=== PATIENT | female | born 1995 | race Caucasian/White ===

== ENCOUNTER 2021-12-17 19:29 | Emergency (ER) | payer OTHER, SELFPAY ==
[2021-12-17 19:38] VITALS: BP 116/66; PULSE 81; RESP 14; TEMP 37.2; O2SAT 100
--- NOTE | 2021-12-17 19:44 | ED.SKABFB ---
HPI - Skin/Abscess/Foreign Bdy General Chief complaint: Ear Stated complaint: ear infection Time Seen by Provider: 12/17/21 19:40 Source: patient Mode of arrival: ambulatory Limitations: no limitations History of Present Illness HPI narrative: Ms. Dhillon is a 26-year-old female patient presenting to the clinic today with complaints of bilateral ear pain and possible ringworm to her upper mid back. She reports that she first noticed the rash to her back yesterday. Has been fighting an upper respiratory infection and is feeling better however now she is having some bilateral ear pain. She denies any fever or chills. She denies any COVID, flu or exposure. Related Data Allergies Allergy/AdvReac Type Severity Reaction Status Date / Time No Known Allergies Allergy Unverified 12/17/21 20:05 Review of Systems Review of Systems: Pertinent positives per HPI. Patient denies any fever, chills, headache, visual changes, dizziness, cough, runny nose, sore throat, shortness of breath, chest pain, palpitations, nausea, vomiting, diarrhea, constipation, abdominal pain, or any urinary issues. PMFSH Comments At the time of my signature, I reviewed and agree with the nursing past medical, surgical, social, and family history. There is no relevant family history pertinent to the patient complaint. Exam Narrative: General: Well-developed, well nourished, in no apparent distress Head: Normocephalic, atraumatic Eyes: Pupils equally round and reactive to light bilaterally, EOM intact, sclera and conjunctive clear, no discharge, lids normal Ears: TMs intact, dull, mild bulging, ear canals clear, no drainage, grossly hearing normal. Nose: Nares patent, no discharge, no inflammation, no sinus tenderness. Mouth: Oropharynx without lesions or masses, good dentition, MMM. Neck: Supple, trachea midline, no enlargement of anterior or posterior cervical nodes, no thyroid masses or goiter palpable. Cardio: Regular rate and rhythm, s1 and s2 normal, no murmur appreciated. Resp: Clear to auscultation bilaterally anteriorly and posteriorly, no rhonchi, rales, wheezing or rubs Integumentary: [place], warm, and dry, intact without lesion, mild red/brown circular rash to the left mid back with central clearing-reports mild itching Course Course Emergency Course: Portions of this record may have been created with voice recognition software. Level of Care: Express Care Visit Vital Signs Vital signs: Vital Signs Temperature 37.2 C 12/17/21 19:38 Pulse Rate 81 12/17/21 19:38 Respiratory Rate 14 12/17/21 19:38 Blood Pressure 116/66 12/17/21 19:38 Pulse Oximetry 100 12/17/21 19:38 Temperature 37.2 C 12/17/21 19:38 Pulse Rate 81 12/17/21 19:38 Respiratory Rate 14 12/17/21 19:38 Blood Pressure 116/66 12/17/21 19:38 Pulse Oximetry 100 12/17/21 19:38 Vital signs reviewed MDM - Skin/Abscess/Foreign Bdy MDM Narrative Medical decision making narrative: At the time of visit patient is resting comfortably on the exam table. She has what appears to be a tinea corporis rash to the left mid back and eustachian tube dysfunction. I will send in a prescription for some clotrimazole cream for the ringworm and discussed other supportive measures to treat was discussed with patient and she voiced understanding of discharge instructions. Discharge Plan Discharge Clinical Impression: Tinea corporis, Acute dysfunction of both eustachian tubes Patient Disposition: Home, Self-Care Condition: Stable Instructions: Tinea Corporis (ED), Earache (ED) Additional Instructions: Apply clotrimazole cream as directed Flonase and [id number] antihistamine as directed May try [id number] Sudafed to help open up eustachian tubes Follow-up with your PCP in 3 to 5 days if symptoms persist or sooner if they worsen Prescriptions: New clotrimazole 1 % cream 1 applic topical BID 14 Days Qty: 45 RF: 0 Follow-up/Referrals:
== END 2021-12-17 19:50 | disposition home or self-care (01) ==
PROVIDERS: Emergency Provider Nurse Practitioner Family; PCP Family Medicine
DX: B35.4 Tinea corporis (principal); H69.93 Unspecified Eustachian tube disorder, bilateral
CPT/HCPCS: 99203; G0463

== ENCOUNTER 2022-09-16 18:32 | Emergency (ER) | payer MEDICAID, SELFPAY ==
[2022-09-16 18:45] VITALS: BP 115/62; PULSE 90; RESP 20; TEMP 37.6; O2SAT 100
--- NOTE | 2022-09-16 19:31 | ED.FEMALEGU ---
HPI - Female Genitourinary General Chief complaint: Urogenital-Female Stated complaint: poss yeast infection Time Seen by Provider: 09/16/22 19:31 Source: patient and RN notes reviewed Mode of arrival: ambulatory Limitations: no limitations History of Present Illness HPI Narrative: 27-year-old female presented for complaint of burning with urination, suprapubic pressure and frequency, urgency over the past 3 days. Pressure sensation is associated with urinating. Rates 4/10. She endorses nausea vomiting to , slightly worse the last 3 days. She denies vaginal bleeding. She reports slight increase in vaginal discharge, yellow/ white color. Denies abdominal pain, flank pain, fevers or chills. Denies concern for STD, stating she was just checked by OBGyn. Next OB appt is in 2 weeks. Related Data Home Medications Medication Instructions Recorded Confirmed vit no.133-ferrous 1 tablet PO DAILY 09/16/22 09/16/22 fumarate 28 mg-folic acid 800 mcg tablet () Allergies Allergy/AdvReac Type Severity Reaction Status Date / Time No Known Allergies Allergy Verified 09/16/22 19:05 Review of Systems Review of Systems: CONSTITUTIONAL: Denies body aches, fever, chills, or sweats. CARDIOVASCULAR: Denies chest pain, palpitations, or edema. RESPIRATORY: Denies cough or dyspnea. GASTROINTESTINAL: Denies abdominal pain, nausea, vomiting, or diarrhea. GENITOURINARY: Reports dysuria, frequency, urgency, denies hematuria, flank pain SKIN: Denies rash, itching, or wounds. MUSCULOSKELETAL: Denies back pain or myalgia. PMFSH Comments At time of signature, I have reviewed and agree with nursing past medical, surgical, social and family history unless otherwise noted. Please see nursing chart for further information. There is no relevant family history pertinent to the presenting complaint Exam Narrative: GENERAL: Well-appearing and in no acute distress. CHEST: No respiratory distress. Clear to auscultation. HEART: Regular rate and rhythm. ABDOMEN: Soft, nontender, Gravid. normal active bowel sounds. No CVA tenderness SKIN: Warm, dry, no rash. NEURO: No focal deficits. Alert and oriented x3. Gait steady. PSYCH: Normal affect. Course Course Emergency Course: Patient is aware of diagnosis, understands and agrees to treatment plan. Anticipatory guidance given. Patient agrees to follow-up as directed and is aware of reasons to seek care at the emergency department. Portions of this record may have been created with voice recognition software Level of Care: Express Care Visit Vital Signs Vital signs: Vital Signs Temperature 99.6 F 09/16/22 18:45 Pulse Rate 90 09/16/22 18:45 Respiratory Rate 20 09/16/22 18:45 Blood Pressure 115/62 09/16/22 18:45 Pulse Oximetry 100 09/16/22 18:45 Oxygen Delivery Room Air 09/16/22 18:45 Temperature 99.6 F 09/16/22 18:45 Pulse Rate 90 09/16/22 18:45 Respiratory Rate 20 09/16/22 18:45 Blood Pressure 115/62 09/16/22 18:45 Pulse Oximetry 100 09/16/22 18:45 Oxygen Delivery Room Air 09/16/22 18:45 Reviewed MDM - Female Genitourinary MDM Narrative Medical decision making narrative: Result of urine reviewed with pt. Will send for culture and treat empirically. Patient is advised at length possible concerning etiologies of lower abdominal pressure during . As her pressure is r/t to urination, she will continue to closely monitor symptoms and go to the ER for worsening symptoms or concerns. Advised supportive measures and signs/symptoms to go to the ER. Pt is appropriate for outpt treatment and f/u. Differential Diagnosis Differential diagnosis: Likely urinary tract infection, bacterial vaginosis, vaginitis, cystitis and other (ectopic, ovarian torsion, spontaneous , PID) Lab Data Labs: Urine Glucose Negative Reference Range: Negative
== END 2022-09-16 19:50 | disposition home or self-care (01) ==
PROVIDERS: Emergency Provider Nurse Practitioner Family; PCP Family Medicine
DX: R30.0 Dysuria (principal)
CPT/HCPCS: 81003; 87086; 99213; G0463

== ENCOUNTER 2023-03-08 06:09 | Inpatient (IN) | payer OTHER, SELFPAY ==
[2023-03-07 08:00] VITALS: BMI 23.4
[2023-03-08] VITALS (200 sets, daily range): BP systolic 90–119; BP diastolic 41–86; PULSE 45–123; RESP 16; TEMP 36.2–36.6; O2SAT 84–100
[2023-03-08 06:59] LABS: Basophils Percent Auto 0.3 % (0.2-1.2); Eosinophils Absolute Auto 0.1 K/mm3 (0-0.3); Eosinophils Percent Auto 1.2 % (0-4.4); Hematocrit 34.8 % (37.0-47.0); Hemoglobin 11.8 g/dL (12.0-15.0); Immature Granulocyte Absolute 0.05 K/mm3 (0.00-0.031); Immature Granulocyte Percent A 0.5 % (0-0.5); Lymphocytes Absolute Auto 1.86 K/mm3 (0.9-3.2); Lymphocytes Percent Auto 18.7 % (18.3-44.2); Mean Corpuscular HGB Conc 33.9 g/dl (32-36); Mean Corpuscular Hemoglobin 31.4 pg (26-34); Mean Corpuscular Volume 92.6 fl (80-100); Mean Platelet Volume 11.7 fl (7.4-10.4); Monocytes Absolute Auto 0.6 K/mm3 (0.1-0.6); Monocytes Percent Auto 6.3 % (2.6-8.5); Neutrophils Absolute Auto 7.3 K/mm3 (1.3-6.7); Platelet Count Result 142 k/mm3 (150-375); Red Blood Count 3.76 M/mm3 (4.2-5.4); Red Cell Distribution Width 12.8 % (11.5-14.5)
--- NOTE | 2023-03-08 07:05 | LDADM ---
This patient, Trina Dhillon, was admitted to Labor/Delivery/Recovery 108 on 03/08/23 at 06:09. Plans for labor, pain management and were discussed with patient. Patient/family oriented to hospital policies and general routines including ID bracelet, bed and alarms, visiting hours, pain management, procedures, bathroom and other care routines, personal items, smoking policy, room service/diet and guest tray routines, infant security routines, and visiting hours. Patient/Family are encouraged to report perceived risks to care and to ask questions if they do not understand what they are told or what they should do. See OBIX for further documentation.
[2023-03-08] MEDS: OXYTOCIN 30 UNITS/NS 500 ML 30 UNITS/500 ML BAG IV CONT (07:30)
[2023-03-08] MEDS: LACTATED RINGERS 1,000 ML 125 ML IV CONT ×3 (07:31→15:46)
--- NOTE | 2023-03-08 07:41 | WPDOBADMIT ---
Obstetrics - Admit Note Admission Note: record reviewed. No pertinent additions to the history and/or any subsequent changes in the physical findings that are not consistent with the expected course of the were found. IOL, sve 2 outer/60/-3 pitocin, anticipate vaginal delivery Additions to the history and/or subsequent changes in the physical findings follow. None.
--- NOTE | 2023-03-08 12:51 | PM.OBPNLAB ---
Pain Control Date/time seen: 03/08/23 12:51 SVE 3/60/-2 AROM moderate amount of clear odorless fluid, comfortable with epidural, FHR category 1, IUPC placed, anticipate vaginal delivery
[2023-03-08 13:49] LABS: Rapid Plasma Reagin Non-Reactive (NonReactive)
[2023-03-08] MEDS: SODIUM CHLORIDE 0.9% IV 300 ML 600 ML I-UTERINE (17:36)
[2023-03-08] MEDS: SODIUM CHLORIDE 0.9% IV 1,000 ML 150 ML I-UTERINE (18:44)
[2023-03-08] MEDS: ONDANSETRON INJ 4 MG/2 ML VIAL IV PUSH (19:05)
--- NOTE | 2023-03-08 20:01 | P.PCNOB_ITS ---
OB - Delivery Note Procedure Delivery date: 03/08/23 Procedure: Intrapartal Events: Decelerations Induction method: AROM and Per Pitocin Protocol Delivery monitor: External FHT and Internal Uterine Route of delivery: Laceration Description: None Specimen: No Quantitative Blood Loss (ml): 135 Anesthesia type: Epidural Disposition: Floor [place] Baby Date of : 03/08/23 Time of : 19:51 Weeks of gestation at delivery: 39 gender: Male presentation: vertex position: Left Occiput Anterior Placenta delivery description: Spontaneous Cord Vessel Description: 3 Vessels, Clamped/Cut and Delayed Cord Clamping score one minute: 9 score five minutes: 9 Narrative: mother and baby skin to skin in stable condition
[2023-03-08] MEDS: OXYTOCIN 30 UNITS/NS 500 ML 30 UNITS/500 ML BAG 125 UNITS IV CONT (20:23)
[2023-03-08] MEDS: IBUPROFEN 600 MG TABLET PO (21:07)
[2023-03-08] MEDS: WITCH HAZEL 40 PADS 1 PAD TOPICAL (21:08)
[2023-03-08] MEDS: BENZOCAINE 20% AER SPR (*SP) 56 GM CAN 1 SPRAY TOPICAL (21:08)
--- NOTE | 2023-03-08 22:20 | OBPPTRN ---
Patient transferred to post room #283 via wheelchair. Support person present. Oriented to unit, room, information board, rooming in, admission packet and security measures. Patient verbalizes understanding.
[2023-03-08] MEDS: ACETAMINOPHEN 325 MG TABLET 650 MG PO (22:38)
[2023-03-09 02:47] VITALS: BP 103/68; PULSE 67; RESP 16; TEMP 36.6; O2SAT 99
[2023-03-09 04:38] LABS: Hematocrit 31.6 % (37.0-47.0); Hemoglobin 10.6 g/dL (12.0-15.0)
[2023-03-09 07:35] VITALS: BP 104/71; PULSE 79; RESP 16; TEMP 36.7; O2SAT 99
[2023-03-09] MEDS: IBUPROFEN 600 MG TABLET PO ×2 (07:48→16:00)
[2023-03-09] MEDS: DOCUSATE SODIUM 100 MG CAPSULE PO ×2 (07:48→16:00)
--- NOTE | 2023-03-09 08:23 | PM.OBPNVD ---
OB - PN: Subj Subjective Date/time seen: 03/09/23 08:23 Patient comments: no complaints, pain well controlled, incisional pain, tolerating diet and flatus present OB - PN: Obj Data Labs 03/09/23 04:16 Labs: Laboratory Results - last 24 hr 03/08/23 03/09/23 06:41 04:16 Hgb 10.6 L Hct 31.6 L RPR Non-reactive OB - PN A/P Plan day: 1 Plan: routine care Comments: No problems, routine care Time Spent With Patient Time: Total time spent is greater than 50% in coordination of care (as documented) at patient's floor/unit and/or counseling patient: Exam Const: General: comfortable, no acute distress and alert Resp: Effort & Inspection: normal respiratory effort Auscultation: no crackles, no rales and no rhonchi Cardio: Rate: regular rate Heart sounds: no click, no murmurs and no rubs GI: Inspection: non-distended GI Palp: No Tenderness to palpation present (GI) Auscultation: normal bowel sounds Other: Incision - CDI Extrem: General: normal to inspection, no pedal edema and no calf tenderness
[2023-03-09] MEDS: ACETAMINOPHEN 325 MG TABLET 650 MG PO (12:20)
[2023-03-09 12:21] VITALS: BP 112/80; PULSE 63; RESP 16; TEMP 37.2; O2SAT 99
--- NOTE | 2023-03-09 14:00 | WPDANLDPN2 ---
Anes-Prog Note L&D Date/Time: 03/09/23 14:00 Comfortable throughout: labor and delivery Neuraxial method: epidural Epidural/Spinal procedure site: clean & non-tender Neuro status: Neuro function grossly intact. Cardiovascular status: normal Respiratory status: normal Airway patency: baseline Mental status: baseline Post-Op hydration status: normal Vital Signs: Last Vital Signs Temp 37.2 C 03/09/23 12:21 Pulse 63 03/09/23 12:21 Resp 16 03/09/23 12:21 BP 112/80 03/09/23 12:21 Pulse Ox 99 03/09/23 12:21 O2 Del Method Room Air 03/08/23 07:12 Pain score (VAS): 2/10 I/O: Intake & Output 03/08/23 03/09/23 03/09/23 23:59 07:59 15:59 Intake Total 500 Output Total 75 Balance 425 Post-procedural complaints: none Patient feedback: Patient satisfied with anesthetic care.
[2023-03-09 15:40] VITALS: BP 110/72; PULSE 77; RESP 16; TEMP 36.9; O2SAT 100
[2023-03-09 20:00] VITALS: BP 107/73; PULSE 73; RESP 18; TEMP 36.9
[2023-03-10 07:40] VITALS: BP 112/73; PULSE 58; RESP 18; TEMP 36.6; O2SAT 100
--- NOTE | 2023-03-10 07:40 | PM.OBPNVD ---
OB - PN: Subj Subjective Date/time seen: 03/10/23 07:40 doing well no complaints d/c home OB - PN: Obj Data Labs 03/09/23 04:16 OB - PN A/P Plan day: 2 Plan: routine care and discharge home Time Spent With Patient Time: Total time spent is greater than 50% in coordination of care (as documented) at patient's floor/unit and/or counseling patient: Review of Systems Review of Systems: All systems reviewed & are unremarkable except as noted in HPI and below Exam Const: General: cooperative Chest: Chest palpation & inspection: normal inspection of the chest Resp: Effort & Inspection: normal respiratory effort Cardio: Rate: regular rate Rhythm: regular rhythm GI: Other: soft Skin: General skin exam: normal color Neuro: General: patient oriented x3 Extrem: Right lower extremity: normal to inspection Left lower extremity: normal to inspection Psych: Appearance: grossly normal
--- NOTE | 2023-03-10 07:42 | PM.OBDSVD ---
DS: Admitting Diagnosis Discharge Date 03/10/23 Admitting Diagnosis IOL DS: Discharge Diagnosis Discharge Diagnosis (1) Vaginal delivery: Code(s): O80 - Encounter for full-term uncomplicated delivery Status: Acute OB - DS: Summary OB Procedures : None OB Procedures Intrapartum: Spontaneous Vag Delivery OB Procedures: : None Time Spent with Patient Time attestation: Total time spent providing and/or coordinating discharge services: Discharge Plan Discharge Attending physician on discharge: Edelmira Ruiz Discharging Clinician: Zuleima Olsen Patient Disposition: Home, Self-Care Activity: pelvic rest Diet: regular Patient Instructions: Antibiotic Form Stand Alone Forms: General Discharge Information Follow-up/Referrals: Zuleima Olsen CNM [Certified Nurse Application Penetration Tester] - 4 Weeks Discharge Medications: New ibuprofen 600 mg Tablet 600 mg PO Q6H PRN (Reason: Cramping) Qty: 30 0RF Continued 28-800 mg-mcg Tablet 1 tablet PO DAILY Date of admission: 03/08/23 06:09 Primary Care Provider: Ivan,Wisam Otto Admitting Provider: Edelmira Ruiz Attending physician on admission: Edelmira Ruiz Condition: Stable
[2023-03-10] MEDS: IBUPROFEN 600 MG TABLET PO (08:55)
[2023-03-11 10:09] VITALS: BP 117/66; PULSE 69; RESP 18; TEMP 37.4; O2SAT 100
== END 2023-03-10 13:01 | disposition home or self-care (01) | DRG 560 ==
LOC: ANHLDR 06:12 → ANHOB2 22:20
PROVIDERS: Advanced Practice Midwife; Admitting Provider Obstetrics & Gynecology; PCP Family Medicine; Visit Provider Obstetrics & Gynecology
DX: O76 Abnormality in fetal heart rate and rhythm complicating labor and delivery (principal); Z37.0 Single live birth; Z3A.39 39 weeks gestation of pregnancy
CPT/HCPCS: 36415; 85014; 85018; 85025; 86592; 86850; 86900; 86901; A9270; J2405; J2590; J2795; J7030; J7120

== ENCOUNTER 2023-08-01 13:07 | Outpatient (CLI) | payer OTHER, SELFPAY ==
[2023-08-01 15:09] LABS: Beta HCG Quantitative 19.65 mIU/ML
== END 2023-08-01 13:08 | disposition home or self-care (01) ==
LOC: ANHLAB 13:09
PROVIDERS: PCP Family Medicine; Visit Provider Advanced Practice Midwife
DX: O20.0 Threatened abortion (principal); Z3A.00 Weeks of gestation of pregnancy not specified
CPT/HCPCS: 36415; 84702

== ENCOUNTER 2023-08-01 19:14 | Emergency (ER) | payer OTHER, SELFPAY ==
[2023-08-01 19:15] VITALS: BP 111/78; PULSE 90; RESP 16; TEMP 36.6; O2SAT 100
--- NOTE | 2023-08-02 00:24 | PC.NURSE ---
Patient states I have already been here for 6 hours, Im not waiting for blood work now. Blood work an hour ago would have been nice . Patient eloped before seeing provider.
== END 2023-08-02 02:13 | disposition left against medical advice (07) ==
PROVIDERS: PCP Family Medicine
DX: O67.9 Intrapartum hemorrhage, unspecified (principal); Z3A.00 Weeks of gestation of pregnancy not specified
CPT/HCPCS: 99199

== ENCOUNTER 2023-08-03 17:33 | Outpatient (CLI) | payer OTHER, SELFPAY ==
[2023-08-03 21:15] LABS: Beta HCG Quantitative 31.69 mIU/ML
== END 2023-08-03 17:34 | disposition home or self-care (01) ==
LOC: ANHLAB 17:34
PROVIDERS: PCP Family Medicine; Visit Provider Obstetrics & Gynecology
DX: O20.0 Threatened abortion (principal); Z3A.00 Weeks of gestation of pregnancy not specified
CPT/HCPCS: 36415; 84702

== ENCOUNTER 2023-08-05 13:38 | Outpatient (CLI) | payer OTHER, SELFPAY ==
[2023-08-05 14:40] LABS: Beta HCG Quantitative 7.23 mIU/ML
== END 2023-08-05 13:39 | disposition home or self-care (01) ==
LOC: ANHLAB 13:40
PROVIDERS: PCP Family Medicine; Visit Provider Obstetrics & Gynecology
DX: O20.0 Threatened abortion (principal); Z3A.00 Weeks of gestation of pregnancy not specified
CPT/HCPCS: 36415; 84702

== ENCOUNTER 2024-05-11 02:29 | Inpatient (IN) | payer OTHER, SELFPAY ==
[2024-05-11] VITALS (98 sets, daily range): BP systolic 64–219; BP diastolic 30–200; PULSE 51–154; RESP 14–18; TEMP 36.5–37.2; O2SAT 95–100; BMI 23.3
--- NOTE | 2024-05-11 03:01 | LDADM ---
This patient, Trina Dhillon, was admitted to Labor/Delivery/Recovery 104 on 05/11/24 at 02:29. Plans for labor, pain management and were discussed with patient. Patient/family oriented to hospital policies and general routines including ID bracelet, bed and alarms, visiting hours, pain management, procedures, bathroom and other care routines, personal items, smoking policy, room service/diet and guest tray routines, infant security routines, and visiting hours. Patient/Family are encouraged to report perceived risks to care and to ask questions if they do not understand what they are told or what they should do. See OBIX for further documentation.
[2024-05-11 03:13] LABS: Basophils Percent Auto 0.3 % (0.2-1.2); Eosinophils Absolute Auto 0.1 K/mm3 (0-0.3); Eosinophils Percent Auto 0.7 % (0-4.4); Hematocrit 34.7 % (37.0-47.0); Hemoglobin 11.8 g/dL (12.0-15.0); Immature Granulocyte Absolute 0.06 K/mm3 (0.00-0.031); Immature Granulocyte Percent A 0.5 % (0-0.5); Lymphocytes Absolute Auto 1.94 K/mm3 (0.9-3.2); Lymphocytes Percent Auto 15.9 % (18.3-44.2); Mean Corpuscular Hemoglobin 29.4 pg (26-34); Mean Corpuscular Volume 86.3 fl (80-100); Mean Platelet Volume 11.1 fl (7.4-10.4); Monocytes Absolute Auto 0.5 K/mm3 (0.1-0.6); Monocytes Percent Auto 4.4 % (2.6-8.5); Neutrophils Absolute Auto 9.5 K/mm3 (1.3-6.7); Neutrophils Percent Auto 78.2 % (45.5-73.1); Platelet Count Result 188 k/mm3 (150-375); Red Blood Count 4.02 M/mm3 (4.2-5.4); Red Cell Distribution Width 12.8 % (11.5-14.5); White Blood Count 12.2 K/mm3 (4.5-10.0)
[2024-05-11] MEDS: LACTATED RINGERS 1,000 ML 125 ML IV CONT (03:20)
[2024-05-11] MEDS: AMPICILLIN 2 GM/NS 100 ML 2 GM/100 ML BAG IVPB (03:49)
[2024-05-11 04:05] LABS: HIV 1/2 Ab P24 Ag Result Negative (Negative)
--- NOTE | 2024-05-11 04:06 | WPDANESEPP ---
Anes - Eval Pre Procedure Procedure: Labor Epidural Date/Time: 05/11/24 04:06 Surgeon: Sara Preop Diagnosis: Labor Pain Pre Op Diagnosis: SROM Patient Data Age: 29 Gender: F Height: 1.63 m Weight: 61.63 kg Last Vital Signs Pulse 81 05/11/24 04:00 BP 117/82 05/11/24 04:00 Pulse Ox 97 05/11/24 04:01 O2 Del Method Room Air 05/11/24 02:58 Allergies Allergy/AdvReac Type Severity Reaction Status Date / Time No Known Allergies Allergy Verified 03/08/23 07:17 Home Medications Medication Instructions Recorded Confirmed Type vit no.133-ferrous 1 tablet PO DAILY 09/16/22 03/08/23 History fumarate 28 mg-folic acid 800 mcg tablet () ibuprofen 600 mg tablet 600 mg PO Q6H PRN Cramping #30 tabs 03/10/23 Rx Laboratory Tests 05/11/24 03:06 WBC 12.2 H K/mm3 (4.5-10.0) RBC 4.02 L M/mm3 (4.2-5.4) Hgb 11.8 L g/dL (12.0-15.0) Hct 34.7 L % (37.0-47.0) MCV 86.3 fl (80-100) MCH 29.4 pg (26-34) MCHC 34.0 g/dl (32-36) RDW 12.8 % (11.5-14.5) Plt Count 188 k/mm3 (150-375) MPV 11.1 H fl (7.4-10.4) Immature Gran % (Auto) 0.5 % (0-0.5) Neut % (Auto) 78.2 H % (45.5-73.1) Lymph % (Auto) 15.9 L % (18.3-44.2) Frio % (Auto) 4.4 % (2.6-8.5) Eos % (Auto) 0.7 % (0-4.4) Baso % (Auto) 0.3 % (0.2-1.2) Lymph # (Auto) 1.94 K/mm3 (0.9-3.2) Frio # (Auto) 0.5 K/mm3 (0.1-0.6) Eos # (Auto) 0.1 K/mm3 (0-0.3) Baso # (Auto) 0.0 K/mm3 (0.0-0.1) Abs Immat Gran (auto) 0.06 H K/mm3 (0.00-0.031) Absolute Neuts (auto) 9.5 H K/mm3 (1.3-6.7) Absolute Nucleated RBC 0.000 K/mm3 (0.0-0.012) Nucleated RBC % 0.0 % (0.0-0.2) RPR Pending HIV 1&2 Ab/P24 Ag 4thGn Negative (Negative) : gestational age (MIREYA 06/01/24, ) Patient hx anesthesia problems: none Family hx anesthesia problems: none Results Review: All pre-operative results and documents have been reviewed as part of the pre-operative evaluation. [facility] Family History Family History Sibling Down's syndrome Social History Social History Smoking status: Never smoker Second hand tobacco smoke exposure: No Substance use: never Do You Feel Safe in your Home?: Yes Lack of Transportation: No Lack of Food: Never True Current Housing: I Have Housing Concerned About Future Housing: No Difficulty Paying Gas/Electric Bills: No Difficulty Paying for Meds: No Currently Unemployed: No Education: High School Diploma/GED Difficulty w/ Childcare or Family Care: No Spiritual care concerns: No Exam Day of Procedure 05/11/24 04:06 Patient weight: normal Heart: regular rate and rhythm Lungs: normal air movement Airway: Mallampati scale class II Neurological: alert and oriented
[2024-05-11 04:47] LABS: Rapid Plasma Reagin Non-Reactive (NonReactive)
[2024-05-11 05:09] LABS: Amphetamine Screen Urine Negative (Negative); Barbiturate Screen Urine Negative (Negative); Benzodiazepines Screen Urine Negative (Negative); Cannabinoid Screen Urine Positive (Negative); Cocaine Screen Urine Negative (Negative); Methadone Screen Urine Negative (Negative); Opiate Screen Urine Negative (Negative); Phencyclidine Screen Urine Negative (Negative)
[2024-05-11] MEDS: SODIUM CHLORIDE 0.9% IV 300 ML 600 ML I-UTERINE (05:41)
--- NOTE | 2024-05-11 06:51 | PM.OBPRVD ---
OB - Vaginal Delivery Note Procedure Delivery date: 05/11/24 Delivery monitor: External FHT and Internal Uterine Route of delivery: Episiotomy description: None Laceration Description: None Specimen: No Quantitative Blood Loss (ml): 45 Anesthesia type: Epidural Disposition: Floor Complications: No immediate complications Baby Date of : 05/11/24 Time of : 06:43 Gestational Age by Date: 37 gender: Male presentation: vertex position: Left Occiput Anterior Placenta delivery description: Spontaneous Cord Vessel Description: 3 Vessels, Clamped/Cut and Delayed Cord Clamping score one minute: 9 score five minutes: 9
[2024-05-11] MEDS: WITCH HAZEL 40 PADS 1 PAD TOPICAL (10:18)
[2024-05-11] MEDS: IBUPROFEN 600 MG TABLET PO ×2 (11:09→17:26)
[2024-05-11] MEDS: DOCUSATE SODIUM 100 MG CAPSULE PO ×2 (11:09→17:26)
[2024-05-11] MEDS: ONDANSETRON INJ 4 MG/2 ML VIAL (11:10)
--- NOTE | 2024-05-11 11:46 | OBPPTRN ---
Patient transferred to post room #289 via ( wheelchair). Support person present. Oriented to unit, room, information board, rooming in, admission packet and security measures. Patient verbalizes understanding.
[2024-05-11] MEDS: ACETAMINOPHEN 325 MG TABLET 650 MG PO ×2 (13:30→19:04)
[2024-05-12 03:50] VITALS: BP 101/48; PULSE 51; RESP 16; TEMP 36.6; O2SAT 99
[2024-05-12 05:21] LABS: Hematocrit 28.9 % (37.0-47.0); Hemoglobin 9.8 g/dL (12.0-15.0)
[2024-05-12] MEDS: DOCUSATE SODIUM 100 MG CAPSULE PO ×2 (07:20→17:13)
[2024-05-12] MEDS: POLYSACCHARIDE IRON COMPLEX 150 MG CAPSULE PO ×2 (07:20→17:13)
[2024-05-12] MEDS: ACETAMINOPHEN 325 MG TABLET 650 MG PO ×2 (07:21→17:13)
[2024-05-12 07:49] VITALS: BP 110/78; PULSE 72; RESP 18; TEMP 36.4; O2SAT 100
[2024-05-12] MEDS: IBUPROFEN 600 MG TABLET PO (08:47)
--- NOTE | 2024-05-12 08:58 | PM.OBPNVD ---
OB - PN: Subj Subjective Date/time seen: 05/12/24 08:58 Patient comments: no complaints, pain well controlled, incisional pain, tolerating diet and flatus present OB - PN: Obj Data Labs 05/12/24 05:12 Labs: Laboratory Results - last 24 hr 05/12/24 05:12 Hgb 9.8 L Hct 28.9 L OB - PN A/P Plan day: 1 Plan: routine care Comments: No problems, routine care Time Spent With Patient Time: Total time spent is greater than 50% in coordination of care (as documented) at patient's floor/unit and/or counseling patient: Exam Const: General: comfortable, no acute distress and alert Resp: Effort & Inspection: normal respiratory effort Auscultation: no crackles, no rales and no rhonchi Cardio: Rate: regular rate Heart sounds: no click, no murmurs and no rubs GI: Inspection: non-distended GI Palp: No Tenderness to palpation present (GI) Auscultation: normal bowel sounds Other: Incision - CDI Extrem: General: normal to inspection, no pedal edema and no calf tenderness
[2024-05-12 20:00] VITALS: BP 109/69; PULSE 88; RESP 16; TEMP 37.2; O2SAT 99
[2024-05-13 07:40] VITALS: BP 104/63; PULSE 63; RESP 16; TEMP 36.3; O2SAT 100
--- NOTE | 2024-05-13 08:49 | PM.OBPNVD ---
OB - PN: Subj Subjective Date/time seen: 05/13/24 08:49 Interval history: PPD #2 Doing well, pain controlled Voiding without issue Ready for discharge home OB - PN: Obj Data Labs 05/12/24 05:12 OB - PN A/P Assessment and Plan (1) Vaginal delivery: Code(s): O80 - Encounter for full-term uncomplicated delivery Status: Acute Plan day: 1 Plan: routine care and discharge home Time Spent With Patient Time: Total time spent is greater than 50% in coordination of care (as documented) at patient's floor/unit and/or counseling patient: Review of Systems Review of Systems: All systems reviewed & are unremarkable except as noted in HPI and below Exam Const: General: comfortable and no acute distress Orientation/consciousness: patient oriented x3 Resp: Effort & Inspection: normal respiratory effort
--- NOTE | 2024-05-13 08:51 | P.DS_ITS ---
DS: Admitting Diagnosis Discharge Date 05/13/24 Admitting Diagnosis labor DS: Discharge Diagnosis Discharge Diagnosis (1) Vaginal delivery: Code(s): O80 - Encounter for full-term uncomplicated delivery Status: Acute OB - DS: Summary OB Procedures : None OB Procedures Intrapartum: Spontaneous Vag Delivery OB Procedures: : None Peripartum Data Laceration Description: None Episiotomy description: None Time Spent with Patient Time attestation: Total time spent providing and/or coordinating discharge services: Discharge Plan Discharge Attending physician on discharge: Benjamin Israel Consulting providers: Zuleima Olsen Discharging Clinician: Benjamin Israel Patient Disposition: Home, Self-Care Activity: may shower and pelvic rest Diet: as tolerated Patient Instructions: Antibiotic Form Stand Alone Forms: General Discharge Information Follow-up/Referrals: Orion Ruiz MD [Physician] - 5 Weeks Zuleima Olsen CNM [Certified Nurse Motion Picture Operator] - Discharge Medications: New docusate sodium 100 mg Capsule 100 mg PO BID PRN (Reason: Constipation) Qty: 60 0RF ibuprofen 600 mg Tablet 600 mg PO Q6H PRN (Reason: Cramping) Qty: 30 0RF Continued 28-800 mg-mcg Tablet 1 tablet PO DAILY Discontinued ibuprofen 600 mg Tablet 600 mg PO Q6H PRN (Reason: Cramping) Qty: 30 0RF Date of admission: 05/11/24 02:29 Primary Care Provider: Ivan,Wisam Otto Admitting Provider: Orion Ruiz Attending physician on admission: Orion Ruiz Condition: Stable
[2024-05-13] MEDS: POLYSACCHARIDE IRON COMPLEX 150 MG CAPSULE PO (09:00)
[2024-05-13] MEDS: IBUPROFEN 600 MG TABLET PO (09:00)
[2024-05-13] MEDS: DOCUSATE SODIUM 100 MG CAPSULE PO (09:00)
[2024-05-14 12:45] VITALS: BP 101/72; PULSE 101; RESP 18; TEMP 37.1; O2SAT 100
== END 2024-05-13 14:09 | disposition home or self-care (01) | DRG 560 ==
LOC: ANHLDR 02:56 → ANHOB2 05-13 08:51 → ANHLDR 05-14 10:44 → ANHOB2 05-14 10:44
PROVIDERS: Advanced Practice Midwife; Admitting Provider Obstetrics & Gynecology; PCP Family Medicine; Visit Provider Obstetrics & Gynecology
DX: O69.82X0 Labor and delivery complicated by other cord entanglement, without compression, not applicable or unspecified (principal); Z37.0 Single live birth; Z3A.37 37 weeks gestation of pregnancy
CPT/HCPCS: 36415; 80307; 85014; 85018; 85025; 86592; 86703; 86850; 86900; 86901; A9270; G0432; J0290; J2405; J2795; J7030; J7120

== ENCOUNTER 2025-06-06 11:49 | Observation (INO) | payer OTHER, SELFPAY ==
--- NOTE | ~2025-06-06 | US_ITS ---
EXAMINATION: US OB BPP wo non-stress DATE: 06/06/2025 13:42 INDICATION: Contractions and variable decelerations TECHNIQUE: Real-time pelvic ultrasound was performed. The interpreting radiologist was not present for the study. COMPARISON: None. FINDINGS: There is a single living fetus in vertex presentation. The placenta is posterior. cardiac activity and movement are demonstrated. heart rate is 146 beats per minute (bpm). Cervical length measures 4.99 cm. BHAVNA equals 10.6 cm. IMPRESSION: 1. Single living intrauterine in vertex presentation with heart rate of with heart rate of 146 bpm. 2. Cervical length measures 4.99 cm. Reviewed, dictated and finalized at location Q. ICAL BLENDER
--- NOTE | ~2025-06-06 | US_ITS ---
Please see the OB ultrasound study report from 06/06/2025 for this study's report. Reviewed, dictated and finalized at location Q. 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
[2025-06-06 12:07] VITALS: BMI 24.0
--- NOTE | 2025-06-06 12:07 | OBADM ---
This patient, Trina Dhillon, admitted to the OB room OB Post 116 for observation. Patient/family oriented to hospital policies and general routines including ID bracelet, bed and alarms, visiting hours, pain management, procedures, bathroom and other care routines, personal items, smoking policy, room service/diet, and visiting hours. Patient/Family are encouraged to report perceived risks to care and to ask questions if they do not understand what they are told or what they should do.
[2025-06-06 12:15] VITALS: BP 113/65; PULSE 89
[2025-06-06 12:16] LABS: Add Urine Microscopic? NO; Appearance Urine Clear (Clear); Glucose Urine UA Negative (Negative); Leukocyte Esterase Ur Negative LEU/UL (Negative); Nitrate Urine Negative (Negative); Specific Grav Ur 1.009 (1.001-1.035)
--- OUTSIDE RECORDS SUMMARY | 2025-06-06 12:21 | XMS_ITS | Continuity of Care Document ---
Author Organization [facility] Address [address] [place] [address] [place] [address] Assessment Encounter Date Assessment Date Assessment LastModified by Organization Details LastModified Time 06/06/2025 06/06/2025 Patient is _32__weeks . Discussed plan. Not available 06/06/2025 12:02:14 Plan of Treatment Reminders Order Date Submit Date Provider Last Modified By Organization Details Last Modified Time Details Appointments OB ROUTINE 2024 10:45A M Zuleima Olsen CNM Not available Not available Not available NST 2024 11:00A M NST SCHEDULE Not available Not available Not available OB ROUTINE 2024 08:45A M Zuleima Olsen CNM Not available Not available Not available OB ROUTINE 2024 10:15A M Zuleima Olsen CNM Not available Not available Not available Lab None recorded . Referral None recorded . Procedures None recorded . Surgeries None recorded . Imaging None recorded . Medication Orders None recorded . Patient TargetsNo targets recorded. Patient InstructionsNo instructions recorded. Reason for Referral None Reported. Results Created Date Observation Date Name Description Value Unit Range Abnormal Flag Note LastModifiedBy Organization Detail LastModifiedTime 01/23/2001/22/2025 [UNIT Y] ANEUP LOIDY NIPT fraction 9.8% normal Not Available [facility] [address], [place], [address], 01/22/2025 22:58:15 01/23/20 25 01/22/2025 [UNIT Y] ANEUP LOIDY NIPT 22Q11.2 microdeletio n LOW RISK <1 in 10,000 normal Not Available [facility] [address], [place], [address], 01/22/2025 22:58:15 01/23/20 25 01/22/2025 [UNIT Y] ANEUP LOIDY NIPT sex chromosome aneuploidy NOT DETECT ED normal Not Available [facility] [address], [place], [address], 01/22/2025 22:58:15 01/23/20 25 01/22/2025 [UNIT Y] ANEUP LOIDY NIPT monosomy X LOW RISK <1 in 10,000 normal Not Available [facility] [address], [place], [address], 01/22/2025 22:58:15 01/23/20 25 01/22/2025 [UNIT Y] ANEUP LOIDY NIPT trisomy 13 LOW RISK <1 in 10,000 normal Not Available [facility] [address], [place], [address], 01/22/2025 22:58:15 01/23/20 25 01/22/2025 [UNIT Y] ANEUP LOIDY NIPT trisomy 18 LOW RISK <1 in 10,000 normal Not Available [facility] [address], [place], [address], 01/22/2025 22:58:15 01/23/20 25 01/22/2025 [UNIT Y] ANEUP LOIDY NIPT trisomy 21 LOW RISK <1 in 10,000 normal Not Available [facility] [address], [place], [address], 01/22/2025 22:58:15 01/23/20 25 01/22/2025 [UNIT Y] ANEUP LOIDY NIPT sex MALE normal Not Available [facility] [address], [place], [address], 01/22/2025 22:58:15 01/23/20 25 01/22/2025 [UNIT Y] ANEUP LOIDY NIPT gestation SINGLE TON normal Not Available [facility] [address], [place], [address], 01/22/2025 22:58:15 01/23/20 25 01/22/2025 [UNIT Y] ANEUP LOIDY NIPT for detailed report, see pdf See PDF normal Not Available [facility] [address], [place], [address], 01/22/2025 22:58:15 01/18/20 25 01/17/2025 CULTU RE: URINE result report SEE RESULT S BELOW abnormal Test: Cultu re: Urine Speci men Sourc e: Urine Voide d Speci men Type: Urine Speci men Date: 2024 1622 Resul t Date: 2024 0142 Resul t Statu s: Final resul t Abnor mal: Yes Resul josé miguelg Lab: [facility] [address] [facility] [address] Tel: CULTU RE ----- ----- ----- --- 1,000 -5,00 0 CFU/m l Strep tococ cus agala ctiae (Grou p B) (Abno rmal) Strep tococ cus agala ctiae (Beta strep Group B Strep ) remai ns unive rsall y susce ptibl e to penic illin , cefaz zack and vanco mycin . If clind amyci n is being consi dered for intra partu m proph ylaxi s, pleas e conta ct the lab withi n 5 days. Not Available [facility] (Lab) [address], [place], [address], 01/19/2025 02:46:33 01/18/20 25 01/17/2025 CBC W/DIF F WBC 8.1 10'3/ uL 3.5-10 .5 Not Available [facility] (Lab) [address], [place], [address], 01/20/2025 12:18:01 01/18/20 25 01/17/2025 CBC W/DIF F RBC 3.68 10'6/ uL (based on docume nted legal sex) 3.80-5 .20 low Not Available [facility] (Lab) [address] [facility], [place], [address], 01/20/2025 12:18:01 01/18/20 25 01/17/2025 CBC W/DIF F HGB 10.4 g/dL (based on docume nted legal sex) 11.6-1 5.4 low Not Available [facility] (Lab) [address], [place], [address], 01/20/2025 12:18:01 01/18/20 25 01/17/2025 CBC W/DIF F HCT 32.2 % (based on docume nted legal sex) 34.0-4 5.0 low Not Available [facility] (Lab) [address], [place], [address], 01/20/2025 12:18:01 01/18/20 25 01/17/2025 CBC W/DIF F MCV 87.5 fL 80.0-9 9.0 Not Available [facility] (Lab) [address] [facility], [place], [address], 01/20/2025 12:18:01 01/18/20 25 01/17/2025 CBC W/DIF F MCH 28.3 pg 27.0-3 4.0 Not Available [facility] (Lab) [address] [facility], [place], [address], 01/20/2025 12:18:01 01/18/20 25 01/17/2025 CBC W/DIF F MCHC 32.3 g/dL 32.0-3 5.5 Not Available [facility] (Lab) [address] [place], [address], 01/20/2025 12:18:01 01/18/20 25 01/17/2025 CBC W/DIF F RDW 14.5 % 11.0-1 5.0 Not Available [facility] (Lab) [address], [place], [address], 01/20/2025 12:18:01 01/18/20 25 01/17/2025 CBC W/DIF F plt 157 10'3/ uL 150-40 0 Not Available [facility] (Lab) [address] [facility], [place], [address], 01/20/2025 12:18:01 01/18/20 25 01/17/2025 CBC W/DIF F MPV 12.7 fL 8.8-12 .1 high Not Available [facility] (Lab) [address] [facility], [place], [address], 01/20/2025 12:18:01 01/18/20 25 01/17/2025 CBC W/DIF F NRBC's 0.0 % 0.0 Not Available [facility] (Lab) [address] [facility], [place], [address], 01/20/2025 12:18:01 01/18/20 25 01/17/2025 CBC W/DIF F absolute NRBCs 0.0 10'3/ uL no refere nce range establ ished Not Available [facility] (Lab) [address] [facility], [place], [address], 01/20/2025 12:18:01 01/18/20 25 01/17/2025 CBC W/DIF F neutrophils 73.9 % 34.0-7 3.0 high Not Available [facility] (Lab) [address] [facility], [place], [address], 01/20/2025 12:18:01 01/18/20 25 01/17/2025 CBC W/DIF F lymphocytes 21.1 % 15.0-5 0.0 Not Available [facility] (Lab) [address] [facility], [place], [address], 01/20/2025 12:18:01 01/18/20 25 01/17/2025 CBC W/DIF F monocytes 4.1 % 1.0-15 .0 Not Available [facility] (Lab) [address] [facility], [place], [address], 01/20/2025 12:18:01 01/18/20 25 01/17/2025 CBC W/DIF F eosinophils 0.5 % 0.0-8. 0 Not Available [facility] (Lab) [address] [facility], [place], [address], 01/20/2025 12:18:01 01/18/20 25 01/17/2025 CBC W/DIF F basophils 0.2 % 0.0-2. 0 Not Available [facility] (Lab) [address] [facility], [place], [address], 01/20/2025 12:18:01 01/18/20 25 01/17/2025 CBC W/DIF F immature granulocytes 0.2 % no define d refere nce range Immat ure Granu locyt es (IG) repre sents autom ated enume ratio n of Metam yeloc ytes, Myelo cytes and Promy elocy glo when IG is < 5%. Blast s are not inclu ded in IG and repor alfonso separ ately if prese nt. Not Available [facility] (Lab) [address], [place], [address], 01/20/2025 12:18:01 01/18/20 25 01/17/2025 CBC W/DIF F absolute neutrophils 6.0 10'3/ uL 1.5-8. 0 Not Available [facility] (Lab) [address] [facility], [place], [address], 01/20/2025 12:18:01 01/18/20 25 01/17/2025 CBC W/DIF F absolute lymphocytes 1.7 10'3/ uL 1.0-4. 0 Not Available [facility] (Lab) [address] [facility], [place], [address], 01/20/2025 12:18:01 01/18/20 25 01/17/2025 CBC W/DIF F absolute monocytes 0.3 10'3/ uL 0.2-1. 0 Not Available [facility] (Lab) [address] [place], [address], 01/20/2025 12:18:01 01/18/20 25 01/17/2025 CBC W/DIF F absolute eosinophils 0.0 10'3/ uL 0.0-0. 6 Not Available [facility] (Lab) [address] [facility], [place], [address], 01/20/2025 12:18:01 01/18/20 25 01/17/2025 CBC W/DIF F absolute basophils 0.0 10'3/ uL 0.0-0. 3 Not Available [facility] (Lab) [address] [facility], [place], [address], 01/20/2025 12:18:01 01/18/20 25 01/17/2025 CBC W/DIF F absolute immature granulocytes 0.0 10'3/ uL 0.00-0 .10 : Not Hispa zohaib or Latin o Refer ence range s for nonbi nary/ inter sex or unspe cifie d gende r patie nts have not been estab lishe d. Pleas e refer to the ludwino wing table for range s estab lishe d for cisge nder patie nts and evalu ate in the clini gogo fili xt of the indiv idual patie nt: https ://la bhand book. nm.or g/gen derx Not Available [facility] (Lab) [address] [facility], [place], [address], 01/20/2025 12:18:01 01/18/20 25 01/17/2025 HEPAT ITIS B SURFA CE ANTIG EN hepatitis B surface antigen Non-re active non-re active This assay was perfo rmed using [employer] ratio n reage nts and test kits. Value s obtai sue with other assay metho ds or kits canno t be used inter lund eably . : Not Hispa zohaib or Latin o Not Available [facility] (Lab) [address] [facility], [place], [address], 01/20/2025 12:18:02 01/18/20 25 01/17/2025 HEPAT ITIS C ANTIB TOM SCREE N, REFLE X TO CONFI RMATI ON hepatitis C antibody Non-re active non-re active Antib odies to HCV Not Detec alfonso, does not exclu de the possi bilit y of expos ure to HCV. : Not Hispa zohaib or Latin o Not Available [facility] (Lab) [address] [facility], [place], [address], 01/20/2025 12:18:02 01/18/20 25 01/17/2025 HIV 1/2 ANTIG EN/AN TIBOD Y, REFLE X CONFI RMATI ON HIV antigen/anti body Nonrea ctive nonrea ctive : Not Hispa zohaib or Latin o HIV-1 antig en and HIV-1 /HIV- 2 antib odies were not detec alfonso. No labor atory evide nce of HIV infec tion. Not Available [facility] (Lab) [address] [facility], [place], [address], 01/20/2025 12:18:03 01/18/20 25 01/17/2025 TYPE/ RH/SC REEN ABO/Rh type O POS Not Available [facility] (Lab) [address], [place], [address], 01/20/2025 12:18:03 01/18/20 25 01/17/2025 TYPE/ RH/SC REEN antibody screen NEG Not Available [facility] (Lab) [address] [facility], [place], [address], 01/20/2025 12:18:03 01/18/20 25 01/17/2025 TYPE/ RH/SC REEN exp date 2024 23:59 Not Available [facility] (Lab) [address] [facility], [place], [address], 01/20/2025 12:18:03 01/18/20 25 01/17/2025 RUBEL LA IGG ANTIB TOM, QUANT rubella antibodies, IgG Reacti ve reacti ve Not Available [facility] (Lab) [address] [facility], [place], [address], 01/20/2025 12:18:04 01/18/20 25 01/17/2025 RUBEL LA IGG ANTIB TOM, QUANT rubella antibodies, IgG quant 12.2 IU/mL >=10 : Not Hispa zohaib or Latin o Non-r eacti ve (Non- Immun e) <10 IU/mL React nesha (Immu ne) > or = 10 IU/mL Not Available [facility] (Lab) [address] [facility], [place], [address], 01/20/2025 12:18:04 01/18/20 25 01/17/2025 RPR SCREE N, REFLE X TITER /CONF IRMAT ION RPR qualitative Nonrea ctive nonrea ctive : Not Hispa zohaib or Latin o Not Available [facility] (Lab) [address] [facility], [place], [address], 01/20/2025 12:18:04 01/18/20 25 01/17/2025 HEMOG LOBIN A1C hemoglobin A1C 5.0 % 4.0-5. 6 : Not Hispa zohaib or Latin o The Ameri can Diabe glo Assoc iatio n recom mends that a prima ry goal of thera py jose alfredo d be a HBA1C of < 7% and that physi cians jose alfredo d reeva luate the treat ment regim en in patie nts with HBA1C value s consi stent ly > 8%. <5.7% Kimmie l 5.7 - 6.4% Incre ased risk for diabe glo >=6.5 % Diagn ostic of diabe glo <7.0% Goal of thera py >8.0% Actio n sugge sted Not Available [facility] (Lab) [address] [facility], [place], [address], 01/20/2025 12:18:04 01/18/20 25 01/17/2025 LEAD, BLOOD (ADUL T/PED IATRI C) lead, whole blood <1.0 mcg/d L <3.5 See Note 1 Antonio sis was perfo rmed by Jimbo Conroy ed Plasm a Mass Spect romet ry (ICPM S) Note 1 This test was devel oped and its antonio tical perfo rmanc e jenaro cteri stics have been deter mined by [facility]. It has not been clear ed or appro dolores by the FDA. This assay has been valid ated pursu ant to the CLIA regul ation s and is used for clini gogo purpo ses. : Not Hispa zohaib or Latin o Perfo rming Organ izati on Infor matcharlie n: Site ID: [id number] Name: [facility]-Aleksandr Boyle Addre ss: [id number] [place] [address] Direc tor: Antho ny V Betsy s Not Available [facility] (Lab) [address] [facility], [place], [address], 01/20/2025 12:18:05 01/18/20 25 01/17/2025 drug scree n, urine Amphetamines : negati ve Not Available [facility] [address], [place], [address], 01/17/2025 10:30:22 01/18/20 25 01/17/2025 drug scree n, urine Cannabinoids : negati ve Not Available [facility] [address], [place], [address], 01/17/2025 10:30:22 01/18/20 25 01/17/2025 drug scree n, urine Cocaine: negati ve Not Available [facility] [address], [place], [address], 01/17/2025 10:30:22 01/18/20 25 01/17/2025 drug scree n, urine Opiates: negati ve Not Available [facility] [address], [place], [address], 01/17/2025 10:30:22 01/18/20 25 01/17/2025 drug scree n, urine Phenocyclidi ne: negati ve Not Available [facility] [address], [place], [address], 01/17/2025 10:30:22 01/18/20 25 01/17/2025 drug scree n, urine Barbiturates : negati ve Not Available [facility] [address], [place], [address], 01/17/2025 10:30:22 01/18/20 25 01/17/2025 drug scree n, urine Benzodiazepi sabrina: negati ve Not Available [facility] [address], [place], [address], 01/17/2025 10:30:22 01/18/20 25 01/17/2025 drug scree n, urine Ethanol: negati ve Not Available [facility] [address], [place], [address], 01/17/2025 10:30:22 01/18/20 25 01/17/2025 drug scree n, urine Hallucinogen s: negati ve Not Available [facility] [address], [place], [address], 01/17/2025 10:30:22 01/18/20 25 01/17/2025 drug scree n, urine Inhalants: negati ve Not Available [facility] [address], [place], [address], 01/17/2025 10:30:22 01/18/20 25 01/17/2025 drug scree n, urine Anabolic Steroids: negati ve Not Available [facility] [address], [place], [address], 01/17/2025 10:30:22 01/18/20 25 01/17/2025 drug scree n, urine Other: positi ve Not Available [facility] [address], [place], [address], 01/17/2025 10:30:22 05/09/20 25 05/09/2025 HEMOG LOBIN (HGB) HGB 9.6 g/dL (based on docume nted legal sex) 11.6-1 5.4 low Not Available [facility] (Lab) [address] [facility], [place], [address], 05/12/2025 14:37:31 05/09/20 25 05/09/2025 HEMAT OCRIT (HCT) HCT 30.4 % (based on docume nted legal sex) 34.0-4 5.0 low Not Available [facility] (Lab) [address] [facility], [place], [address], 05/12/2025 14:37:32 05/09/20 25 05/09/2025 GTT - GESTA SINDHU L SASKIA N, ACOG OB glucose, 1 hour screen 70 mg/dL 70-135 Not Available [facility] (Lab) [address] [facility], [place], [address], 05/12/2025 14:37:32 05/09/20 25 05/09/2025 HIV 1/2 ANTIG EN/AN TIBOD Y, REFLE X CONFI RMATI ON HIV antigen/anti body Nonrea ctive nonrea ctive HIV-1 antig en and HIV-1 /HIV- 2 antib odies were not detec alfonso. No labor atory evide nce of HIV infec tion. Not Available [facility] (Lab) [address], [place], [address], 05/12/2025 14:37:32 05/09/20 25 05/09/2025 RPR SCREE N, REFLE X TITER /CONF IRMAT ION RPR qualitative Nonrea ctive nonrea ctive Not Available [facility] (Lab) [address] [facility], [place], [address], 05/12/2025 14:37:33 05/09/2005/09/2025 urina lysis , dipst ick Leukocytes trace Not Available [facility] [address], [place], [address], 05/09/2025 14:43:51 05/09/2005/09/2025 urina lysis , dipst ick Nitrite neg Not Available [facility] [address], [place], [address], 05/09/2025 14:43:51 05/09/2005/09/2025 urina lysis , dipst ick Urobilinogen norm Not Available [facility] [address], [place], [address], 05/09/2025 14:43:51 05/09/2005/09/2025 urina lysis , dipst ick Protein trace Not Available [facility] [address], [place], [address], 05/09/2025 14:43:51 05/09/2005/09/2025 urina lysis , dipst ick pH 5 Not Available [facility] [address], [place], [address], 05/09/2025 14:43:51 05/09/20 25 05/09/2025 urina lysis , dipst ick Specific Greene 1.015 Not Available [facility] [address], [place], [address], 05/09/2025 14:43:51 05/09/20 25 05/09/2025 urina lysis , dipst ick Ketone trace Not Available [facility] [address], [place], [address], 05/09/2025 14:43:51 05/09/20 25 05/09/2025 urina lysis , dipst ick Bilirubin nor Not Available [facility] [address], [place], [address], 05/09/2025 14:43:51 05/09/20 25 05/09/2025 urina lysis , dipst ick Glucose neg Not Available [facility] [address], [place], [address], 05/09/2025 14:43:51 05/09/2005/09/2025 urina lysis , dipst ick Appearance clear Not Available [facility] [address], [place], [address], 05/09/2025 14:43:51 05/09/2005/09/2025 urina lysis , dipst ick Color yellow Not Available [facility] [address], [place], [address], 05/09/2025 14:43:51 01/18/20 25 01/17/2025 US, scottie diaz nucha l trans lucen cy No observ ation record ed. [facility] [address], [place], [address], 01/17/2025 17:27:13 01/18/20 25 01/17/2025 , scottie diaz follo w-up No observ ation record ed. [email or web address] [address], [place], [address], 01/21/2025 15:12:49 03/12/20 25 03/12/2025 US, obste tric, 2nd or 3rd trime ster No observ ation record ed. [facility] [address], [place], [address], 03/12/2025 18:48:30 03/12/2003/12/2025 US, obste tric, 2nd or 3rd trime ster No observ ation record ed. [email or web address] [address], [place], [address], 03/14/2025 09:40:30 04/11/2004/11/2025 US, obste tric, follo w-up No observ ation record ed. [facility] [address], [place], [address], 04/11/2025 17:08:07 04/11/2004/11/2025 US, obste tric, follo w-up No observ ation record ed. [email or web address] [address], [place], [address], 04/15/2025 06:50:04 05/09/2005/09/2025 US, obste tric, follo w-up No observ ation record ed. [facility] [address], [place], [address], 05/09/2025 16:53:22 05/09/2005/09/2025 US, obste tric, follo w-up No observ ation record ed. [email or web address] [address], [place], [address], 05/12/2025 12:19:00 06/05/20 25 06/05/2025 US, obste tric, follo w-up No observ ation record ed. [address], [place], [address], 06/05/2025 15:11:40 06/05/20 25 06/05/2025 US, obste tric, follo w-up No observ ation record ed. [email or web address] [address], [place], [address], 06/05/2025 17:56:42 Result Notes None recorded. Problems Name Problem SNOMED Code Status Onset Date Resolution Date Notes Provider Name and Address Organization Details Recorded Time Group B Streptoc occus carrier 8090317308 103 Completed h/o in first preg. Renee Torres MD [address], [place], [address], [facility] 3 10:33:02 Ultrasou nd scan abnormal [id number] Completed subamnio tic hemorrha ge - rpt u/s schd 01/04/23- wnl at [facility]. no FU needed. Marvin cabrera [facility] 3 16:42:26 Uterine size for dates discrepa ncy [id number] Completed already doing growth at [facility] Marvin cabrera [facility] 3 16:42:26 Venous conroy [id number] Completed placenta - 02/21/24 9am u/s only. REBECCA MENA MD [address], [place], [address], [facility] 4 11:34:29 Placenta circumva llata 0222826 Completed REBECCA MENA MD [address], [place], [address], [facility] 4 11:34:29 Pregnanc y 54576557 Completed 202203/13/2023 Chaya cabrera, [facility] 5 10:31:09 Pregnanc y 74769770 Completed 202305/27/2024 Chaya cabrera [facility] 5 10:31:09 Pregnanc y 06541133 Active 2024 Chaya cabrera [facility] 5 10:31:09 Group B Streptoc occus carrier 0665005085 103 Active 2024 + GBS in urine Tiara Alarcon rick [facility] 5 17:54:31 Problem Notes None recorded. Procedures Surgical History Date Name Laterality Status Provider Name and Address Organization Details Recorded Time 05/05/20 23 Date of Last Pap Smear completed Iveth Guevara [facility] 05/23/2025 14:51:22 02/29/20 22 IUD Removal completed STEPHANIE Acevedo [address], [place], [address], [facility] 02/28/2022 09:46:01 02/10/20 21 Colposcopy completed Chaya Marley [facility] 01/17/2025 10:28:24 02/10/20 21 cervical biopsy completed Chayaondina Marley [facility] 07/27/2022 10:28:55 07/31/19 20 extraction of wisdom tooth completed Chayaondina Marley [facility] 07/27/2022 10:28:13 07/31/19 18 Date of Last Colonoscopy completed Chayaondina Marley [facility] 07/27/2022 10:27:19 07/31/19 18 [facility]/27/2022 10:28:04 Imaging Results None recorded. Procedure Notes None recorded. Medical Equipment None Reported. Allergies No known drug allergies Medications Name Sig Start Date Stop Date Status Note LastModified by Organization Details LastModified Time Mirena 21 mcg/24 hr (up to 8 years) 52 mg intrauterin e device 07/27 completed Not Available Not Available Not Available prednisone 10 mg tablet TAKE 2 TABLETS BY MOUTH ONCE DAILY FOR 5 DAYS THEN TAKE 1 TABLET BY MOUTH ONCE DAILY FOR 5 DAYS THEN TAKE 1 TABLET BY MOUTH EVERY OTHER DAY UNTIL FINISHED 12/23 completed Not Available Not Available Not Available tizanidine 2 mg tablet TAKE 1 TABLET BY MOUTH NIGHTLY NEEDED FOR MUSCLE SPASM 07/27 completed Not Available Not Available Not Available fluconazole 150 mg tablet TAKE ONE TABLET BY MOUTH 04/26 completed Not Available Not Available Not Available metronidazo le 0.75 % (37.5 mg/5 gram) vaginal gel INSERT 1 APPLICATO RFUL VAGINALLY ONCE DAILY FOR 5 DAYS 05/05 completed Not Available Not Available Not Available metronidazo le 500 mg tablet Take 1 tablet every 12 hours by oral route. 05/23 completed Not Available Not Available Not Available prochlorper azine maleate 10 mg tablet Take 1 tablet 3 times a day by oral route. 12/17 completed Not Available Not Available Not Available ciprofloxac in 500 mg tablet TAKE 1 TABLET BY MOUTH EVERY 12 HOURS FOR 3 DAYS 12/23 completed Not Available Not Available Not Available Macrobid 100 mg capsule Take 1 capsule twice a day by oral route for 7 days. 08/25 completed Not Available Not Available Not Available nystatin-tr iamcinolone 100,000 unit/gram-0 .1 % topical ointment APPLY OINTMENT TOPICALLY TO AFFECTED AREA TWICE DAILY 12/17 completed Not Available Not Available Not Available Zofran 4 mg tablet Take 1 tablet twice a day by oral route. 04/07 completed Not Available Not Available Not Available cyanocobala min (vit B-12) 500 mcg tablet 07/27 completed Not Available Not Available Not Available cephalexin 500 mg capsule TAKE 1 CAPSULE BY MOUTH EVERY 12 HOURS 04/07 completed Not Available Not Available Not Available sertraline 25 mg tablet TAKE 1 TABLET BY MOUTH ONCE DAILY 08/03 completed Not Available Not Available Not Available ergocalcife rol (vitamin D2) 1,250 mcg (50,000 unit) capsule 07/27 completed Not Available Not Available Not Available ibuprofen 600 mg tablet 04/07 completed Not Available Not Available Not Available scopolamine 1 mg over 3 days transdermal patch Apply 1 patch by transderm al route. 05/23 completed Not Available Not Available Not Available ondansetron 4 mg disintegrat ing tablet Place 1 tablet every 6 hours by transling ual route. 06/06 completed Not Available Not Available Not Available clotrimazol e 1 % topical cream APPLY CREAM TOPICALLY TWICE DAILY FOR 2 WEEKS 12/23 completed Not Available Not Available Not Available doxycycline hyclate 100 mg tablet TAKE 1 TABLET BY MOUTH TWICE DAILY FOR 7 DAYS 01/26 completed Not Available Not Available Not Available dicyclomine 10 mg capsule 12/23 completed Not Available Not Available Not Available naproxen 500 mg tablet 12/23 completed Not Available Not Available Not Available amoxicillin 500 mg-potassiu m clavulanate 125 mg tablet 10/20 completed Not Available Not Available Not Available Vitamin 04/07 completed Not Available Not Available Not Available Viberzi 75 mg tablet 12/23 completed Not Available Not Available Not Available Gummies active Not Available Not Available Not Available ID NOW COVID-19 Test Kit TEST DIRECTED 12/23 completed Not Available Not Available Not Available Vitals Date Recorded Body weight Systolic And Diastolic Provider Name and Address Organization Details Last Updated DateTime 06/06/2025 52574.9318 g 112/74 mm[Hg] Iveth Guevara [facility] 06/06/2025 11:57:04 Social History Question Answer Notes LastModified by Organizat ion Details LastModified Time Tobacco Smoking Status Former Smoker Sujata Zheng [facility] 10/20/2022 09:56:48 Do You Have An Advance Directive? No Information not available 02/08/2021 If You Are , What Was Your Level Of Alcohol Consumption Prior To ? Occasional [email or web address] Information not available 10/20/2022 Are You Blind Or Do You Have Difficulty Seeing? No Information not available 02/08/2021 What Is Your Level Of Caffeine Consumption? Moderate [email or web address] Information not available 02/28/2022 How Much Tobacco Do You Chew? None Information not available 02/08/2021 In The 14 Days Before Symptom Onset, Have You Had Close Contact With A Laboratory-confir med COVID-19 While That Case Was Ill? No Information not available 02/08/2021 In The 14 Days Before Symptom Onset, Have You Had Close Contact With A Person Who Is Under Investigation For COVID-19 While That Person Was Ill? No Information not available 02/08/2021 Have You Been To An Area Known To Be High Risk For COVID-19? No Information not available 02/08/2021 Are You Deaf Or Do You Have Serious Difficulty Hearing? No Information not available 02/08/2021 What Type Of Diet Are You Following? REGULAR Information not available 02/08/2021 What Is The Highest Grade Or Level Of School You Have Completed Or The Highest Degree You Have Received? [id number] Information not available 02/08/2021 Are There Any Guns Present In Your Home? No Information not available 02/08/2021 Do You Use Protection During Sex? No Information not available 02/08/2021 Do You Use Your Seat Belt Or Car Seat Routinely? Yes Information not available 02/08/2021 Are You Sexually Active? Yes Information not available 03/12/2025 Do You Have Smoke And Carbon Monoxide Detectors In Your Home? Yes Information not available 02/08/2021 How Much Tobacco Do You Smoke? No Information not available 02/08/2021 Do You Use Sunscreen Routinely? Yes Information not available 02/08/2021 Have You Used IV Drugs? No Information not available 02/08/2021 Do You Have Difficulty Walking Or Climbing Stairs? No [email or web address] Information not available 10/20/2022 Sex: Unknown Functional Status Question Answer Note LastModified by Organizat ion Details LastModified Time Do you use any illicit or recreational drugs? No Information not available 02/08/2021 What is your level of alcohol consumption? None Information not available 02/08/2021 Are you able to walk independently without assistance or assistive devices? YESWOREST Information not available 02/08/2021 Are you able to care for yourself independently? 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 No [email or web address] Information not available 10/20/2022 What is your exercise level? Heavy Information not available 02/08/2021 Mental Status Question Answer Note LastModified by Organization D etails LastModified Time Do you feel stressed (tense, restless, nervous, or anxious, or unable to sleep at night)? [id number] Information not available 02/08/2021 Family History Relationship Description Onset Age of this Age Resolved Age Notes LastModified by Organization Details LastModified Time Maternal Aunt Disorder of thyroid gland Not available 2020 11:46:08 Maternal Aunt Malignant neoplasm of ovary Not available 2020 11:36:55 Mother Anemia Not available 02/08/2021 11:46:08 Mother Malignant neoplasm of breast [email or web address] Not available 07/27 21:16:57 Mother Malignant neoplasm of lung [email or web address] Not available 07/27 21:17:08 Paternal Aunt Malignant neoplasm of breast Not available 2020 11:46:08 Paternal Grandmother Malignant neoplasm of breast Not available 2020 11:46:08 Maternal Grandmother Malignant neoplasm of breast [email or web address] Not available 2021 09:35:33 Medical History Condition Response Allergies (Food, seasonal, environmental ) N Other N Breast Cancer N Drug/Latex Allergies/Reactions N Blood Transfusion N Dermatologic Disorders N Lung Disease N Defects or Inherited Disease N Breast Problem N Gestational Diabetes N Hematologic disorders N Anesthesia Complications N History of STI Y Deep Vein Thrombosis N Polycystic ovary syndrome N Anxiety Disorder N Autoimmune disease N Arthritis N Infertility N Polyps N Acid Reflux (GERD) N History of abnormal pap Y Cancer N Stroke N Varicosities N Neurologic/Epilepsy N Endometriosis N High Cholesterol N Headaches N Fibromyalgia N Kidney Disease N Heart Problems N Kidney or Bladder Problems N Thyroid Problems N GI Problems Y Eating Disorder N Anemia N Art (IVF or FET) N Psychiatric Illness N Ovarian Cancer N Diabetes N Pulmonary (TB, Asthma) N Hepatitis/Liver Disease N No Past Medical History N Eczema N Urinary Tract Infection N Abuse/Domestic Violence N Asthma N Trauma/Violence N Depression/ depression N Heart Disease N Pre-Eclampsia N Hypertension N Osteoporosis N Thrombophilias N Gynecological History Statement/Question Response Date of Last Mammogram Flow Light Date of LMP 10/20/2024 N Was last menstrual period normal Y STIs/STDs Y Date of control 12/02/2020 Date of Last Colonoscopy 07/31/2017 None Desired Control Method None Abnormal Pap Y On BCP's at Conception? N Colposcopy 02/09/2021 HPV Vaccine Y Duration of Flow (days) 4 Current Control Method Age at First Child 24 Are cycles usually normal Y Frequency of Cycle (Q days) 7 Sexually Active? Y Menses Monthly Y Date of DEXA bone scan Age of first menstrual cycle 12 Date of Last Pap Smear 05/05/2023 Sexual Problems? Y LMP Definite N Obstetrics History GPAL:G 5 P 3 0 1 3 Type Value Full Term 3 Spontaneous 1 Living 3 Total 5 Past Encounters Encounter ID Performer Location Encounter Start Date Encounter Closed Date Diagnosis/Indication Diagnosis SNOMED-CT Code Diagnosis ICD10 Code Diagnosis IMO Codes Diagnosis Note [id number] Orion Ruiz MD [facility] [address],[place] [address] 05/09/2025 13:58:24 05/09/2025 14:40:46 Anomaly of placenta 11214105 O43.103 Z03.74 Z3A.28 [id number] Zuleima Olsen [facility] [address] [place] [address] 05/09/2025 13:58:38 05/09/2025 14:55:45 Urinary symptoms 298435651 R39.9 32919771 Gestation period, 28 weeks 35131947 Z3A.28 2178177 Pruritus of vagina 11418 003 N89.8 982267 [id number] [facility] [address],[place] [address] 05/23/2025 14:43:28 05/23/2025 15:06:10 Gestation period, 30 weeks 28579412 Z3A.30 6463783 continue vitamin [id number] Orion Ruiz MD [facility] [address],[place] [address] 06/05/2025 10:56:09 06/05/2025 14:07:34 Abnormal placenta affecting management of mother 79713958 O43.93 Z3A.32 [id number] Zuleima Olsen CNM [facility] [address],[place] [address] 06/06/2025 11:46:55 06/06/2025 12:09:09 Gestation period, 32 weeks 5946147 Z3A.32 [id number] cont pnv Health Concerns Section Related Observation LastModified by Organization Detai ls LastModified Time None Recorded Concern Status LastModified by Organization Details LastModified Time None Recorded Payers Encounter Date Sequence Insurance Name Policy Number Policy Veloz Covered Member ID Veloz Member ID Guarantor Name 06/06/2025 1 [facility] (MEDICAID HMO) [id number] Trina Dhillon [id number] Man Oneil Notes Date Note Type Note Provider Name and Address Organization Details Recorded Time 06/06/2025 text/html Generic HPI TemplateReported by Patient Zuleima Olsen CNM [address], [place], [address], [facility] 06/06/2025 12:07:30 OBGyn Episode Ob Episode Information Episode Created Date Number of Fetuses Patient Bloodtype Patient rh Status Prepregnancy Weight lbs Domestic Partner Domestic Partner Phone Father Name Marriage And Family Social Worker Status 01/18/20 25 1 O Positive 112 Alli Rahman h OPEN Fetus Data First Name Last Name Admitted to NICU Weight (g) Sex Living Outcome Pediatric Complications Fetus ID Race Codes Race Delivery Type [id number] Problems Problem Notes multiple placental lakes STA BLE Problem Name Start Date End Date Resolution Snomed Code Not e Group B Streptococcus carrier 01/21/2025 [id number] + GBS in urine Moises Calculation Initial Moises Date Initial Exam Date Initial Exam Provider Initial Ultrasound Date Last Menstrual Period Date Ultra Sound Weeks Gestation 07/27/2025 12/17/2024 [email or web address] 12/03/2024 10/20/2024 6 Eighteen To Twenty Week Moises Update Ultra Sound Date Fundal Height At Umbil Quickening Date Ultra Sound Latest Weeks Gestation Final Moises Confirmed By Final Moises Confirmed Date Final Moises Date Ultra Sound Latest Days Gestation 0 07/27/20 25 0 Pre- Flowsheet Flowsheet Date 01/17/2025 Ross Score Blood Edema Fundus Height Fundus Units Glucose Ketones Leukocytes Nitrite Labor Signs Protein Cervic Dilation Cervic Effacement Cervic Station neg none none trace Type Weight in lbs Pre/Post Dialysis Refused Weight 112.647483915412 BP Diastolic BP Location Tested BP Systolic BP Type 58 92 Fetus Heart Rate Present Fetus Movement A No Comments Patient is having some nause a. reviewed hx, 3 previous uncomplicated vaginal deliveries, having some dizziness and nausea, reviewed us, synechiae, will f/u at anatomy . begin routine care Flowsheet Date 02/14/2025 Ross Score Blood Edema Fundus Height Fundus Units Glucose Ketones Leukocytes Nitrite Labor Signs Protein Cervic Dilation Cervic Effacement Cervic Station Type Weight in lbs Pre/Post Dialysis Refused 114.124250014623 BP Diastolic BP Location Tested BP Systolic BP Type 69 L arm 104 sitting Fetus Heart Rate Present Fetus Movement A No Comments +FHR by US, +FM doing well, no questions, education and precautions f/u 4 weeks anatomy Flowsheet Date 03/12/2025 Ross Score Blood Edema Fundus Height Fundus Units Glucose Ketones Leukocytes Nitrite Labor Signs Protein Cervic Dilation Cervic Effacement Cervic Station Type Weight in lbs Pre/Post Dialysis Refused BP Diastolic BP Location Tested BP Systolic BP Type Fetus Heart Rate Present Fetus Movement Comments Flowsheet Date 03/12/2025 Ross Score Blood Edema Fundus Height Fundus Units Glucose Ketones Leukocytes Nitrite Labor Signs Protein Cervic Dilation Cervic Effacement Cervic Station Type Weight in lbs Pre/Post Dialysis Refused 122.149773123515 BP Diastolic BP Location Tested BP Systolic BP Type 64 L arm 100 sitting Fetus Heart Rate Present Fetus Movement A Yes Comments placental lakes present, syn echiae incomplete anatomy rpt 4 weeks, +FM doing well f/u 4 weeks with us Flowsheet Date 04/11/2025 Ross Score Blood Edema Fundus Height Fundus Units Glucose Ketones Leukocytes Nitrite Labor Signs Protein Cervic Dilation Cervic Effacement Cervic Station Type Weight in lbs Pre/Post Dialysis Refused BP Diastolic BP Location Tested BP Systolic BP Type Fetus Heart Rate Present Fetus Movement Comments Flowsheet Date 04/11/2025 Ross Score Blood Edema Fundus Height Fundus Units Glucose Ketones Leukocytes Nitrite Labor Signs Protein Cervic Dilation Cervic Effacement Cervic Station Type Weight in lbs Pre/Post Dialysis Refused Weight 127.204159828697 BP Diastolic BP Location Tested BP Systolic BP Type 67 L arm 101 sitting Fetus Heart Rate Present Fetus Movement A Yes Comments anatomy complete, placental lakes present f/u q 4 weeks growth, education and precautions GCT next visit, efw 31% Flowsheet Date 05/09/2025 Ross Score Blood Edema Fundus Height Fundus Units Glucose Ketones Leukocytes Nitrite Labor Signs Protein Cervic Dilation Cervic Effacement Cervic Station Type Weight in lbs Pre/Post Dialysis Refused BP Diastolic BP Location Tested BP Systolic BP Type Fetus Heart Rate Present Fetus Movement Comments Flowsheet Date 05/09/2025 Ross Score Blood Edema Fundus Height Fundus Units Glucose Ketones Leukocytes Nitrite Labor Signs Protein Cervic Dilation Cervic Effacement Cervic Station Type Weight in lbs Pre/Post Dialysis Refused Weight 136.369870538098 BP Diastolic BP Location Tested BP Systolic BP Type 76 L arm 115 sitting Fetus Heart Rate Present Fetus Movement A Yes Comments +FM, doing well, efw 19 %, a c 18%, odor with d/c plan flagyl, discuss vaccines at next visit f/u 2 weeks consent signed for tubal ligation Flowsheet Date 05/23/2025 Ross Score Blood Edema Fundus Height Fundus Units Glucose Ketones Leukocytes Nitrite Labor Signs Protein Cervic Dilation Cervic Effacement Cervic Station 27 cm Type Weight in lbs Pre/Post Dialysis Refused Weight 137.254378677071 BP Diastolic BP Location Tested BP Systolic BP Type 71 L arm 105 sitting Fetus Heart Rate Present A 150 Present Fetus Movement A Yes Comments +FM, doing ok except for anthony k pain, will order maternity belt today, precautions and education f/u 2 weeks Flowsheet Date 06/05/2025 Ross Score Blood Edema Fundus Height Fundus Units Glucose Ketones Leukocytes Nitrite Labor Signs Protein Cervic Dilation Cervic Effacement Cervic Station Type Weight in lbs Pre/Post Dialysis Refused BP Diastolic BP Location Tested BP Systolic BP Type Fetus Heart Rate Present Fetus Movement Comments Flowsheet Date 06/06/2025 Ross Score Blood Edema Fundus Height Fundus Units Glucose Ketones Leukocytes Nitrite Labor Signs Protein Cervic Dilation Cervic Effacement Cervic Station Type Weight in lbs Pre/Post Dialysis Refused 140.648444141566 BP Diastolic BP Location Tested BP Systolic BP Type 74 L arm 112 sitting Fetus Heart Rate Present A 130 Present Fetus Movement A Yes Comments increase in cntx, not regula r, increased pressure will send urine culture and plan nst vaccine rx's given, precautions and education f/u 2 weeks Flowsheet Date 06/06/2025 Ross Score Blood Edema Fundus Height Fundus Units Glucose Ketones Leukocytes Nitrite Labor Signs Protein Cervic Dilation Cervic Effacement Cervic Station Type Weight in lbs Pre/Post Dialysis Refused BP Diastolic BP Location Tested BP Systolic BP Type Fetus Heart Rate Present Fetus Movement Comments Menstrual History Last Menstrual Date Menses Monthly On Bcp Conception Prior Menses Frequency Hcg Plus Date Menarche Onset Age 0310/20/2024 Delivery Information Delivery Date Delivery Type Labor Anesthesia Weeks Gestation Incision Type Labor Labor Length Hrs Delivered By Post Complications Tubal Sterilization Discharge Date Comments Discharge Information Feeding Method Contraceptive Method Maternal HG B and HCT Levels
--- OUTSIDE RECORDS SUMMARY | 2025-06-06 12:21 | XMS_ITS | Clinical Summary ---
Author Organization [facility] [address] Address [address] [place] [address] Phone Care Team Providers Care Tiler'S Assistant Name Role Phone Wisam Love MD Primary Care Provider [phone] Allergies No known active allergies Medications prenat.vits,gogo,m ga-dawq-uqvzw ( VITAMIN) tablet daily. Acti ve Active Problems Problem Noted Date Diagnosed Date Placental abruption in second trimester 01/14/20 24 Resolved Problems Problem Noted Date Diagnosed Date Resolved Date Numbness and tingling sensation of skin 09/24/2015 07/26/2018 Overview (11/04/2016): Numbness and tingling sensation of skin Surgical History Surgery Date Site/Laterality Comments NO PAST SURGERIES Medical History Medical History Date Comments Anxiety and depression OCD (obsessive compulsive disorder) Insomnia Gastritis Family History Medical History Relation Name Comments Breast cancer Father's Sister Hypertension Maternal Grandfather Breast cancer Maternal Grandmother Diabetes Maternal Grandmother Hypertension Maternal Grandmother Fibromyalgia Mother Headache Mother Hypertension Mother Diabetes Mother's Brother Diabetes Mother's Sister Hypertension Mother's Sister Relation Name Status Comments Father's Sister Maternal Grandfather Maternal Grandmother Mother Mother's Brother Mother's Sister Social History Tobacco Use Types Packs/Day Years Used Date Smoking Tobacco: Former Cigarettes 1 12.8 S tarted: 2013 Smokeless Tobacco: Never Tobacco Cessation:Counseling Given: Not Answered Comments:Smoking History Packs/day: 1 Packs Alcohol Use Standard Drinks/Week Comments No 0 (1 standard drink = 0.6 oz pur e alcohol) AUDIT-C Answer Date Recorded Q1: How often do you have a drink containing alcohol? Never 01/14/2024 Q2: How many drinks containi ng alcohol do you have on a typical day when you are drinking? Patient does not drink Q3: How often do you have si x or more drinks on one occasion? Never 01/14/2024 [facility] Occupat ional Health - Occupational Stress Questionnaire Answer Date Recorded Do you feel stress - tense, restless, nervous, or anxious, or unable to sleep at night because your mind is troubled all the time - these days? To some extent 01/14/2024 Personal Safety Answer Date Recorded Have you ever been in or are you currently in a harmful physical or emotional relationship or is someone making you feel afraid or unsafe? 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 Gender Identity Not on file Sexual Orientation Not on file Occupation Industry Job Start Date Job End Date unemployed Not on file Not on file Not on file Obstetrics History Para Term AB IAB SAB Ectopic Multiple Livin g Live Births 4 2 2 0 1 0 0 0 0 2 0 Date Outcome GA Total Labor Labor/2nd/3rd Weight Sex Type Anes PTL Ivory A1 A5 Name Clin Term Term AB Last Filed Vital Signs Vital Sign Reading Time Taken Comments Blood Pressure 121/59 01/15/2024 8:50 AM CDT Pulse 75 01/15/2024 8:50 AM CDT Temperature 36.9 C (98.5 F) 01/15/2024 9:00 AM CDT Respiratory Rate 18 01/14/2024 10:50 AM CDT Oxygen Saturation 98% 01/14/2024 10:50 AM CDT Inhaled Oxygen Concentration - - Weight 53.5 kg (118 lb) 08/02/2023 12:36 PM POWER GRADER OPERATOR Height 162.6 cm (5' 4) 08/02/2023 12:36 PM POWER GRADER OPERATOR Body Mass Index 20.25 08/02/2023 12:36 PM POWER GRADER OPERATOR Plan of Treatment Health Maintenance Due Date Last Done Comments Depression Screening 1997 Hepatitis C Screening 1997 Varicella Vaccines (1 of 2 - 13+ 2-dose series) 2010 Hepatitis B Screening 2015 Cervical Cancer Screening 07/26/2019 07/26/2018 Regular Well Visit/Exam 18-64 07/26/2019 07/26/2018 HPV Vaccines (1 - 3-dose SCD M series) 2024 Influenza Vaccine (#1) 2025 05/16/2017 DTaP/Tdap/Td Vaccine (3 - Td or Tdap) 01/16/2033 01/16/2023, 12/29/2019 Pneumococcal vaccine <65 Aged Out No longer eligible based on patient's age to complete this topic Procedures Procedure Name Priority Date/Time Associated Diagnosis Comments THINPREP TIS PAP REFLEX HPV MRNA E6/E7, CHLAMYDIA/N.GONORRH OEAE Routine 07/26/2018 1:24 PM POWER GRADER OPERATOR from Last 3 Months or Most Recently Relevant to Health Maintenance Results * (ABNORMAL) THINPREP TIS PAP REFLEX HPV mRNA E6/E7, CHLAMYDIA/N.GONORRHOEAE (07/26/2018 1:24 PM POWER GRADER OPERATOR) Report status CANCELED [facility] - Comment:Result canceled by t prasad ancillary CLINICAL INFORMATION: [facility] - Comment:Information not prov ided LMP 07/11/18 [facility] [place] Previous Pap NONE GIVEN [facility] Prev. Bx NONE GIVEN [facility] SOURCE: [facility] Comment:Cervix, Endocervix Pap, specimen adequacy [facility] Comment: Satisfactory for evaluation. Endocervical/transformation zone component present. Pap, general categorization (A) [facility] Comment:EPITHELIAL CELL ABNO RMALITY HPV interp (A) [facility] Comment:Low Grade Squamous I ntraepithelial Lesion (LSIL) Infection: CANCELED [facility] [place] Comment:Result canceled by t prasad ancillary COMMENTS [facility] [place] Comment: This Pap test has been evaluated with computer assisted technology. Suggest clinical correlation and follow-up as clinically appropriate Landing Worker [facility] - Comment: MLO, CT(ASCP) CT screening location: [place] [address] [place], [place] [address] Review molder CANCELED [facility] [place] Comment:Result canceled by t prasad ancillary Pathologist [facility] - Comment: Mario Pepper M.D., Board Certified in Anatomic Pathology and Cytopathology. (electronic signature) Comment [facility] - Comment: EXPLANATORY NOTE: The Pap is a screening test for cervical cancer. It is not a diagnostic test and is subject to false negative and false positive results. It is most reliable when a satisfactory sample, regularly obtained, is submitted with relevant clinical findings and history, and when the Pap result is evaluated along with historic and current clinical information. C. trachomatis RNA NOT DETECTED NOT DETECTED [facility] [place] N. gonorrhoeae RNA NOT DETECTED NOT DETECTED [facility] [place] Comment [facility] [place] Comment: This test was performed using the APTIMA COMBO2 Assay ([employer] The analytical performance characteristics of this assay, when used to test [facility] specimens have been determined by [facility]. 07/26/2018 1:24 PM POWER GRADER OPERATOR 07/27/2018 4:42 AM POWER GRADER OPERATOR Narrative Resulting Agency Comment Performing Organization Information: Site ID: [place] [facility] Address: [address] [place] [address] Director: Brennan Oliver D.O., MPH [facility] Address: [address] [place] [address] Director: David Jain Emily Miller MD LAB PATHOLOGY ORDER MICHA Final Result [facility] - [facility] [employer] [facility] [place] from Last 3 Months or Most Recently Relevant to Health Maintenance Insurance [facility] Care Teams Tiler'S Assistant Relationship Specialty Start Date End Date Wisam Love MD [address] [place] [address] PCP - General Family Medicine 08/02/23
--- OUTSIDE RECORDS SUMMARY | 2025-06-06 12:22 | XMS_ITS | Continuity of Care Document ---
Author Organization [facility] Address [address] [place] [address] [place] [address] Assessment No assessment recorded. Plan of Treatment Reminders Order Date Submit [...] recorded . Surgeries None recorded . Imaging US, obstetri c, follow-u p 2024 025 [email or web address] [place], [address], [address], [place], [address], 06/05/2025 16:21:32 Medication Orders None recorded . Patient TargetsNo targets recorded. Patient InstructionsNo instructions recorded. Reason for Referral None Reported. Results Created Date Observation Date Name Description Value Unit Range Abnormal Flag Note LastModifiedBy Organization Detail LastModifiedTime 01/23/2001/22/2025 [UNIT Y] ANEUP LOIDY NIPT fraction 9.8% normal Not Available [facility] [address], [place], [address], 01/22/2025 22:58:15 01/23/20 25 01/22/2025 [UNIT Y] ANEUP LOIDY NIPT 22Q11.2 microdeletio n LOW RISK <1 in 10,000 normal Not Available [facility] [address], [place], [address], 01/22/2025 22:58:15 01/23/20 25 01/22/2025 [UNIT Y] ANEUP LOIDY NIPT sex chromosome aneuploidy NOT DETECT ED normal Not Available [facility] [address], [place], [address], 01/22/2025 22:58:15 01/23/20 25 01/22/2025 [UNIT Y] ANEUP LOIDY NIPT monosomy X LOW RISK <1 in 10,000 normal Not Available [facility] [address], [place], [address], 01/22/2025 22:58:15 01/23/20 25 01/22/2025 [UNIT Y] ANEUP LOIDY NIPT trisomy 13 LOW RISK <1 in 10,000 normal Not Available [facility] [address], [place], [address], 01/22/2025 22:58:15 01/23/20 25 01/22/2025 [UNIT Y] ANEUP LOIDY NIPT trisomy 18 LOW RISK <1 in 10,000 normal Not Available [facility] [address], [place], [address], 01/22/2025 22:58:15 01/23/20 25 01/22/2025 [UNIT Y] ANEUP LOIDY NIPT trisomy 21 LOW RISK <1 in 10,000 normal Not Available [facility] [address], [place], [address], 01/22/2025 22:58:15 01/23/20 25 01/22/2025 [UNIT Y] ANEUP LOIDY NIPT sex MALE normal Not Available [facility] [address], [place], [address], 01/22/2025 22:58:15 01/23/20 25 01/22/2025 [UNIT Y] ANEUP LOIDY NIPT gestation SINGLE TON normal Not Available [facility] [address], [place], [address], 01/22/2025 22:58:15 01/23/20 25 01/22/2025 [UNIT Y] ANEUP LOIDY NIPT for detailed report, see pdf See PDF normal Not Available [facility] [address], [place], [address], 01/22/2025 22:58:15 01/18/20 25 01/17/2025 CULTU RE: URINE result report SEE RESULT S BELOW abnormal Test: Cultu re: Urine Speci men Sourc e: Urine Voide d Speci men Type: Urine Speci men Date: 2024 1622 Resul t Date: 2024 0142 Resul t Statu s: Final resul t Abnor mal: Yes Resul josé miguelg Lab: [facility] [address] [facility] [address] Tel: CULTU RE ----- ----- ----- --- [...] lab withi n 5 days. Not Available [facility] (Lab) [address] [facility], [place], [address], 01/19/2025 02:46:33 01/18/20 25 01/17/2025 CBC W/DIF F WBC 8.1 10'3/ uL 3.5-10 .5 Not Available [facility] (Lab) [address], [place], [address], 01/20/2025 12:18:01 01/18/20 25 01/17/2025 CBC W/DIF F RBC 3.68 10'6/ uL (based on docume nted legal sex) 3.80-5 .20 low Not Available [facility] (Lab) [address] , [place], [address], 01/20/2025 12:18:01 01/18/20 25 01/17/2025 CBC W/DIF F HGB 10.4 g/dL (based on docume nted legal sex) 11.6-1 5.4 low Not Available [facility] (Lab) [address], [place], [address], 01/20/2025 12:18:01 01/18/20 25 01/17/2025 CBC W/DIF F HCT 32.2 % (based on docume nted legal sex) 34.0-4 5.0 low Not Available [facility] (Lab) [address], [place], [address], 01/20/2025 12:18:01 01/18/20 25 01/17/2025 CBC W/DIF F MCV 87.5 fL 80.0-9 9.0 Not Available [facility] (Lab) [address] [place], [address], 01/20/2025 12:18:01 01/18/20 25 01/17/2025 CBC W/DIF F MCH 28.3 pg 27.0-3 4.0 Not Available [facility] (Lab) [address] [place], [address], 01/20/2025 12:18:01 01/18/20 25 01/17/2025 CBC W/DIF F MCHC 32.3 g/dL 32.0-3 5.5 Not Available [facility] (Lab) [address] [place], [address], 01/20/2025 12:18:01 01/18/20 25 01/17/2025 CBC W/DIF F RDW 14.5 % 11.0-1 5.0 Not Available [facility] (Lab) [address] [facility], [place], [address], 01/20/2025 12:18:01 01/18/20 25 01/17/2025 CBC W/DIF F plt 157 10'3/ uL 150-40 0 Not Available [facility] (Lab) [address] [facility], [place], [address], 01/20/2025 12:18:01 01/18/20 25 01/17/2025 CBC W/DIF F MPV 12.7 fL 8.8-12 .1 high Not Available [facility] (Lab) [address] [facility], [place], [address], 01/20/2025 12:18:01 01/18/20 25 01/17/2025 CBC W/DIF F NRBC's 0.0 % 0.0 Not Available [facility] (Lab) [address] [facility], [place], [address], 01/20/2025 12:18:01 01/18/20 25 01/17/2025 CBC W/DIF F absolute NRBCs 0.0 10'3/ uL no refere nce range establ ished Not Available [facility] (Lab) [address] [facility], [place], [address], 01/20/2025 12:18:01 01/18/20 25 01/17/2025 CBC W/DIF F neutrophils 73.9 % 34.0-7 3.0 high Not Available [facility] (Lab) [address] [facility], [place], [address], 01/20/2025 12:18:01 01/18/20 25 01/17/2025 CBC W/DIF F lymphocytes 21.1 % 15.0-5 0.0 Not Available [facility] (Lab) [address] [facility], [place], [address], 01/20/2025 12:18:01 01/18/20 25 01/17/2025 CBC W/DIF F monocytes 4.1 % 1.0-15 .0 Not Available [facility] (Lab) [address] [facility], [place], [address], 01/20/2025 12:18:01 01/18/20 25 01/17/2025 CBC W/DIF F eosinophils 0.5 % 0.0-8. 0 Not Available [facility] (Lab) [address] [facility], [place], [address], 01/20/2025 12:18:01 01/18/20 25 01/17/2025 CBC W/DIF F basophils 0.2 % 0.0-2. 0 Not Available [facility] (Lab) [address] [facility], [place], [address], 01/20/2025 12:18:01 01/18/20 25 01/17/2025 CBC W/DIF [...] separ ately if prese nt. Not Available [facility] (Lab) [address] [facility], [place], [address], 01/20/2025 12:18:01 01/18/20 25 01/17/2025 CBC W/DIF F absolute neutrophils 6.0 10'3/ uL 1.5-8. 0 Not Available [facility] (Lab) [address] [facility], [place], [address], 01/20/2025 12:18:01 01/18/20 25 01/17/2025 CBC W/DIF F absolute lymphocytes 1.7 10'3/ uL 1.0-4. 0 Not Available [facility] (Lab) [address] [facility], [place], [address], 01/20/2025 12:18:01 01/18/20 25 01/17/2025 CBC W/DIF F absolute monocytes 0.3 10'3/ uL 0.2-1. 0 Not Available [facility] (Lab) [address] [facility], [place], [address], 01/20/2025 12:18:01 01/18/20 25 01/17/2025 CBC W/DIF F absolute eosinophils 0.0 10'3/ uL 0.0-0. 6 Not Available [facility] (Lab) [address] [facility], [place], [address], 01/20/2025 12:18:01 01/18/20 25 01/17/2025 CBC W/DIF F absolute basophils 0.0 10'3/ uL 0.0-0. 3 Not Available [facility] (Lab) [address] [facility], [place], [address], 01/20/2025 12:18:01 01/18/20 25 01/17/2025 CBC W/DIF F absolute immature granulocytes 0.0 10'3/ uL 0.00-0 .10 : Not Hispa zohaib or Latin o Refer ence range s for nonbi nary/ inter sex or unspe cifie d gende r patie nts have not been estab lishe d. Pleas e [facility] for range s estab lishe d for cisge nder patie nts and evalu ate in the clini gogo fili xt of the indiv idual patie nt: https ://la michael book. nm.or g/gen derx Not Available [facility] (Lab) [address], [place], [address], 01/20/2025 12:18:01 01/18/20 25 01/17/2025 HEPAT ITIS [...] Hispa zohaib or Latin o Not Available [facility] (Lab) [address] [facility], [place], [address], 01/20/2025 12:18:02 01/18/20 25 01/17/2025 HEPAT ITIS C ANTIB TOM SCREE N, REFLE X TO CONFI RMATI ON hepatitis C antibody Non-re active non-re active Antib odies to HCV Not Detec alfonso, does not exclu de the possi bilit y of expos ure to HCV. : Not Hispa zohaib or Latin o Not Available [facility] (Lab) [address] [facility], [place], [address], 01/20/2025 12:18:02 01/18/20 25 01/17/2025 HIV 1/2 ANTIG EN/AN TIBOD Y, REFLE X CONFI RMATI ON HIV antigen/anti body Nonrea ctive nonrea ctive : Not Hispa zohaib or Latin o HIV-1 antig en and HIV-1 /HIV- 2 antib odies were not detec alfonso. No labor atory evide nce of HIV infec tion. Not Available [facility] (Lab) [address] [facility], [place], [address], 01/20/2025 12:18:03 01/18/20 25 01/17/2025 TYPE/ RH/SC REEN ABO/Rh type O POS Not Available [facility] (Lab) [address] [facility], [place], [address], 01/20/2025 12:18:03 01/18/20 25 01/17/2025 TYPE/ RH/SC REEN antibody screen NEG Not Available [facility] (Lab) [address] [facility], [place], [address], 01/20/2025 12:18:03 01/18/20 25 01/17/2025 TYPE/ RH/SC REEN exp date 2024 23:59 Not Available [facility] (Lab) [address] [facility], [place], [address], 01/20/2025 12:18:03 01/18/20 25 01/17/2025 RUBEL LA IGG ANTIB TOM, QUANT rubella antibodies, IgG Reacti ve reacti ve Not Available [facility] (Lab) [address] [facility], [place], [address], 01/20/2025 12:18:04 01/18/20 25 01/17/2025 RUBEL LA IGG ANTIB TOM, QUANT rubella antibodies, IgG quant 12.2 IU/mL >=10 : Not Hispa zohaib or Latin o Non-r eacti ve (Non- Immun e) <10 IU/mL React nesha (Immu ne) > or = 10 IU/mL Not Available [facility] (Lab) [address] [facility], [place], [address], 01/20/2025 12:18:04 01/18/20 25 01/17/2025 RPR SCREE N, REFLE X TITER /CONF IRMAT ION RPR qualitative Nonrea ctive nonrea ctive : Not Hispa zohaib or Latin o Not Available [facility] (Lab) [address] [place], [address], 01/20/2025 12:18:04 01/18/20 25 01/17/2025 HEMOG LOBIN A1C hemoglobin A1C 5.0 % 4.0-5. 6 : Not Hispa zohaib or Latin o The Ameri can Diabe glo Assoc iatio n recom mends that a prima ry goal of thera randa veliz d be a HBA1C of < 7% [...] >8.0% Actio n sugge sted Not Available [facility] (Lab) [address] [facility], [place], [address], 01/20/2025 12:18:04 01/18/20 25 01/17/2025 LEAD, BLOOD (ADUL T/PED IATRI C) lead, whole blood <1.0 mcg/d L <3.5 See Note 1 Antonio sis was perfo rmed by Jimbo Conroy ed Plasm a Mass Spect romet ry (ICPM S) Note 1 This test was devel oped and its antonio tical perfo rmanc e jenaro cteri stics have been deter mined by [employer]. It has not been clear ed or appro dolores by the FDA. This assay has been valid ated pursu ant to the CLIA regul ation s and is used for clini gogo purpo ses. : Not Hispa zohaib or Latin o Perfo rming Organ izati on Infor matio n: Site ID: CB Name: [employer] [facility]-Aleksandr Boyle Addre ss: [address] [place] [address] Direc tor: Galileo Meyer s Not Available [facility] (Lab) [address] , [place], [address], 01/20/2025 12:18:05 01/18/20 25 01/17/2025 drug scree n, urine Amphetamines : negati ve Not Available [place] [address], [place], [address], 01/17/2025 10:30:22 01/18/20 25 01/17/2025 drug scree n, urine Cannabinoids : negati ve Not Available [place] [address], [place], [address], 01/17/2025 10:30:22 01/18/20 25 01/17/2025 drug scree n, urine Cocaine: negati ve Not Available [place] [address], [place], [address], 01/17/2025 10:30:22 01/18/20 25 01/17/2025 drug scree n, urine Opiates: negati ve Not Available [place] [address], [place], [address], 01/17/2025 10:30:22 01/18/20 25 01/17/2025 drug scree n, urine Phenocyclidi ne: negati ve Not Available [place] [address], [place], [address], 01/17/2025 10:30:22 01/18/20 25 01/17/2025 drug scree n, urine Barbiturates : negati ve Not Available [place] [address], [place], [address], 01/17/2025 10:30:22 01/18/20 25 01/17/2025 drug scree n, urine Benzodiazepi sabrina: negati ve Not Available [place] [address], [place], [address], 01/17/2025 10:30:22 01/18/20 25 01/17/2025 drug scree n, urine Ethanol: negati ve Not Available [place] [address], [place], [address], 01/17/2025 10:30:22 01/18/20 25 01/17/2025 drug scree n, urine Hallucinogen s: negati ve Not Available [place] [address], [place], [address], 01/17/2025 10:30:22 01/18/20 25 01/17/2025 drug scree n, urine Inhalants: negati ve Not Available [place] [address], [place], [address], 01/17/2025 10:30:22 01/18/20 25 01/17/2025 drug scree n, urine Anabolic Steroids: negati ve Not Available [place] [address], [place], [address], 01/17/2025 10:30:22 01/18/20 25 01/17/2025 drug scree n, urine Other: positi ve Not Available [place] [address], [place], [address], 01/17/2025 10:30:22 05/09/20 25 05/09/2025 HEMOG LOBIN (HGB) HGB 9.6 g/dL (based on docume nted legal sex) 11.6-1 5.4 low Not Available [facility] (Lab) [address] [facility], [place], [address], 05/12/2025 14:37:31 05/09/20 25 05/09/2025 HEMAT OCRIT (HCT) HCT 30.4 % (based on docume nted legal sex) 34.0-4 5.0 low Not Available [facility] (Lab) [address] [facility], [place], [address], 05/12/2025 14:37:32 05/09/20 25 05/09/2025 GTT - GESTA SINDHU L SASKIA N, ACOG OB glucose, 1 hour screen 70 mg/dL 70-135 Not Available [facility] (Lab) [address] [place], [address], 05/12/2025 14:37:32 05/09/20 25 05/09/2025 HIV 1/2 ANTIG EN/AN TIBOD Y, REFLE X CONFI RMATI ON HIV antigen/anti body Nonrea ctive nonrea ctive HIV-1 antig en and HIV-1 /HIV- 2 antib odies were not detec alfonso. No labor atory evide nce of HIV infec tion. Not Available [facility] (Lab) [address] [facility], [place], [address], 05/12/2025 14:37:32 05/09/20 25 05/09/2025 RPR SCREE N, REFLE X TITER /CONF IRMAT ION RPR qualitative Nonrea ctive nonrea ctive Not Available [facility] (Lab) [address] [facility], [place], [address], 05/12/2025 14:37:33 05/09/20 25 05/09/2025 urina lysis , dipst ick Leukocytes trace Not Available [facility] [address], [place], [address], 05/09/2025 14:43:51 05/09/2005/09/2025 urina lysis , dipst ick Nitrite neg Not Available [place] [address], [place], [address], 05/09/2025 14:43:51 05/09/20 25 05/09/2025 urina lysis , dipst ick Urobilinogen norm Not Available [facility] minal [address], [place], [address], 05/09/2025 14:43:51 05/09/20 25 05/09/2025 urina lysis , dipst ick Protein trace Not Available [place] [address], [place], [address], 05/09/2025 14:43:51 05/09/20 25 05/09/2025 urina lysis , dipst ick pH 5 Not Available [place] [address], [place], [address], 05/09/2025 14:43:51 05/09/20 25 05/09/2025 urina lysis , dipst ick Specific Hart 1.015 Not Available [facility] perry [address], [place], [address], 05/09/2025 14:43:51 05/09/20 25 05/09/2025 urina lysis , dipst ick Ketone trace Not Available [place] [address], [place], [address], 05/09/2025 14:43:51 05/09/20 25 05/09/2025 urina lysis , dipst ick Bilirubin nor Not Available [facility] [address], [place], [address], 05/09/2025 14:43:51 05/09/20 25 05/09/2025 urina lysis , dipst ick Glucose neg Not Available [place] [address], [place], [address], 05/09/2025 14:43:51 05/09/20 25 05/09/2025 urina lysis , dipst ick Appearance clear Not Available [facility] wat[facility] [address], [place], [address], 05/09/2025 14:43:51 05/09/2005/09/2025 urina lysis , dipst ick Color yellow Not Available [place] [address], [place], [address], 05/09/2025 14:43:51 01/18/20 25 01/17/2025 US, obstmehul tric, nucha l trans lucen cy No observ ation record ed. carmen [place] [address], [place], [address], 01/17/2025 17:27:13 01/18/20 25 01/17/2025 US, scottie tric, follo w-up No observ ation record ed. john [address], [place], [address], 01/21/2025 15:12:49 03/12/20 25 03/12/2025 US, obste tric, 2nd or 3rd trime ster No observ ation record ed. [facility] [address], [place], [address], 03/12/2025 18:48:30 03/12/20 25 03/12/2025 US, obste tric, 2nd or 3rd trime ster No observ ation record ed. Pat [address], [place], [address], 03/14/2025 09:40:30 04/11/20 25 04/11/2025 US, obste tric, follo w-up No observ ation record ed. [place] [address], [place], [address], 04/11/2025 17:08:07 04/11/20 25 04/11/2025 US, obste tric, follo w-up No observ ation record ed. [email or web address] [address], [place], [address], 04/15/2025 06:50:04 05/09/20 25 05/09/2025 US, obste tric, follo w-up No observ ation record ed. [facility] [address], [place], [address], 05/09/2025 16:53:22 05/09/20 25 05/09/2025 US, obste tric, follo w-up No observ ation record ed. Pat [address], [place], [address], 05/12/2025 12:19:00 06/05/20 25 06/05/2025 US, obste tric, follo w-up No observ ation record ed. [address], [place], [address], 06/05/2025 15:11:40 06/05/20 25 06/05/2025 US, obste tric, follo w-up No observ ation record ed. [email or web address] [address], [place], [address], 06/05/2025 17:56:42 Result Notes None recorded. Problems Name Problem SNOMED Code Status Onset Date Resolution Date Notes Provider Name and Address Organization Details Recorded Time Group B Streptoc occus carrier [id number] 103 Completed h/o in first preg. Renee Torres MD [address], [place], [address], [facility] 3 10:33:02 Ultrasou nd scan abnormal [id number] Completed subamnio tic hemorrha ge - rpt u/s schd 01/04/23- wnl at [facility]. no FU needed. Marvin cabrera [facility] 3 16:42:26 Uterine size for dates discrepa ncy [id number] Completed already doing growth at [facility] 3 16:42:26 Venous conroy [id number] Completed placenta - 02/21/24 9am u/s only. REBECCA MENA MD [address], [place], [address], [facility] 4 11:34:29 Placenta circumva llata [id number] Completed REBECCA MENA MD [address], [place], [address], [facility] 4 11:34:29 Pregnanc y 06171572 Completed 202203/13/2023 Chaya cabrera, [facility] 5 10:31:09 Pregnanc y [id number] Completed 202305/27/2024 Chaya cabrera [facility] 5 10:31:09 Pregnanc y 85316017 Active 2024 Chaya Marley [facility], [facility] 5 10:31:09 Group B Streptoc occus carrier [id number] 103 Active 2024 + GBS in urine Tiara Alarcon [facility], [facility] 5 17:54:31 Problem Notes None recorded. Procedures Surgical History Date Name Laterality Status Provider Name and Address Organization Details Recorded Time 05/05/20 23 Date of Last Pap Smear completed Iveth Guevara [facility] 05/23/2025 14:51:22 02/29/20 22 IUD Removal completed STEPHANIE Acevedo [address], [place], [address], [facility] 02/28/2022 09:46:01 02/10/20 21 Colposcopy completed Chayaondina Marley [facility] 01/17/2025 10:28:24 02/10/20 21 [facility] 07/27/2022 10:28:55 07/31/19 20 extraction of wisdom tooth completed Chayaondina Marley [facility] 07/27/2022 10:28:13 07/31/19 18 Date of Last [facility] 07/27/2022 10:27:19 07/31/19 18 Colonoscopy completed Chaya [facility] 07/27/2022 10:28:04 Imaging Results None recorded. [...] Not Available Not Available Not Available Vitals None Recorded Social History Question Answer Notes LastModified by Organizat ion Details LastModified Time Tobacco Smoking Status Former Smoker Sujata Zheng [facility] 10/20/2022 09:56:48 Do You Have An Advance Directive? No Information not available 02/08/2021 If You Are , What Was Your Level Of Alcohol Consumption Prior To ? Occasional Information not available 10/20/2022 Are You Blind [...] Or The Highest Degree You Have Received? [id number] Information not available 02/08/2021 Are There Any Guns Present In Your Home? No Information not available 02/08/2021 Do You Use Protection During Sex? No Information not available 02/08/2021 Do You Use Your Seat Belt Or Car Seat Routinely? Yes Information not available 02/08/2021 Are You Sexually Active? Yes [email or web address] Information not available 03/12/2025 Do You Have Smoke And Carbon Monoxide Detectors In Your Home? Yes Information not available 02/08/2021 How Much Tobacco Do You Smoke? No Information not available 02/08/2021 Do You Use Sunscreen Routinely? Yes Information not available 02/08/2021 Have You Used IV Drugs? No Information not available 02/08/2021 Do You Have Difficulty Walking Or Climbing Stairs? No [email or web address] Information not available 10/20/2022 Sex: Unknown Functional [...] able to care for yourself independently? 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 No [email or web address] Information not available 10/20/2022 What is your exercise level? Heavy Information not available 02/08/2021 Mental Status Question Answer Note LastModified by Organization D etails LastModified Time Do you feel stressed (tense, restless, nervous, or anxious, or unable to sleep at night)? [id number] Information not available 02/08/2021 Family History Relationship Description Onset Age of this Age Resolved Age Notes LastModified by Organization Details LastModified Time Maternal Aunt Disorder of thyroid gland Not available 2020 11:46:08 Maternal Aunt Malignant neoplasm of ovary Not available 2020 11:36:55 Mother Anemia Not available 02/08/2021 11:46:08 Mother Malignant neoplasm of breast [email or web address] Not available 07/27 21:16:57 Mother Malignant neoplasm of lung [email or web address] Not available 07/27 21:17:08 Paternal Aunt Malignant neoplasm of breast Not available 2020 11:46:08 Paternal Grandmother Malignant neoplasm of breast Not available 2020 11:46:08 Maternal Grandmother Malignant neoplasm of breast [email or web address] Not available 2021 09:35:33 Medical History Condition Response Allergies (Food, seasonal, environmental ) N Other N Blood Transfusion N Breast Cancer N Drug/Latex Allergies/Reactions N Dermatologic Disorders N Lung Disease N Defects or Inherited Disease N Breast Problem N Gestational Diabetes N Hematologic disorders N Anesthesia Complications N History of STI Y Deep Vein Thrombosis N Polycystic ovary syndrome N Anxiety Disorder N Autoimmune disease N Arthritis N Polyps N Infertility N Acid Reflux (GERD) N History of abnormal pap Y Cancer N Varicosities N Stroke N Neurologic/Epilepsy N Endometriosis N High Cholesterol N Fibromyalgia N Headaches N Kidney Disease N Heart Problems N Thyroid Problems N Kidney or Bladder Problems N GI Problems Y Eating Disorder [...] ICD10 Code Diagnosis IMO Codes Diagnosis Note [id number] Orion Ruiz MD [place] [address],[place] [address] 05/09/2025 13:58:24 05/09/2025 14:40:46 Anomaly of placenta 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 O43.103 Z03.74 Z3A.28 [id number] [facility] [address] [place] [address] 05/09/2025 13:58:38 05/09/2025 14:55:45 Urinary symptoms [id number] R39.9 [id number] Gestation period, 28 weeks [id number] Z3A.28 6794239 Pruritus of vagina 59640 003 N89.8 [id number] [facility] [address] [place] [address] 05/23/2025 14:43:28 05/23/2025 15:06:10 Gestation period, 30 weeks [id number] Z3A.30 [id number] continue vitamin [id number] Orion Ruiz MD [place] [address] [address] 06/05/2025 10:56:09 06/05/2025 14:07:34 Abnormal placenta affecting management of mother [id number] O43.93 Z3A.32 [id number] Health Concerns Section Related Observation LastModified by Organization Detai ls LastModified Time None Recorded Concern Status LastModified by Organization Details LastModified Time None Recorded Payers Encounter Date Sequence Insurance Name Policy Number Policy Veloz Covered Member ID Veloz Member ID Guarantor Name 06/05/2025 1 [facility] (MEDICAID HMO) [id number] Trina Dhillon [id number] Man Clarice OBGyn Episode Ob Episode Information Episode Created Date Number of Fetuses Patient Bloodtype Patient rh Status Prepregnancy Weight lbs Domestic Partner Domestic Partner Phone Father Name Chef Head Status 01/18/20 25 1 O Positive 112 Alli Wilmurt h OPEN Fetus Data First Name Last Name Admitted to NICU Weight (g) Sex Living Outcome Pediatric Complications Fetus ID Race Codes Race Delivery Type [id number] Problems Problem Notes multiple placental lakes STA BLE Problem Name Start Date End Date Resolution Snomed Code Not e Group B Streptococcus carrier 01/21/2025 [id number] + GBS in urine Moises Calculation Initial Moises Date Initial Exam Date Initial Exam Provider Initial Ultrasound Date Last Menstrual Period Date Ultra Sound Weeks Gestation 07/27/2025 12/17/2024 [email or web address] 12/03/2024 10/20/2024 6 Eighteen To Twenty Week [...] Weight in lbs Pre/Post Dialysis Refused Weight 112.882280992040 BP Diastolic BP Location Tested BP Systolic [...] Type Weight in lbs Pre/Post Dialysis Refused 114.368043841954 BP Diastolic BP Location Tested BP Systolic [...] Type Weight in lbs Pre/Post Dialysis Refused 122.653011676624 BP Diastolic BP Location Tested BP Systolic [...] Weight in lbs Pre/Post Dialysis Refused Weight 127.716264975748 BP Diastolic BP Location Tested BP Systolic [...] Weight in lbs Pre/Post Dialysis Refused Weight 136.732629632288 BP Diastolic BP Location Tested BP Systolic [...] Weight in lbs Pre/Post Dialysis Refused Weight 137.870675404948 BP Diastolic BP Location Tested BP Systolic [...] Type Weight in lbs Pre/Post Dialysis Refused 140.470876769692 BP Diastolic BP Location Tested BP Systolic [...]
--- OUTSIDE RECORDS SUMMARY | 2025-06-06 12:22 | XMS_ITS | Clinical Summary ---
Author Organization [facility] Address [address] [place] [address] Care Team Providers Care Online Content Editor Name Role Phone Wisam Love MD Primary Care Provider [phone] Source Comments [facility],non-owned Affiliates and Associated Physician Practices is amultiple site organization consisting of ambulatory clinics and hospital sitesin [place], [place], [place] and [place]. This disclosure is being madepursuant to the Care Everywhere program and may not contain all information available regarding this patient. Last updated 18.[facility] Allergies No known active allergies Medications * Be aware that medications may not be up to date on this document. Alwaysverify current medications with the patient. Vit-Fe Fumarate-FA ( Vitamin) 27-0.8 MG Vitamin Active prochlorperazin e (Compazine) 10 MG tablet Take 1 (one) tablet by mouth 3 times daily Active Active Problems Problem Noted Date Diagnosed Date Supervision of high-risk of mary cano 10/25/2022 Overview (10/25/2022): Consult from Dr. Ruiz Dated by 1st trimester US PNL: O+/ab-, RI, RPR/HIV/HepB/HepC- - GC/CT/trich- - Pap NILM 01/26/22 - UDS +MJ - Urine cx neg - Genetics: NIPT low risk, CF and SMA carrier screening neg - Imm: Needs Tdap at 28wks - Needs GCT/CBC/HIV/RPR at 28wks - Needs GBS at 36wks Abnormal ultrasound of placenta 10/25/2022 Overview (10/25/2022): Subamniotic hemorrhage noted on outside US US 10/25/22 @ [facility] - subamniotic hemorrhage noted. Normal growth. Pt reports no bleeding Social History Tobacco Use Types Packs/Day Years Used Date Smoking Tobacco: Former Cigarettes Smokeless Tobacco: Never Tobacco Cessation:Counseling Given: Not Answered Alcohol Use Standard Drinks/Week Comments Not Currently 0 (1 standard drink = 0.6 oz pur e alcohol) Overall Financial Resource Strain (CARDIA) Answe r Date Recorded How hard is it for you to pa y for the very basics like food, housing, medical care, and heating? Not hard at all 10/25/2022 [facility] - Occupational Stress Questionnaire Answer Date Recorded Do you feel stress - tense, restless, nervous, or anxious, or unable to sleep at night because your mind is troubled all the time - these days? Not at all 10/25/2022 Hunger Vital Sign Answer Date Recorded Within the past 12 months, y ou worried that your food would run out before you got the money to buy more. Never true 10/26/19 23 Within the past 12 months, t he food you bought just didn't last and you didn't have money to get more. Never true 10/25/2022 PRAPARE - Transportation Answer Date Re corded In the past 12 months, has l ack of transportation kept you from medical appointments or from getting medications? No 09/29 In the past 12 months, has l ack of transportation kept you from meetings, work, or from getting things needed for daily living? No 10/25/2022 Housing Stability Vital Sign Answer Favian e Recorded In the last 12 months, was t here a time when you were not able to pay the mortgage or rent on time? No 10/25/2022 In the last 12 months, how many places have you lived? 2 10/25/2022 In the last 12 months, was t here a time when you did not have a steady place to sleep or slept in a snf (including now)? No 10/25/2022 Thermal Depression Scale Answer Date Recorded Thermal Depression Scale Total 0 10/25/2022 The thought of harming myself has occurred to me . Never 10/25/2022 Comments No Sex and Gender Information Value Date Recorded Sex Assigned at Not on file Legal Sex Female 3:07 PM CDT Gender Identity Not on file Sexual Orientation Not on file Last Filed Vital Signs Vital Sign Reading Time Taken Comments Blood Pressure 99/63 02/21/2024 9:54 AM CDT Pulse 85 02/21/2024 9:54 AM CDT Temperature - - Respiratory Rate - - Oxygen Saturation - - Inhaled Oxygen Concentration - - Weight 57.6 kg (127 lb) 02/21/2024 9:54 AM CDT Height 162.6 cm (5' 4) 02/21/2024 9:54 AM CDT Body Mass Index 21.8 02/21/2024 9:54 AM CDT Plan of Treatment Health Maintenance Due Date Last Done Comments HEPATITIS C SCREENING 02/27/2015 DTAP/TDAP/TD VACCINES (1 - Tdap) 2016 HEPATITIS B VACCINE (1 of 3 - 19+ 3-dose series) 2016 PAP SMEAR 2018 HPV VACCINE (1 - 3-dose SCDM series) 2024 DEPRESSION SCREENING 07/31/2024 COVID-19 VACCINE ( - 2023- season) 2025 INFLUENZA VACCINE (#1) 2025 05/16/2017 ZOSTER VACCINE (1 of 2) 2047 HIV SCREENING Completed 03/13/2024, 0402/2024, 12/12/2022, Additional history exists HIB VACCINE Aged Out No longer eligi ble based on patient's age to complete this topic MENINGOCOCCAL (Group B) VACCINE SHARED DECISION-MAKING Aged Out No longer eligible based on patient's age to complete this topic MENINGOCOCCAL GROUPS A/C/Y/W VACCINE Aged Out No longer eligible based on patient's age to complete this topic PNEUMOCOCCAL VACCINE Aged Out No long er eligible based on patient's age to complete this topic Insurance [facility] Care Teams Online Content Editor Relationship Specialty Start Date End Date Wisam Love MD [address] [address] PCP - General Family Medicine 10/25/22
--- OUTSIDE RECORDS SUMMARY | 2025-06-06 12:22 | XMS_ITS | Clinical Summary ---
Author Organization [facility] Address [address] [place] [address] Phone Care Team Providers Care Laborer Tree Tapping Name Role Phone Wisam Love MD Primary Care Provider [phone] Allergies No known active allergies Medications No known medications Active Problems Problem Noted Date Diagnosed Date Less than 8 weeks gestation of 022 Bacterial vaginosis 03/30/2022 B12 deficiency 11/08/2021 Vitamin D deficiency 11/08/2021 Chronic diarrhea 08/06/2021 Fatigue 08/06/2021 Chronic back pain greater than 3 months duration 08/06/2021 Noncompliance 08/06/2021 Irritable bowel syndrome with diarrhea RUQ pain 05/06/2021 Immunizations Immunization Administration Dates Next Due Influenza Vaccine, Quadrivalent, PF 05/16/2017 Influenza, Injectable, Quadrivalent 05/16/2017 TDAP Vaccine 12/29/2019 Family History Medical History Relation Name Comments Cancer Maternal Grandmother Cancer Other Cancer Paternal Aunt Cancer Paternal Grandmother Relation Name Status Comments Maternal Grandmother Other Paternal Aunt Paternal Grandmother Social History Tobacco Use Types Packs/Day Years Used Date Smoking Tobacco: Former Cigarettes Smokeless Tobacco: Never Tobacco Cessation:Counseling Given: No Alcohol Use Standard Drinks/Week Comments Not Currently 0 (1 standard drink = 0.6 oz pur e alcohol) Sexually Active Control Partners Comments Yes I.U.D. Male Comments No Sex and Gender Information Value Date Recorded Sex Assigned at Not on file Legal Sex Female 10:17 AM CDT Gender Identity Not on file Sexual Orientation Not on file Last Filed Vital Signs Vital Sign Reading Time Taken Comments Blood Pressure 100/68 06/29/2022 3:18 PM GEOSPATIAL EXTRACTOR ANALYSIS Pulse 73 06/29/2022 3:18 PM GEOSPATIAL EXTRACTOR ANALYSIS Temperature 36.9 C (98.4 F) 06/29/2022 3:18 PM GEOSPATIAL EXTRACTOR ANALYSIS Respiratory Rate 16 06/29/2022 3:18 PM GEOSPATIAL EXTRACTOR ANALYSIS Oxygen Saturation 98% 06/29/2022 3:18 PM GEOSPATIAL EXTRACTOR ANALYSIS Inhaled Oxygen Concentration - - Weight 51.1 kg (112 lb 9.6 oz) 06/29/2022 3:18 P M GEOSPATIAL EXTRACTOR ANALYSIS Height 162.6 cm (5' 4) 06/29/2022 3:18 PM GEOSPATIAL EXTRACTOR ANALYSIS Body Mass Index 19.33 06/29/2022 3:18 PM GEOSPATIAL EXTRACTOR ANALYSIS Plan of Treatment Health Maintenance Due Date Last Done Comments Hepatitis B Immunization (1 of 3 - 19+ 3-dose series) 2016 Pap Smear 2018 Human Papillomavirus (HPV) Immunization (1 - 3-dose SCDM series) 2024 Influenza Immunization (#1) 03/31/202504/30, 05/16/2017 SARS-COV-2 Immunization ( season) 2025 Td Immunization Every 10 Yea rs (Adults With 1 Tdap) 12/28/2029 12/29/2019 Respiratory Syncytial Virus (RSV) Immunization (Adult) (1 - 1-dose 75+ series) 2072 DTaP/Tdap/Td Immunization Discontinued 12/29/2019 Hepatitis C Virus (HCV) Screening Completed 11/06/2023 Meningococcal Immunization (ACWY) Aged Out No longer eligible based on patient's age to complete this topic Pneumococcal Immunization Combined Aged Out No longer eligible based on patient's age to complete this topic Rotavirus Immunization Aged Out No lo nger eligible based on patient's age to complete this topic Insurance [facility] Care Teams Laborer Tree Tapping Relationship Specialty Start Date End Date Wisam Love MD [address] [address] PCP - General Family Medicine 01/22/21
--- OUTSIDE RECORDS SUMMARY | 2025-06-06 12:22 | XMS_ITS | Data Portability ---
Author Organization [facility] Address [address] [place] [address] [place] [address] Assessment Encounter Date Assessment Date Assessment LastModified by Organization Details LastModified Time 05/23/2025 05/23/2025 Patient is __30_weeks . Discussed plan. [email or web address] Not available 05/23/2025 14:52:43 06/06/2025 06/06/2025 Patient is _32__weeks . Discussed plan. [email or web address] Not available 06/06/2025 12:02:14 Plan of Treatment Reminders Order Date Submit Date Provider Last Modified By Organization Details Last Modified Time Details Appointments OB ROUTINE 2024 10:45A M Zuleima Olsen CNM Not available Not available Not available NST 2024 11:00A M NST SCHEDULE Not available Not available Not available OB ROUTINE 2024 08:45A Vi Olsen CNM Not available Not available Not available OB ROUTINE 2024 10:15A M Zuleima Olsen CNM Not available Not available Not available Lab None recorded . Referral None recorded . Procedures None recorded . Surgeries None recorded . Imaging US, obstetri c, follow-u p 2024 025 [email or web address] [facility], [address], [place], [address], 06/05/2025 16:21:32 US, obstetri c, follow-u p 2024 025 [email or web address] [facility], [address], [place], [address], 05/11/2025 21:20:37 Medication Orders None recorded . Patient TargetsNo targets recorded. Patient InstructionsNo instructions recorded. Reason for Referral None Reported. Results Created Date Observation Date Name Description Value Unit Range Abnormal Flag Note LastModifiedBy Organization Detail LastModifiedTime 05/09/2005/09/2025 HEMOG LOBIN (HGB) HGB 9.6 g/dL (based on docume nted legal sex) 11.6-1 5.4 low Not Available [facility] (Lab) [address], [place], [address], 05/12/2025 14:37:31 05/09/20 25 05/09/2025 HEMAT OCRIT (HCT) HCT 30.4 % (based on docume nted legal sex) 34.0-4 5.0 low Not Available [facility] (Lab) [address], [place], [address], 05/12/2025 14:37:32 05/09/20 25 05/09/2025 GTT - GESTA SINDHU L SASKIA Colon, ACOG OB glucose, 1 hour screen 70 mg/dL 70-135 Not Available [facility] (Lab) [address] [place], [address], 05/12/2025 14:37:32 05/09/20 25 05/09/2025 HIV 1/2 ANTIG EN/AN TIBOD Y, REFLE X CONFI RMATI ON HIV antigen/anti body Nonrea ctive nonrea ctive HIV-1 antig en and HIV-1 /HIV- 2 antib odies were not detec alfonso. No labor atory evide nce of HIV infec tion. Not Available [facility] (Lab) [address], [place], [address], 05/12/2025 14:37:32 05/09/20 25 05/09/2025 RPR SCREE N, REFLE X TITER /CONF IRMAT ION RPR qualitative Nonrea ctive nonrea ctive Not Available [facility] (Lab) [address], [place], [address], 05/12/2025 14:37:33 05/09/2005/09/2025 urina lysis , dipst ick Leukocytes trace Not Available [facility] Camdendorothy watson [address], [place], [address], 05/09/2025 14:43:51 05/09/2005/09/2025 urina lysis , dipst ick Nitrite neg Not Available [facility] [address], [place], [address], 05/09/2025 14:43:51 05/09/2005/09/2025 urina lysis , dipst ick Urobilinogen norm Not Available [facility] minal [address], [place], [address], 05/09/2025 14:43:51 05/09/2005/09/2025 urina lysis , dipst ick Protein trace Not Available [facility] [address], [place], [address], 05/09/2025 14:43:51 05/09/2005/09/2025 urina lysis , dipst ick pH 5 Not Available [facility] [address], [place], [address], 05/09/2025 14:43:51 05/09/2005/09/2025 urina lysis , dipst ick Specific [place] 1.015 Not Available [facility] perry [address], [place], [address], 05/09/2025 14:43:51 05/09/20 25 05/09/2025 urina lysis , dipst ick Ketone trace Not Available [facility] [address], [place], [address], 05/09/2025 14:43:51 05/09/20 25 05/09/2025 urina lysis , dipst ick Bilirubin nor Not Available [facility] Camdentrue carver [address], [place], [address], 05/09/2025 14:43:51 05/09/20 25 05/09/2025 urina lysis , dipst ick Glucose neg Not Available [facility] [address], [place], [address], 05/09/2025 14:43:51 05/09/2005/09/2025 urina lysis , dipst ick Appearance clear Not Available [facility] Camdendorothy watson [address], [place], [address], 05/09/2025 14:43:51 05/09/20 25 05/09/2025 urina lysis , dipst ick Color yellow Not Available [facility] [address], [place], [address], 05/09/2025 14:43:51 04/11/20 25 04/11/2025 , obste tric, follo w-up No observ ation record ed. [facility] [address], [place], [address], 04/11/2025 17:08:07 04/11/20 25 04/11/2025 , obste tric, follo w-up No observ ation record ed. [email or web address] [address], [place], [address], 04/15/2025 06:50:04 05/09/20 25 05/09/2025 US, obste tric, follo w-up No observ ation record ed. [facility] [address], [place], [address], 05/09/2025 16:53:22 05/09/20 25 05/09/2025 US, obste tric, follo w-up No observ ation record ed. [email or web address] [address], [place], [address], 05/12/2025 12:19:00 06/05/20 25 06/05/2025 US, obste tric, follo w-up No observ ation record ed. [email or web address] [facility] [address], [place], [address], 06/05/2025 15:11:40 06/05/20 25 06/05/2025 US, obste tric, follo w-up No observ ation record ed. [address], [place], [address], 06/05/2025 17:56:42 Result Notes None recorded. Problems Name Problem SNOMED Code Status Onset Date Resolution Date Notes Provider Name and Address Organization Details Recorded Time Group B Streptoc occus carrier [id number] Completed h/o in first preg. Renee Torres MD [address], [place], [address], [facility] 3 10:33:02 Ultrasou nd scan abnormal 665511455 Completed subamnio tic hemorrha ge - rpt u/s schd 01/04/23- wnl at [facility]. no FU needed. Marvin cabrera [facility] 3 16:42:26 Uterine size for dates discrepa ncy 418191566 Completed already doing growth at [facility] Marvin cabrera [facility] 3 16:42:26 Venous conroy 086302010 Completed placenta - 02/21/24 9am u/s only. REBECCA MENA MD [address], [place], [address], [facility] 4 11:34:29 Placenta circumva llata 8227251 Completed REBECCA MENA MD [address], [place], [address], [facility] 4 11:34:29 Pregnanc y 21468386 Completed 202203/13/2023 Chaya Marley [facility], [facility] 5 10:31:09 Pregnanc y 35373977 Completed 202305/27/2024 Chaya Marley [facility], [facility] 5 10:31:09 Pregnanc y 58161844 Active 2024 Chaya Marley [facility], [facility] 5 10:31:09 Group B Streptoc occus carrier 3510549012 103 Active 2024 + GBS in urine Tiara Alarcon [facility], [facility] 5 17:54:31 Problem Notes None recorded. Procedures Surgical History Date Name Laterality Status Provider Name and Address Organization Details Recorded Time 05/05/20 23 Date of Last Pap Smear completed Iveth Guevara [facility] 05/23/2025 14:51:22 02/29/20 22 IUD Removal completed STEPHANIE Acevedo [address], [place], [address], [facility] 02/28/2022 09:46:01 02/10/20 21 Colposcopy completed Chaya Marley [facility] 01/17/2025 10:28:24 02/10/20 21 cervical biopsy completed Chaya Marley [facility] 07/27/2022 10:28:55 07/31/19 20 extraction of wisdom tooth completed Chaya Marley [facility] 07/27/2022 10:28:13 07/31/19 18 Date of Last Colonoscopy completed Chaya Marley [facility] 07/27/2022 10:27:19 07/31/19 18 Colonoscopy completed Chaya Marley [facility] 07/27/2022 10:28:04 Imaging Results None recorded. [...] Available Not Available Vitals Date Recorded Body height Body mass index (BMI) Body weight Systolic And Diastolic Provider Name and Address Organization Details Last Updated DateTime 05/09/2025 162.56 cm 23.3 kg/m2 02150.56 g 115/76 mm[Hg] Renee Stubbs [facility] 05/09/2025 14:40:12 Date Recorded Body height Body mass index (BMI) Body weight Systolic And Diastolic Provider Name and Address Organization Details Last Updated DateTime 05/23/2025 162.56 cm 23.5 kg/m2 13053.15 g 105/71 mm[Hg] Iveth Ismael [facility] 05/23/2025 14:50:51 Date Recorded Body weight Systolic And Diastolic Provider Name and Address Organization Details Last Updated DateTime 06/06/2025 81641.9318 g 112/74 mm[Hg] Iveth Guevara [facility] 06/06/2025 11:57:04 Social History Question Answer Notes LastModified by Organizat ion Details LastModified Time Tobacco Smoking Status Former Smoker Sujata Zheng [facility] 10/20/2022 09:56:48 Do You Have An Advance Directive? No Information not available 02/08/2021 If You Are , What Was Your Level Of Alcohol Consumption Prior To ? Occasional [email or web address] Information not available 10/20/2022 Are You Blind [...] Or The Highest Degree You Have Received? [id number] Information not available 02/08/2021 Are There Any Guns Present In Your Home? No Information not available 02/08/2021 Do You Use Protection During Sex? No Information not available 02/08/2021 Do You Use Your Seat Belt Or Car Seat Routinely? Yes Information not available 02/08/2021 Are You Sexually Active? Yes [email or web address] Information not available 03/12/2025 Do You Have Smoke And Carbon Monoxide Detectors In Your Home? Yes Information not available 02/08/2021 How Much Tobacco Do You Smoke? No Information not available 02/08/2021 Do You Use Sunscreen Routinely? Yes Information not available 02/08/2021 Have You Used IV Drugs? No Information not available 02/08/2021 Do You Have Difficulty Walking Or Climbing Stairs? No [email or web address] Information not available 10/20/2022 Sex: Unknown Functional [...] able to care for yourself independently? 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 No [email or web address] Information not available 10/20/2022 What is your exercise level? Heavy Information not available 02/08/2021 Mental Status Question Answer Note LastModified by Organization D etails LastModified Time Do you feel stressed (tense, restless, nervous, or anxious, or unable to sleep at night)? [id number] Information not available 02/08/2021 Family History Relationship Description Onset Age of this Age Resolved Age Notes LastModified by Organization Details LastModified Time Maternal Aunt Disorder of thyroid gland Not available 2020 11:46:08 Maternal Aunt Malignant neoplasm of ovary Not available 2020 11:36:55 Mother Anemia Not available 02/08/2021 11:46:08 Mother Malignant neoplasm of breast [email or web address] Not available 07/27 21:16:57 Mother Malignant neoplasm of lung [email or web address] Not available 07/27 21:17:08 Paternal Aunt Malignant [...] ICD10 Code Diagnosis IMO Codes Diagnosis Note [id number] Orion Ruiz MD [facility] [address] [address] 02/08/2021 11:02:08 02/09/2021 11:21:18 Lesion of cervix 529170420 N88.9 this patient is a 25-year-ol d female presents for cervical nodule. Patient reports feeling a small cervical nodule. Is nontender. She does have pain with intercours e. Her partner can feel it. She is concerned about the nature of the nodule. Tischler forceps were used to biopsy the nodule. It was a 1/2 cm nodule on the lateral left aspect of the cervix. Two biopsies , side to side were taken. this is required to remove the any nodule. At the end of the procedure the nodule could no longer be felt there. The pelvic exam was otherwise a normal. [id number] Orion Ruiz MD [facility] [address],[place] [address] 02/16/2021 12:38:58 02/16/2021 13:56:28 Dysplasia of cervix 72835047 N87.9 this patient is a 25-year-ol d female presents for follow-up after cervical biopsy and removal of a cervical lesion. Low-grade dysplasia was discovered . The biopsy was merely to remove nodule, yet, mild dysplasia was observed on results. We talked about abnormal Pap smear, HPV, etiology, natural history, treatment, surveillan ce. We agreed to perform colposcopi c examinatio n. We spent considerab le time together discussing this very complex topic. new problem [id number] Orion Ruiz MD [facility] [address],[place] [address] 05/25/2021 09:38:00 05/25/2021 11:48:40 [id number] Kizzy DelvalleSTEPHANIE [facility] [address] [address] 12/23/2021 09:26:51 12/23/2021 10:21:45 Pain in pelvis 32374786 R10.2 Pelvic pain bilaterall y for the past 2-3 weeks. Pain is a cramp that comes and goes, worse with intercours e. She is unable to feel her IUD strings.Ta kes tylenol occasional ly for the painUrinar y frequency for the past 2-3 weeks. No burningNor mal bowel movementsH x of cervical lesion removal showing low-grade dysplasia. Needed a colposcopy , has not had that yet.IUD placed 10/12/2020I UD strings visualized in place on examNormal appearing vaginal discharge, vaginitis panel sent for confirmati onUA today (-)GC/CT endocervic al testing sentPelvic u/s orderedF/u with Dr. Ruiz for u/s f/u and to discuss need for colposcopy Red flag symptoms discussed: worsening abdominal pains, fevers, flu-like symptoms. Time spent with the patient was 30 minutes IUD check 575902895 Z30. 431 Vaginal discharge 877452 006 N89.8 Venereal d isease screening 844266302 Z11.3 Loss of hair 500182960 L 65.9 [id number] Orion Ruiz MD [facility] [address] [address] 12/28/2021 10:35:38 12/28/2021 11:17:53 Pain in pelvis 93385149 R10.2 [id number] Orion Ruiz MD [facility] [address],[place] [address] 01/10/2022 11:06:08 01/10/2022 12:41:14 Pain in pelvis 17534965 R10.2 Cyst of ovary 00294932 N 83.209 this patient is a 26-year-ol d female presents for pelvic pain ovarian cyst. She has a hemorrhagi c cyst of the ovary. She has had pelvic pain and chlamydia. She recently was treated for chlamydia will return for ultrasound follow-up and repeat chlamydia test in 6 weeks. We talked about ovarian cyst etiology, natural history, treatment. We spent 40 minutes face-to-fa ce. More than 50% was counseling . We talked about chlamydia. Talked about fertility issues related to chlamydia. Talked about IUD. We reviewed ultrasound images together. Talked about hemorrhagi c cysts. Talked about chlamydia as a chronic illness and damage to the fallopian tubes. We talked about the possibilit y of IUD facilitati ng a chlamydia infection in the uterus. We talked about 3 complex topics, 6 transmitte d disease, ovarian cyst, pelvic pain, endometrio sis was included in the conversati on. We talked about the etiology of endometrio sis. She will return in 6 weeks for repeat ultrasound and follow-up on chlamydia infection, test of cure. We will observe her pelvic pain. [id number] STEPHANIE Acevedo [facility] [address] [address] 01/26/2022 09:39:06 01/26/2022 17:49:27 Contraception care management 330926008 Z30.9 Gynecologi c examination 65508470 Z01.419 Z11.3 Z11.8 Take Calcium with Vitamin D 1200mg daily if not receiving in daily diet. It is strongly advised to have an annual flu shot and up can obtain at most pharmacies . If you have not had a TDap shot in the last 10 years you should obtain one as well. Discussed with patient & provided with informatio n regarding Gardisil vaccine to prevent the 4 strains for HPV that cause cervical cancer if under age 26. Encourage safe sexual practices, to use condoms and limit partners if not already in a monogamous relationsh ip. Do monthly self breast exams. Have mammogram yearly or every other year depending on family history. BRCA testing is now available for patients with strong genetic history of female cancer. If interested contact the office. Engage in daily exercise of low impact aerobic exercise 45-60 minutes 4-5 times weekly. Avoid tobacco and illicit drugs as well as using moderation with alcohol intake less than 1-2 8 oz beverages daily. This lifestyle behavior pattern will lead to less health conditions and longer life span. If BMI greater than 25 weight watchers or dietary consult advised. Patient received above instructio ns, and questions have been answered. If you have any questions please call or respond to this email. Patient was made aware of the patient portal and may obtain a paper copy of today's plan if desired. WWEMirena IUD 10/12/2020. Happy with this form of contracept ion(+) chlamydia on 12/23/2021, completed medication course. HUSSEIN added to pap smear todayLast pap smear - LGSIL 2019Cervic al lesion removal in 2020 - showed YASIR-1Was suppose to have a colposcopy performed after lesion removal, has not had this done.Pap smear done today. Will await results of pap smear and discuss further evaluation needed at that time.She has a repeat pelvic u/s for f/u of hemorrhagi c cyst seen in prior u/s / pelvic pain. Pelvic pain has not resolved since treatment of chlamydia infection, but there has been some minor improvemen t. Repeat u/s scheduled for this week.UTD with PCP on routine labs [id number] Orion Ruiz MD [facility] [address],[facility] [place] [address] 01/27/2022 17:24:10 01/27/2022 19:36:19 Cyst of left ovary 9224647953 3690139 N83.202 [id number] Orion Ruiz MD [facility] [address],[facility] [place] [address] 01/28/2022 10:27:49 01/28/2022 12:34:11 Cyst of ovary 11431763 N83.209 this patient is a 26-year-ol d female presents for follow-up on ovarian cyst. She had a pelvic ultrasound . Her pain is much diminished . She has had resolution of her hemorrhagi c cyst on the left and a has a very small ovarian cyst on the right. We agreed that we did need any more follow-up on this issue. She has a suprapubic pain, urinary urgency, and pain with a full bladder. She may have interstiti al cystitis. I explained the disease to her. I told her about the interstiti al cystitis diet. I recommende d that she see Jyoti. She will follow-up with Jyoti and be evaluated for interstiti al cystitis. I spent more than 15 minutes with her. More than 50% was counseling . [id number] STEPHANIE Acevedo [facility] [address] [address] 02/28/2022 09:24:09 02/28/2022 09:59:49 Removal of intrauterine device 28514169 Z30.432 We discussed possible cramping and bleeding over the next few days. Patient informed that return to fertility is immediate. Patient encouraged to take PNV daily. IUD removed without any immediate complicati onsTo call the office with any heavy vaginal bleeding, pains, fevers, etc [id number] STEPHANIE Acevedo [facility] [address],[facility] [place] [address] 04/25/2022 13:58:42 04/25/2022 14:57:13 Increased frequency of urination 927413893 R35.0 UA today does not suggest infection. UA showed protein, which has been noted in previous UA's. We discussed she should f/u with PCP about this, patient agrees.Juany Iyer notices her symptoms with caffeine and carbonatio n intake. Possible IC/PBS. We discussed this. We discussed urology consult vs seeing STEPHANIE Santos at [facility] for further evaluation . She will consider. We discussed avoiding IC triggers (citrus, spicy foods, caffeine, carbonatio n, etc). Increase water intake. She will let us know if she would like further evaluation for IC.Will await culture and treat if neededED precaution s discussed Time spent in visit is a total of 25 mins with at least 50% of visit consisting of counseling and review of plan of care. Vaginal discharge 493534 006 N89.8 Normal speculum exam, normal appearing vaginal dischargeV aginitis panel sentSTI endocervic al testing sentWill await cultures and treat if neededVulv ar care guidelines [facility] ondom use encouraged [id number] Orion Ruiz MD [facility] [address] [address] 07/27/2022 09:38:28 07/27/2022 10:15:01 Uncertain viability of 029868900 O36.80X0 Z3A.01 [id number] Zuleima Olsen CNM [facility] [address] [address] 07/27/2022 09:39:18 07/27/2022 10:39:16 test positive 424225374 Z32.01 Amenorrhea 44578243 N91. 2 [id number] Orion Ruiz MD [facility] [address],[place] [address] 08/17/2022 12:02:15 08/18/2022 17:21:21 Urinary symptoms 508840695 R39.9 [id number] Orion Ruiz MD [facility] [address] [address] 08/25/2022 10:52:29 08/25/2022 11:26:55 screening 288197770 Z36.82 [id number] Orion Ruiz MD [facility] [address],[place] [address] 08/25/2022 10:53:44 08/25/2022 12:33:17 Routine care 423983106 Z34.91 [id number] Марина Walker CNM [facility] [address] [address] 09/20/2022 11:23:27 09/21/2022 17:16:32 Routine care 768913727 Z34.92 screening 2437 27107 Z36.89 Vaginitis 68480918 N76.0 [id number] Orion Ruiz MD [facility] [address] [address] 10/20/2022 09:55:12 10/20/2022 11:38:28 screening for malformation 060541172 Z36.3 [id number] Марина Walker CNM [facility] [address] [address] 10/20/2022 09:56:33 10/21/2022 16:59:27 Routine care 209027826 Z34.92 [id number] Марина Walker CNM [facility] [address] [address] 11/17/2022 11:15:22 11/17/2022 11:50:17 Routine care 539221104 Z34.92 [id number] Orion Ruiz MD [facility] [address],[place] [address] 12/09/2022 13:55:36 12/09/2022 14:52:10 Reduced movement 218802112 O36.8199 [id number] Renee Torres MD [facility] [address],[place] [address] 12/12/2022 10:08:05 12/12/2022 10:40:54 Routine care 895548604 Z34.82 Ultrasound scan abnormal 321044257 R93.89 Uterine si ze for dates discrepancy 673566889 O26.849 [id number] Orion Ruiz MD [facility] [address],[place] [address] 12/30/2022 12:15:20 12/30/2022 13:19:40 Routine care 150549975 Z34.91 [id number] Renee Torres MD [facility] [address] [address] 01/13/2023 11:20:20 01/16/2023 14:32:00 Routine care 966925987 Z34.82 [id number] BHUPINDER De [facility] [address] [address] 01/27/2023 12:26:52 01/27/2023 13:02:56 Routine care 435031500 Z34.93 [id number] BHUPINDER [facility] [address] [address] 02/08/2023 09:21:41 02/08/2023 10:05:13 Routine care 083170174 Z34.93 [id number] BHUPINDER [facility] [address],[place] [address] 02/15/2023 16:12:29 02/15/2023 16:33:34 Routine care 265092343 Z34.93 [id number] Zuleima Olsen [facility] [address] [address] 02/24/2023 14:08:02 02/24/2023 14:56:23 Routine care 102107560 Z34.93 [id number] Zuleima Olsen [facility] [address],[place] [address] 2023 14:14:37 2023 14:46:18 Routine care 050338210 Z34.93 Urinary tr act infectious disease 37718909 N39.0 Urinary symptoms 7915555 08 R39.9 [id number] Zuleima Olsen [facility] [address],[place] [address] 04/07/2023 12:41:14 04/07/2023 13:40:52 care 061048794 Z39.2 start slynd, discussed se risks and benefits, give one month to be effective depression 58 314929 F53.0 discussed se risks and benefits of zoloft, if any suicidal thoughts to ed f/u med check 4 weeks Vaginitis 98976333 N76.0 [id number] Zuleima Olsen [facility] [address] [address] 05/05/2023 12:17:18 05/05/2023 12:44:43 Gynecologic examination 47411620 Z01.419 Anxiety 94966934 F41.9 continue sertraline f/u med check 6 mo, if any suicidal thoughts to ED [id number] Orion Ruiz MD [facility] [address],[place] [address] 1 08/03/2023 17:19:19 08/07/2023 09:24:20 Threatened miscarriage in first trimester [id number] O20.0 8-year-old female presents for of unknown location. She is seen in the ER in [place]. Ultrasound could not identify a viable or an ectopic . There was a para ovarian finding that was questionab le and nonspecifi c. Patient has no pain. She presented for vaginal bleeding. She has very low HCG numbers. We agreed to follow this with serial HCGs and repeat ultrasound . We talked about her clinical situation and possible outcomes. We talked about precaution s for ectopic . She will follow-up in 3 days. We spent over 20 minutes face-to-fa ce. More than 50% was counseling . [id number] Orion Ruiz MD [facility] [address],[place] [address] 10/25/2023 11:23:50 10/25/2023 13:36:28 [id number] REBECCA MENA MD [facility] [address],[place] [address] 10/25/2023 11:25:58 10/25/2023 13:45:12 test positive [id number] Z32.01 1. Exam today within normal limits.2. Ultrasound today confirms GA and viability. EDC . GC/Clamydi a testing done: will f/u as indicated. 4. ACOG guidelines and plan of care for reviewed with patient. All questions answered.5 . Return to office at 12 weeks for new OB visit6. Will need new OB labs at next visit.7. Genetic screening: desires. [id number] Orion Ruiz MD [facility] [address],[place] [address] 11/24/2023 10:42:45 11/24/2023 11:36:34 screening 131513179 Z36.82 Z3A.12 [id number] Zuleima Olsen CNM [facility] [address],[place] [address] 11/24/2023 10:43:04 11/24/2023 12:07:41 Routine care 904387882 Z34.93 Nausea and vomiting 1693 2000 R11.2 Gestation period, 12 weeks 79883732 Z3A.12 [id number] Orion Ruiz MD [facility] [address],[place] [address] 12/21/2023 10:47:52 12/21/2023 11:37:39 [id number] Orion Ruiz MD [facility] [address],[place] [address] 12/21/2023 10:48:40 12/21/2023 12:37:00 Routine care 635443943 Z34.91 [id number] Orion Ruiz MD [facility] [address],[place] [address] 01/16/2024 10:00:24 01/16/2024 11:29:01 screening for malformation 090882768 Z36.3 Z3A.20 [id number] REBECCA MENA MD [facility] [address],[place] [address] 01/16/2024 10:00:40 01/16/2024 11:46:55 Placenta circumvallata 1871159 O43.119 Bleeding f rom female genital tract during 1205503358 4280895 O46.92 Gestation period, 20 weeks 06937131 Z3A.20 [id number] REBECCA MENA MD [facility] [address],[place] [address] 02/13/2024 10:54:10 02/13/2024 11:38:02 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 Venous conroy 836054987 D1 8.01 Gestation period, 24 weeks 285468734 Z3A.24 [id number] BHUPINDER [facility] [address] [place] [address] 03/13/2024 10:23:20 03/13/2024 11:05:04 Urinary symptoms 227411178 R39.9 [id number] Zuleima Olsen CNM [facility] [address] [place] [address] 03/27/2024 09:29:25 03/27/2024 09:47:39 Gestation period, 30 weeks 37873315 Z3A.30 continue vitamin Nausea and vomiting 1693 1999 R11.2 [id number] BHUPINDER [facility] [address] [place] [address] 04/12/2024 09:43:55 04/12/2024 10:33:05 Urinary symptoms 318654942 R39.9 Gestation period, 32 weeks 1644519 Z3A.32 Vaginitis 10320913 N76.0 [id number] Zuleima Olsen [facility] [address],[place] [address] 04/26/2024 09:33:51 04/26/2024 10:01:56 Routine care 645614428 Z34.93 continue vitamin [id number] Orion Ruiz MD [facility] [address],[place] [address] 04/26/2024 09:50:59 04/26/2024 10:49:29 tachycardia 574956335 O36.8399 [id number] BHUPINDER eD La [facility] [address],[place] [address] 05/06/2024 09:38:02 05/06/2024 09:59:00 Gestation period, 36 weeks 19293521 Z3A.36 [id number] Orion Ruiz MD [facility] [address],[place] [address] 12/03/2024 12:24:31 12/03/2024 13:06:34 Finding of menstrual bleeding 437313685 Z36.87 Z3A.01 198700 [id number] Orion Ruiz MD [facility] [address] [place] [address] 12/17/2024 11:49:06 12/17/2024 12:06:52 [id number] BHUPINDER De [facility] [address] [place] [address] 12/17/2024 11:49:26 12/17/2024 13:16:33 Amenorrhea 97284258 N91.2 15713 Bacterial disease screening 015817974 Z11.8 36715 screening 2437 45824 Z36.89 care status 24 7472813 Z34.81 88489003 continue vitamin Gynecologi c examination 97339114 Z01.932 0331139 [id number] Orion Ruiz MD [facility] [address],[place] [address] 12/20/2024 15:55:27 12/24/2024 08:49:22 Threatened miscarriage 19872538 O20.0 Z3A.08 69217 [id number] Orion Ruiz MD [facility] [address],[place] [address] 01/17/2025 09:34:44 01/17/2025 10:12:21 screening 631584804 Z36.82 Z3A.12 520887 [id number] BHUPINDER [facility] [address],[place] [address] 01/17/2025 09:35:20 01/17/2025 13:20:42 state of fetus 03742011 Z34.90 4322822279 continue vitamin Gestation period, 12 weeks 55279388 Z3A.12 2554961 Nausea and vomiting 1693 1999 R11.2 5319581173 [id number] Zuleima Olsen CNM [facility] [address],[place] [address] 02/14/2025 09:48:40 02/14/2025 10:11:18 Gestation period, 16 weeks 49913632 Z3A.16 5038837 continue vitamin [id number] Orion Ruiz MD [facility] [address] [place] [address] 03/12/2025 10:26:37 03/12/2025 11:52:17 screening for malformation 645521588 Z36.3 Z3A.20 8000763647 [id number] BHUPINDER De [facility] [address] [place] [address] 03/12/2025 10:53:03 03/12/2025 12:13:54 Gestation period, 20 weeks 83259256 Z3A.20 8926539 cont pnv [id number] Orion Ruiz MD [facility] [address],[place] [address] 04/11/2025 10:57:49 04/11/2025 12:02:06 anatomy study 922252645 Z36.2 Z3A.24 8690098500 [id number] BHUPINDER De [facility] [address],[place] [address] 04/11/2025 10:59:48 04/11/2025 12:27:35 Gestation period, 24 weeks 823719295 Z3A.24 1188167 cont pnv [id number] Orion Ruiz MD [facility] [address],[place] [address] 05/09/2025 13:58:24 05/09/2025 14:40:46 Anomaly of placenta 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.103 Z03.74 Z3A.28 08912885 [id number] Zuleima Olsen [facility] [address],[place] [address] 05/09/2025 13:58:38 05/09/2025 14:55:45 Urinary symptoms 172545588 R39.9 65275896 Gestation period, 28 weeks 01434045 Z3A.28 2430662 Pruritus of vagina 08779 003 N89.8 395627 [id number] BHUPINDER De [facility] [address],[place] [address] 05/23/2025 14:43:28 05/23/2025 15:06:10 Gestation period, 30 weeks 65031730 Z3A.30 6232798 continue vitamin [id number] Orion Ruiz MD [facility] [address] [place] [address] 06/05/2025 10:56:09 06/05/2025 14:07:34 Abnormal placenta affecting management of mother 70850976 O43.93 Z3A.32 68112551 [id number] BHUPINDER [facility] [address] [place] [address] 06/06/2025 11:46:55 06/06/2025 12:09:09 Gestation period, 32 weeks 5867740 Z3A.32 6470275 cont pnv Health Concerns Section Related Observation LastModified by Organization Detai ls LastModified Time None Recorded Concern Status LastModified by Organization Details LastModified Time None Recorded Advance Directives Directive N: Payers Insurance Date Sequence Insurance Name Policy Number Policy Veloz Covered Member ID Veloz Member ID Guarantor Name 08/13/2022 1 [facility] [id number] Darian Lebron Juan A [id number] [place] 06/06/2025 1 [place] [facility] Trina Dhillon [id number] [facility] 06/06/2025 1 [facility] (MEDICAID O) [id number] Trina Eldridgeleobardo [id number] [facility] Notes Date Note Type Note Provider Name and Address Organization Details Recorded Time 05/09/2025 text/html Generic HPI TemplateReported by Patient Zuleima Olsen CNM [address], [place], [address], [facility] 05/09/2025 14:54:59 05/23/2025 text/html Generic HPI TemplateReported by Patient Zuleima Olsen CNM [address], [place], [address], [facility] 05/23/2025 14:56:31 06/06/2025 text/html Generic HPI TemplateReported by Patient Zuleima Olsen CNM [address], [place], [address], [facility] 06/06/2025 12:07:30 OBGyn Episode Ob Episode Information Episode Created Date Number of Fetuses Patient Bloodtype Patient rh Status Prepregnancy Weight lbs Domestic Partner Domestic Partner Phone Father Name Team Facilitator Status 02/09/20 21 1 CLOSED Fetus Data First Name Last Name Admitted to NICU Weight (g) Sex Living Outcome Pediatric Complications Fetus ID Race Codes Race Delivery Type 3089.86 8704 M Full Term 84166 Vaginal Delivery Moises Calculation Initial Moises Date Initial Exam Date Initial Exam Provider Initial Ultrasound Date Last Menstrual Period Date Ultra Sound Weeks Gestation 0 Eighteen To Twenty Week Moises Update Ultra Sound Date Fundal Height At Umbil Quickening Date Ultra Sound Latest Weeks Gestation Final Moises Confirmed By Final Moises Confirmed Date Final Moises Date Ultra Sound Latest Days Gestation 0 0 Menstrual History Last Menstrual Date Menses Monthly On Bcp Conception Prior Menses Frequency Hcg Plus Date Menarche Onset Age Delivery Information Delivery Date Delivery Type Labor Anesthesia Weeks Gestation Incision Type Labor Labor Length Hrs Delivered By Post Complications Tubal Sterilization Discharge Date Comments 1 40 Martinez Discharge Information Feeding Method Contraceptive Method Maternal HG B and HCT Levels Ob Episode Information Episode Created Date Number of Fetuses Patient Bloodtype Patient rh Status Prepregnancy Weight lbs Domestic Partner Domestic Partner Phone Father Name Team Facilitator Status 08/25/19 23 1 O Positive 111 CLOSED Fetus Data First Name Last Name Admitted to NICU Weight (g) Sex Living Outcome Pediatric Complications Fetus ID Race Codes Race Delivery Type 2778.25 1 M true Full Term 29396 Vaginal Delivery Problems Problem Notes Problem Name Start Date End Date Resolution Snomed Code Not e Ultrasound scan abnormal [id number] subamniotic hemorrhage - rpt u/s schd 01/04/23- wnl at [facility]. no FU needed. Uterine size for dates discrepancy [id number] already do ing growth at [facility] Moises Calculation Initial Moises Date Initial Exam Date Initial Exam Provider Initial Ultrasound Date Last Menstrual Period Date Ultra Sound Weeks Gestation 03/07/2023 08/25/2022 07/27/2022 05/31/2022 7 Eighteen To Twenty Week Moises Update Ultra Sound Date Fundal Height At Umbil Quickening Date Ultra Sound Latest Weeks Gestation Final Moises Confirmed By Final Moises Confirmed Date Final Moises Date Ultra Sound Latest Days Gestation 0 [email or web address] 08/25/2022 03/13/20 23 0 Pre-cheryl Flowsheet Flowsheet Date 08/25/2022 Ross Score Blood Edema Fundus Height Fundus Units Glucose Ketones Leukocytes Nitrite Labor Signs Protein Cervic Dilation Cervic Effacement Cervic Station 12 Type Weight in lbs Pre/Post Dialysis Refused Weight 116.81221244386 BP Diastolic BP Location Tested BP Systolic BP Type 65 R arm 101 sitting Fetus Heart Rate Present A 145 Fetus Movement Comments this patient is a She has no complaints today. [id number] 2 para 1001 at 12 weeks gestation who presents for initial care. she had a term vaginal in her last . She is on vaccinated for COVID. She was given COVID vaccine recommendations. She was educated on care in great detail. She has no problems today. She will begin routine care. Flowsheet Date 09/20/2022 Ross Score Blood Edema Fundus Height Fundus Units Glucose Ketones Leukocytes Nitrite Labor Signs Protein Cervic Dilation Cervic Effacement Cervic Station neg none none trace Type Weight in lbs Pre/Post Dialysis Refused Weight 117.653612181570 BP Diastolic BP Location Tested BP Systolic BP Type 69 102 Fetus Heart Rate Present A 150 Fetus Movement A No Comments Doing well. Started antibiot ics but culture was negative. C/O discharge, itching and general discomfort. Feels it is a yeast infection. Swab collected. White discharge noted. Will treat with diflucan per patients request. AFP to be drawn today. Still has occasional nausea and vomiting. Will try zofran. Precautions given. Return for routine ob visit and baseline anatomy in 4 weeks. Flowsheet Date 10/20/2022 Ross Score Blood Edema Fundus Height Fundus Units Glucose Ketones Leukocytes Nitrite Labor Signs Protein Cervic Dilation Cervic Effacement Cervic Station Type Weight in lbs Pre/Post Dialysis Refused BP Diastolic BP Location Tested BP Systolic BP Type Fetus Heart Rate Present Fetus Movement Comments Flowsheet Date 10/20/2022 Ross Score Blood Edema Fundus Height Fundus Units Glucose Ketones Leukocytes Nitrite Labor Signs Protein Cervic Dilation Cervic Effacement Cervic Station neg none none trace Type Weight in lbs Pre/Post Dialysis Refused Weight 122.664423010856 BP Diastolic BP Location Tested BP Systolic BP Type 64 100 Fetus Heart Rate Present Fetus Movement A Yes Comments Doing well. Baseline anatomy today. Reviewed with Dr Ruiz and discussed with patient. OB nurse is calling to schedule mfm visit. Precautions discussed with patient and s/o. Flowsheet Date 11/17/2022 Ross Score Blood Edema Fundus Height Fundus Units Glucose Ketones Leukocytes Nitrite Labor Signs Protein Cervic Dilation Cervic Effacement Cervic Station neg none 22 none trace Type Weight in lbs Pre/Post Dialysis Refused Weight 125.755177741630 BP Diastolic BP Location Tested BP Systolic BP Type 64 110 Fetus Heart Rate Present A 142 Fetus Movement A Yes Comments Doing well. Nausea improving . MFM on 11-22. Will be doing monthly growth with them. Plan gtt with next visit. Flowsheet Date 12/09/2022 Ross Score Blood Edema Fundus Height Fundus Units Glucose Ketones Leukocytes Nitrite Labor Signs Protein Cervic Dilation Cervic Effacement Cervic Station Type Weight in lbs Pre/Post Dialysis Refused BP Diastolic BP Location Tested BP Systolic BP Type Fetus Heart Rate Present Fetus Movement Comments Flowsheet Date 12/12/2022 Ross Score Blood Edema Fundus Height Fundus Units Glucose Ketones Leukocytes Nitrite Labor Signs Protein Cervic Dilation Cervic Effacement Cervic Station trace 24 Type Weight in lbs Pre/Post Dialysis Refused Weight 129.331434165211 BP Diastolic BP Location Tested BP Systolic BP Type 68 104 Fetus Heart Rate Present A 155 Fetus Movement A Yes Comments Doing ok. S<D, already doing growth at [facility], need report from 11/22. GCT today, discussed and encouraged Tdap. Flowsheet Date 12/30/2022 Ross Score Blood Edema Fundus Height Fundus Units Glucose Ketones Leukocytes Nitrite Labor Signs Protein Cervic Dilation Cervic Effacement Cervic Station 29 none trace Type Weight in lbs Pre/Post Dialysis Refused Weight 128.437026501173 BP Diastolic BP Location Tested BP Systolic BP Type 67 R arm 102 sitting Fetus Heart Rate Present A 145 Fetus Movement A Yes Comments No complaints, no problems, follow-up with [facility] for unique placental finding. Separation of membrane from the placental surface. Flowsheet Date 01/13/2023 Ross Score Blood Edema Fundus Height Fundus Units Glucose Ketones Leukocytes Nitrite Labor Signs Protein Cervic Dilation Cervic Effacement Cervic Station 31 none trace Type Weight in lbs Pre/Post Dialysis Refused Weight 130.786283252301 BP Diastolic BP Location Tested BP Systolic BP Type 60 L arm 97 sitting Fetus Heart Rate Present A 120 Fetus Movement A Yes Comments Doing ok, rare contractions. Has not done Tdap yet, encouraged. Will call for preregistration. [facility] on 01/05 wnl, 34%, no follow up needed there. Flowsheet Date 01/27/2023 Ross Score Blood Edema Fundus Height Fundus Units Glucose Ketones Leukocytes Nitrite Labor Signs Protein Cervic Dilation Cervic Effacement Cervic Station neg trace 32 none trace Type Weight in lbs Pre/Post Dialysis Refused Weight 132.692424137917 BP Diastolic BP Location Tested BP Systolic BP Type 64 104 Fetus Heart Rate Present A 143 Present Fetus Movement A Yes Comments patient is having some contr actions, swelling and nausea. reviewed precautions +FM, ptl precautions plan gbs at 36 weeks, call for preadmit f/u 2 weeks Flowsheet Date 02/08/2023 Ross Score Blood Edema Fundus Height Fundus Units Glucose Ketones Leukocytes Nitrite Labor Signs Protein Cervic Dilation Cervic Effacement Cervic Station neg trace 36 none trace Type Weight in lbs Pre/Post Dialysis Refused Weight 136.397154861777 BP Diastolic BP Location Tested BP Systolic BP Type 62 96 Fetus Heart Rate Present A 135 Fetus Movement A Yes Comments patient is having some contr actions, swelling and nausea. precautions reviewed GBS next week, +FM Flowsheet Date 02/15/2023 Ross Score Blood Edema Fundus Height Fundus Units Glucose Ketones Leukocytes Nitrite Labor Signs Protein Cervic Dilation Cervic Effacement Cervic Station neg trace 36 none trace 1cm 50% -3 Type Weight in lbs Pre/Post Dialysis Refused Weight 136.964599788808 BP Diastolic BP Location Tested BP Systolic BP Type 69 105 Fetus Heart Rate Present A 145 Fetus Movement A Yes Comments patient is having contractio ns, swelling, nausea and vomiting. GBS done preadmit tomorrow, precautions reviewed Flowsheet Date 02/24/2023 Ross Score Blood Edema Fundus Height Fundus Units Glucose Ketones Leukocytes Nitrite Labor Signs Protein Cervic Dilation Cervic Effacement Cervic Station neg none 36 none trace Type Weight in lbs Pre/Post Dialysis Refused Weight 140.697925001144 BP Diastolic BP Location Tested BP Systolic BP Type 75 114 Fetus Heart Rate Present A 145 Fetus Movement A Yes Comments patient is having some contr actions, swelling and nausea. labor precautions, wants IOL scheduled 03/08 at 0600 f/u one week Flowsheet Date 2023 Ross Score Blood Edema Fundus Height Fundus Units Glucose Ketones Leukocytes Nitrite Labor Signs Protein Cervic Dilation Cervic Effacement Cervic Station neg trace none trace 1cm 60% -2 Type Weight in lbs Pre/Post Dialysis Refused Weight 139.205463673016 BP Diastolic BP Location Tested BP Systolic BP Type 73 107 Fetus Heart Rate Present Fetus Movement A Yes Comments patient is having pressure, burning with urination, contractions, swelling and nausea. membrane sweep magallanes, keflex for suspected UTI, urine to culture, f/u labor or IOL as scheduled, precautions reviewed Menstrual History Last Menstrual Date Menses Monthly On Bcp Conception Prior Menses Frequency Hcg Plus Date Menarche Onset Age 1105/31/2022 Genetic Screening And Infection History Question Response Note Mental Retardation/Autism false Patient's Age Will Be 35 Yea rs Or Older At Estimated Date of Delivery false Thalassemia (Estonian, Citizen Of The [place], Mediterranean, Or Background): MCV < 80 false Neural Tube Defect (Meningomyelocele, Spina Bifi da, Or Anencephaly) false Congenital Heart Defect false Down Syndrome false Alexis-Sachs (eg, Hinduism, Cajun, Italian-Saudi Arabian) f alse Radha Disease false Sickle Cell Disease Or Trait () false Hemophilia Or Other Blood Disorders false Muscular Dystrophy false Cystic Fibrosis false [place]'s Chorea false Intellectual Disability/Autism false If Yes, Was Person Tested For Fragile X? false Other Inherited Genetic Or Chromosomal Disorder false Maternal Metabolic Disorder (eg, Type 1 Diabetes , PKU) false Patient Or Baby's Father Had A Child With Defects Not Listed Above false Recurrent Loss, Or A Stillbirth false Medications (including Suppl ements, Vitamins, Herbs, OTC Drugs), Illicit/Recreational Drugs, Alcohol false If Yes, Agent(s) And Strength/Dosage false Any Other Genetic History false Live With Someone With TB Or Exposed To TB false Patient Or Partner Has History Of Genital Herpes false Rash Or Viral Illness Since Last Menstrual Perio d false History Of STD, Gonorrhea, Chlamydia, HPV, Syphi lis true chlamyd. Other Infection History false History of HIV false History of Hepatitis false Prior GBS-infected child false Hemoglobinopathy Or Carrier false Other Structural Defect false Recent Travel History Outside of Country false Delivery Information Delivery Date Delivery Type Labor Anesthesia Weeks Gestation Incision Type Labor Labor Length Hrs Delivered By Post Complications Tubal Sterilization Discharge Date Comments 3 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 false Zuleima Olsen CNM Discharge Information Feeding Method Contraceptive Method Maternal HG B and HCT Levels Ob Episode Information Episode Created Date Number of Fetuses Patient Bloodtype Patient rh Status Prepregnancy Weight lbs Domestic Partner Domestic Partner Phone Father Name Team Facilitator Status 11/24/19 24 1 O Positive 115 Alli Lacey h CLOSED Fetus Data First Name Last Name Admitted to NICU Weight (g) Sex Living Outcome Pediatric Complications Fetus ID Race Codes Race Delivery Type 2353.00 85 M true Full Term body [id number] Vaginal Delivery Problems Problem Notes MFM Appt: 04/02/24 9:45am u/s only Problem Name Start Date End Date Resolution Snomed Code Not e Venous conroy [id number] placenta - 02/21/24 9am u/s only. Placenta circumvallata 5396144 Moises Calculation Initial Moises Date Initial Exam Date Initial Exam Provider Initial Ultrasound Date Last Menstrual Period Date Ultra Sound Weeks Gestation 06/01/2024 10/25/2023 10/25/2023 08/26/2023 8 Eighteen To Twenty Week Moises Update Ultra Sound Date Fundal Height At Umbil Quickening Date Ultra Sound Latest Weeks Gestation Final Moises Confirmed By Final Moises Confirmed Date Final Moises Date Ultra Sound Latest Days Gestation 11/24/19 12 [email or web address] 11/24/2023 06/01/20 4 Pre- Flowsheet Flowsheet Date 11/24/2023 Ross Score Blood Edema Fundus Height Fundus Units Glucose Ketones Leukocytes Nitrite Labor Signs Protein Cervic Dilation Cervic Effacement Cervic Station neg none none trace Type Weight in lbs Pre/Post Dialysis Refused Weight 117.755635863881 BP Diastolic BP Location Tested BP Systolic BP Type 63 105 Fetus Heart Rate Present Fetus Movement A No Comments unremarkable medical and don gical history, US done, f/u 4 weeks, will try compazine and scop patch, zofran not helping as much anymore, precautions and education Flowsheet Date 12/21/2023 Ross Score Blood Edema Fundus Height Fundus Units Glucose Ketones Leukocytes Nitrite Labor Signs Protein Cervic Dilation Cervic Effacement Cervic Station Type Weight in lbs Pre/Post Dialysis Refused BP Diastolic BP Location Tested BP Systolic BP Type Fetus Heart Rate Present Fetus Movement Comments Flowsheet Date 12/21/2023 Ross Score Blood Edema Fundus Height Fundus Units Glucose Ketones Leukocytes Nitrite Labor Signs Protein Cervic Dilation Cervic Effacement Cervic Station neg none none trace Type Weight in lbs Pre/Post Dialysis Refused Weight 120.239218752167 BP Diastolic BP Location Tested BP Systolic BP Type 63 L arm 96 sitting Fetus Heart Rate Present A 145 Fetus Movement A No Comments no complaints, no problems, routine care, too early for anatomy, circumvallate placenta, venous lakes Flowsheet Date 01/16/2024 Ross Score Blood Edema Fundus Height Fundus Units Glucose Ketones Leukocytes Nitrite Labor Signs Protein Cervic Dilation Cervic Effacement Cervic Station Type Weight in lbs Pre/Post Dialysis Refused BP Diastolic BP Location Tested BP Systolic BP Type Fetus Heart Rate Present Fetus Movement Comments Flowsheet Date 01/16/2024 Ross Score Blood Edema Fundus Height Fundus Units Glucose Ketones Leukocytes Nitrite Labor Signs Protein Cervic Dilation Cervic Effacement Cervic Station Type Weight in lbs Pre/Post Dialysis Refused Weight 120.489021027950 BP Diastolic BP Location Tested BP Systolic BP Type 65 99 Fetus Heart Rate Present A 154 Fetus Movement A Yes Comments Patient was in the ER at [facility] due to nausea/vomiting/diarrhea. While she was there, she had a gush of bright red blood. BSUS was unremarkable at that time with normal DVP and no evidence of abruption. She was monitored overnight with no further bleeding (last bright red bleeding 6/16 AM) then discharged. Denies bleeding or abdominal pain since discharge. Anatomy US today demonstrates small hypoechoic area (3x3cm) on anterior edge of placenta, possible abruption. No vascularity. Circumvallate placenta. EFW 61%, anatomy complete and normal aside from double R renal artery. Repeat US in 4 weeks to evaluate placental area. Return and bleeding precautions discussed. RTC 4 weeks. Flowsheet Date 02/13/2024 Ross Score Blood Edema Fundus Height Fundus Units Glucose Ketones Leukocytes Nitrite Labor Signs Protein Cervic Dilation Cervic Effacement Cervic Station Type Weight in lbs Pre/Post Dialysis Refused Weight 126.057062705303 BP Diastolic BP Location Tested BP Systolic BP Type 67 102 Fetus Heart Rate Present A 150 Fetus Movement A Yes Comments Doing well, no cramping or f urther bleeding. Good movement. Seeing MFM for placental area and possible abruption, repeat US next week. Overall doing well. Discussed GCT and labs for next visit. RTC 4 weeks. Flowsheet Date 03/13/2024 Ross Score Blood Edema Fundus Height Fundus Units Glucose Ketones Leukocytes Nitrite Labor Signs Protein Cervic Dilation Cervic Effacement Cervic Station trace Type Weight in lbs Pre/Post Dialysis Refused 133.177120292898 BP Diastolic BP Location Tested BP Systolic BP Type 65 109 Fetus Heart Rate Present Fetus Movement A Yes Comments Patient is having some contr actions, discharge, pain with urination, swelling, nausea and vomiting. send urine to culture, GCT today, seeing mfm again for follow up but doing well +FM. precautions and education f/u 2 weeks Flowsheet Date 03/27/2024 Ross Score Blood Edema Fundus Height Fundus Units Glucose Ketones Leukocytes Nitrite Labor Signs Protein Cervic Dilation Cervic Effacement Cervic Station trace 28 cm Type Weight in lbs Pre/Post Dialysis Refused 128.105991667771 BP Diastolic BP Location Tested BP Systolic BP Type 73 106 Fetus Heart Rate Present A 136 Fetus Movement A Yes Comments Patient states that is havin g some contractions, swelling, nausea and vomiting. refill meds precautions and education f/u 2 weeks last mfm appt on monday Flowsheet Date 04/12/2024 Ross Score Blood Edema Fundus Height Fundus Units Glucose Ketones Leukocytes Nitrite Labor Signs Protein Cervic Dilation Cervic Effacement Cervic Station 1+ Type Weight in lbs Pre/Post Dialysis Refused Weight 132.502914053013 BP Diastolic BP Location Tested BP Systolic BP Type 71 107 Fetus Heart Rate Present Fetus Movement A Yes Comments Patient states that is havin g some discharge, itching, contractions, pain with urinations, nausea and vomiting. culture obtained rx for txeducation and precautions, discussed rsv vaccine, call for preadmit f/u 2 weeks +FM Flowsheet Date 04/26/2024 Ross Score Blood Edema Fundus Height Fundus Units Glucose Ketones Leukocytes Nitrite Labor Signs Protein Cervic Dilation Cervic Effacement Cervic Station trace Type Weight in lbs Pre/Post Dialysis Refused Weight 134.73296639235 BP Diastolic BP Location Tested BP Systolic BP Type 74 109 Fetus Heart Rate Present A 177 Present Fetus Movement A Yes Comments Patient is having some contr actions, swelling and nausea. NST today, doing well +FM, precautions and education, rsv handout given f/u one week Flowsheet Date 04/26/2024 Ross Score Blood Edema Fundus Height Fundus Units Glucose Ketones Leukocytes Nitrite Labor Signs Protein Cervic Dilation Cervic Effacement Cervic Station Type Weight in lbs Pre/Post Dialysis Refused BP Diastolic BP Location Tested BP Systolic BP Type Fetus Heart Rate Present Fetus Movement Comments Flowsheet Date 05/06/2024 Ross Score Blood Edema Fundus Height Fundus Units Glucose Ketones Leukocytes Nitrite Labor Signs Protein Cervic Dilation Cervic Effacement Cervic Station trace 1cm Type Weight in lbs Pre/Post Dialysis Refused Weight 136.907653028568 BP Diastolic BP Location Tested BP Systolic BP Type 70 104 Fetus Heart Rate Present A 159 Present Fetus Movement A Yes Comments Patient states that is havin g some contractions, swelling, nausea and vomiting. +FM, gbs today, precautions and education f/u one week Menstrual History Last Menstrual Date Menses Monthly On Bcp Conception Prior Menses Frequency Hcg Plus Date Menarche Onset Age 0108/26/2023 Genetic Screening And Infection History Question Response Note Mental Retardation/Autism false Patient's Age Will Be 35 Yea rs Or Older At Estimated Date of Delivery false Thalassemia (E[place]ian, Citizen Of [place], Mediterranean, Or Background): MCV < 80 false Neural Tube Defect (Meningom yelocele, Spina Bifida, Or Anencephaly) false Congenital Heart Defect false Down Syndrome false Alexis-Sachs (eg, Hinduism, Cajun, Italian-Saudi Arabian) f alse Radha Disease false Sickle Cell Disease Or Trait () false Hemophilia Or Other Blood Disorders false Muscular Dystrophy false Cystic Fibrosis false Purnima's Chorea false Intellectual Disability/Autism false If Yes, Was Person Tested For Fragile X? false Other Inherited Genetic Or Chromosomal Disorder false Maternal Metabolic Disorder (eg, Type 1 Diabetes , PKU) false Patient Or Baby's Father Had A Child With Defects Not Listed Above false Recurrent Loss, Or A Stillbirth false Medications (including Suppl ements, Vitamins, Herbs, OTC Drugs), Illicit/Recreational Drugs, Alcohol true pnv zofran If Yes, Agent(s) And Strength/Dosage false Any Other Genetic History false Live With Someone With TB Or Exposed To TB false Patient Or Partner Has History Of Genital Herpes false Rash Or Viral Illness Since Last Menstrual Perio d false History Of STD, Gonorrhea, Chlamydia, HPV, Syphi lis false Other Infection History false History of HIV false History of Hepatitis false Prior GBS-infected child false Hemoglobinopathy Or Carrier false Other Structural Defect false Recent Travel History Outside of Country false Delivery Information Delivery Date Delivery Type Labor Anesthesia Weeks Gestation Incision Type Labor Labor Length Hrs Delivered By Post Complications Tubal Sterilization Discharge Date Comments 4 [facility] [place] [facility] Placenta circumval leroy,[facility] us conroy, [facility] Discharge Information Feeding Method Contraceptive Method Maternal HG B and HCT Levels Ob Episode Information Episode Created Date Number of Fetuses Patient Bloodtype Patient rh Status Prepregnancy Weight lbs Domestic Partner Domestic Partner Phone Father Name Team Facilitator Status 11/24/19 24 1 CLOSED Fetus Data First Name Last Name Admitted to NICU Weight (g) Sex Living Outcome Pediatric Complications Fetus ID Race Codes Race Delivery Type , [place] [id number] Moises Calculation Initial Moises Date Initial Exam Date Initial Exam Provider Initial Ultrasound Date Last Menstrual Period Date Ultra Sound Weeks Gestation 0 Eighteen To Twenty Week Moises Update Ultra Sound Date Fundal Height At Umbil Quickening Date Ultra Sound Latest Weeks Gestation Final Moises Confirmed By Final Moises Confirmed Date Final Moisse Date Ultra Sound Latest Days Gestation 0 0 Menstrual History Last Menstrual Date Menses Monthly On Bcp Conception Prior Menses Frequency Hcg Plus Date Menarche Onset Age Delivery Information Delivery Date Delivery Type Labor Anesthesia Weeks Gestation Incision Type Labor Labor Length Hrs Delivered By Post Complications Tubal Sterilization Discharge Date Comments 4 Discharge Information Feeding Method Contraceptive Method Maternal HG B and HCT Levels Ob Episode Information Episode Created Date Number of Fetuses Patient Bloodtype Patient rh Status Prepregnancy Weight lbs Domestic Partner Domestic Partner Phone Father Name Team Facilitator Status 01/18/20 25 1 O Positive 112 Alli Wilfranciscort h OPEN Fetus Data First Name Last Name Admitted to NICU Weight (g) Sex Living Outcome Pediatric Complications Fetus ID Race Codes Race Delivery Type [id number] Problems Problem Notes multiple placental lakes STA BLE Problem Name Start Date End Date Resolution Snomed Code Not e Group B Streptococcus carrier 01/21/2025 [id number] + GBS in urine Moises Calculation Initial Moises Date Initial Exam Date Initial Exam Provider Initial Ultrasound Date Last Menstrual Period Date Ultra Sound Weeks Gestation 07/27/2025 12/17/2024 [email or web address] 12/03/2024 10/20/2024 6 Eighteen To Twenty Week Moises Update Ultra Sound Date Fundal Height At Umbil Quickening Date Ultra Sound Latest Weeks Gestation Final Moises Confirmed By Final Moises Confirmed Date Final Moises Date Ultra Sound Latest Days Gestation 0 07/27/20 25 0 Pre-cheryl Flowsheet Flowsheet Date 01/17/2025 Ross Score Blood Edema Fundus Height Fundus Units Glucose Ketones Leukocytes Nitrite Labor Signs Protein Cervic Dilation Cervic Effacement Cervic Station neg none none trace Type Weight in lbs Pre/Post Dialysis Refused Weight 112.770755201734 BP Diastolic BP Location Tested BP Systolic [...] Type Weight in lbs Pre/Post Dialysis Refused 114.194359817718 BP Diastolic BP Location Tested BP Systolic [...] Type Weight in lbs Pre/Post Dialysis Refused 122.996814325367 BP Diastolic BP Location Tested BP Systolic [...] Weight in lbs Pre/Post Dialysis Refused Weight 127.246988435666 BP Diastolic BP Location Tested BP Systolic [...] Weight in lbs Pre/Post Dialysis Refused Weight 136.895309058312 BP Diastolic BP Location Tested BP Systolic [...] Weight in lbs Pre/Post Dialysis Refused Weight 137.420297171822 BP Diastolic BP Location Tested BP Systolic [...] Type Weight in lbs Pre/Post Dialysis Refused 140.535805524191 BP Diastolic BP Location Tested BP Systolic [...]
[2025-06-06 12:30] VITALS: BP 114/67; PULSE 85
[2025-06-06 12:40] VITALS: PULSE 68; O2SAT 97
[2025-06-06 12:45] VITALS: BP 106/53; PULSE 69; O2SAT 97
[2025-06-06 12:49] VITALS: PULSE 91; O2SAT 91
[2025-06-06 12:54] VITALS: PULSE 62; O2SAT 100
[2025-06-06] MEDS: BETAMETHASONE SOD PHOS/ACETATE 30 MG/5 ML VIAL 12 MG IM (13:57)
--- NOTE | 2025-06-10 11:01 | PM.OBTRLD ---
OB - Triage/Final Diagnosis Visit Information Date of evaluation: 06/06/25 Reason for evaluation: threatened labor Comments/Additional reasons for admission: I have assessed the risk for this patient, Trina Dhillon, and determined that she would benefit from observation care. Evaluation Laboratory results: Laboratory Tests 06/06/25 12:05 Urine Color Yellow Urine Appearance Clear Urine pH 7.0 Ur Specific [place] 1.009 Urine Protein Negative Urine Glucose (UA) Negative Urine Ketones Negative Ur Blood (Man) Negative Urine Nitrate Negative Urine Bilirubin Negative Urine Urobilinogen 0.2 Leukocyte Esterase Rfl Negative
== END 2025-06-06 14:15 | disposition home or self-care (01) ==
PROVIDERS: Advanced Practice Midwife; Admitting Provider Obstetrics & Gynecology; PCP Family Medicine; Visit Provider Obstetrics & Gynecology
DX: O47.03 False labor before 37 completed weeks of gestation, third trimester (principal); Z3A.32 32 weeks gestation of pregnancy
CPT/HCPCS: 76817; 76819; 81003; 96372; A9270; G0378; G0379; J0702

== ENCOUNTER 2025-06-07 13:12 | Outpatient (CLI) | payer OTHER, SELFPAY ==
[2025-06-07] MEDS: BETAMETHASONE SOD PHOS/ACETATE 30 MG/5 ML VIAL 12 MG IM (13:45)
== END 2025-06-07 13:47 | disposition home or self-care (01) ==
LOC: ANHOBOP 13:19
PROVIDERS: PCP Family Medicine; Visit Provider Advanced Practice Midwife
DX: Z34.90 Encounter for supervision of normal pregnancy, unspecified, unspecified trimester (principal); Z3A.00 Weeks of gestation of pregnancy not specified
CPT/HCPCS: 96372; J0702

== ENCOUNTER 2025-07-13 17:11 | Inpatient (IN) | payer OTHER, SELFPAY ==
[2025-07-13] VITALS (8 sets, daily range): BP systolic 102–134; BP diastolic 60–88; PULSE 82–109; TEMP 36.4; BMI 25.7
--- OUTSIDE RECORDS SUMMARY | 2025-07-13 17:17 | XMS_ITS | Continuity of Care Document ---
Author Organization [facility] Address [address] [place] [address] [place] [address] Assessment Encounter Date Assessment Date Assessment LastModified by Organization Details LastModified Time 07/09/2025 07/09/2025 Patient is ___weeks . Discussed plan. [email or web address] Not available 07/09/2025 11:44:36 Plan of Treatment Reminders Order Date Submit Date Provider Last Modified By Organization Details Last Modified Time Details Appointments None record ed. Lab None record ed. Referral None record ed. Procedures None record ed. Surgeries None record ed. Imaging None record ed. Medication Orders None record ed. Patient TargetsNo targets recorded. Patient InstructionsNo instructions recorded. Reason for Referral None Reported. Results Created Date Observation Date Name Description Value Unit Range Abnormal Flag Note LastModifiedBy Organization Detail LastModifiedTime 01/23/2001/22/2025 [UNIT Y] ANEUP LOIDY NIPT fraction 9.8% normal Not Available [facility] [address], [place], [address], 01/22/2025 22:58:15 01/23/20 25 01/22/2025 [UNIT Y] ANEUP LOIDY NIPT 22Q11.2 microdeletio n LOW RISK <1 in 10,000 normal Not Available [facility] [address], [place], [address], 01/22/2025 22:58:15 01/23/20 25 01/22/2025 [UNIT Y] ANEUP LOIDY NIPT sex chromosome aneuploidy NOT DETECT ED normal Not Available [facility] [address], [place], [address], 01/22/2025 22:58:15 01/23/20 25 01/22/2025 [UNIT Y] ANEUP LOIDY NIPT monosomy X LOW RISK <1 in 10,000 normal Not Available [facility] [address], [place], [address], 01/22/2025 22:58:15 01/23/20 25 01/22/2025 [UNIT Y] ANEUP LOIDY NIPT trisomy 13 LOW RISK <1 in 10,000 normal Not Available [facility] [address], [place], [address], 01/22/2025 22:58:15 01/23/20 25 01/22/2025 [UNIT Y] ANEUP LOIDY NIPT trisomy 18 LOW RISK <1 in 10,000 normal Not Available [facility] [address], [place], [address], 01/22/2025 22:58:15 01/23/20 25 01/22/2025 [UNIT Y] ANEUP LOIDY NIPT trisomy 21 LOW RISK <1 in 10,000 normal Not Available [facility] [address], [place], [address], 01/22/2025 22:58:15 01/23/20 25 01/22/2025 [UNIT Y] ANEUP LOIDY NIPT sex MALE normal Not Available [facility] [address], [place], [address], 01/22/2025 22:58:15 01/23/20 25 01/22/2025 [UNIT Y] ANEUP LOIDY NIPT gestation SINGLE TON normal Not Available [facility] [address], [place], [address], 01/22/2025 22:58:15 01/23/20 01/22/2025 [UNIT Y] ANEUP JENNIE NIPT for detailed report, see pdf See PDF normal Not Available [facility] [address], [place], [address], 01/22/2025 22:58:15 01/18/2001/17/2025 CULTU RE: URINE result report SEE RESULT S BELOW abnormal Test: Cultu re: Urine Speci men Sourc e: Urine Voide d Speci men Type: Urine Speci men Date: 2024 1622 Resul t Date: 2024 0142 Resul t Statu s: Final resul t Abnor mal: Yes Resul josé [email or web address] Lab: [facility] [address] [facility] [address] Tel: CULTU RE ----- ----- ----- --- 1,000 -5,00 0 CFU/m l Strep tococ cus agala ctiae (Grou p B) (Abno rmal) Strep tococ cus agala ctiae (Beta strep Group B Strep ) remai ns unive rsall y susce ptibl e to penic illin , cefaz zack and vanco mycin . If clind amytory n is being consi dered for intra partu m proph ylaxi s, pleas e conta ct the lab withi n 5 days. Not Available [facility] (Lab) [address] , [place], [address], 01/19/2025 02:46:33 01/18/2001/17/2025 CBC W/DIF F WBC 8.1 10'3/ uL 3.5-10 .5 Not Available [facility] (Lab) [address] , [place], [address], 01/20/2025 12:18:01 01/18/20 25 01/17/2025 CBC W/DIF F RBC 3.68 10'6/ uL (based on docume nted legal sex) 3.80-5 .20 low Not Available [facility] (Lab) [address], [place], [address], 01/20/2025 12:18:01 01/18/20 25 01/17/2025 CBC W/DIF F HGB 10.4 g/dL (based on docume nted legal sex) 11.6-1 5.4 low Not Available [facility] (Lab) [address] [facility], [place], [address], 01/20/2025 12:18:01 01/18/20 25 01/17/2025 CBC W/DIF F HCT 32.2 % (based on docume nted legal sex) 34.0-4 5.0 low Not Available [facility] (Lab) [address] [facility], [place], [address], 01/20/2025 12:18:01 01/18/20 25 01/17/2025 CBC W/DIF F MCV 87.5 fL 80.0-9 9.0 Not Available [facility] (Lab) [address] [facility], [place], [address], 01/20/2025 12:18:01 01/18/20 25 01/17/2025 CBC W/DIF F MCH 28.3 pg 27.0-3 4.0 Not Available [facility] (Lab) [address] [facility], [place], [address], 01/20/2025 12:18:01 01/18/20 25 01/17/2025 CBC W/DIF F MCHC 32.3 g/dL 32.0-3 5.5 Not Available [facility] (Lab) [address] [facility], [place], [address], 01/20/2025 12:18:01 01/18/20 25 01/17/2025 CBC W/DIF F RDW 14.5 % 11.0-1 5.0 Not Available [facility] (Lab) [address] [facility], [place], [address], 01/20/2025 12:18:01 01/18/20 25 01/17/2025 CBC W/DIF F plt 157 10'3/ uL 150-40 0 Not Available [facility] (Lab) [address], [place], [address], 01/20/2025 12:18:01 01/18/20 25 01/17/2025 CBC W/DIF F MPV 12.7 fL 8.8-12 .1 high Not Available [facility] (Lab) [address], [place], [address], 01/20/2025 12:18:01 01/18/20 25 01/17/2025 CBC W/DIF F NRBC's 0.0 % 0.0 Not Available [facility] (Lab) [address], [place], [address], 01/20/2025 12:18:01 01/18/20 25 01/17/2025 CBC W/DIF F absolute NRBCs 0.0 10'3/ uL no refere nce range establ ished Not Available [facility] (Lab) [address], [place], [address], 01/20/2025 12:18:01 01/18/20 25 01/17/2025 CBC W/DIF F neutrophils 73.9 % 34.0-7 3.0 high Not Available [facility] (Lab) [address], [place], [address], 01/20/2025 12:18:01 01/18/20 25 01/17/2025 CBC W/DIF F lymphocytes 21.1 % 15.0-5 0.0 Not Available [facility] (Lab) [address], [place], [address], 01/20/2025 12:18:01 01/18/20 25 01/17/2025 CBC W/DIF F monocytes 4.1 % 1.0-15 .0 Not Available [facility] (Lab) [address] [place], [address], 01/20/2025 12:18:01 01/18/20 25 01/17/2025 CBC W/DIF F eosinophils 0.5 % 0.0-8. 0 Not Available [facility] (Lab) [address], [place], [address], 01/20/2025 12:18:01 01/18/20 25 01/17/2025 CBC W/DIF F basophils 0.2 % 0.0-2. 0 Not Available [facility] (Lab) [address], [place], [address], 01/20/2025 12:18:01 01/18/20 25 01/17/2025 CBC W/DIF [...] separ ately if prese nt. Not Available [facility] (Lab) [address] , [place], [address], 01/20/2025 12:18:01 01/18/20 25 01/17/2025 CBC W/DIF F absolute neutrophils 6.0 10'3/ uL 1.5-8. 0 Not Available [facility] (Lab) [address], [place], [address], 01/20/2025 12:18:01 01/18/20 25 01/17/2025 CBC W/DIF F absolute lymphocytes 1.7 10'3/ uL 1.0-4. 0 Not Available [facility] (Lab) [address], [place], [address], 01/20/2025 12:18:01 01/18/20 25 01/17/2025 CBC W/DIF F absolute monocytes 0.3 10'3/ uL 0.2-1. 0 Not Available [facility] (Lab) [address], [place], [address], 01/20/2025 12:18:01 01/18/20 25 01/17/2025 CBC W/DIF F absolute eosinophils 0.0 10'3/ uL 0.0-0. 6 Not Available [facility] (Lab) [address] [facility], [place], [address], 01/20/2025 12:18:01 01/18/20 25 01/17/2025 CBC W/DIF F absolute basophils 0.0 10'3/ uL 0.0-0. 3 Not Available [facility] (Lab) [address] [facility], [place], [address], 01/20/2025 12:18:01 01/18/20 25 01/17/2025 CBC W/DIF F absolute immature granulocytes 0.0 10'3/ uL 0.00-0 .10 : Not Hispa zohaib or Latin o Refer ence range s for nonbi nary/ inter sex or unspe cifie d gende r patie nts have not been estab lishe d. Pleas e refer to the follo wing table for range s estab lishe d for cisge nder patie nts and evalu ate in the clini gogo fili xt of the indiv idual patie nt: https ://la and book. nm.or g/gen derx Not Available [facility] (Lab) [address] [facility], [place], [address], 01/20/2025 12:18:01 01/18/20 25 01/17/2025 HEPAT ITIS [...] Hispa zohaib or Latin o Not Available [facility] (Lab) [address] [facility], [place], [address], 01/20/2025 12:18:02 01/18/20 25 01/17/2025 HEPAT ITIS C ANTIB TOM SCREE N, REFLE X TO CONFI RMATI ON hepatitis C antibody Non-re active non-re active Antib odies to HCV Not Detec alfonso, does not exclu de the possi bilit y of expos ure to HCV. : Not Hispa zohaib or Latin o Not Available [facility] (Lab) [address] [facility], [place], [address], 01/20/2025 12:18:02 01/18/20 25 01/17/2025 HIV 1/2 ANTIG EN/AN TIBOD Y, REFLE X CONFI RMATI ON HIV antigen/anti body Nonrea ctive nonrea ctive : Not Hispa zohaib or Latin o HIV-1 antig en and HIV-1 /HIV- 2 antib odies were not detec alfonso. No labor atory evide nce of HIV infec tion. Not Available [facility] (Lab) [address] [facility], [place], [address], 01/20/2025 12:18:03 01/18/20 25 01/17/2025 TYPE/ RH/SC REEN ABO/Rh type O POS Not Available [facility] (Lab) [address] [place], [address], 01/20/2025 12:18:03 01/18/20 25 01/17/2025 TYPE/ RH/SC REEN antibody screen NEG Not Available [facility] (Lab) [address] [place], [address], 01/20/2025 12:18:03 01/18/20 25 01/17/2025 TYPE/ RH/SC REEN exp date 2024 23:59 Not Available [facility] (Lab) [address] [facility], [place], [address], 01/20/2025 12:18:03 01/18/20 25 01/17/2025 RUBEL LA IGG ANTIB TOM, QUANT rubella antibodies, IgG Reacti ve reacti ve Not Available [facility] (Lab) [address] [facility], [place], [address], 01/20/2025 12:18:04 01/18/20 25 01/17/2025 RUBEL LA IGG ANTIB TOM, QUANT rubella antibodies, IgG quant 12.2 IU/mL >=10 : Not Hispa zohaib or Latin o Non-r eacti ve (Non- Immun e) <10 IU/mL React nesha (Immu ne) > or = 10 IU/mL Not Available [facility] (Lab) [address] [facility], [place], [address], 01/20/2025 12:18:04 01/18/20 25 01/17/2025 RPR SCREE N, REFLE X TITER /CONF IRMAT ION RPR qualitative Nonrea ctive nonrea ctive : Not Hisne zohaib or Latin o Not Available [facility] (Lab) [address] [facility], [place], [address], 01/20/2025 12:18:04 01/18/20 25 01/17/2025 HEMOG LOBIN A1C hemoglobin A1C 5.0 % 4.0-5. 6 : Not Hispa zohaib or Latin o The Ameri can Diabe glo Assoc iatio n recom mends that a prima ry goal of thera py shoul d be a HBA1C of < 7% and that physi cians shoul d reeva luate the treat ment regim en in patie nts with HBA1C value s consi stent ly > 8%. <5.7% Kimmie l 5.7 - 6.4% Incre ased risk for diabe glo >=6.5 % Diagn ostic of diabe glo <7.0% Goal of thera py >8.0% Actio n sugge sted Not Available [facility] (Lab) [address] [facility], [place], [address], 01/20/2025 12:18:04 01/18/20 25 01/17/2025 LEAD, BLOOD (ADUL T/PED IATRI C) lead, whole blood <1.0 mcg/d L <3.5 See Note 1 Antonio sis was perfo rmed by Jimbo Conroy ed Plasm a Mass Spect romet ry (ICPM S) Note 1 This test was devel oped and its antonio tical perfo rmanc e jenaro cteri stics have been deter mined by [facility]. It has not been clear ed or appro dolores by the FDA. This assay has been valid ated pursu ant to the CLIA regul ation s and is used for clini gogo purpo ses. : Not Hispa zohaib or Latin o Perfo rming Organ izati on Infor matio n: Site ID: [id number] Name: [employer] ostic s-Brandon simon [place] Addre ss: [address] [place] [address] Dire tor: Galileo newton Not Available [facility] (Lab) [address] [facility], [place], [address], 01/20/2025 12:18:05 01/18/20 25 01/17/2025 drug scree n, urine Amphetamines : negati ve Not Available [facility] [address], [place], [address], 01/17/2025 10:30:22 01/18/20 25 01/17/2025 drug scree n, urine Cannabinoids : negati ve Not Available [facility] [address], [place], [address], 01/17/2025 10:30:22 01/18/20 25 01/17/2025 drug scree n, urine Cocaine: negati ve Not Available [facility] [address], [place], [address], 01/17/2025 10:30:22 01/18/20 25 01/17/2025 drug scree n, urine Opiates: negati ve Not Available [facility] [address], [place], [address], 01/17/2025 10:30:22 01/18/20 25 01/17/2025 drug scree n, urine Phenocyclidi ne: negati ve Not Available [facility] [address], [place], [address], 01/17/2025 10:30:22 01/18/20 25 01/17/2025 drug scree n, urine Barbiturates : negati ve Not Available [facility] [address], [place], [address], 01/17/2025 10:30:22 01/18/20 25 01/17/2025 drug scree n, urine Benzodiazepi sabrina: negati ve Not Available [facility] [address], [place], [address], 01/17/2025 10:30:22 01/18/20 25 01/17/2025 drug scree n, urine Ethanol: negati ve Not Available [facility] [address], [place], [address], 01/17/2025 10:30:22 01/18/20 25 01/17/2025 drug scree n, urine Hallucinogen s: negati ve Not Available [facility] [address], [place], [address], 01/17/2025 10:30:22 01/18/20 25 01/17/2025 drug scree n, urine Inhalants: negati ve Not Available [facility] [address], [place], [address], 01/17/2025 10:30:22 01/18/20 25 01/17/2025 drug scree n, urine Anabolic Steroids: negati ve Not Available [facility] [address], [place], [address], 01/17/2025 10:30:22 01/18/20 25 01/17/2025 drug scree n, urine Other: positi ve Not Available [facility], [place], [address], 01/17/2025 10:30:22 05/09/20 25 05/09/2025 HEMOG LOBIN (HGB) HGB 9.6 g/dL (based on docume nted legal sex) 11.6-1 5.4 low Not Available [facility] (Lab) [address] [facility], [place], [address], 05/12/2025 14:37:31 05/09/20 25 05/09/2025 HEMAT OCRIT (HCT) HCT 30.4 % (based on docume nted legal sex) 34.0-4 5.0 low Not Available [facility] (Lab) [address] [facility], [place], [address], 05/12/2025 14:37:32 05/09/20 25 05/09/2025 GTT - GESTA SINDHU L SASKIA Colon, ACOG OB glucose, 1 hour screen 70 mg/dL 70-135 Not Available [facility] (Lab) [address] [facility], [place], [address], 05/12/2025 14:37:32 05/09/20 25 05/09/2025 HIV 1/2 ANTIG EN/AN TIBOD Y, REFLE X CONFI RMATI ON HIV antigen/anti body Nonrea ctive nonrea ctive HIV-1 antig en and HIV-1 /HIV- 2 antib odies were not detec alfonso. No labor atory evide nce of HIV infec tion. Not Available [facility] (Lab) [address] [facility], [place], [address], 05/12/2025 14:37:32 05/09/20 25 05/09/2025 RPR SCREE N, REFLE X TITER /CONF IRMAT ION RPR qualitative Nonrea ctive nonrea ctive Not Available [facility] (Lab) [address] [place], [address], 05/12/2025 14:37:33 05/09/2005/09/2025 urina lysis , dipst ick Leukocytes trace Not Available [facility] [address], [place], [address], 05/09/2025 14:43:51 05/09/2005/09/2025 urina lysis , dipst ick Nitrite neg Not Available [facility] [address], [place], [address], 05/09/2025 14:43:51 05/09/2005/09/2025 urina lysis , dipst ick Urobilinogen norm Not Available [facility] [address], [place], [address], 05/09/2025 14:43:51 05/09/2005/09/2025 urina lysis , dipst ick Protein trace Not Available [facility] [address], [place], [address], 05/09/2025 14:43:51 05/09/2005/09/2025 urina lysis , dipst ick pH 5 Not Available [facility] [address], [place], [address], 05/09/2025 14:43:51 05/09/2005/09/2025 urina lysis , dipst ick Specific Shelby 1.015 Not Available [facility] [address], [place], [address], 05/09/2025 14:43:51 05/09/2005/09/2025 urina lysis , dipst ick Ketone trace Not Available [facility] [address], [place], [address], 05/09/2025 14:43:51 05/09/20 25 05/09/2025 urina lysis , dipst ick Bilirubin nor Not Available [facility] [address], [place], [address], 05/09/2025 14:43:51 05/09/2005/09/2025 urina lysis , dipst ick Glucose neg Not Available [facility] [address], [place], [address], 05/09/2025 14:43:51 05/09/2005/09/2025 urina lysis , dipst ick Appearance clear Not Available [facility] [address], [place], [address], 05/09/2025 14:43:51 05/09/2005/09/2025 urina lysis , dipst ick Color yellow Not Available [facility] [address], [place], [address], 05/09/2025 14:43:51 07/04/20 25 07/04/2025 CULTU RE: GROUP B STREP SCREE N, REFLE X SUSCE PTIBI LITY result report SEE RESULT S BELOW abnormal Test: Cultu re: Group B Strep , Refle x Susce ptibi lity ([facility] ) Speci men Sourc e: Vagin a/Rec barbara Speci men Type: Vagin al/Re ctal Speci men Date: 2024 1137 Resul t Date: 2024 1449 Resul t Statu s: Final resul t Abnor mal: Yes Resul marcus Lab: [facility] [address] [facility] [address] Tel: CULTU RE ----- ----- ----- --- Posit nesha for Strep tococ cus agala ctiae (Grou p B) (Abno rmal) Clind amyci n = resis tant, eryth romyc in = resis tant. Cefaz zack may be used for intra partu m proph ylaxi s in penic illin -navid rgic women at low risk, and Vanco mycin is recom bel d for women at high risk for anaph ylaxi s. Diane ptibi taylorharoon testolga matthews is not neces castillo for these drugs . Not Available [facility] (Lab) [address] [facility], [place], [address], 07/08/2025 16:24:59 07/04/20 25 07/04/2025 WOMEN 'S HEALT H SWAB, BEVERLY bacterial vaginosis (bv), tma Negati ve negati ve This test detec ts ribos omal RNA from bacte elvia assoc iated with bacte rial vagin osis (BV), inclu ding Lacto bacil nette (L. gasse ri, L. crisp atus and L. jense feliciano), Gardn erell a vagin rafiq, and Atopo bium vagin ae by Trans cript ion-M ediat ed Ampli ficat ion (TMA) . A singl e quali tativ e resul t is repor alfonso based on instr ument softw are to deter mine BV posit nesha or negat nesha statu s. Not Available [facility] (Lab) [address] [facility], [place], [address], 07/08/2025 16:25:00 07/04/20 25 07/04/2025 WOMEN 'S HEALT H SWAB, BEVERLY varsha species, tma Positi ve negati ve abnormal Not Available [facility] (Lab) [address] [place], [address], 07/08/2025 16:25:00 07/04/20 25 07/04/2025 WOMEN 'S HEALT H SWAB, BEVERLY varsha glabrata, tma Negati ve negati ve Not Available [facility] (Lab) [address] [place], [address], 07/08/2025 16:25:00 07/04/20 25 07/04/2025 WOMEN 'S HEALT H SWAB, BEVERLY trichomonas vaginalis, tma Negati ve negati ve This assay tests for and diffe renti ates betwe en Beatriz da glabr torrey, the Beatriz da speci es group (C. albic ans, C. tropi calis , C. star sabaos is, C. christiane santana is), and Trich omona s aron rafiq by Trans cript ion-M ediat ed Ampli ficat ion (TMA) . Not Available [facility] (Lab) [address], [place], [address], 07/08/2025 16:25:00 01/18/20 25 01/17/2025 US, obste tric, nucha l trans lucen cy No observ ation record ed. [facility] [address], [place], [address], 01/17/2025 17:27:13 01/18/20 25 01/17/2025 US, obste tric, follo w-up No observ ation record ed. [email or web address] [address], [place], [address], 01/21/2025 15:12:49 03/12/20 25 03/12/2025 US, obste tric, 2nd or 3rd trime ster No observ ation record ed. [facility] [address], [place], [address], 03/12/2025 18:48:30 03/12/20 25 03/12/2025 US, obste tric, 2nd or 3rd trime ster No observ ation record ed. [address], [place], [address], 03/14/2025 09:40:30 04/11/20 25 04/11/2025 US, obste tric, follo w-up No observ ation record ed. [facility] [address], [place], [address], 04/11/2025 17:08:07 04/11/20 25 04/11/2025 US, obste tric, follo w-up No observ ation record ed. [email or web address] [address], [place], [address], 04/15/2025 06:50:04 05/09/20 25 05/09/2025 US, obste tric, follo w-up No observ ation record ed. [email or web address] [facility] [address], [place], [address], 05/09/2025 16:53:22 05/09/2005/09/2025 US, obste tric, follo w-up No observ ation record ed. [email or web address] [address], [place], [address], 05/12/2025 12:19:00 06/05/20 25 06/05/2025 US, obste tric, follo w-up No observ ation record ed. [email or web address] [facility] [address], [place], [address], 06/05/2025 15:11:40 06/05/20 25 06/05/2025 US, obste tric, follo w-up No observ ation record ed. [email or web address] [address], [place], [address], 06/13/2025 14:46:41 06/06/20 25 06/06/2025 US, obste tric, bioph ysica l profi le No observ ation record ed. [address] [place] [address], [address], 06/18/2025 15:22:02 06/06/20 25 06/06/2025 US, obste tric, bioph ysica l profi le No observ ation record ed. [place] [id number] [facility] [address], [place], [address], 06/18/2025 15:21:42 06/06/20 25 06/06/2025 US, obste tric, follo w-up No observ ation record ed. [address], [place], [address], 06/10/2025 11:24:02 06/06/20 25 06/06/2025 non-s tress test No observ ation record ed. [address], [place], [address], 06/30/2025 10:44:26 07/03/20 25 07/03/2025 US, obste tric, follo w-up No observ ation record ed. [address], [place], [address], 07/08/2025 13:03:57 07/03/20 25 07/03/2025 US, obste tric, follo w-up No observ ation record ed. [facility] [address], [place], [address], 07/03/2025 18:32:15 07/03/20 25 07/03/2025 US, obste tric, bioph ysica l profi le + non-s tress test No observ ation record ed. [facility] [address], [place], [address], 07/03/2025 18:32:26 07/03/20 25 07/03/2025 US, doppl er, umbil ical arter y veloc imetr y No observ ation record ed. [facility] [address], [place], [address], 07/03/2025 18:32:38 07/05/20 25 06/06/2025 US, obste tric, bioph ysica l profi le + non-s tress test No observ ation record ed. [email or web address] [address], [place], [address], 07/05/2025 12:07:31 07/09/20 25 07/09/2025 US, obste tric, bioph ysica l profi le + non-s tress test No observ ation record ed. [email or web address] [facility] [address], [place], [address], 07/09/2025 12:42:49 07/09/20 25 07/09/2025 US, doppl er, umbil ical arter y veloc imetr y No observ ation record ed. [email or web address] [facility] [address], [place], [address], 07/09/2025 12:43:32 07/09/20 25 07/09/2025 US, obste tric, bioph ysica l profi le + non-s tress test No observ ation record ed. JUDY Pat [address], [place], [address], 07/12/2025 13:33:23 07/09/20 25 07/09/2025 non-s tress test No observ ation record ed. [email or web address] [facility] [address], [place], [address], 07/09/2025 18:38:27 07/09/20 non-s tress test No observ ation record ed. [facility] [address], [place], [address], 07/09/2025 13:30:59 Result Notes None recorded. Problems Name Problem SNOMED Code Status Onset Date Resolution Date Notes Provider Name and Address Organization Details Recorded Time Group B Streptoc occus carrier 2527153011 [id number] Completed h/o in first preg. Renee Torres MD [address], [place], [address], [facility] 3 10:33:02 Ul[address] scan abnormal [id number] Completed subamnio tic hemorrha ge - rpt u/s schd 01/04/23- wnl at [facility]. no FU needed. Marvin Paul [facility], [facility] 3 16:42:26 Uterine size for dates discrepa ncy [id number] Completed already doing growth at [facility] Marvin Paul [facility], [facility] 3 16:42:26 Venous conroy [id number] Completed placenta - 02/21/24 9am u/s only. REBECCA MENA MD [address], [place], [address], [facility] 4 11:34:29 Placenta circumva llata 5553040 Completed REBECCA MENA MD [address], [place], [address], [facility] 4 11:34:29 Pregnanc y 05418894 Completed 202203/13/2023 Chaya cabrera, [facility] 5 10:31:09 Pregnanc y 27120437 Completed 202305/27/2024 Chaya cabrera, [facility] 5 10:31:09 Pregnanc y 82596764 Active 2024 Chaya Marley [facility], [facility] 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 5 17:54:31 Poor growth affectin g manageme nt 044087902 Active 2024 6% Zuleima Olsen CNM [address], [place], [address], [facility] 11:57:52 Problem Notes None recorded. Procedures Surgical History Date Name Laterality Status Provider Name and Address Organization Details Recorded Time 05/05/20 23 Date of Last Pap Smear completed Iveth Guevara [facility] 05/23/2025 14:51:22 02/29/20 22 IUD Removal completed STEPHANIE Acevedo [address], [place], [address], [facility] 02/28/2022 09:46:01 02/10/20 21 Colposcopy completed [facility] 01/17/2025 10:28:24 02/10/20 21 cervical biopsy completed [facility] 07/27/2022 10:28:55 07/31/19 20 extraction of wisdom tooth completed [facility] 07/27/2022 10:28:13 07/31/19 18 Date of Last Colonoscopy completed [facility] 07/27/2022 10:27:19 07/31/19 18 Colonoscopy completed [facility] 07/27/2022 10:28:04 Imaging Results None recorded. Procedure Notes None recorded. Medical Equipment None Reported. Allergies No known drug allergies Medications Name Sig Start Date Stop Date Status Note LastModified by Organization Details LastModified Time nifedipine ER 30 mg tablet,exte nded release 24 hr TAKE 1 TABLET BY MOUTH ONCE DAILY active Not Available Not Available No t Available Mirena 21 mcg/24 hr (up to 8 [...] Not Available fluconazole 150 mg tablet TAKE 1 TAB BY MOUTH DIRECTED 07/09 completed Not Available Not Available Not Available metronidazo le 0.75 % (37.5 mg/5 gram) vaginal gel INSERT 1 APPLICATO RFUL VAGINALLY ONCE DAILY FOR 5 DAYS 05/05 completed Not Available Not Available Not Available metronidazo le 500 mg tablet TAKE 1 TABLET BY MOUTH EVERY 12 HOURS 07/03 completed Not Available Not Available Not Available [...] and Address Organization Details Last Updated DateTime 07/09/2025 52405.70170 g 104/69 mm[Hg] Iveth Guevara [facility] 07/09/2025 12:14:06 Date Recorded Body height Body mass index (BMI) Body weight Systolic And Diastolic Provider Name and Address Organization Details Last Updated DateTime 07/09/2025 162.56 cm 25.1 kg/m2 24622.49 g 104/69 mm[Hg] Fauzia Singh [facility] 07/09/2025 13:26:39 Social History Question Answer Notes LastModified by Organizat ion Details LastModified Time Tobacco Smoking Status Former Smoker Sujatagretchen Zheng rick [facility] 10/20/2022 09:56:48 Do You Have An [...] Or The Highest Degree You Have Received? [id number] Information not available 02/08/2021 Are There Any [...] Have Difficulty Walking Or Climbing Stairs? No Information not available 10/20/2022 Sex: Unknown Functional [...] able to care for yourself independently? 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 No [email or web address] Information not available 10/20/2022 What is your exercise level? Heavy Information not available 02/08/2021 Mental Status Question Answer Note LastModified by Organization D etails LastModified Time Do you feel stressed (tense, restless, nervous, or anxious, or unable to sleep at night)? [id number] Information not available 02/08/2021 Family History Relationship Description Onset Age of this Age Resolved Age Notes LastModified by Organization Details LastModified Time Maternal Aunt Disorder of thyroid gland Not available 2020 11:46:08 Maternal Aunt Malignant neoplasm of ovary Not available 2020 11:36:55 Mother Anemia Not available 02/08/2021 11:46:08 Mother Malignant neoplasm of breast [email or web address] Not available 07/27 21:16:57 Mother Malignant neoplasm of lung [email or web address] Not available 07/27 21:17:08 Paternal Aunt Malignant neoplasm of breast Not available 2020 11:46:08 Paternal Grandmother Malignant neoplasm of breast Not available 2020 11:46:08 Maternal Grandmother Malignant neoplasm of breast [email or web address] Not available 2021 09:35:33 Medical History Condition Response Allergies (Food, seasonal, environmental ) N Other N Drug/Latex Allergies/Reactions N Breast Cancer N Blood Transfusion N Lung Disease N Dermatologic Disorders N Defects or Inherited Disease N Breast Problem N Gestational Diabetes N Hematologic disorders N Anesthesia Complications N History of STI Y Deep Vein Thrombosis N Polycystic ovary syndrome N Anxiety Disorder N Autoimmune disease N Arthritis N Polyps N Infertility N History of abnormal pap Y Acid Reflux (GERD) N Cancer N Varicosities N Stroke N Neurologic/Epilepsy [...] ICD10 Code Diagnosis IMO Codes Diagnosis Note [id number] Zuleima Olsen CNM [facility] [address] [address] 06/13/2025 10:37:51 06/13/2025 11:20:38 Gestation period, 33 weeks 28792737 Z3A.33 [id number] cont pnv [id number] Zuleima Olsen CNM [facility] [address] [place] [address] 06/18/2025 09:45:56 06/18/2025 10:18:34 Gestation period, 34 weeks 83384063 Z3A.34 2213852 cont pnv [id number] Zuleima Olsen CNM [facility] [address],[place] [address] 06/25/2025 09:24:51 06/25/2025 09:56:46 Gestation period, 35 weeks 97008658 Z3A.35 7471395 [id number] Orion Cobb MD [facility] [address],[place] [address] 07/03/2025 12:27:29 07/03/2025 14:18:52 Poor growth affecting management 568782078 O36.5990 Z3A.36 78692538 [id number] Zuleima Olsen [facility] [address],[place] [address] 07/04/2025 11:16:16 07/04/2025 13:36:48 Gestation period, 36 weeks 35244400 Z3A.36 3149026 Poor growth affecting management 912193258 O36.5990 41481638 [id number] REBECCA MENA MD [facility] [address],[place] [address] 07/09/2025 11:01:36 07/09/2025 11:39:29 care status 785356611 O36.5930 Z3A.37 721086 [id number] REBECCA MENA MD [facility] [address],[place] [address] 07/09/2025 11:02:29 07/09/2025 13:51:55 Poor growth affecting management 825531963 O36.5990 84464528 [id number] REBECCA MENA MD [facility] [address],[place] [address] 07/09/2025 11:02:55 07/09/2025 14:12:20 Group B Streptococcus carrier 5562997787 103 Z22.445 2525074 - abx during labor Poor growth affecting management 076641698 O36.5990 16680225 - EFW 6%- MIL at 38 weeks Gestation period, 37 weeks 90682454 Z3A.37 2378992 - continue PNV Health Concerns Section Related Observation LastModified by Organization Detai ls LastModified Time None Recorded Concern Status LastModified by Organization Details LastModified Time None Recorded Payers Encounter Date Sequence Insurance Name Policy Number Policy Veloz Covered Member ID Veloz Member ID Guarantor Name 07/09/2025 1 [facility] (MEDICAID HMO) [id number] Trina Dhillon [id number] Man Clarice Notes Date Note Type Note Provider Name and Address Organization Details Recorded Time 07/09/2025 text/html Generic HPI TemplateReported by Patient REBECCA MENA MD [address], [place], [address], [facility] 07/09/2025 14:01:40 OBGyn Episode Ob Episode Information Episode Created Date Number of Fetuses Patient Bloodtype Patient rh Status Prepregnancy Weight lbs Domestic Partner Domestic Partner Phone Father Name Patent Clerk Status 01/18/20 25 1 O Positive 112 Alli Rahman h OPEN Fetus Data First Name Last Name Admitted to NICU Weight (g) Sex Living Outcome Pediatric Complications Fetus ID Race Codes Race Delivery Type [id number] Problems Problem Notes multiple placental lakes STA BLE Problem Name Start Date End Date Resolution Snomed Code Not e Group B Streptococcus carrier 01/21/2025 [id number] + GBS in urine Poor growth affecting management 07/04/2025 338603464 6% Moises Calculation Initial Moises Date Initial Exam Date Initial Exam Provider Initial Ultrasound Date Last Menstrual Period Date Ultra Sound Weeks Gestation 07/27/2025 12/17/2024 [email or web address] 12/03/2024 10/20/2024 6 Eighteen To Twenty Week [...] Weight in lbs Pre/Post Dialysis Refused Weight 112.891639271364 BP Diastolic BP Location Tested BP Systolic [...] Type Weight in lbs Pre/Post Dialysis Refused 114.400136209569 BP Diastolic BP Location Tested BP Systolic [...] Type Weight in lbs Pre/Post Dialysis Refused 122.274725012751 BP Diastolic BP Location Tested BP Systolic [...] Weight in lbs Pre/Post Dialysis Refused Weight 127.343315111958 BP Diastolic BP Location Tested BP Systolic [...] Weight in lbs Pre/Post Dialysis Refused Weight 136.265694589995 BP Diastolic BP Location Tested BP Systolic [...] Weight in lbs Pre/Post Dialysis Refused Weight 137.920179011337 BP Diastolic BP Location Tested BP Systolic [...] Type Weight in lbs Pre/Post Dialysis Refused 140.369346366746 BP Diastolic BP Location Tested BP Systolic [...] Rate Present Fetus Movement Comments Flowsheet Date 06/13/2025 Ross Score Blood Edema Fundus Height Fundus Units Glucose Ketones Leukocytes Nitrite Labor Signs Protein Cervic Dilation Cervic Effacement Cervic Station Type Weight in lbs Pre/Post Dialysis Refused Weight 140.044912784626 BP Diastolic BP Location Tested BP Systolic BP Type 66 L arm 106 sitting Fetus Heart Rate Present A 147 Present Fetus Movement A Yes Comments cntx minimal will cont proca rdia, us at 2 weeks visit, tired today, +FM, encouraged rest f/u one week Flowsheet Date 06/18/2025 Ross Score Blood Edema Fundus Height Fundus Units Glucose Ketones Leukocytes Nitrite Labor Signs Protein Cervic Dilation Cervic Effacement Cervic Station Type Weight in lbs Pre/Post Dialysis Refused Weight 139.96169396738 BP Diastolic BP Location Tested BP Systolic BP Type 73 L arm 123 sitting Fetus Heart Rate Present A 148 Present Fetus Movement A Yes Comments +FM doing well, no contracti ons, precautions and educatio f/u one week Flowsheet Date 06/25/2025 Ross Score Blood Edema Fundus Height Fundus Units Glucose Ketones Leukocytes Nitrite Labor Signs Protein Cervic Dilation Cervic Effacement Cervic Station Type Weight in lbs Pre/Post Dialysis Refused Weight 141.575363739314 BP Diastolic BP Location Tested BP Systolic BP Type 69 L arm 108 sitting Fetus Heart Rate Present Fetus Movement Comments +FM, no contractions doing w ell, getting rest, f/u one week, ok to stop procardia at 36 weeks Flowsheet Date 07/03/2025 Ross Score Blood Edema Fundus Height Fundus Units Glucose Ketones Leukocytes Nitrite Labor Signs Protein Cervic Dilation Cervic Effacement Cervic Station Type Weight in lbs Pre/Post Dialysis Refused BP Diastolic BP Location Tested BP Systolic BP Type Fetus Heart Rate Present Fetus Movement Comments Flowsheet Date 07/04/2025 Ross Score Blood Edema Fundus Height Fundus Units Glucose Ketones Leukocytes Nitrite Labor Signs Protein Cervic Dilation Cervic Effacement Cervic Station Type Weight in lbs Pre/Post Dialysis Refused Weight 145.557658364300 BP Diastolic BP Location Tested BP Systolic BP Type 75 L arm 114 sitting Fetus Heart Rate Present Fetus Movement A Yes Comments +FM bpp 05/09 dopplers wnl, efw 6%, discussed with dr. cobb plan testing twice a week, deliver at 38 weeks, plan iol 07/13 at 1700. discussed kick counts if any changes in movement to for testing, education done Flowsheet Date 07/09/2025 Ross Score Blood Edema Fundus Height Fundus Units Glucose Ketones Leukocytes Nitrite Labor Signs Protein Cervic Dilation Cervic Effacement Cervic Station Type Weight in lbs Pre/Post Dialysis Refused BP Diastolic BP Location Tested BP Systolic BP Type Fetus Heart Rate Present Fetus Movement Comments Flowsheet Date 07/09/2025 Ross Score Blood Edema Fundus Height Fundus Units Glucose Ketones Leukocytes Nitrite Labor Signs Protein Cervic Dilation Cervic Effacement Cervic Station Type Weight in lbs Pre/Post Dialysis Refused Weight 146.976491243516 BP Diastolic BP Location Tested BP Systolic BP Type 69 L arm 104 sitting Fetus Heart Rate Present Fetus Movement A Yes Comments Flowsheet Date 07/09/2025 Ross Score Blood Edema Fundus Height Fundus Units Glucose Ketones Leukocytes Nitrite Labor Signs Protein Cervic Dilation Cervic Effacement Cervic Station Type Weight in lbs Pre/Post Dialysis Refused 146.038964385683 BP Diastolic BP Location Tested BP Systolic BP Type 69 L arm 104 sitting Fetus Heart Rate Present A Present Fetus Movement A Yes Comments Doing well, good movem ent. No cramping or bleeding. MIL scheduled Monday. BPP 05/09. UADs wnl. Flowsheet Date 07/11/2025 Ross Score Blood Edema Fundus Height Fundus [...]
--- OUTSIDE RECORDS SUMMARY | 2025-07-13 17:18 | XMS_ITS | Clinical Summary ---
Author Organization [facility] [address] Address [address] [place] [address] Phone Care Team Providers Care Documentation Supervisor Name Role Phone Wisam Love MD Primary Care Provider [phone] Allergies No known active allergies Medications prenat.vits,gogo,m ic-ogpn-lzegl ( VITAMIN) tablet daily. Acti ve Active [...] Used Date Smoking Tobacco: Former Cigarettes 1 13 S tarted: 2013 Smokeless Tobacco: Never Tobacco [...] more drinks on one occasion? Never 01/14/2024 [facility] Occupat ional [facility] - Occupational Stress [...] on file Legal Sex Female 11:29 PM COMFORT FILLER Gender Identity Not on file Sexual Orientation [...] 53.5 kg (118 lb) 08/02/2023 12:36 PM COMFORT FILLER Height 162.6 cm (5' 4) 08/02/2023 12:36 PM COMFORT FILLER Body Mass Index 20.25 08/02/2023 12:36 PM COMFORT FILLER Plan of Treatment Health Maintenance Due Date [...] E6/E7, CHLAMYDIA/N.GONORRH OEAE Routine 07/26/2018 1:24 PM COMFORT FILLER from Last 3 Months or Most Recently Relevant to Health Maintenance Results * (ABNORMAL) THINPREP TIS PAP REFLEX HPV mRNA E6/E7, CHLAMYDIA/N.GONORRHOEAE (07/26/2018 1:24 PM COMFORT FILLER) Report status CANCELED [facility] - Comment:Result canceled by t prasad ancillary CLINICAL INFORMATION: [facility] - Comment:Information not prov ided LMP 07/11/18 [facility] [place] Previous Pap NONE GIVEN [facility] [place] Prev. Bx NONE GIVEN [facility] [place] SOURCE: [facility] [place] Comment:Cervix, Endocervix Pap, specimen adequacy [facility] - Comment: Satisfactory for evaluation. Endocervical/transformation zone component present. Pap, general categorization (A) [facility] [place] Comment:EPITHELIAL CELL ABNO RMALITY HPV interp (A) [facility] [place] Comment:Low Grade Squamous I ntraepithelial Lesion (LSIL) Infection: CANCELED [facility] [place] Comment:Result canceled by t prasad ancillary COMMENTS [facility] - Comment: This Pap test has been evaluated with computer assisted technology. Suggest clinical correlation and follow-up as clinically appropriate [facility]erry [facility] [[email or web address] DIAGNOSTIC - Comment: MLO, CT(ASCP) CT screening location: [place] [address] [place], [place] [address] Review discharge specialist CANCELED [facility] [place] Comment:Result canceled by t prasad ancillary Pathologist [facility] - Comment: Mario Pepper M.D., Board Certified in Anatomic Pathology and Cytopathology. (electronic signature) Comment [facility] - Comment: EXPLANATORY NOTE: The [...] C. trachomatis RNA NOT DETECTED NOT DETECTED [facility] [place] N. gonorrhoeae RNA NOT DETECTED NOT DETECTED [facility] [place] Comment [facility] [place] Comment: This test was performed using the APTIMA COMBO2 Assay ([employer] The analytical performance characteristics of this assay, when used to test SurePath specimens have been determined by [facility]. 07/26/2018 1:24 PM COMFORT FILLER 07/27/2018 4:42 AM COMFORT FILLER Narrative Resulting Agency Comment Performing Organization Information: Site ID: [place] [facility] Address: [address] [place] [address] Director: Brennan Oliver D.O., MPH Site ID: [facility] Address: [address] [place] [address] Director: David Jain Emily Miller MD LAB PATHOLOGY ORDER MICHA Final Result [facility] - [facility] [place] from Last 3 Months or Most Recently Relevant to Health Maintenance Insurance [facility]PPO Address: [facility] [id number] [place] [address] [facility] OPEN ACCESS [facility] Care Teams Documentation Supervisor Relationship Specialty Start Date End Date Wisam Love MD [address] [place] [address] PCP - General Family Medicine 08/02/23
--- OUTSIDE RECORDS SUMMARY | 2025-07-13 17:18 | XMS_ITS | Data Portability ---
Author Organization [facility] Address [address] [place] [address] Assessment Encounter Date Assessment Date Assessment LastModified by Organization Details LastModified Time 07/04/2025 07/04/2025 Patient is _36__weeks . Discussed plan. [email or web address] Not available 07/04/2025 11:57:08 07/09/2025 07/09/2025 Patient is ___weeks . Discussed plan. [email or web address] Not available 07/09/2025 11:44:36 Plan of Treatment Reminders Order Date Submit Date Provider Last Modified By Organization Details Last Modified Time Details Appointments None recorded. Lab None recorded. Referral None recorded. Procedures None recorded. Surgeries None recorded. Imaging non-stress test 2024 025 [email or web address] [place], [address], [place], [address], 13:51:55 US, obstetric, biophysical profile + non-stress test 2024 025 6 [place], [address], [place], [address], 11:42:32 US, doppler, umbilical artery velocimetry 2024 025 JUDY [place], [address], [place], [address], 12:43:32 Medication Orders None recorded. Patient TargetsNo targets recorded. Patient InstructionsNo instructions recorded. Reason for Referral None Reported. Results Created Date Observation Date Name Description Value Unit Range Abnormal Flag Note LastModifiedBy Organization Detail LastModifiedTime 07/04/2007/04/2025 CULTU RE: GROUP B STREP SCREE N, REFLE X SUSCE PTIBI LITY result report SEE RESULT S BELOW abnormal Test: Cultu re: Group B Strep , Refle x Susce ptibi lity ([facility]/ [facility]/K H/[facility] ) Speci men Sourc e: Vagin a/Rec barbara Speci men Type: Vagin al/Re ctal Speci men Date: 2024 1137 Resul t Date: 2024 1449 Resul t Statu s: Final resul t Abnor mal: Yes Resul ting Lab: [facility] [address] [facility] [place] [address] Tel: CULTU RE ----- ----- ----- --- [...] at high risk for anaph ylaxi s. Susce ptibi lity testi ng is not neces castillo for these drugs . Not Available [facility] (Lab) [address], [place], [address], 07/08/2025 16:24:59 07/04/2007/04/2025 WOMEN 'S HEALT H SWAB, BEVERLY bacterial [...] or negat nesha statu s. Not Available [facility] (Lab) [address], [place], [address], 07/08/2025 16:25:00 07/04/20 25 07/04/2025 WOMEN 'S HEALT H SWAB, BEVERLY varsha species, tma Positi ve negati ve abnormal Not Available [facility] (Lab) [address], [place], [address], 07/08/2025 16:25:00 07/04/20 25 07/04/2025 WOMEN 'S HEALT H SWAB, BEVERLY varsha glabrata, tma Negati ve negati ve Not Available [facility] (Lab) [address], [place], [address], 07/08/2025 16:25:00 07/04/20 25 07/04/2025 WOMEN 'S HEALT H SWAB, BEVERLY trichomonas vaginalis, tma Negati ve negati ve This assay tests for and diffe renti ates connerwe en Beatriz da glabr torrey, the Beatriz da speci es group (C. albic ans, C. tropi calis , C. parap cynthia is, C. dubli niens is), and Trich omona s vagin rafiq by Trans cript ion-M ediat ed Ampli ficat ion (TMA) . Not Available [facility] (Lab) [address], [place], [address], 07/08/2025 16:25:00 06/05/20 25 06/05/2025 US, obste tric, follo w-up No observ ation record ed. [email or web address] [place] [address], [place], [address], 06/05/2025 15:11:40 06/05/20 25 06/05/2025 US, obste tric, follo w-up No observ ation record ed. john Pat [address], [place], [address], 06/13/2025 14:46:41 06/06/20 25 06/06/2025 US, obste tric, bioph ysica l profi le No observ ation record ed. [address] [facility], [place], [address], 06/18/2025 15:22:02 06/06/20 25 06/06/2025 US, obste tric, bioph ysica l profi le No observ ation record ed. [address] [facility], [place], [address], 06/18/2025 15:21:42 06/06/20 25 06/06/2025 US, obste tric, follo w-up No observ ation record ed. [address] [address], [place], [address], 06/10/2025 11:24:02 06/06/20 25 06/06/2025 non-s tress test No observ ation record ed. [address], [place], [address], 06/30/2025 10:44:26 07/03/20 25 07/03/2025 US, obste tric, follo w-up No observ ation record ed. Pat [address], [place], [address], 07/08/2025 13:03:57 07/03/20 25 07/03/2025 US, obste tric, follo w-up No observ ation record ed. carmen [place] [address], [place], [address], 07/03/2025 18:32:15 07/03/20 25 07/03/2025 US, obste tric, bioph ysica l profi le + non-s tress test No observ ation record ed. [facility] [address], [place], [address], 07/03/2025 18:32:26 07/03/20 25 07/03/2025 US, doppl er, umbil ical arter y veloc imetr y No observ ation record ed. [facility] [address], [place], [address], 07/03/2025 18:32:38 07/05/20 25 06/06/2025 US, obste tric, bioph ysica l profi le + non-s tress test No observ ation record ed. [email or web address] [place] [address], [place], [address], 07/05/2025 12:07:31 07/09/20 25 07/09/2025 US, obste tric, bioph ysica l profi le + non-s tress test No observ ation record ed. [email or web address] [place] [address], [place], [address], 07/09/2025 12:42:49 07/09/20 25 07/09/2025 US, doppl er, umbil ical arter y veloc imetr y No observ ation record ed. [email or web address] [place] [address], [place], [address], 07/09/2025 12:43:32 07/09/20 25 07/09/2025 US, obste tric, bioph ysica l profi le + non-s tress test No observ ation record ed. JUDY Stewart [address], [place], [address], 07/12/2025 13:33:23 07/09/20 25 07/09/2025 non-s tress test No observ ation record ed. [email or web address] [place] [address] [address], [place], [address], 07/09/2025 18:38:27 07/09/20 25 non-s tress test No observ ation record ed. [address], [place], [address], 07/09/2025 13:30:59 Result Notes None recorded. Problems Name Problem SNOMED Code Status Onset Date Resolution Date Notes Provider Name and Address Organization Details Recorded Time Group B Streptoc occus carrier 3318686938 103 Completed h/o in first preg. Renee Torres MD [address], [place], [address], [facility] 3 10:33:02 Ultrasou nd scan abnormal 084157674 Completed subamnio tic hemorrha ge - rpt u/s schd 01/04/23- wnl at [facility]. no FU needed. Marvin cabrera [facility] 3 16:42:26 Uterine size for dates discrepa ncy 806066225 Completed already doing growth at [facility] Marvin cabrera [facility] 3 16:42:26 Venous conroy 094954110 Completed placenta - 02/21/24 9a u/s only. REBECCA MENA MD [address], [place], [address], [facility] 4 11:34:29 Placenta circumva llata 7593771 Completed REBECCA MENA MD [address], [place], [address], [facility] 4 11:34:29 Pregnanc y 30005485 Completed 202203/13/2023 Chaya cabrera, [facility] 5 10:31:09 Pregnanc y 44821744 Completed 202305/27/2024 Chaya cabrera, [facility] 5 10:31:09 Pregnanc y 35303746 Active 2024 Chaya cabrera, [facility] 5 10:31:09 Group B Streptoc occus carrier 5944896695 103 Active 2024 + GBS in urine Tiara Alarcon [facility], [facility] 5 17:54:31 Poor growth affectin g manageme nt 477761948 Active 2024 6% Zuleima Olsen CNM [address], [place], [address], [facility] 11:57:52 Problem Notes None recorded. Procedures Surgical History Date Name Laterality Status Provider Name and Address Organization Details Recorded Time 05/05/20 23 Date of Last Pap Smear completed Iveth Guevara [facility] 05/23/2025 14:51:22 02/29/20 22 IUD Removal completed STEPHANIE Acevedo [address], [place], [address], [facility] 02/28/2022 09:46:01 02/10/20 21 Colposcopy completed Chaya Marley [facility] 01/17/2025 10:28:24 02/10/20 21 cervical biopsy completed Chaya Marley [facility] 07/27/2022 10:28:55 07/31/19 20 extraction of wisdom tooth completed Chaya Marley [facility] 07/27/2022 10:28:13 07/31/19 18 Date of Last Colonoscopy completed Chaya Marley [facility] 07/27/2022 10:27:19 07/31/19 18 Colonoscopy completed Chaya Marley [facility] 07/27/2022 10:28:04 Imaging Results None recorded. [...] and Address Organization Details Last Updated DateTime 07/04/2025 162.56 cm 24.9 kg/m2 94162.89 g 114/75 mm[Hg] Fauzia Singh [place] - [facility] 07/04/2025 11:38:30 Date Recorded Body weight Systolic And Diastolic Provider Name and Address Organization Details Last Updated DateTime 07/09/2025 09886.28955 g 104/69 mm[Hg] Iveth Guevara [facility] 07/09/2025 12:14:06 Date Recorded Body height Body mass index (BMI) Body weight Systolic And Diastolic Provider Name and Address Organization Details Last Updated DateTime 07/09/2025 162.56 cm 25.1 kg/m2 47866.49 g 104/69 mm[Hg] Fauzia Singh [facility] 07/09/2025 13:26:39 Social History Question Answer Notes LastModified by Organizat ion Details LastModified Time Tobacco Smoking Status Former Smoker Sujata Zheng rick, [facility] 10/20/2022 09:56:48 Do You Have An Advance Directive? No Information not available 02/08/2021 If You Are , What Was Your Level Of Alcohol Consumption Prior To ? Occasional [email or web address] Information not available 10/20/2022 Are You Blind [...] Or The Highest Degree You Have Received? [id number] Information not available 02/08/2021 Are There Any Guns Present In Your Home? No Information not available 02/08/2021 Do You Use Protection During Sex? No Information not available 02/08/2021 Do You Use Your Seat Belt Or Car Seat Routinely? Yes Information not available 02/08/2021 Are You Sexually Active? Yes [email or web address] Information not available 03/12/2025 Do You Have Smoke And Carbon Monoxide Detectors In Your Home? Yes Information not available 02/08/2021 How Much Tobacco Do You Smoke? No Information not available 02/08/2021 Do You Use Sunscreen Routinely? Yes Information not available 02/08/2021 Have You Used IV Drugs? No Information not available 02/08/2021 Do You Have Difficulty Walking Or Climbing Stairs? No [email or web address] Information not available 10/20/2022 Sex: Unknown Functional [...] able to care for yourself independently? 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 No [email or web address] Information not available 10/20/2022 What is your exercise level? Heavy Information not available 02/08/2021 Mental Status Question Answer Note LastModified by Organization D etails LastModified Time Do you feel stressed (tense, restless, nervous, or anxious, or unable to sleep at night)? [id number] Information not available 02/08/2021 Family History Relationship Description Onset Age of this Age Resolved Age Notes LastModified by Organization Details LastModified Time Maternal Aunt Disorder of thyroid gland Not available 2020 11:46:08 Maternal Aunt Malignant neoplasm of ovary Not available 2020 11:36:55 Mother Anemia Not available 02/08/2021 11:46:08 Mother Malignant neoplasm of breast [email or web address] Not available 07/27 21:16:57 Mother Malignant neoplasm of lung [email or web address] Not available 07/27 21:17:08 Paternal Aunt Malignant neoplasm of breast Not available 2020 11:46:08 Paternal Grandmother Malignant neoplasm of breast Not available 2020 11:46:08 Maternal Grandmother Malignant neoplasm of breast [email or web address] Not available 2021 09:35:33 Medical History Condition Response Allergies (Food, seasonal, environmental ) N Other N Drug/Latex Allergies/Reactions N Blood Transfusion N Breast Cancer N Dermatologic Disorders N Lung Disease N [...] ICD10 Code Diagnosis IMO Codes Diagnosis Note [id number] Orion Cobb MD [place] [address],[place] [address] 02/08/2021 11:02:08 02/09/2021 11:21:18 Lesion of cervix 237266568 N88.9 this patient is a 25-year-ol d [...] The pelvic exam was otherwise a normal. [id number] Orion Cobb MD [place] [address],[place] [address] 02/16/2021 12:38:58 02/16/2021 13:56:28 Dysplasia of cervix 90316704 N87.9 this patient is a 25-year-ol d [...] discussing this very complex topic. new problem [id number] Orion Cobb MD [place] [address],[place] [address] 05/25/2021 09:38:00 05/25/2021 11:48:40 [id number] Kizzy DelvalleSTEPHANIE [place] [address],[facility] [address] 12/23/2021 09:26:51 12/23/2021 10:21:45 Pain in pelvis 58144133 R10.2 Pelvic pain bilaterall y for the [...] al testing sentPelvic u/s orderedF/u with Dr. Cobb for u/s f/u and to discuss need for colposcopy Red flag symptoms discussed: worsening abdominal pains, fevers, flu-like symptoms. Time spent with the patient was 30 minutes IUD check 847742590 Z30. 431 Vaginal discharge 520008 006 N89.8 Venereal d isease screening 270705090 Z11.3 Loss of hair 534077807 L 65.9 [id number] Orion Cobb MD [place] [address] [address] 12/28/2021 10:35:38 12/28/2021 11:17:53 Pain in pelvis 45413124 R10.2 [id number] Orion Cobb MD [place] [address],[place] [address] 01/10/2022 11:06:08 01/10/2022 12:41:14 Pain in pelvis 63343666 R10.2 Cyst of ovary 25631052 N 83.209 this patient is a 26-year-ol [...] cure. We will observe her pelvic pain. [id number] STEPHANIE Acevedo [place] [address] [address] 01/26/2022 09:39:06 01/26/2022 17:49:27 Contraception care management 264394303 Z30.9 Gynecologi c examination 21817474 Z01.419 Z11.3 Z11.8 Take Calcium with Vitamin [...] this week.UTD with PCP on routine labs [id number] Orion Cobb MD [place] [address],[facility] [address] 01/27/2022 17:24:10 01/27/2022 19:36:19 Cyst of left ovary 1198698895 5421221 N83.202 [id number] Orion Cobb MD [place] [address],[place] [address] 01/28/2022 10:27:49 01/28/2022 12:34:11 Cyst of ovary 77526372 N83.209 this patient is a 26-year-ol d [...] her. More than 50% was counseling . [id number] STEPHANIE Acevedo [place] [address] [address] 02/28/2022 09:24:09 02/28/2022 09:59:49 Removal of intrauterine device 64558901 Z30.432 We discussed possible cramping and bleeding over the next few days. Patient informed that return to fertility is immediate. Patient encouraged to take PNV daily. IUD removed without any immediate complicati onsTo call the office with any heavy vaginal bleeding, pains, fevers, etc [id number] STEPHANIE Acevedo [place] [address],[place] [address] 04/25/2022 13:58:42 04/25/2022 14:57:13 Increased frequency of urination 397570155 R35.0 UA today does not suggest infection. UA showed protein, which has been noted in previous UA's. We discussed she should f/u with PCP about this, patient agrees.Juany Iyer notices her symptoms with caffeine and carbonatio n intake. Possible IC/PBS. We discussed this. We discussed urology consult vs seeing STEPHANIE Santos at [facility] for further evaluation . She will consider. [...] review of plan of care. Vaginal discharge 749684 006 N89.8 Normal speculum exam, normal appearing vaginal dischargeV aginitis panel sentSTI endocervic al testing sentWill await cultures and treat if neededVulv ar care guidelines [facility] ondom use encouraged [id number] Orion Cobb MD [place] [address] [address] 07/27/2022 09:38:28 07/27/2022 10:15:01 Uncertain viability of 157170834 O36.80X0 Z3A.01 [id number] Zuleima Olsen CNM [place] [address],[place] [address] 07/27/2022 09:39:18 07/27/2022 10:39:16 test positive 209610795 Z32.01 Amenorrhea 73128487 N91. 2 [id number] Orion Cobb MD [place] [address],[place] [address] 08/17/2022 12:02:15 08/18/2022 17:21:21 Urinary symptoms 992269732 R39.9 [id number] Orion Cobb MD [place] [address],[place] [address] 08/25/2022 10:52:29 08/25/2022 11:26:55 screening 803279040 Z36.82 [id number] Orion Cobb MD [place] [address],[place] [address] 08/25/2022 10:53:44 08/25/2022 12:33:17 Routine care 435793499 Z34.91 [id number] [facility]UPINDER [facility] [address],[place] [address] 09/20/2022 11:23:27 09/21/2022 17:16:32 Routine care 898121874 Z34.92 screening 2437 12975 Z36.89 Vaginitis 54005243 N76.0 [id number] Orion Cobb MD [place] [address],[place] [address] 10/20/2022 09:55:12 10/20/2022 11:38:28 screening for malformation 735765134 Z36.3 [id number] Марина Walker CNM [place] [address],[place] [address] 10/20/2022 09:56:33 10/21/2022 16:59:27 Routine care 177267110 Z34.92 [id number] Марина Walker CNM [place] [address],[place] [address] 11/17/2022 11:15:22 11/17/2022 11:50:17 Routine care 179492409 Z34.92 [id number] Orion Cobb MD [place] [address],[place] [address] 12/09/2022 13:55:36 12/09/2022 14:52:10 Reduced movement 658600853 O36.8199 [id number] Renee Torres MD [place] [address],[place] [address] 12/12/2022 10:08:05 12/12/2022 10:40:54 Routine care 852933691 Z34.82 Ultrasound scan abnormal 681102204 R93.89 Uterine si ze for dates discrepancy 955860515 O26.849 [id number] Orion Cobb MD [place] [address],[place] [address] 12/30/2022 12:15:20 12/30/2022 13:19:40 Routine care 330830066 Z34.91 [id number] Renee Torres MD [place] [address],[place] [address] 01/13/2023 11:20:20 01/16/2023 14:32:00 Routine care 786859385 Z34.82 [id number] BHUPINDER [facility] [address],[place] [address] 01/27/2023 12:26:52 01/27/2023 13:02:56 Routine care 601264348 Z34.93 [id number] Zuleima Olsen CNM [place] [address],[place] [address] 02/08/2023 09:21:41 02/08/2023 10:05:13 Routine care 921299811 Z34.93 [id number] Zuleima Olsen CNM [place] [address],[place] [address] 02/15/2023 16:12:29 02/15/2023 16:33:34 Routine care 501635920 Z34.93 [id number] Zuleima Olsen [facility] [address],[place] [address] 02/24/2023 14:08:02 02/24/2023 14:56:23 Routine care 481860228 Z34.93 [id number] Zuleima Olsen [facility] [address],[place] [address] 2023 14:14:37 2023 14:46:18 Routine care 198992459 Z34.93 Urinary tr act infectious disease 22051335 N39.0 Urinary symptoms 0440834 08 R39.9 [id number] Zuleima Olsen [facility] [address],[place] [address] 04/07/2023 12:41:14 04/07/2023 13:40:52 care 453361019 Z39.2 start slynd, discussed se risks and benefits, give one month to be effective depression 58 098816 F53.0 discussed se risks and benefits of zoloft, if any suicidal thoughts to ed f/u med check 4 weeks Vaginitis 69650930 N76.0 [id number] Zuleima Olsen [facility] [address],[place] [address] 05/05/2023 12:17:18 05/05/2023 12:44:43 Gynecologic examination 74154766 Z01.419 Anxiety 38034654 F41.9 continue sertraline f/u med check 6 mo, if any suicidal thoughts to ED [id number] Orion Cobb MD [place] [address],[place] [address] 08/03/2023 17:19:19 08/07/2023 09:24:20 Threatened miscarriage in first trimester 40685120 O20.0 8-year-old female presents for of unknown location. She is seen in the ER in [place]. Ultrasound could not identify a viable or [...] ce. More than 50% was counseling . [id number] Orion Cobb MD [place] [address],[place] [address] 10/25/2023 11:23:50 10/25/2023 13:36:28 [id number] REBECCA MENA MD [place] [address],[place] [address] 10/25/2023 11:25:58 10/25/2023 13:45:12 test positive 049433217 Z32.01 1. Exam today within normal limits.2. Ultrasound today confirms GA and viability. EDC . GC/Clamydi a testing done: will f/u as indicated. 4. ACOG guidelines and plan of care for reviewed with patient. All questions answered.5 . Return to office at 12 weeks for new OB visit6. Will need new OB labs at next visit.7. Genetic screening: desires. [id number] Orion Cobb MD [place] [address],[place] [address] 11/24/2023 10:42:45 11/24/2023 11:36:34 screening 605832472 Z36.82 Z3A.12 [id number] Zuleima Olsen CNM [place] [address],[place] [address] 11/24/2023 10:43:04 11/24/2023 12:07:41 Routine care 321859244 Z34.93 Nausea and vomiting 1693 2000 R11.2 Gestation period, 12 weeks 24753139 Z3A.12 [id number] Orion Cobb MD [place] [address],[place] [address] 12/21/2023 10:47:52 12/21/2023 11:37:39 [id number] Orion Cobb MD [place] [address],[place] [address] 12/21/2023 10:48:40 12/21/2023 12:37:00 Routine care 780851811 Z34.91 [id number] Orion Cobb MD [place] [address],[place] [address] 01/16/2024 10:00:24 01/16/2024 11:29:01 screening for malformation 794191957 Z36.3 Z3A.20 [id number] REBECCA MENA MD [place] [address],[place] [address] 01/16/2024 10:00:40 01/16/2024 11:46:55 Placenta circumvallata 6780061 O43.119 Bleeding f rom female genital tract during 8082763999 7026690 O46.92 Gestation period, 20 weeks 62517215 Z3A.20 [id number] REBECCA MENA MD [place] [address],[place] [address] 02/13/2024 10:54:10 02/13/2024 11:38:02 Placenta circumvallata 2834391 O43.119 Venous conroy 809714055 D1 8.01 Gestation period, 24 weeks 750363450 Z3A.24 [id number] BHUPINDER [facility] [address] [place] [address] 03/13/2024 10:23:20 03/13/2024 11:05:04 Urinary symptoms 155014672 R39.9 [id number] BHUPINDER [facility] [address] [place] [address] 03/27/2024 09:29:25 03/27/2024 09:47:39 Gestation period, 30 weeks 99879172 Z3A.30 continue vitamin Nausea and vomiting 1693 1999 R11.2 [id number] BHUPINDER [facility] [address] [place] [address] 04/12/2024 09:43:55 04/12/2024 10:33:05 Urinary symptoms 312467253 R39.9 Gestation period, 32 weeks 8088221 Z3A.32 Vaginitis 65866342 N76.0 [id number] Zuleima Olsen [facility] [address],[place] [address] 04/26/2024 09:33:51 04/26/2024 10:01:56 Routine care 569814249 Z34.93 continue vitamin [id number] Orion Cobb MD [place] [address],[place] [address] 04/26/2024 09:50:59 04/26/2024 10:49:29 tachycardia 920869253 O36.8399 [id number] Zuleima Olsen [facility] [address],[place] [address] 05/06/2024 09:38:02 05/06/2024 09:59:00 Gestation period, 36 weeks 05482808 Z3A.36 [id number] Orion Cobb MD [place] [address],[place] [address] 12/03/2024 12:24:31 12/03/2024 13:06:34 Finding of menstrual bleeding 177441787 Z36.87 Z3A.01 418734 [id number] Orion Cobb MD [place] [address] [place] [address] 12/17/2024 11:49:06 12/17/2024 12:06:52 [id number] BHUPINDER [facility] [address] [place] [address] 12/17/2024 11:49:26 12/17/2024 13:16:33 Amenorrhea 57492450 N91.2 31409 Bacterial disease screening 915362796 Z11.8 96632 screening 2437 28131 Z36.89 care status 24 5749749 Z34.81 66427546 continue vitamin Gynecologi c examination 61489746 Z01.976 0689456 [id number] Orion Cobb MD [place] [address],[place] [address] 12/20/2024 15:55:27 12/24/2024 08:49:22 Threatened miscarriage [id number] O20.0 Z3A.08 30272 [id number] Orion Cobb MD [place] [address],[place] [address] 01/17/2025 09:34:44 01/17/2025 10:12:21 screening [id number] Z36.82 Z3A.12 904772 [id number] [facility]INDER [facility] [address],[place] [address] 01/17/2025 09:35:20 01/17/2025 13:20:42 state of fetus 31449402 Z34.90 1232721663 continue vitamin Gestation period, 12 weeks 80184067 Z3A.12 5255270 Nausea and vomiting 1693 1999 R11.2 [id number] [id number] [facility]UPINDER [facility] [address],[place] [address] 02/14/2025 09:48:40 02/14/2025 10:11:18 Gestation period, 16 weeks 03336011 Z3A.16 2825894 continue vitamin [id number] Orion Cobb MD [place] [address],[place] [address] 03/12/2025 10:26:37 03/12/2025 11:52:17 screening for malformation 221330635 Z36.3 Z3A.20 9674580867 [id number] [facility] [address] [place] [address] 03/12/2025 10:53:03 03/12/2025 12:13:54 Gestation period, 20 weeks 93118674 Z3A.20 3188155 cont pnv [id number] Orion Cobb MD [place] [address],[place] [address] 04/11/2025 10:57:49 04/11/2025 12:02:06 anatomy study 324116487 Z36.2 Z3A.24 7571878635 [id number] [facility]UPINDER [facility] [address],[place] [address] 04/11/2025 10:59:48 04/11/2025 12:27:35 Gestation period, 24 weeks 897284149 Z3A.24 6598942 cont pnv [id number] Orion Cobb MD [place] [address],[place] [address] 05/09/2025 13:58:24 05/09/2025 14:40:46 Anomaly of placenta 94354504 O43.103 Z03.74 Z3A.28 85742189 [id number] Zuleima Olsen [facility] [address],[place] [address] 05/09/2025 13:58:38 05/09/2025 14:55:45 Urinary symptoms 643925576 R39.9 69792883 Gestation period, 28 weeks 73767800 Z3A.28 3789904 Pruritus of vagina 38521 003 N89.8 661833 [id number] BHUPINDER [facility] [address],[place] [address] 05/23/2025 14:43:28 05/23/2025 15:06:10 Gestation period, 30 weeks 68845598 Z3A.30 0560162 continue vitamin 704966 Orion Cobb MD [place] [address],[place] [address] 06/05/2025 10:56:09 06/05/2025 14:07:34 Abnormal placenta affecting management of mother 40911117 O43.93 Z3A.32 31916489 [id number] [facility]UPINDER [facility] [address],[place] [address] 06/06/2025 11:46:55 06/06/2025 12:09:09 Gestation period, 32 weeks 7955330 Z3A.32 2867607 cont pnv [id number] Zuleima Olsen [facility] [address],[place] [address] 06/06/2025 12:50:38 06/06/2025 16:10:48 Premature uterine contraction 820921176 O47.00 1242754 [id number] Zuleima Olsen [facility] [address],[place] [address] 06/13/2025 10:37:51 06/13/2025 11:20:38 Gestation period, 33 weeks 21383558 Z3A.33 8594314 cont pnv [id number] Zuleima Olsen [facility] [address],[place] [address] 06/18/2025 09:45:56 06/18/2025 10:18:34 Gestation period, 34 weeks 16472000 Z3A.34 0648691 cont pnv [id number] Zuleima Olsen [place] [address],[place] [address] 06/25/2025 09:24:51 06/25/2025 09:56:46 Gestation period, 35 weeks 40678170 Z3A.35 4876347 [id number] Orion Cobb MD [place] [address],[place] [address] 07/03/2025 12:27:29 07/03/2025 14:18:52 Poor growth affecting management 505322254 O36.5990 Z3A.36 79727339 [id number] Zuleima Olsen [facility] [address],[place] [address] 07/04/2025 11:16:16 07/04/2025 13:36:48 Gestation period, 36 weeks 39457059 Z3A.36 4734172 Poor growth affecting management 818060839 O36.5990 41966612 [id number] REBECCA MENA MD [place] [address],[place] [address] 07/09/2025 11:01:36 07/09/2025 11:39:29 care status 277932787 O36.5930 Z3A.37 702749 [id number] REBECCA MENA MD [place] [address],[place] [address] 07/09/2025 11:02:29 07/09/2025 13:51:55 Poor growth affecting management 426421972 O36.5990 95453214 [id number] REBECCA MENA MD [place] [address],[place] [address] 07/09/2025 11:02:55 07/09/2025 14:12:20 Group B Streptococcus carrier [id number] 103 Z22.706 2088137 - abx during labor Poor growth affecting management 957393560 O36.5990 62619524 - EFW 6%- MIL at 38 weeks Gestation period, 37 weeks 96585464 Z3A.37 4340756 - continue [facility] Health Concerns Section Related Observation LastModified by Organization Detai ls LastModified Time None Recorded Concern Status LastModified by Organization Details LastModified Time None Recorded Advance Directives Directive N: Payers Insurance Date Sequence Insurance Name Policy Number Policy Veloz Covered Member ID Veloz Member ID Guarantor Name 08/13/2022 1 [facility] [id number] Darian Velazco [id number] [facility] 07/09/2025 1 [place] [facility] [id number] [facility] 07/09/2025 1 [facility] (MEDICAID HMO) [id number] Trina Dhillon [id number] [facility] Notes Date Note Type Note Provider Name and Address Organization Details Recorded Time 07/04/2025 text/html Generic HPI TemplateReported by Patient Zuleima Olsen CNM [address], [place], [address], [facility] 07/04/2025 11:59:33 07/09/2025 text/html Generic HPI TemplateReported by Patient REBECCA MENA MD [address], [place], [address], [facility] 07/09/2025 14:01:40 OBGyn Episode Ob Episode Information Episode Created Date Number of Fetuses Patient Bloodtype Patient rh Status Prepregnancy Weight lbs Domestic Partner Domestic Partner Phone Father Name Mortgage Funder Status 02/09/20 21 1 CLOSED Fetus Data First Name Last Name Admitted to NICU Weight (g) Sex Living Outcome Pediatric Complications Fetus ID Race Codes Race Delivery Type 3089.86 8704 M Full Term 29443 Vaginal Delivery Moises Calculation Initial Moises Date [...] Tubal Sterilization Discharge Date Comments 1 40 [place] Discharge Information Feeding Method Contraceptive Method Maternal HG B and HCT Levels Ob Episode Information Episode Created Date Number of Fetuses Patient Bloodtype Patient rh Status Prepregnancy Weight lbs Domestic Partner Domestic Partner Phone Father Name Mortgage Funder Status 08/25/19 23 1 O Positive 111 CLOSED Fetus Data First Name Last Name Admitted to NICU Weight (g) Sex Living Outcome Pediatric Complications Fetus ID Race Codes Race Delivery Type 2778.25 1 M true Full Term 78512 Vaginal Delivery Problems Problem Notes Problem Name Start Date End Date Resolution Snomed Code Not e Ultrasound scan abnormal [id number] subamniotic hemorrhage - rpt u/s schd 01/04/23- wnl at [facility]. no FU needed. Uterine size for dates discrepancy 788558302 already do ing growth at [facility] Moises Calculation Initial Moises Date Initial Exam [...] Weight in lbs Pre/Post Dialysis Refused Weight 116.34300308736 BP Diastolic BP Location Tested BP Systolic BP Type 65 R arm 101 sitting Fetus Heart Rate Present A 145 Fetus Movement Comments this patient is a She has no complaints today. [id number] 2 para 1001 at 12 weeks gestation [...] Weight in lbs Pre/Post Dialysis Refused Weight 117.498172843942 BP Diastolic BP Location Tested BP Systolic [...] Weight in lbs Pre/Post Dialysis Refused Weight 122.241894156360 BP Diastolic BP Location Tested BP Systolic BP Type 64 100 Fetus Heart Rate Present Fetus Movement A Yes Comments Doing well. Baseline anatomy today. Reviewed with Dr Cobb and discussed with patient. OB nurse is calling to schedule mfm visit. Precautions discussed with patient and s/o. Flowsheet Date 11/17/2022 Ross Score Blood Edema Fundus Height Fundus Units Glucose Ketones Leukocytes Nitrite Labor Signs Protein Cervic Dilation Cervic Effacement Cervic Station neg none 22 none trace Type Weight in lbs Pre/Post Dialysis Refused Weight 125.247797185687 BP Diastolic BP Location Tested BP Systolic [...] Weight in lbs Pre/Post Dialysis Refused Weight 129.531953198376 BP Diastolic BP Location Tested BP Systolic BP Type 68 104 Fetus Heart Rate Present A 155 Fetus Movement A Yes Comments Doing ok. S<D, already doing growth at [facility], need report from 11/22. GCT today, discussed and encouraged Tdap. Flowsheet Date 12/30/2022 Ross Score Blood Edema Fundus Height Fundus Units Glucose Ketones Leukocytes Nitrite Labor Signs Protein Cervic Dilation Cervic Effacement Cervic Station 29 none trace Type Weight in lbs Pre/Post Dialysis Refused Weight 128.978562978519 BP Diastolic BP Location Tested BP Systolic BP Type 67 R arm 102 sitting Fetus Heart Rate Present A 145 Fetus Movement A Yes Comments No complaints, no problems, follow-up with MFM for unique placental finding. Separation of membrane from the placental surface. Flowsheet Date 01/13/2023 Ross Score Blood Edema Fundus Height Fundus Units Glucose Ketones Leukocytes Nitrite Labor Signs Protein Cervic Dilation Cervic Effacement Cervic Station 31 none trace Type Weight in lbs Pre/Post Dialysis Refused Weight 130.448765794568 BP Diastolic BP Location Tested BP Systolic BP Type 60 L arm 97 sitting Fetus Heart Rate Present A 120 Fetus Movement A Yes Comments Doing ok, rare contractions. Has not done Tdap yet, encouraged. Will call for preregistration. MFM on 01/05 wnl, 34%, no follow up needed there. Flowsheet Date 01/27/2023 Ross Score Blood Edema Fundus Height Fundus Units Glucose Ketones Leukocytes Nitrite Labor Signs Protein Cervic Dilation Cervic Effacement Cervic Station neg trace 32 none trace Type Weight in lbs Pre/Post Dialysis Refused Weight 132.769668560674 BP Diastolic BP Location Tested BP Systolic [...] Weight in lbs Pre/Post Dialysis Refused Weight 136.820047360040 BP Diastolic BP Location Tested BP Systolic [...] Weight in lbs Pre/Post Dialysis Refused Weight 136.321941055315 BP Diastolic BP Location Tested BP Systolic [...] Weight in lbs Pre/Post Dialysis Refused Weight 140.169872546061 BP Diastolic BP Location Tested BP Systolic [...] Weight in lbs Pre/Post Dialysis Refused Weight 139.754733084530 BP Diastolic BP Location Tested BP Systolic [...] At Estimated Date of Delivery false Thalassemia (Citizen Of [place], Northern [place], Mediterranean, Or Background): MCV < 80 false Neural Tube Defect (Meningomyelocele, Spina Bifi da, Or Anencephaly) false Congenital Heart Defect false Down Syndrome false Alexis-Sachs (eg, [place], Cajun, Gren[place]-Bangladeshi) f alse Radha Disease false Sickle Cell Disease Or Trait () false Hemophilia Or Other Blood Disorders false Muscular Dystrophy false Cystic Fibrosis false [place]'s Ch[place] false Intellectual Disability/Autism false If Yes, [...] Comments 3 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 Zuleima Dsouza CNM Discharge Information Feeding Method Contraceptive Method Maternal HG B and HCT Levels Ob Episode Information Episode Created Date Number of Fetuses Patient Bloodtype Patient rh Status Prepregnancy Weight lbs Domestic Partner Domestic Partner Phone Father Name Mortgage Funder Status 11/24/19 24 1 O Positive 115 Alli Rahman h CLOSED Fetus Data First Name Last Name Admitted to NICU Weight (g) Sex Living Outcome Pediatric Complications Fetus ID Race Codes Race Delivery Type 2353.00 85 M true Full Term body cordx1 27552 Vaginal Delivery Problems Problem Notes MFM Appt: 04/02/24 9:45am u/s only Problem Name Start Date End Date Resolution Snomed Code Not e Venous conroy [id number] placenta - 02/21/24 9am u/s only. Placenta circumvallata 3129531 Moises Calculation Initial Moises Date Initial Exam [...] Ultra Sound Latest Days Gestation 11/24/19 12 11/24/2023 06/01/20 24 4 Pre- Flowsheet Flowsheet Date 11/24/2023 Ross Score Blood Edema Fundus Height Fundus Units Glucose Ketones Leukocytes Nitrite Labor Signs Protein Cervic Dilation Cervic Effacement Cervic Station neg none none trace Type Weight in lbs Pre/Post Dialysis Refused Weight 117.388342553511 BP Diastolic BP Location Tested BP Systolic [...] Weight in lbs Pre/Post Dialysis Refused Weight 120.731471626110 BP Diastolic BP Location Tested BP Systolic [...] Weight in lbs Pre/Post Dialysis Refused Weight 120.562111481064 BP Diastolic BP Location Tested BP Systolic BP Type 65 99 Fetus Heart Rate Present A 154 Fetus Movement A Yes Comments Patient was in the ER at [facility] due to nausea/vomiting/diarrhea. While she was there, [...] Weight in lbs Pre/Post Dialysis Refused Weight 126.756980523671 BP Diastolic BP Location Tested BP Systolic [...] Type Weight in lbs Pre/Post Dialysis Refused 133.306034518031 BP Diastolic BP Location Tested BP Systolic [...] Type Weight in lbs Pre/Post Dialysis Refused 128.185865384813 BP Diastolic BP Location Tested BP Systolic [...] Weight in lbs Pre/Post Dialysis Refused Weight 132.374922362949 BP Diastolic BP Location Tested BP Systolic [...] Weight in lbs Pre/Post Dialysis Refused Weight 134.82469384884 BP Diastolic BP Location Tested BP Systolic [...] Weight in lbs Pre/Post Dialysis Refused Weight 136.289990048046 BP Diastolic BP Location Tested BP Systolic [...] At Estimated Date of Delivery false Thalassemia (Citizen Of [place], Northern Irish, Mediterranean, Or Background): MCV < 80 false Neural Tube Defect (Meningom yelocele, Spina Bifida, Or Anencephaly) false Congenital Heart Defect false Down Syndrome false Alexis-Sachs (eg, [place], Cajun, Grenadian-Bangladeshi) f alse Radha Disease false Sickle Cell [...] Comments 4 Sponta neous [facility]-Ep idural 37 Zuleima Olsen CNM Placenta circumval leroy,Veno us conroy, [facility] Discharge Information Feeding Method Contraceptive Method Maternal HG B and HCT Levels Ob Episode Information Episode Created Date Number of Fetuses Patient Bloodtype Patient rh Status Prepregnancy Weight lbs Domestic Partner Domestic Partner Phone Father Name Mortgage Funder Status 11/24/19 24 1 CLOSED Fetus Data First Name Last Name Admitted to NICU Weight (g) Sex Living Outcome Pediatric Complications Fetus ID Race Codes Race Delivery Type , [place] [address]141 Moises Calculation Initial Moises Date Initial Exam [...] Domestic Partner Domestic Partner Phone Father Name Mortgage Funder Status 01/18/20 25 1 O Positive 112 Alli Wilfranciscort h OPEN Fetus Data First Name Last Name Admitted to NICU Weight (g) Sex Living Outcome Pediatric Complications Fetus ID Race Codes Race Delivery Type 05232 Problems Problem Notes multiple placental lakes STA BLE Problem Name Start Date End Date Resolution Snomed Code Not e Group B Streptococcus carrier 01/21/2025 [id number] + GBS in urine Poor growth affecting management 07/04/2025 499566787 6% Moises Calculation Initial Moises Date Initial Exam Date Initial Exam Provider Initial Ultrasound Date Last Menstrual Period Date Ultra Sound Weeks Gestation 07/27/2025 12/17/2024 12/03/2024 10/20/2024 6 Eighteen To Twenty Week [...] Weight in lbs Pre/Post Dialysis Refused Weight 112.697012667198 BP Diastolic BP Location Tested BP Systolic [...] Type Weight in lbs Pre/Post Dialysis Refused 114.640894146829 BP Diastolic BP Location Tested BP Systolic [...] Type Weight in lbs Pre/Post Dialysis Refused 122.325402882903 BP Diastolic BP Location Tested BP Systolic [...] Weight in lbs Pre/Post Dialysis Refused Weight 127.342426498308 BP Diastolic BP Location Tested BP Systolic [...] Weight in lbs Pre/Post Dialysis Refused Weight 136.263210122985 BP Diastolic BP Location Tested BP Systolic [...] Weight in lbs Pre/Post Dialysis Refused Weight 137.146467979068 BP Diastolic BP Location Tested BP Systolic [...] Type Weight in lbs Pre/Post Dialysis Refused 140.060049558230 BP Diastolic BP Location Tested BP Systolic [...] Weight in lbs Pre/Post Dialysis Refused Weight 140.640964716301 BP Diastolic BP Location Tested BP Systolic BP Type 66 L arm 106 sitting Fetus Heart Rate Present A 147 Present Fetus Movement A Yes Comments cntx minimal will cont leesaa amanda, us at 2 weeks visit, tired today, +FM, encouraged rest f/u one week Flowsheet Date 06/18/2025 Ross Score Blood Edema Fundus Height Fundus Units Glucose Ketones Leukocytes Nitrite Labor Signs Protein Cervic Dilation Cervic Effacement Cervic Station Type Weight in lbs Pre/Post Dialysis Refused Weight 139.28452538000 BP Diastolic BP Location Tested BP Systolic [...] Weight in lbs Pre/Post Dialysis Refused Weight 141.921699399833 BP Diastolic BP Location Tested BP Systolic [...] Weight in lbs Pre/Post Dialysis Refused Weight 145.304153182049 BP Diastolic BP Location Tested BP Systolic [...] Weight in lbs Pre/Post Dialysis Refused Weight 146.464599308559 BP Diastolic BP Location Tested BP Systolic BP Type 69 L arm 104 sitting Fetus Heart Rate Present Fetus Movement A Yes Comments Flowsheet Date 07/09/2025 Ross Score Blood Edema Fundus Height Fundus Units Glucose Ketones Leukocytes Nitrite Labor Signs Protein Cervic Dilation Cervic Effacement Cervic Station Type Weight in lbs Pre/Post Dialysis Refused 146.199040947174 BP Diastolic BP Location Tested BP Systolic [...]
--- OUTSIDE RECORDS SUMMARY | 2025-07-13 17:18 | XMS_ITS | Continuity of Care Document ---
Author Organization [facility] Address [address] [place] [address] [place] [address] Assessment Encounter Date Assessment Date Assessment LastModified by Organization Details LastModified Time 05/09/2025 05/09/2025 Patient is _28__weeks . Discussed plan. Not available 05/09/2025 14:54:05 Plan of Treatment Reminders Order Date Submit Date Provider Last Modified By Organization Details Last Modified Time Details Appointments None recorded. Lab urinalysis, dipstick 2024 025 [email or web address], [address], [place], [address], 14:54:26 Referral None recorded. Procedures None recorded. Surgeries None recorded. Imaging None recorded. Medication Orders metronidazo le 500 mg tablet 2024 025 [facility] [place], [address], 15:28:32 Patient TargetsNo targets recorded. Patient InstructionsNo instructions recorded. Reason for Referral None Reported. Results Created Date Observation Date Name Description Value Unit Range Abnormal Flag Note LastModifiedBy Organization Detail LastModifiedTime 01/23/2001/22/2025 [UNIT Y] ANEUP LOIDY NIPT fraction 9.8% normal Not Available [facility] [address], [place], [address], 01/22/2025 22:58:15 01/23/20 01/22/2025 [UNIT Y] ANEUP LOIDY NIPT 22Q11.2 microdeletio n LOW RISK <1 in 10,000 normal Not Available [facility] [address], [place], [address], 01/22/2025 22:58:15 01/23/20 25 01/22/2025 [UNIT Y] ANEUP LOIDY NIPT sex chromosome aneuploidy NOT DETECT ED normal Not Available [facility] [address], [place], [address], 01/22/2025 22:58:15 01/23/20 25 01/22/2025 [UNIT Y] ANEUP LOIDY NIPT monosomy X LOW RISK <1 in 10,000 normal Not Available [facility] [address], [place], [address], 01/22/2025 22:58:15 01/23/20 25 01/22/2025 [UNIT Y] ANEUP LOIDY NIPT trisomy 13 LOW RISK <1 in 10,000 normal Not Available [facility] [address], [place], [address], 01/22/2025 22:58:15 01/23/20 25 01/22/2025 [UNIT Y] ANEUP LOIDY NIPT trisomy 18 LOW RISK <1 in 10,000 normal Not Available [facility] [address], [place], [address], 01/22/2025 22:58:15 01/23/20 25 01/22/2025 [UNIT Y] ANEUP LOIDY NIPT trisomy 21 LOW RISK <1 in 10,000 normal Not Available [facility] [address], [place], [address], 01/22/2025 22:58:15 01/23/20 25 01/22/2025 [UNIT Y] ANEUP LOIDY NIPT sex MALE normal Not Available [facility] [address], [place], [address], 01/22/2025 22:58:15 01/23/20 25 01/22/2025 [UNIT Y] ANEUP LOIDY NIPT gestation SINGLE TON normal Not Available [facility] [address], [place], [address], 01/22/2025 22:58:15 01/23/20 25 01/22/2025 [UNIT Y] ANEUP LOIDY NIPT for detailed report, see pdf See PDF normal Not Available [facility] [address], [place], [address], 01/22/2025 22:58:15 01/18/20 25 01/17/2025 CULTU RE: URINE result report SEE RESULT S BELOW abnormal Test: Cultu re: Urine Speci men Sourc e: Urine Voide d Speci men Type: Urine Speci men Date: 2024 1622 Resul t Date: 2024 0142 Resul t Statu s: Final resul t Abnor mal: Yes Resul josé miguelg Lab: [facility] [address] [facility] [address] Tel: CULTU RE ----- ----- ----- --- [...] lab withi n 5 days. Not Available [facility] (Lab) [address] [facility], [place], [address], 01/19/2025 02:46:33 01/18/20 25 01/17/2025 CBC W/DIF F WBC 8.1 10'3/ uL 3.5-10 .5 Not Available [facility] (Lab) [address] [facility], [place], [address], 01/20/2025 12:18:01 01/18/20 25 01/17/2025 CBC W/DIF F RBC 3.68 10'6/ uL (based on docume nted legal sex) 3.80-5 .20 low Not Available [facility] (Lab) [address] [facility] [facility], [place], [address], 01/20/2025 12:18:01 01/18/20 25 01/17/2025 CBC W/DIF F HGB 10.4 g/dL (based on docume nted legal sex) 11.6-1 5.4 low Not Available [facility] (Lab) [address] [facility], [place], [address], 01/20/2025 12:18:01 01/18/20 25 01/17/2025 CBC W/DIF F HCT 32.2 % (based on docume nted legal sex) 34.0-4 5.0 low Not Available [facility] (Lab) [address] [facility], [place], [address], 01/20/2025 12:18:01 01/18/20 25 01/17/2025 CBC W/DIF F MCV 87.5 fL 80.0-9 9.0 Not Available [facility] (Lab) [address] [place], [address], 01/20/2025 12:18:01 01/18/20 25 01/17/2025 CBC W/DIF F MCH 28.3 pg 27.0-3 4.0 Not Available [facility] (Lab) [address] [facility], [place], [address], 01/20/2025 12:18:01 01/18/20 25 01/17/2025 CBC W/DIF F MCHC 32.3 g/dL 32.0-3 5.5 Not Available [facility] (Lab) [address] [facility], [place], [address], 01/20/2025 12:18:01 01/18/20 25 01/17/2025 CBC W/DIF F RDW 14.5 % 11.0-1 5.0 Not Available [facility] (Lab) [address] [facility], [place], [address], 01/20/2025 12:18:01 01/18/20 25 01/17/2025 CBC W/DIF F plt 157 10'3/ uL 150-40 0 Not Available [facility] (Lab) [address] [facility], [place], [address], 01/20/2025 12:18:01 01/18/20 25 01/17/2025 CBC W/DIF F MPV 12.7 fL 8.8-12 .1 high Not Available [facility] (Lab) [address] [facility], [place], [address], 01/20/2025 12:18:01 01/18/20 25 01/17/2025 CBC W/DIF F NRBC's 0.0 % 0.0 Not Available [facility] (Lab) [address] [facility], [place], [address], 01/20/2025 12:18:01 01/18/20 25 01/17/2025 CBC W/DIF F absolute NRBCs 0.0 10'3/ uL no refere nce range establ ished Not Available [facility] (Lab) [address] [facility], [place], [address], 01/20/2025 12:18:01 01/18/20 25 01/17/2025 CBC W/DIF F neutrophils 73.9 % 34.0-7 3.0 high Not Available [facility] (Lab) [address] [place], [address], 01/20/2025 12:18:01 01/18/20 25 01/17/2025 CBC W/DIF F lymphocytes 21.1 % 15.0-5 0.0 Not Available [facility] (Lab) [address] [facility], [place], [address], 01/20/2025 12:18:01 01/18/20 25 01/17/2025 CBC W/DIF F monocytes 4.1 % 1.0-15 .0 Not Available [facility] (Lab) [address] [facility], [place], [address], 01/20/2025 12:18:01 01/18/20 25 01/17/2025 CBC W/DIF F eosinophils 0.5 % 0.0-8. 0 Not Available [facility] (Lab) [address] [facility], [place], [address], 01/20/2025 12:18:01 01/18/20 25 01/17/2025 CBC W/DIF F basophils 0.2 % 0.0-2. 0 Not Available [facility] (Lab) [address] [facility], [place], [address], 01/20/2025 12:18:01 01/18/20 25 01/17/2025 CBC W/DIF [...] separ ately if prese nt. Not Available [facility] (Lab) [address] [facility], [place], [address], 01/20/2025 12:18:01 01/18/20 25 01/17/2025 CBC W/DIF F absolute neutrophils 6.0 10'3/ uL 1.5-8. 0 Not Available [facility] (Lab) [address] [facility], [place], [address], 01/20/2025 12:18:01 01/18/20 25 01/17/2025 CBC W/DIF F absolute lymphocytes 1.7 10'3/ uL 1.0-4. 0 Not Available [facility] (Lab) [address] [facility], [place], [address], 01/20/2025 12:18:01 01/18/20 25 01/17/2025 CBC W/DIF F absolute monocytes 0.3 10'3/ uL 0.2-1. 0 Not Available [facility] (Lab) [address] [place], [address], 01/20/2025 12:18:01 01/18/20 25 01/17/2025 CBC W/DIF F absolute eosinophils 0.0 10'3/ uL 0.0-0. 6 Not Available [facility] (Lab) [address] [facility], [place], [address], 01/20/2025 12:18:01 01/18/20 25 01/17/2025 CBC W/DIF F absolute basophils 0.0 10'3/ uL 0.0-0. 3 Not Available [facility] (Lab) [address] [facility], [place], [address], 01/20/2025 12:18:01 01/18/20 25 01/17/2025 CBC W/DIF F absolute immature granulocytes 0.0 10'3/ uL 0.00-0 .10 : Not Hispa zohaib or Latin o Refer ence range s for nonbi nary/ inter sex or unspe cifie d gende r patie nts have not been estab lishe d. [facility]as [facility] for range s estab lishe d for cisge nder patie nts and evalu ate in the clini gogo fili xt of the indiv idual patie nt: https ://la michael book. nm.or g/gen derx Not Available [facility] (Lab) [address], [place], [address], 01/20/2025 12:18:01 01/18/20 25 01/17/2025 HEPAT ITIS [...] Hispa zohaib or Latin o Not Available [facility] (Lab) [address] [facility] [facility], [place], [address], 01/20/2025 12:18:02 01/18/20 25 01/17/2025 HEPAT ITIS C ANTIB TOM SCREE N, REFLE X TO CONFI RMATI ON hepatitis C antibody Non-re active non-re active Antib odies to HCV Not Detec alfonso, does not exclu de the possi bilit y of expos ure to HCV. : Not Hispa zohaib or Latin o Not Available [facility] (Lab) [address], [place], [address], 01/20/2025 12:18:02 01/18/20 25 01/17/2025 HIV 1/2 ANTIG EN/AN TIBOD Y, REFLE X CONFI RMATI ON HIV antigen/anti body Nonrea ctive nonrea ctive : Not Hispa zohaib or Latin o HIV-1 antig en and HIV-1 /HIV- 2 antib odies were not detec alfonso. No labor atory evide nce of HIV infec tion. Not Available [facility] (Lab) [address], [place], [address], 01/20/2025 12:18:03 01/18/20 25 01/17/2025 TYPE/ RH/SC REEN ABO/Rh type O POS Not Available [facility] (Lab) [address], [place], [address], 01/20/2025 12:18:03 01/18/20 25 01/17/2025 TYPE/ RH/SC REEN antibody screen NEG Not Available [facility] (Lab) [address], [place], [address], 01/20/2025 12:18:03 01/18/20 25 01/17/2025 TYPE/ RH/SC REEN exp date 2024 23:59 Not Available [facility] (Lab) [address] [place], [address], 01/20/2025 12:18:03 01/18/20 25 01/17/2025 RUBEL LA IGG ANTIB TOM, QUANT rubella antibodies, IgG Reacti ve reacti ve Not Available [facility] (Lab) [address] [place], [address], 01/20/2025 12:18:04 01/18/20 25 01/17/2025 RUBEL LA IGG ANTIB TOM, QUANT rubella antibodies, IgG quant 12.2 IU/mL >=10 : Not Hispa zohaib or Latin o Non-r eacti ve (Non- Immun e) <10 IU/mL React nesha (Immu ne) > or = 10 IU/mL Not Available [facility] (Lab) [address], [place], [address], 01/20/2025 12:18:04 01/18/20 25 01/17/2025 RPR SCREE N, REFLE X TITER /CONF IRMAT ION RPR qualitative Nonrea ctive nonrea ctive : Not Hispa zohaib or Latin o Not Available [facility] (Lab) [address] [place], [address], 01/20/2025 12:18:04 01/18/20 25 01/17/2025 HEMOG LOBIN A1C hemoglobin A1C 5.0 % 4.0-5. 6 : Not Hispa zohaib or Latin o The Ameri can Diabe glo Assoc iatio n recom mends that a prima ry goal of thera py tammiul d be a HBA1C of < 7% and that physi cians shoul d reeva luate the treat ment regim en in patie nts with HBA1C value s consi stent ly > 8%. <5.7% Kimmie l 5.7 - 6.4% Incre ased risk for diabe glo >=6.5 % Diagn ostic of diabe glo <7.0% Goal of thera py >8.0% Actio n sugge sted Not Available [facility] (Lab) [address], [place], [address], 01/20/2025 12:18:04 01/18/20 25 01/17/2025 LEAD, BLOOD (ADUL T/PED IATRI C) lead, whole blood <1.0 mcg/d L <3.5 See Note 1 Antonio sis was perfo rmed by Jimbo Conroy ed Plasm a Mass Spect romet ry (ICPM S) Note 1 This test was devel oped and its antonio tical perfo rmanc e jenaro cteri stics have been deter mined by [facility]. It has not been clear ed or appro dolores by the FDA. This assay has been valid ated pursu ant to the CLIA regul ation s and is used for clini gogo purpo ses. : Not Hispa zohaib or Latin o Perfo rming Organ izati on Infor matio n: Site ID: [id number] Name: [facility]-Aleksandr Boyle Addre ss: [id number] [place] [address] Direc tor: Galileo Meyer s Not Available [facility] (Lab) [address], [place], [address], 01/20/2025 12:18:05 01/18/20 25 01/17/2025 drug scree n, urine Amphetamines : negati ve Not Available [facility] [address], [place], [address], 01/17/2025 10:30:22 01/18/20 25 01/17/2025 drug scree n, urine Cannabinoids : negati ve Not Available [facility], [place], [address], 01/17/2025 10:30:22 01/18/20 25 01/17/2025 drug scree n, urine Cocaine: negati ve Not Available [address], [place], [address], 01/17/2025 10:30:22 01/18/20 25 01/17/2025 drug scree n, urine Opiates: negati ve Not Available [address], [place], [address], 01/17/2025 10:30:22 01/18/20 25 01/17/2025 drug scree n, urine Phenocyclidi ne: negati ve Not Available [address], [place], [address], 01/17/2025 10:30:22 01/18/20 25 01/17/2025 drug scree n, urine Barbiturates : negati ve Not Available [address], [place], [address], 01/17/2025 10:30:22 01/18/20 25 01/17/2025 drug scree n, urine Benzodiazepi sabrina: negati ve Not Available [address], [place], [address], 01/17/2025 10:30:22 01/18/20 25 01/17/2025 drug scree n, urine Ethanol: negati ve Not Available [address], [place], [address], 01/17/2025 10:30:22 01/18/20 25 01/17/2025 drug scree n, urine Hallucinogen s: negati ve Not Available [address], [place], [address], 01/17/2025 10:30:22 01/18/20 25 01/17/2025 drug scree n, urine Inhalants: negati ve Not Available [address], [place], [address], 01/17/2025 10:30:22 01/18/20 25 01/17/2025 drug scree n, urine Anabolic Steroids: negati ve Not Available [address], [place], [address], 01/17/2025 10:30:22 01/18/20 25 01/17/2025 drug scree n, urine Other: positi ve Not Available [facility], [place], [address], 01/17/2025 10:30:22 05/09/20 25 05/09/2025 HEMOG LOBIN (HGB) HGB 9.6 g/dL (based on docume nted legal sex) 11.6-1 5.4 low Not Available [facility] (Lab) [address], [place], [address], 05/12/2025 14:37:31 05/09/20 25 05/09/2025 HEMAT OCRIT (HCT) HCT 30.4 % (based on docume nted legal sex) 34.0-4 5.0 low Not Available [facility] (Lab) [address], [place], [address], 05/12/2025 14:37:32 05/09/20 25 05/09/2025 GTT - GESTA SINDHU L SASKIA Colon, ACOG OB glucose, 1 hour screen 70 mg/dL 70-135 Not Available [facility] (Lab) [address], [place], [address], 05/12/2025 14:37:32 05/09/20 25 05/09/2025 HIV 1/2 ANTIG EN/AN TIBOD Y, REFLE X CONFI RMATI ON HIV antigen/anti body Nonrea ctive nonrea ctive HIV-1 antig en and HIV-1 /HIV- 2 antib odies were not detec alfonso. No labor atory evide nce of HIV infec tion. Not Available [facility] (Lab) [address], [place], [address], 05/12/2025 14:37:32 05/09/2005/09/2025 RPR SCREE N, REFLE X TITER /CONF IRMAT ION RPR qualitative Nonrea ctive nonrea ctive Not Available [facility] (Lab) [address], [place], [address], 05/12/2025 14:37:33 05/09/20 25 05/09/2025 urina lysis , dipst ick Leukocytes trace Not Available [facility] [address], [place], [address], 05/09/2025 14:43:51 05/09/2005/09/2025 urina lysis , dipst ick Nitrite neg Not Available [facility], [place], [address], 05/09/2025 14:43:51 05/09/20 25 05/09/2025 urina lysis , dipst ick Urobilinogen norm Not Available [facility]inal [address], [place], [address], 05/09/2025 14:43:51 05/09/20 25 05/09/2025 urina lysis , dipst ick Protein trace Not Available [address], [place], [address], 05/09/2025 14:43:51 05/09/20 25 05/09/2025 urina lysis , dipst ick pH 5 Not Available [address], [place], [address], 05/09/2025 14:43:51 05/09/20 25 05/09/2025 urina lysis , dipst ick Specific [place] [address] [facility] [address], [place], [address], 05/09/2025 14:43:51 05/09/20 25 05/09/2025 urina lysis , dipst ick Ketone trace Not Available [facility] [address], [place], [address], 05/09/2025 14:43:51 05/09/20 25 05/09/2025 urina lysis , dipst ick Bilirubin nor Not Available [facility] [address], [place], [address], 05/09/2025 14:43:51 05/09/20 25 05/09/2025 urina lysis , dipst ick Glucose neg Not Available [facility], [place], [address], 05/09/2025 14:43:51 05/09/20 25 05/09/2025 urina lysis , dipst ick Appearance clear Not Available [facility] [address], [place], [address], 05/09/2025 14:43:51 05/09/20 25 05/09/2025 urina lysis , dipst ick Color yellow Not Available [facility] [address], [place], [address], 05/09/2025 14:43:51 01/18/20 25 01/17/2025 US, obste tric, nucha l trans lucen cy No observ ation record ed. carmen [facility], [place], [address], 01/17/2025 17:27:13 01/18/20 25 01/17/2025 US, obste tric, follo w-up No observ ation record ed. [email or web address] [address], [place], [address], 01/21/2025 15:12:49 03/12/20 25 03/12/2025 US, obste tric, 2nd or 3rd trime ster No observ ation record ed. [facility] [address], [place], [address], 03/12/2025 18:48:30 03/12/20 25 03/12/2025 US, obste tric, 2nd or 3rd trime ster No observ ation record ed. [address], [place], [address], 03/14/2025 09:40:30 04/11/2004/11/2025 US, obste tric, follo w-up No observ ation record ed. [facility] [address], [place], [address], 04/11/2025 17:08:07 04/11/20 25 04/11/2025 US, obste tric, follo w-up No observ ation record ed. [address], [place], [address], 04/15/2025 06:50:04 05/09/20 25 05/09/2025 US, obste tric, follo w-up No observ ation record ed. [facility] [address], [place], [address], 05/09/2025 16:53:22 05/09/20 25 05/09/2025 US, obste tric, follo w-up No observ ation record ed. [email or web address] [address], [place], [address], 05/12/2025 12:19:00 06/05/20 25 06/05/2025 US, obste tric, follo w-up No observ ation record ed. [email or web address] [facility] [address], [place], [address], 06/05/2025 15:11:40 06/05/20 25 06/05/2025 US, obste tric, follo w-up No observ ation record ed. [email or web address] [address], [place], [address], 06/13/2025 14:46:41 06/06/20 25 06/06/2025 US, obste tric, bioph ysica l profi le No observ ation record ed. [address] [facility], [place], [address], 06/18/2025 15:22:02 06/06/20 25 06/06/2025 US, obste tric, bioph ysica l profi le No observ ation record ed. [address] [facility], [place], [address], 06/18/2025 15:21:42 06/06/20 25 06/06/2025 US, obste tric, follo w-up No observ ation record ed. [address] [facility], [place], [address], 06/10/2025 11:24:02 06/06/20 25 06/06/2025 non-s tress test No observ ation record ed. [address], [place], [address], 06/30/2025 10:44:26 07/03/20 25 07/03/2025 US, obste tric, follo w-up No observ ation record ed. [email or web address] [address], [place], [address], 07/08/2025 13:03:57 07/03/20 25 07/03/2025 US, obste tric, follo w-up No observ ation record ed. [facility] [address], [place], [address], 07/03/2025 18:32:15 07/03/20 25 07/03/2025 US, obste tric, bioph ysica l profi le + non-s tress test No observ ation record ed. [facility] [address], [place], [address], 07/03/2025 18:32:26 07/03/20 25 07/03/2025 US, doppl er, umbil ical arter y veloc imetr y No observ ation record ed. [facility] [address], [place], [address], 07/03/2025 18:32:38 07/05/20 25 06/06/2025 US, obste tric, bioph ysica l profi le + non-s tress test No observ ation record ed. [email or web address] [facility] [address], [place], [address], 07/05/2025 12:07:31 07/09/20 25 07/09/2025 US, obste tric, bioph ysica l profi le + non-s tress test No observ ation record ed. [email or web address] [facility] [address], [place], [address], 07/09/2025 12:42:49 07/09/20 25 07/09/2025 US, doppl er, umbil ical arter y veloc imetr y No observ ation record ed. [email or web address] [facility] [address], [place], [address], 07/09/2025 12:43:32 07/09/20 25 07/09/2025 US, obste tric, bioph ysica l profi le + non-s tress test No observ ation record ed. JUDY [address], [place], [address], 07/12/2025 13:33:23 07/09/20 25 07/09/2025 non-s tress test No observ ation record ed. [address], [place], [address], 07/09/2025 18:38:27 07/09/20 non-s tress test No observ ation record ed. [address], [place], [address], 07/09/2025 13:30:59 Result Notes None recorded. Problems Name Problem SNOMED Code Status Onset Date Resolution Date Notes Provider Name and Address Organization Details Recorded Time Group B Streptoc occus carrier [id number] Completed h/o in first preg. Renee Torres MD [address], [place], [address], [facility] 3 10:33:02 Ultrasou nd scan abnormal [id number] Completed subamnio tic hemorrha ge - rpt u/s schd 01/04/23- wnl at [facility]. no FU needed. Marvin Paul [facility] 3 16:42:26 Uterine size for dates discrepa ncy [id number] Completed already doing growth at [facility] 3 16:42:26 Venous conroy [id number] Completed placenta - 02/21/24 9am u/s only. REBECCA MENA MD [address], [place], [address], [facility] 4 11:34:29 Placenta circumva llata [id number] Completed REBECCA MENA MD [address], [place], [address], [facility] 4 11:34:29 Pregnanc y [id number] Completed 202203/13/2023 Chaya cabrera, [facility] 5 10:31:09 Pregnanc y [id number] Completed 202305/27/2024 Chaya Marley null, [facility] 5 10:31:09 Pregnanc y [id number] Active 2024 Chaya Marley null, [facility] 5 10:31:09 Group B Streptoc occus carrier [id number] 103 Active 2024 + GBS in urine Tiara Alarcon [facility], [facility] 5 17:54:31 Poor growth affectin g manageme nt [id number] Active 2024 6% Zuleima Olsen CNM [address], [place], [address], [facility] 5 11:57:52 Problem Notes None recorded. Procedures Surgical History Date Name Laterality Status Provider Name and Address Organization Details Recorded Time 05/05/20 23 Date of Last Pap Smear completed Iveth Guevara [facility] 05/23/2025 14:51:22 02/29/20 22 IUD Removal completed STEPHANIE Acevedo [address], [place], [address], [facility] 02/28/2022 09:46:01 02/10/20 21 Colposcopy completed Chaya Marley [facility] 01/17/2025 10:28:24 02/10/20 21 cervical biopsy completed Chaya Marley [facility] 07/27/2022 10:28:55 07/31/19 20 extraction of wisdom tooth completed Chaya [facility] 07/27/2022 10:28:13 07/31/19 18 Date of [facility] 10:27:19 07/31/19 18 Colonoscopy completed Chaya [facility] 07/27/2022 10:28:04 Imaging Results None recorded. [...] Updated DateTime 05/09/2025 162.56 cm 23.3 kg/m2 70952.56 g 115/76 mm[Hg] Renee Stubbs [facility] 05/09/2025 14:40:12 Social History Question Answer Notes LastModified by Organizat ion Details LastModified Time Tobacco Smoking Status Former Smoker Sujata Zheng rick, [facility] 10/20/2022 09:56:48 Do You Have An Advance Directive? No Information not available 02/08/2021 If You Are , What Was Your Level Of Alcohol Consumption Prior To ? Occasional [email or web address] Information not available 10/20/2022 Are You Blind [...] Or The Highest Degree You Have Received? [id number] Information not available 02/08/2021 Are There Any Guns Present In Your Home? No Information not available 02/08/2021 Do You Use Protection During Sex? No Information not available 02/08/2021 Do You Use Your Seat Belt Or Car Seat Routinely? Yes Information not available 02/08/2021 Are You Sexually Active? Yes [email or web address] Information not available 03/12/2025 Do You Have Smoke And Carbon Monoxide Detectors In Your Home? Yes Information not available 02/08/2021 How Much Tobacco Do You Smoke? No Information not available 02/08/2021 Do You Use Sunscreen Routinely? Yes Information not available 02/08/2021 Have You Used IV Drugs? No Information not available 02/08/2021 Do You Have Difficulty Walking Or Climbing Stairs? No [email or web address] Information not available 10/20/2022 Sex: Unknown Functional [...] able to care for yourself independently? 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 No Information not available 10/20/2022 What is your exercise level? Heavy Information not available 02/08/2021 Mental Status Question Answer Note LastModified by Organization D etails LastModified Time Do you feel stressed (tense, restless, nervous, or anxious, or unable to sleep at night)? [id number] Information not available 02/08/2021 Family History Relationship Description Onset Age of this Age Resolved Age Notes LastModified by Organization Details LastModified Time Maternal Aunt Disorder of thyroid gland Not available 2020 11:46:08 Maternal Aunt Malignant neoplasm of ovary Not available 2020 11:36:55 Mother Anemia Not available 02/08/2021 11:46:08 Mother Malignant neoplasm of breast [email or web address] Not available 07/27 21:16:57 Mother Malignant neoplasm of lung [email or web address] Not available 07/27 21:17:08 Paternal Aunt Malignant [...] ICD10 Code Diagnosis IMO Codes Diagnosis Note [id number] Orion Cobb MD [facility] [address],[place] [address] 04/11/2025 10:57:49 04/11/2025 12:02:06 anatomy study [id number] Z36.2 Z3A.24 [id number] Zuleima Olsen CNM [facility] [address],[place] [address] 04/11/2025 10:59:48 04/11/2025 12:27:35 Gestation period, 24 weeks 550177777 Z3A.24 4231033 cont pnv [id number] Orion Cobb MD [facility] [address],[place] [address] 05/09/2025 13:58:24 05/09/2025 14:40:46 Anomaly of placenta 46945377 O43.103 Z03.74 Z3A.28 10776244 [id number] Zuleima Olsen CNM [facility] [address],[place] [address] 05/09/2025 13:58:38 05/09/2025 14:55:45 Urinary symptoms [id number] R39.9 [id number] Gestation period, 28 weeks 28398050 Z3A.28 7500245 Pruritus of vagina 89340 003 N89.8 [id number] Health Concerns Section Related Observation LastModified by Organization Detai ls LastModified Time None Recorded Concern Status LastModified by Organization Details LastModified Time None Recorded Payers Encounter Date Sequence Insurance Name Policy Number Policy Veloz Covered Member ID Veloz Member ID Guarantor Name 05/09/2025 1 [facility] (MEDICAID HMO) [id number] Trina Dhillon [id number] Man Oneil Notes Date Note Type Note Provider Name and Address Organization Details Recorded Time 05/09/2025 text/html Generic HPI TemplateReported by Patient Zuleima Olsen CNM [address], [place], [address], [facility] 05/09/2025 14:54:59 OBGyn Episode Ob Episode Information Episode Created Date Number of Fetuses Patient Bloodtype Patient rh Status Prepregnancy Weight lbs Domestic Partner Domestic Partner Phone Father Name Collection Support Specialist Status 01/18/20 25 1 O Positive 112 Alli Rahman h OPEN Fetus Data First Name Last Name Admitted to NICU Weight (g) Sex Living Outcome Pediatric Complications Fetus ID Race Codes Race Delivery Type [id number] Problems Problem Notes multiple placental lakes STA BLE Problem Name Start Date End Date Resolution Snomed Code Not e Group B Streptococcus carrier 01/21/2025 [id number] + GBS in urine Poor growth affecting management 07/04/2025 [id number] 6% Moises Calculation Initial Moises Date Initial [...] Weight in lbs Pre/Post Dialysis Refused Weight 112.456629563725 BP Diastolic BP Location Tested BP Systolic [...] Type Weight in lbs Pre/Post Dialysis Refused 114.420887180406 BP Diastolic BP Location Tested BP Systolic [...] Type Weight in lbs Pre/Post Dialysis Refused 122.969514457700 BP Diastolic BP Location Tested BP Systolic [...] Weight in lbs Pre/Post Dialysis Refused Weight 127.673447511248 BP Diastolic BP Location Tested BP Systolic [...] Weight in lbs Pre/Post Dialysis Refused Weight 136.167568664330 BP Diastolic BP Location Tested BP Systolic [...] Weight in lbs Pre/Post Dialysis Refused Weight 137.726695352466 BP Diastolic BP Location Tested BP Systolic [...] Type Weight in lbs Pre/Post Dialysis Refused 140.006627403309 BP Diastolic BP Location Tested BP Systolic [...] Weight in lbs Pre/Post Dialysis Refused Weight 140.427133331594 BP Diastolic BP Location Tested BP Systolic BP Type 66 L arm 106 sitting Fetus Heart Rate Present A 147 Present Fetus Movement A Yes Comments cntx minimal will cont proca amanda, us at 2 weeks visit, tired today, +FM, encouraged rest f/u one week Flowsheet Date 06/18/2025 Ross Score Blood Edema Fundus Height Fundus Units Glucose Ketones Leukocytes Nitrite Labor Signs Protein Cervic Dilation Cervic Effacement Cervic Station Type Weight in lbs Pre/Post Dialysis Refused Weight 139.74912015729 BP Diastolic BP Location Tested BP Systolic [...] Weight in lbs Pre/Post Dialysis Refused Weight 141.172287005555 BP Diastolic BP Location Tested BP Systolic [...] Weight in lbs Pre/Post Dialysis Refused Weight 145.808770066620 BP Diastolic BP Location Tested BP Systolic BP Type 75 L arm 114 sitting Fetus Heart Rate Present Fetus Movement A Yes Comments +FM bpp 10/10 dopplers wnl, efw 6%, discussed with dr. [...] Weight in lbs Pre/Post Dialysis Refused Weight 146.323175259390 BP Diastolic BP Location Tested BP Systolic BP Type 69 L arm 104 sitting Fetus Heart Rate Present Fetus Movement A Yes Comments Flowsheet Date 07/09/2025 Ross Score Blood Edema Fundus Height Fundus Units Glucose Ketones Leukocytes Nitrite Labor Signs Protein Cervic Dilation Cervic Effacement Cervic Station Type Weight in lbs Pre/Post Dialysis Refused 146.521916016731 BP Diastolic BP Location Tested BP Systolic [...]
--- OUTSIDE RECORDS SUMMARY | 2025-07-13 17:18 | XMS_ITS | Continuity of Care Document ---
Author Organization [facility] Address [address] [place] [address] Assessment Encounter Date Assessment Date Assessment LastModified by Organization Details LastModified Time 05/23/2025 05/23/2025 Patient is __30_weeks . Discussed plan. Not available 05/23/2025 14:52:43 Plan of Treatment Reminders Order Date Submit [...] Not Available [facility] [address], [place], [address], 01/22/2025 22:58:15 01/23/20 25 01/22/2025 [UNIT Y] ANEUP LOIDY NIPT 22Q11.2 microdeletio n LOW RISK <1 in 10,000 normal Not Available [facility] [address], [place], [address], 01/22/2025 22:58:15 01/23/20 25 01/22/2025 [UNIT Y] ANEUP LOIDY NIPT sex chromosome aneuploidy NOT DETECT ED normal Not Available [facility] [address], [place], [address], 01/22/2025 22:58:15 01/23/20 25 01/22/2025 [UNIT Y] ANEUP LOIDY NIPT monosomy X LOW RISK <1 in 10,000 normal Not Available [facility] [address], [place], [address], 01/22/2025 22:58:15 01/23/20 25 01/22/2025 [UNIT Y] ANEUP LOIDY NIPT trisomy 13 LOW RISK <1 in 10,000 normal Not Available [facility] [address], [place], [address], 01/22/2025 22:58:15 01/23/20 25 01/22/2025 [UNIT Y] ANEUP LOIDY NIPT trisomy 18 LOW RISK <1 in 10,000 normal Not Available [facility] [address], [place], [address], 01/22/2025 22:58:15 01/23/20 25 01/22/2025 [UNIT Y] ANEUP LOIDY NIPT trisomy 21 LOW RISK <1 in 10,000 normal Not Available [facility] [address], [place], [address], 01/22/2025 22:58:15 01/23/20 25 01/22/2025 [UNIT Y] ANEUP LOIDY NIPT sex MALE normal Not Available [facility] [address], [place], [address], 01/22/2025 22:58:15 01/23/20 25 01/22/2025 [UNIT Y] ANEUP LOIDY NIPT gestation SINGLE TON normal Not Available [facility] [address], [place], [address], 01/22/2025 22:58:15 01/23/20 01/22/2025 [UNIT Y] ANEUP JENNIE NIPT for detailed report, see pdf See PDF normal Not Available [facility] [address], [place], [address], 01/22/2025 22:58:15 01/18/2001/17/2025 CULTU RE: URINE result report SEE RESULT S BELOW abnormal Test: Cultu re: Urine Speci men Sourc e: Urine Voide d Speci men Type: Urine Speci men Date: 2024 1622 Resul t Date: 2024 0142 Resul t Statu s: Final resul t Abnor mal: Yes Resul josé miguelg Lab: [facility] [address] [facility] [address] Tel: CULTU RE ----- ----- ----- --- [...] lab withi n 5 days. Not Available [facility] (Lab) [address] , [place], [address], 01/19/2025 02:46:33 01/18/2001/17/2025 CBC W/DIF F WBC 8.1 10'3/ uL 3.5-10 .5 Not Available [facility] (Lab) [address] , [place], [address], 01/20/2025 12:18:01 01/18/20 25 01/17/2025 CBC W/DIF F RBC 3.68 10'6/ uL (based on docume nted legal sex) 3.80-5 .20 low Not Available [facility] (Lab) [address], [place], [address], 01/20/2025 12:18:01 01/18/20 25 01/17/2025 CBC W/DIF F HGB 10.4 g/dL (based on docume nted legal sex) 11.6-1 5.4 low Not Available [facility] (Lab) [address] [facility], [place], [address], 01/20/2025 12:18:01 01/18/20 25 01/17/2025 CBC W/DIF F HCT 32.2 % (based on docume nted legal sex) 34.0-4 5.0 low Not Available [facility] (Lab) [address] [facility], [place], [address], 01/20/2025 12:18:01 01/18/20 25 01/17/2025 CBC W/DIF F MCV 87.5 fL 80.0-9 9.0 Not Available [facility] (Lab) [address] [facility], [place], [address], 01/20/2025 12:18:01 01/18/20 25 01/17/2025 CBC W/DIF F MCH 28.3 pg 27.0-3 4.0 Not Available [facility] (Lab) [address] [facility], [place], [address], 01/20/2025 12:18:01 01/18/20 25 01/17/2025 CBC W/DIF F MCHC 32.3 g/dL 32.0-3 5.5 Not Available [facility] (Lab) [address] [facility], [place], [address], 01/20/2025 12:18:01 01/18/20 25 01/17/2025 CBC W/DIF F RDW 14.5 % 11.0-1 5.0 Not Available [facility] (Lab) [address] [facility], [place], [address], 01/20/2025 12:18:01 01/18/20 25 01/17/2025 CBC W/DIF F plt 157 10'3/ uL 150-40 0 Not Available [facility] (Lab) [address], [place], [address], 01/20/2025 12:18:01 01/18/20 25 01/17/2025 CBC W/DIF F MPV 12.7 fL 8.8-12 .1 high Not Available [facility] (Lab) [address], [place], [address], 01/20/2025 12:18:01 01/18/20 25 01/17/2025 CBC W/DIF F NRBC's 0.0 % 0.0 Not Available [facility] (Lab) [address], [place], [address], 01/20/2025 12:18:01 01/18/20 25 01/17/2025 CBC W/DIF F absolute NRBCs 0.0 10'3/ uL no refere nce range establ ished Not Available [facility] (Lab) [address], [place], [address], 01/20/2025 12:18:01 01/18/20 25 01/17/2025 CBC W/DIF F neutrophils 73.9 % 34.0-7 3.0 high Not Available [facility] (Lab) [address], [place], [address], 01/20/2025 12:18:01 01/18/20 25 01/17/2025 CBC W/DIF F lymphocytes 21.1 % 15.0-5 0.0 Not Available [facility] (Lab) [address], [place], [address], 01/20/2025 12:18:01 01/18/20 25 01/17/2025 CBC W/DIF F monocytes 4.1 % 1.0-15 .0 Not Available [facility] (Lab) [address] [place], [address], 01/20/2025 12:18:01 01/18/20 25 01/17/2025 CBC W/DIF F eosinophils 0.5 % 0.0-8. 0 Not Available [facility] (Lab) [address], [place], [address], 01/20/2025 12:18:01 01/18/20 25 01/17/2025 CBC W/DIF F basophils 0.2 % 0.0-2. 0 Not Available [facility] (Lab) [address], [place], [address], 01/20/2025 12:18:01 01/18/20 25 01/17/2025 CBC W/DIF [...] separ ately if prese nt. Not Available [facility] (Lab) [address] , [place], [address], 01/20/2025 12:18:01 01/18/20 25 01/17/2025 CBC W/DIF F absolute neutrophils 6.0 10'3/ uL 1.5-8. 0 Not Available [facility] (Lab) [address], [place], [address], 01/20/2025 12:18:01 01/18/20 25 01/17/2025 CBC W/DIF F absolute lymphocytes 1.7 10'3/ uL 1.0-4. 0 Not Available [facility] (Lab) [address], [place], [address], 01/20/2025 12:18:01 01/18/20 25 01/17/2025 CBC W/DIF F absolute monocytes 0.3 10'3/ uL 0.2-1. 0 Not Available [facility] (Lab) [address], [place], [address], 01/20/2025 12:18:01 01/18/20 25 01/17/2025 CBC W/DIF F absolute eosinophils 0.0 10'3/ uL 0.0-0. 6 Not Available [facility] (Lab) [address] [facility], [place], [address], 01/20/2025 12:18:01 01/18/20 25 01/17/2025 CBC W/DIF F absolute basophils 0.0 10'3/ uL 0.0-0. 3 Not Available [facility] (Lab) [address] [facility], [place], [address], 01/20/2025 12:18:01 01/18/20 25 01/17/2025 CBC W/DIF [...] and book. nm.or g/gen derx Not Available [facility] (Lab) [address] [facility], [place], [address], 01/20/2025 12:18:01 01/18/20 25 01/17/2025 HEPAT ITIS [...] Hispa zohaib or Latin o Not Available [facility] (Lab) [address] [facility], [place], [address], 01/20/2025 12:18:02 01/18/20 25 01/17/2025 HEPAT ITIS C ANTIB TOM SCREE N, REFLE X TO CONFI RMATI ON hepatitis C antibody Non-re active non-re active Antib odies to HCV Not Detec alfonso, does not exclu de the possi bilit y of expos ure to HCV. : Not Hispa zohaib or Latin o Not Available [facility] (Lab) [address] [facility], [place], [address], 01/20/2025 12:18:02 01/18/20 25 01/17/2025 HIV 1/2 ANTIG EN/AN TIBOD Y, REFLE X CONFI RMATI ON HIV antigen/anti body Nonrea ctive nonrea ctive : Not Hispa zohaib or Latin o HIV-1 antig en and HIV-1 /HIV- 2 antib odies were not detec alfonso. No labor atory evide nce of HIV infec tion. Not Available [facility] (Lab) [address] [facility], [place], [address], 01/20/2025 12:18:03 01/18/20 25 01/17/2025 TYPE/ RH/SC REEN ABO/Rh type O POS Not Available [facility] (Lab) [address] [place], [address], 01/20/2025 12:18:03 01/18/20 25 01/17/2025 TYPE/ RH/SC REEN antibody screen NEG Not Available [facility] (Lab) [address] [place], [address], 01/20/2025 12:18:03 01/18/20 25 01/17/2025 TYPE/ RH/SC REEN exp date 2024 23:59 Not Available [facility] (Lab) [address] [facility], [place], [address], 01/20/2025 12:18:03 01/18/20 25 01/17/2025 RUBEL LA IGG ANTIB TOM, QUANT rubella antibodies, IgG Reacti ve reacti ve Not Available [facility] (Lab) [address] [facility], [place], [address], 01/20/2025 12:18:04 01/18/20 25 01/17/2025 RUBEL LA IGG ANTIB TOM, QUANT rubella antibodies, IgG quant 12.2 IU/mL >=10 : Not Hispa zohaib or Latin o Non-r eacti ve (Non- Immun e) <10 IU/mL React nesha (Immu ne) > or = 10 IU/mL Not Available [facility] (Lab) [address] [facility], [place], [address], 01/20/2025 12:18:04 01/18/20 25 01/17/2025 RPR SCREE N, REFLE X TITER /CONF IRMAT ION RPR qualitative Nonrea ctive nonrea ctive : Not Histx zohaib or Latin o Not Available [facility] (Lab) [address] [facility], [place], [address], 01/20/2025 12:18:04 01/18/20 25 01/17/2025 HEMOG LOBIN [...] >8.0% Actio n sugge sted Not Available [facility] (Lab) [address] [facility], [place], [address], 01/20/2025 12:18:04 01/18/20 25 01/17/2025 LEAD, BLOOD (ADUL T/PED IATRI C) lead, whole blood <1.0 mcg/d L <3.5 See Note 1 Antonio sis was perfo rmed by Jimbo Conroy ed Plasm a Mass Spect romet ry (ICPM S) Note 1 This test was devel oped and its antonio tical perfo rmanc e jenaro cteri stics have been deter mined by [facility]. It has not been clear ed or appro dolores by the FDA. This assay has been valid ated pursu ant to the CLIA regul ation s and is used for clini gogo purpo ses. : Not Hispa zohaib or Latin o Perfo rming Organ izati on Infor matio n: Site ID: [id number] Name: [employer] [facility]-Brandon simon [place] Addre ss: [id number] [place] [address] Dire tor: Galileo newton Not Available [facility] (Lab) [address] [facility], [place], [address], 01/20/2025 12:18:05 01/18/20 25 01/17/2025 drug scree n, urine Amphetamines : negati ve Not Available [facility] [address], [place], [address], 01/17/2025 10:30:22 01/18/20 25 01/17/2025 drug scree n, urine Cannabinoids : negati ve Not Available [facility] [address], [place], [address], 01/17/2025 10:30:22 01/18/20 25 01/17/2025 drug scree n, urine Cocaine: negati ve Not Available [facility] [address], [place], [address], 01/17/2025 10:30:22 01/18/20 25 01/17/2025 drug scree n, urine Opiates: negati ve Not Available [facility] [address], [place], [address], 01/17/2025 10:30:22 01/18/20 25 01/17/2025 drug scree n, urine Phenocyclidi ne: negati ve Not Available [facility] [address], [place], [address], 01/17/2025 10:30:22 01/18/20 25 01/17/2025 drug scree n, urine Barbiturates : negati ve Not Available [facility] [address], [place], [address], 01/17/2025 10:30:22 01/18/20 25 01/17/2025 drug scree n, urine Benzodiazepi sabrina: negati ve Not Available [facility] [address], [place], [address], 01/17/2025 10:30:22 01/18/20 25 01/17/2025 drug scree n, urine Ethanol: negati ve Not Available [facility] [address], [place], [address], 01/17/2025 10:30:22 01/18/20 25 01/17/2025 drug scree n, urine Hallucinogen s: negati ve Not Available [facility] [address], [place], [address], 01/17/2025 10:30:22 01/18/20 25 01/17/2025 drug scree n, urine Inhalants: negati ve Not Available [facility] [address], [place], [address], 01/17/2025 10:30:22 01/18/20 25 01/17/2025 drug scree n, urine Anabolic Steroids: negati ve Not Available [facility] [address], [place], [address], 01/17/2025 10:30:22 01/18/20 25 01/17/2025 drug scree n, urine Other: positi ve Not Available [facility], [place], [address], 01/17/2025 10:30:22 05/09/20 25 05/09/2025 HEMOG LOBIN (HGB) HGB 9.6 g/dL (based on docume nted legal sex) 11.6-1 5.4 low Not Available [facility] (Lab) [address] [facility], [place], [address], 05/12/2025 14:37:31 05/09/20 25 05/09/2025 HEMAT OCRIT (HCT) HCT 30.4 % (based on docume nted legal sex) 34.0-4 5.0 low Not Available [facility] (Lab) [address] [facility], [place], [address], 05/12/2025 14:37:32 05/09/20 25 05/09/2025 GTT - GESTA SINDHU L SASKIA Colon, ACOG OB glucose, 1 hour screen 70 mg/dL 70-[address] [facility] (Lab) [address] [facility], [place], [address], 05/12/2025 14:37:32 05/09/20 25 05/09/2025 HIV 1/2 ANTIG EN/AN TIBOD Y, REFLE X CONFI RMATI ON HIV antigen/anti body Nonrea ctive nonrea ctive HIV-1 antig en and HIV-1 /HIV- 2 antib odies were not detec alfonso. No labor atory evide nce of HIV infec tion. Not Available [facility] (Lab) [address] [facility], [place], [address], 05/12/2025 14:37:32 05/09/20 25 05/09/2025 RPR SCREE N, REFLE X TITER /CONF IRMAT ION RPR qualitative Nonrea ctive nonrea ctive Not Available [facility] (Lab) [address] [place], [address], 05/12/2025 14:37:33 05/09/2005/09/2025 urina lysis , dipst ick Leukocytes trace Not Available Binu watson [address], [place], [address], 05/09/2025 14:43:51 05/09/2005/09/2025 urina lysis , dipst ick Nitrite neg Not Available [facility] [address], [place], [address], 05/09/2025 14:43:51 05/09/2005/09/2025 urina lysis , dipst ick Urobilinogen norm Not Available [facility] [address], [place], [address], 05/09/2025 14:43:51 05/09/2005/09/2025 urina lysis , dipst ick Protein trace Not Available [facility] [address], [place], [address], 05/09/2025 14:43:51 05/09/2005/09/2025 urina lysis , dipst ick pH 5 Not Available [facility] [address], [place], [address], 05/09/2025 14:43:51 05/09/2005/09/2025 urina lysis , dipst ick Specific [place] 1.015 Not Available [facility] [address], [place], [address], 05/09/2025 14:43:51 05/09/2005/09/2025 urina lysis , dipst ick Ketone trace Not Available [facility] [address], [place], [address], 05/09/2025 14:43:51 05/09/20 25 05/09/2025 urina lysis , dipst ick Bilirubin nor Not Available Janell e [address], [place], [address], 05/09/2025 14:43:51 05/09/20 25 05/09/2025 urina lysis , dipst ick Glucose neg Not Available [facility] [address], [place], [address], 05/09/2025 14:43:51 05/09/20 25 05/09/2025 urina lysis , dipst ick Appearance clear Not Available [facility] [address], [place], [address], 05/09/2025 14:43:51 05/09/20 25 05/09/2025 urina lysis , dipst ick Color yellow Not Available [facility] [address], [place], [address], 05/09/2025 14:43:51 01/18/20 25 01/17/2025 US, obste tric, nucha l trans lucen cy No observ ation record ed. [facility] [address], [place], [address], 01/17/2025 17:27:13 01/18/20 25 01/17/2025 US, obste tric, follo w-up No observ ation record ed. [email or web address] [address], [place], [address], 01/21/2025 15:12:49 03/12/20 25 03/12/2025 US, obste tric, 2nd or 3rd trime ster No observ ation record ed. [facility] [address], [place], [address], 03/12/2025 18:48:30 03/12/20 25 03/12/2025 US, obste tric, 2nd or 3rd trime ster No observ ation record ed. [email or web address] [address], [place], [address], 03/14/2025 09:40:30 04/11/2004/11/2025 US, obste tric, follo w-up No observ ation record ed. [facility] [address], [place], [address], 04/11/2025 17:08:07 04/11/2004/11/2025 US, obste tric, follo w-up No observ ation record ed. [email or web address] [address], [place], [address], 04/15/2025 06:50:04 05/09/20 25 05/09/2025 US, obste tric, follo w-up No observ ation record ed. [facility] [address], [place], [address], 05/09/2025 16:53:22 05/09/2005/09/2025 US, obste tric, follo w-up No observ ation record ed. [email or web address] [address], [place], [address], 05/12/2025 12:19:00 06/05/20 25 06/05/2025 US, obste tric, follo w-up No observ ation record ed. [email or web address] [facility] [address], [place], [address], 06/05/2025 15:11:40 06/05/2006/05/2025 US, obste tric, follo w-up No observ ation record ed. [email or web address] [address], [place], [address], 06/13/2025 14:46:41 06/06/20 25 06/06/2025 US, obste tric, bioph ysica l profi le No observ ation record ed. [address], [place], [address], 06/18/2025 15:22:02 06/06/20 25 06/06/2025 US, obste tric, bioph ysica l profi le No observ ation record ed. [address], [place], [address], 06/18/2025 15:21:42 06/06/20 25 06/06/2025 US, obste tric, follo w-up No observ ation record ed. [address] [facility], [place], [address], 06/10/2025 11:24:02 06/06/20 25 06/06/2025 non-s tress test No observ ation record ed. [address], [place], [address], 06/30/2025 10:44:26 07/03/20 25 07/03/2025 US, obste tric, follo w-up No observ ation record ed. [email or web address] [id number] [place] [address] [address], [place], [address], 07/08/2025 13:03:57 07/03/20 25 07/03/2025 US, obste tric, follo w-up No observ ation record ed. [facility] [address], [place], [address], 07/03/2025 18:32:15 07/03/20 25 07/03/2025 US, obste tric, bioph ysica l profi le + non-s tress test No observ ation record ed. [facility] [address], [place], [address], 07/03/2025 18:32:26 07/03/20 25 07/03/2025 US, doppl er, umbil ical arter y veloc imetr y No observ ation record ed. [email or web address] [facility] [address], [place], [address], 07/03/2025 18:32:38 07/05/20 25 06/06/2025 US, obste tric, bioph ysica l profi le + non-s tress test No observ ation record ed. [email or web address] [facility] [address], [place], [address], 07/05/2025 12:07:31 07/09/20 25 07/09/2025 US, obste tric, bioph ysica l profi le + non-s tress test No observ ation record ed. [email or web address] [facility] [address], [place], [address], 07/09/2025 12:42:49 07/09/20 25 07/09/2025 US, doppl er, umbil ical arter y veloc imetr y No observ ation record ed. [email or web address] [facility] [address], [place], [address], 07/09/2025 12:43:32 07/09/20 25 07/09/2025 US, obste tric, bioph ysica l profi le + non-s tress test No observ ation record ed. JUDY [address], [place], [address], 07/12/2025 13:33:23 07/09/20 25 07/09/2025 non-s tress test No observ ation record ed. [email or web address] [facility] [address], [place], [address], 07/09/2025 18:38:27 12/10/20 25 non-s tress test No observ ation record ed. [email or web address] [facility] [address], [place], [address], 07/09/2025 13:30:59 Result Notes None recorded. Problems Name Problem SNOMED Code Status Onset Date Resolution Date Notes Provider Name and Address Organization Details Recorded Time Group B Streptoc occus carrier 9555970628 103 Completed h/o in first preg. Renee Torres MD [address], [place], [address], [facility] 3 10:33:02 Ultrasou nd scan abnormal [id number] Completed subamnio tic hemorrha ge - rpt u/s schd 01/04/23- wnl at [facility]. [facility] 3 16:42:26 Uterine size for dates discrepa ncy [id number] [facility] 3 16:42:26 Venous conroy [id number] Completed placenta - 02/21/24 9am u/s only. REBECCA MENA MD [address], [place], [address], [facility] 4 11:34:29 Placenta circumva llata [id number] Completed REBECCA MENA MD [address], [place], [address], [facility] 4 11:34:29 Pregnanc y 40317659 Completed 202203/13/2023 Chaya cabrera, [facility] 5 10:31:09 Pregnanc y 55654228 Completed 202305/27/2024 Chaya cabrera, [facility] 5 10:31:09 Pregnanc y 35065936 Active 2024 Chyaa Marley null, [facility] 10:31:09 Group B Streptoc occus carrier 7771225000 103 Active 2024 + GBS in urine Tiara Alarcon null, [facility] 5 17:54:31 Poor growth affectin g manageme nt 340307824 Active 2024 6% Zuleima Olsen CNM [address], [place], [address], [facility] 11:57:52 Problem Notes None recorded. Procedures Surgical History Date Name Laterality Status Provider Name and Address Organization Details Recorded Time 05/05/20 23 Date of Last Pap Smear completed Iveth Guevara [facility] 05/23/2025 14:51:22 02/29/20 22 IUD Removal completed STEPHANIE Acevedo [address], [place], [address], [facility] 02/28/2022 09:46:01 02/10/20 21 Colposcopy completed Chaya Marley [facility] 01/17/2025 10:28:24 02/10/20 21 cervical biopsy completed Chaya Marley [facility] 07/27/2022 10:28:55 07/31/19 20 extraction of wisdom tooth completed Chaya Marley [facility] 07/27/2022 10:28:13 07/31/19 18 Date of Last Colonoscopy completed Chaya Marley [facility] 07/27/2022 10:27:19 07/31/19 18 Colonoscopy completed Chayaondina Marley [facility] 07/27/2022 10:28:04 Imaging Results None [...] 1 CAPSULE BY MOUTH EVERY 12 HOURS 09/08 /2023 completed Not Available Not Available Not Available [...] Updated DateTime 05/23/2025 162.56 cm 23.5 kg/m2 44722.15 g 105/71 mm[Hg] Iveth Guevara [facility] 05/23/2025 14:50:51 Social History Question Answer Notes LastModified by Organizat ion Details LastModified Time Tobacco Smoking Status Former Smoker Sujata Zheng rick [facility] 10/20/2022 09:56:48 Do You Have An Advance Directive? No Information not available 02/08/2021 If You Are , What Was Your Level Of Alcohol Consumption Prior To ? Occasional [email or web address] Information not available 10/20/2022 Are You Blind [...] Or The Highest Degree You Have Received? [id number] Information not available 02/08/2021 Are There Any Guns Present In Your Home? No Information not available 02/08/2021 Do You Use Protection During Sex? No Information not available 02/08/2021 Do You Use Your Seat Belt Or Car Seat Routinely? Yes Information not available 02/08/2021 Are You Sexually Active? Yes [email or web address] Information not available 03/12/2025 Do You Have Smoke And Carbon Monoxide Detectors In Your Home? Yes Information not available 02/08/2021 How Much Tobacco Do You Smoke? No Information not available 02/08/2021 Do You Use Sunscreen Routinely? Yes Information not available 02/08/2021 Have You Used IV Drugs? No Information not available 02/08/2021 Do You Have Difficulty Walking Or Climbing Stairs? No [email or web address] Information not available 10/20/2022 Sex: Unknown Functional [...] able to care for yourself independently? 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 No [email or web address] Information not available 10/20/2022 What is your exercise level? Heavy Information not available 02/08/2021 Mental Status Question Answer Note LastModified by Organization D et[employer] LastModified Time Do you feel stressed (tense, restless, nervous, or anxious, or unable to sleep at night)? [id number] Information not available 02/08/2021 Family History Relationship Description Onset Age of this Age Resolved Age Notes LastModified by Organization Details LastModified Time Maternal Aunt Disorder of thyroid gland Not available 2020 11:46:08 Maternal Aunt Malignant neoplasm of ovary Not available 2020 11:36:55 Mother Anemia Not available 02/08/2021 11:46:08 Mother Malignant neoplasm of breast [id number] Not available 07/27 21:16:57 Mother Malignant neoplasm of lung [email or web address] Not available 07/27 21:17:08 Paternal Aunt Malignant [...] ICD10 Code Diagnosis IMO Codes Diagnosis Note [id number] Orion Cobb MD [facility] [address] [address] 05/09/2025 13:58:24 05/09/2025 14:40:46 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 Z03.74 Z3A.28 [id number] Zuleima Olsen CNM [facility] [address] [address] 05/09/2025 13:58:38 05/09/2025 14:55:45 Urinary symptoms [id number] R39.9 [id number] Gestation period, 28 weeks 43565618 Z3A.28 6312119 Pruritus of vagina 04473 003 N89.8 [id number] Zuleima Olsen CNM [facility] [address] [address] 05/23/2025 14:43:28 05/23/2025 15:06:10 Gestation period, 30 weeks 25661758 Z3A.30 4985307 continue vitamin Health Concerns Section Related Observation LastModified by Organization Detai ls LastModified Time None Recorded Concern Status LastModified by Organization Details LastModified Time None Recorded Payers Encounter Date Sequence Insurance Name Policy Number Policy Veloz Covered Member ID Veloz Member ID Guarantor Name 05/23/2025 1 [facility] (MEDICAID HMO) [id number] Trina Dhillon [id number] Man Oneil Notes Date Note Type Note Provider Name and Address Organization Details Recorded Time 05/23/2025 text/html Generic HPI TemplateReported by Patient Zuleima Olsen CNM [address], [place], [address], [facility] 05/23/2025 14:56:31 OBGyn Episode Ob Episode Information Episode Created Date Number of Fetuses Patient Bloodtype Patient rh Status Prepregnancy Weight lbs Domestic Partner Domestic Partner Phone Father Name Associate Scientist Status 01/18/20 25 1 O Positive 112 Alli Wilmurt h OPEN Fetus Data First Name Last Name Admitted to NICU Weight (g) Sex Living Outcome Pediatric Complications Fetus ID Race Codes Race Delivery Type [id number] Problems Problem Notes multiple placental lakes STA BLE Problem Name Start Date End Date Resolution Snomed Code Not e Group B Streptococcus carrier 01/21/2025 [id number] + GBS in urine Poor growth affecting management 07/04/2025 [id number] 6% Moises Calculation Initial Moises Date Initial Exam Date Initial Exam Provider Initial Ultrasound Date Last Menstrual Period Date Ultra Sound Weeks Gestation 07/27/2025 12/17/2024 [email or web address] 12/03/2024 10/20/2024 6 Eighteen To Twenty Week [...] Weight in lbs Pre/Post Dialysis Refused Weight 112.703367552478 BP Diastolic BP Location Tested BP Systolic [...] Type Weight in lbs Pre/Post Dialysis Refused 114.844909154319 BP Diastolic BP Location Tested BP Systolic [...] Type Weight in lbs Pre/Post Dialysis Refused 122.995811776623 BP Diastolic BP Location Tested BP Systolic [...] Weight in lbs Pre/Post Dialysis Refused Weight 127.849764505413 BP Diastolic BP Location Tested BP Systolic [...] Weight in lbs Pre/Post Dialysis Refused Weight 136.653195363658 BP Diastolic BP Location Tested BP Systolic [...] Weight in lbs Pre/Post Dialysis Refused Weight 137.477352421968 BP Diastolic BP Location Tested BP Systolic [...] Type Weight in lbs Pre/Post Dialysis Refused 140.389182708559 BP Diastolic BP Location Tested BP Systolic [...] Weight in lbs Pre/Post Dialysis Refused Weight 140.090716407943 BP Diastolic BP Location Tested BP Systolic [...] Weight in lbs Pre/Post Dialysis Refused Weight 139.01546248598 BP Diastolic BP Location Tested BP Systolic [...] Weight in lbs Pre/Post Dialysis Refused Weight 141.134447473669 BP Diastolic BP Location Tested BP Systolic [...] Weight in lbs Pre/Post Dialysis Refused Weight 145.099890742136 BP Diastolic BP Location Tested BP Systolic BP Type 75 L arm 114 sitting Fetus Heart Rate Present Fetus Movement A Yes Comments +FM bpp 05/09 dopplers wnl, efw 6%, discussed with dr. cobb plan testing twice a week, deliver at 38 weeks, plan iol 07/13 at 1700. discussed kick counts if any changes in movement to ld for testing, education done Flowsheet Date 07/09/2025 [...] Weight in lbs Pre/Post Dialysis Refused Weight 146.960726021120 BP Diastolic BP Location Tested BP Systolic BP Type 69 L arm 104 sitting Fetus Heart Rate Present Fetus Movement A Yes Comments Flowsheet Date 07/09/2025 Ross Score Blood Edema Fundus Height Fundus Units Glucose Ketones Leukocytes Nitrite Labor Signs Protein Cervic Dilation Cervic Effacement Cervic Station Type Weight in lbs Pre/Post Dialysis Refused 146.843399530960 BP Diastolic BP Location Tested BP Systolic [...]
--- OUTSIDE RECORDS SUMMARY | 2025-07-13 17:18 | XMS_ITS | Continuity of Care Document ---
Author Organization [facility], [facility] Address [address] [place] [address] [place] [address] Assessment Encounter Date Assessment Date Assessment LastModified by Organization Details LastModified Time 06/18/2025 06/18/2025 Patient is _34__weeks . Discussed plan. Not available 06/18/2025 10:15:11 Plan of Treatment Reminders Order Date Submit [...] Not Available [facility] [address], [place], [address], 01/22/2025 22:58:15 01/23/20 25 01/22/2025 [UNIT Y] ANEUP LOIDY NIPT 22Q11.2 microdeletio n LOW RISK <1 in 10,000 normal Not Available [facility] [address], [place], [address], 01/22/2025 22:58:15 01/23/20 25 01/22/2025 [UNIT Y] ANEUP LOIDY NIPT sex chromosome aneuploidy NOT DETECT ED normal Not Available [facility] [address], [place], [address], 01/22/2025 22:58:15 01/23/20 25 01/22/2025 [UNIT Y] ANEUP LOIDY NIPT monosomy X LOW RISK <1 in 10,000 normal Not Available [facility] [address], [place], [address], 01/22/2025 22:58:15 01/23/20 25 01/22/2025 [UNIT Y] ANEUP LOIDY NIPT trisomy 13 LOW RISK <1 in 10,000 normal Not Available [facility] [address], [place], [address], 01/22/2025 22:58:15 01/23/20 25 01/22/2025 [UNIT Y] ANEUP LOIDY NIPT trisomy 18 LOW RISK <1 in 10,000 normal Not Available [facility] [address], [place], [address], 01/22/2025 22:58:15 01/23/20 25 01/22/2025 [UNIT Y] ANEUP LOIDY NIPT trisomy 21 LOW RISK <1 in 10,000 normal Not Available [facility] [address], [place], [address], 01/22/2025 22:58:15 01/23/20 25 01/22/2025 [UNIT Y] ANEUP LOIDY NIPT sex MALE normal Not Available [facility] [address], [place], [address], 01/22/2025 22:58:15 01/23/20 25 01/22/2025 [UNIT Y] ANEUP LOIDY NIPT gestation SINGLE TON normal Not Available [facility] [address], [place], [address], 01/22/2025 22:58:15 01/23/20 01/22/2025 [UNIT Y] ANEUP JENNIE NIPT for detailed report, see pdf See PDF normal Not Available [facility] [address], [place], [address], 01/22/2025 22:58:15 01/18/2001/17/2025 CULTU RE: URINE result report SEE RESULT S BELOW abnormal Test: Cultu re: Urine Speci men Sourc e: Urine Voide d Speci men Type: Urine Speci men Date: 2024 1622 Resul t Date: 2024 0142 Resul t Statu s: Final resul t Abnor mal: Yes Resul josé miguelg Lab: [facility] [address] [facility] [address] Tel: CULTU RE ----- ----- ----- --- [...] lab withi n [address] [facility] (Lab) [address] , [place], [address], 01/19/2025 02:46:33 01/18/2001/17/2025 CBC W/DIF F WBC 8.1 10'3/ uL 3.5-[address] [facility] (Lab) [address] , [place], [address], 01/20/2025 12:18:01 01/18/20 25 01/17/2025 CBC W/DIF F RBC 3.68 10'6/ uL (based on docume nted legal sex) 3.80-5 .[address] [facility] (Lab) [address], [place], [address], 01/20/2025 12:18:01 01/18/20 25 01/17/2025 CBC W/DIF F HGB 10.4 g/dL (based on docume nted legal sex) 11.6-1 [address] [facility] (Lab) [address] [facility], [place], [address], 01/20/2025 12:18:01 01/18/20 25 01/17/2025 CBC W/DIF F HCT 32.2 % (based on docume nted legal sex) 34.0-4 [address] [facility] (Lab) [address] [facility], [place], [address], 01/20/2025 12:18:01 01/18/20 25 01/17/2025 CBC W/DIF F MCV 87.5 fL 80.0-[address] [facility] (Lab) [address] [facility], [place], [address], 01/20/2025 12:18:01 01/18/20 25 01/17/2025 CBC W/DIF F MCH 28.3 pg 27.0-[address] [facility] (Lab) [address] [facility], [place], [address], 01/20/2025 12:18:01 01/18/20 25 01/17/2025 CBC W/DIF F MCHC 32.3 g/dL 32.0-[address] [facility] (Lab) [address] [facility], [place], [address], 01/20/2025 12:18:01 01/18/20 25 01/17/2025 CBC W/DIF F RDW 14.5 % 11.0-[address] [facility] (Lab) [address] [facility], [place], [address], 01/20/2025 12:18:01 01/18/20 25 01/17/2025 CBC W/DIF F plt 157 10'3/ uL 150-[address] [facility] (Lab) [address], [place], [address], 01/20/2025 12:18:01 01/18/20 25 01/17/2025 CBC W/DIF F MPV 12.7 fL 8.8-12 .[address] [facility] (Lab) [address], [place], [address], 01/20/2025 12:18:01 01/18/20 25 01/17/2025 CBC W/DIF F NRBC's 0.0 % 0.[address] [facility] (Lab) [address], [place], [address], 01/20/2025 12:18:01 01/18/20 25 01/17/2025 CBC W/DIF F absolute NRBCs 0.0 10'3/ uL no refere nce range establ ished Not Available [facility] (Lab) [address], [place], [address], 01/20/2025 12:18:01 01/18/20 25 01/17/2025 CBC W/DIF F neutrophils 73.9 % 34.0-7 3.[address] [facility] (Lab) [address], [place], [address], 01/20/2025 12:18:01 01/18/20 25 01/17/2025 CBC W/DIF F lymphocytes 21.1 % 15.0-[address] [facility] (Lab) [address], [place], [address], 01/20/2025 12:18:01 01/18/20 25 01/17/2025 CBC W/DIF F monocytes 4.1 % 1.0-[address] [facility] (Lab) [address] [place], [address], 01/20/2025 12:18:01 01/18/20 25 01/17/2025 CBC W/DIF F eosinophils 0.5 % 0.0-8. [address] [facility] (Lab) [address], [place], [address], 01/20/2025 12:18:01 01/18/20 25 01/17/2025 CBC W/DIF F basophils 0.2 % 0.0-2. [address] [facility] (Lab) [address], [place], [address], 01/20/2025 12:18:01 01/18/20 25 01/17/2025 CBC W/DIF [...] separ ately if prese nt. Not Available [facility] (Lab) [address] , [place], [address], 01/20/2025 12:18:01 01/18/20 25 01/17/2025 CBC W/DIF F absolute neutrophils 6.0 10'3/ uL 1.5-8. [address] [facility] (Lab) [address], [place], [address], 01/20/2025 12:18:01 01/18/20 25 01/17/2025 CBC W/DIF F absolute lymphocytes 1.7 10'3/ uL 1.0-4. [address] [facility] (Lab) [address], [place], [address], 01/20/2025 12:18:01 01/18/20 25 01/17/2025 CBC W/DIF F absolute monocytes 0.3 10'3/ uL 0.2-1. [address] [facility] (Lab) [address], [place], [address], 01/20/2025 12:18:01 01/18/20 25 01/17/2025 CBC W/DIF F absolute eosinophils 0.0 10'3/ uL 0.0-0. [address] [facility] (Lab) [address] [facility], [place], [address], 01/20/2025 12:18:01 01/18/20 25 01/17/2025 CBC W/DIF F absolute basophils 0.0 10'3/ uL 0.0-0. [address] [facility] (Lab) [address] [facility], [place], [address], 01/20/2025 12:18:01 01/18/20 25 01/17/2025 CBC W/DIF [...] and book. nm.or g/gen derx Not Available [facility] (Lab) [address] [facility], [place], [address], 01/20/2025 12:18:01 01/18/20 25 01/17/2025 HEPAT ITIS [...] Hispa zohaib or Latin o Not Available [facility] (Lab) [address] [facility], [place], [address], 01/20/2025 12:18:02 01/18/20 25 01/17/2025 HEPAT ITIS C ANTIB TOM SCREE N, REFLE X TO CONFI RMATI ON hepatitis C antibody Non-re active non-re active Antib odies to HCV Not Detec alfonso, does not exclu de the possi bilit y of expos ure to HCV. : Not Hispa zohaib or Latin o Not Available [facility] (Lab) [address] [facility], [place], [address], 01/20/2025 12:18:02 01/18/20 25 01/17/2025 HIV 1/2 ANTIG EN/AN TIBOD Y, REFLE X CONFI RMATI ON HIV antigen/anti body Nonrea ctive nonrea ctive : Not Hispa zohaib or Latin o HIV-1 antig en and HIV-1 /HIV- 2 antib odies were not detec alfonso. No labor atory evide nce of HIV infec tion. Not Available [facility] (Lab) [address] [facility], [place], [address], 01/20/2025 12:18:03 01/18/20 25 01/17/2025 TYPE/ RH/SC REEN ABO/Rh type O POS Not Available [facility] (Lab) [address] [place], [address], 01/20/2025 12:18:03 01/18/20 25 01/17/2025 TYPE/ RH/SC REEN antibody screen NEG Not Available [facility] (Lab) [address] [place], [address], 01/20/2025 12:18:03 01/18/20 25 01/17/2025 TYPE/ RH/SC REEN exp date 2024 23:[address] [facility] (Lab) [address] [facility], [place], [address], 01/20/2025 12:18:03 01/18/20 25 01/17/2025 RUBEL LA IGG ANTIB TOM, QUANT rubella antibodies, IgG Reacti ve reacti ve Not Available [facility] (Lab) [address] [facility], [place], [address], 01/20/2025 12:18:04 01/18/20 25 01/17/2025 RUBEL LA IGG ANTIB TOM, QUANT rubella antibodies, IgG quant 12.2 IU/mL >=10 : Not Hispa zohaib or Latin o Non-r eacti ve (Non- Immun e) <10 IU/mL React nesha (Immu ne) > or = 10 IU/mL Not Available [facility] (Lab) [address] [facility], [place], [address], 01/20/2025 12:18:04 01/18/20 25 01/17/2025 RPR SCREE N, REFLE X TITER /CONF IRMAT ION RPR qualitative Nonrea ctive nonrea ctive : Not Hismo zohaib or Latin o Not Available [facility] (Lab) [address] [facility], [place], [address], 01/20/2025 12:18:04 01/18/20 25 01/17/2025 HEMOG LOBIN [...] glo >=6.5 % Diagn ostic of diabe gol <7.0% Goal of thera py >8.0% Actio n sugge sted Not Available [facility] (Lab) [address] [facility], [place], [address], 01/20/2025 12:18:04 01/18/20 25 01/17/2025 LEAD, BLOOD (ADUL T/PED IATRI C) lead, whole blood <1.0 mcg/d L <3.5 See Note 1 Antonio sis was perfo rmed by Jimbo Conroy ed Plasm a Mass Spect romet ry (ICPM S) Note 1 This test was devel oped and its antonio tical perfo rmanc e jenaro cteri stics have been deter mined by [facility]. It has not been clear ed or appro dolores by the FDA. This assay has been valid ated pursu ant to the CLIA regul ation s and is used for clini gogo purpo ses. : Not Hispa zohaib or Latin o Perfo rming Organ izati on Infor matio n: Site ID: [id number] Name: [facility]-Brandon simon [place] Addre ss: [id number] [place] [address] Dire tor: Galileo newton Not Available [facility] (Lab) [address] [facility], [place], [address], 01/20/2025 12:18:05 01/18/20 25 01/17/2025 drug scree n, urine Amphetamines : negati ve Not Available [facility] [address], [place], [address], 01/17/2025 10:30:22 01/18/20 25 01/17/2025 drug scree n, urine Cannabinoids : negati ve Not Available [facility] [address], [place], [address], 01/17/2025 10:30:22 01/18/20 25 01/17/2025 drug scree n, urine Cocaine: negati ve Not Available [facility] [address], [place], [address], 01/17/2025 10:30:22 01/18/20 25 01/17/2025 drug scree n, urine Opiates: negati ve Not Available [facility] [address], [place], [address], 01/17/2025 10:30:22 01/18/20 25 01/17/2025 drug scree n, urine Phenocyclidi ne: negati ve Not Available [facility] [address], [place], [address], 01/17/2025 10:30:22 01/18/20 25 01/17/2025 drug scree n, urine Barbiturates : negati ve Not Available [facility] [address], [place], [address], 01/17/2025 10:30:22 01/18/20 25 01/17/2025 drug scree n, urine Benzodiazepi sabrina: negati ve Not Available [facility] [address], [place], [address], 01/17/2025 10:30:22 01/18/20 25 01/17/2025 drug scree n, urine Ethanol: negati ve Not Available [facility] [address], [place], [address], 01/17/2025 10:30:22 01/18/20 25 01/17/2025 drug scree n, urine Hallucinogen s: negati ve Not Available [facility] [address], [place], [address], 01/17/2025 10:30:22 01/18/20 25 01/17/2025 drug scree n, urine Inhalants: negati ve Not Available [facility] [address], [place], [address], 01/17/2025 10:30:22 01/18/20 25 01/17/2025 drug scree n, urine Anabolic Steroids: negati ve Not Available [facility] [address], [place], [address], 01/17/2025 10:30:22 01/18/20 25 01/17/2025 drug scree n, urine Other: positi ve Not Available [facility], [place], [address], 01/17/2025 10:30:22 05/09/20 25 05/09/2025 HEMOG LOBIN (HGB) HGB 9.6 g/dL (based on docume nted legal sex) 11.6-1 [address] [facility] (Lab) [address] [facility], [place], [address], 05/12/2025 14:37:31 05/09/20 25 05/09/2025 HEMAT OCRIT (HCT) HCT 30.4 % (based on docume nted legal sex) 34.0-4 [address] [facility] (Lab) [address] [facility], [place], [address], 05/12/2025 14:37:32 05/09/20 25 05/09/2025 GTT - GESTA SINDHU L SASKIA Colon, ACOG OB glucose, 1 hour screen 70 mg/dL 70-135 Not Available [facility] (Lab) [address] [facility], [place], [address], 05/12/2025 14:37:32 05/09/20 25 05/09/2025 HIV 1/2 ANTIG EN/AN TIBOD Y, REFLE X CONFI RMATI ON HIV antigen/anti body Nonrea ctive nonrea ctive HIV-1 antig en and HIV-1 /HIV- 2 antib odies were not detec alfonso. No labor atory evide nce of HIV infec tion. Not Available [facility] (Lab) [address] [facility], [place], [address], 05/12/2025 14:37:32 05/09/20 25 05/09/2025 RPR SCREE N, REFLE X TITER /CONF IRMAT ION RPR qualitative Nonrea ctive nonrea ctive Not Available [facility] (Lab) [address] [place], [address], 05/12/2025 14:37:33 05/09/2005/09/2025 urina lysis , dipst ick Leukocytes trace Not Available Binu watson [address], [place], [address], 05/09/2025 14:43:51 05/09/2005/09/2025 urina lysis , dipst ick Nitrite neg Not Available [facility] [address], [place], [address], 05/09/2025 14:43:51 05/09/2005/09/2025 urina lysis , dipst ick Urobilinogen norm Not Available [facility] [address], [place], [address], 05/09/2025 14:43:51 05/09/2005/09/2025 urina lysis , dipst ick Protein trace Not Available [facility] [address], [place], [address], 05/09/2025 14:43:51 05/09/2005/09/2025 urina lysis , dipst ick pH 5 Not Available [facility] [address], [place], [address], 05/09/2025 14:43:51 05/09/2005/09/2025 urina lysis , dipst ick Specific Liberal 1.015 [facility] Available [facility] [address], [place], [address], 05/09/2025 14:43:51 05/09/2005/09/2025 urina lysis , dipst ick Ketone trace Not Available [facility] [address], [place], [address], 05/09/2025 14:43:51 05/09/20 25 05/09/2025 urina lysis , dipst ick Bilirubin nor Not Available Janell e [address], [place], [address], 05/09/2025 14:43:51 05/09/20 25 05/09/2025 urina lysis , dipst ick Glucose neg Not Available [facility] [address], [place], [address], 05/09/2025 14:43:51 05/09/20 25 05/09/2025 urina lysis , dipst ick Appearance clear Not Available [facility] [address], [place], [address], 05/09/2025 14:43:51 05/09/20 25 05/09/2025 urina lysis , dipst ick Color yellow Not Available [facility] [address], [place], [address], 05/09/2025 14:43:51 01/18/20 25 01/17/2025 US, obste tric, nucha l trans lucen cy No observ ation record ed. [facility] [address], [place], [address], 01/17/2025 17:27:13 01/18/20 25 01/17/2025 US, obste tric, follo w-up No observ ation record ed. [email or web address] [address], [place], [address], 01/21/2025 15:12:49 03/12/20 25 03/12/2025 US, obste tric, 2nd or 3rd trime ster No observ ation record ed. [facility] [address], [place], [address], 03/12/2025 18:48:30 03/12/20 25 03/12/2025 US, obste tric, 2nd or 3rd trime ster No observ ation record ed. [address], [place], [address], 03/14/2025 09:40:30 04/11/2004/11/2025 US, obste tric, follo w-up No observ ation record ed. [facility] [address], [place], [address], 04/11/2025 17:08:07 04/11/2004/11/2025 US, obste tric, follo w-up No observ ation record ed. [email or web address] [address], [place], [address], 04/15/2025 06:50:04 05/09/20 25 05/09/2025 US, obste tric, follo w-up No observ ation record ed. [facility] [address], [place], [address], 05/09/2025 16:53:22 05/09/2005/09/2025 US, obste tric, follo w-up No observ ation record ed. [address], [place], [address], 05/12/2025 12:19:00 06/05/20 25 06/05/2025 US, obste tric, follo w-up No observ ation record ed. [email or web address] [facility] [address], [place], [address], 06/05/2025 15:11:40 06/05/2006/05/2025 US, obste tric, follo w-up No observ ation record ed. [email or web address] [address], [place], [address], 06/13/2025 14:46:41 06/06/20 25 06/06/2025 US, obste tric, bioph ysica l profi le No observ ation record ed. [address], [place], [address], 06/18/2025 15:22:02 06/06/20 25 06/06/2025 US, obste tric, bioph ysica l profi le No observ ation record ed. [address], [place], [address], 06/18/2025 15:21:42 06/06/20 25 06/06/2025 US, obste tric, follo w-up No observ ation record ed. [address] [facility], [place], [address], 06/10/2025 11:24:02 06/06/20 25 06/06/2025 non-s tress test No observ ation record ed. [address], [place], [address], 06/30/2025 10:44:26 07/03/20 25 07/03/2025 US, obste tric, follo w-up No observ ation record ed. [email or web address] [place] [address] [address], [place], [address], 07/08/2025 13:03:57 07/03/20 25 07/03/2025 US, obste tric, follo w-up No observ ation record ed. [facility] [address], [place], [address], 07/03/2025 18:32:15 07/03/20 25 07/03/2025 US, obste tric, bioph ysica l profi le + non-s tress test No observ ation record ed. [facility] [address], [place], [address], 07/03/2025 18:32:26 07/03/20 25 07/03/2025 US, doppl er, umbil ical arter y veloc imetr y No observ ation record ed. carmen [facility] [address], [place], [address], 07/03/2025 18:32:38 07/05/20 25 06/06/2025 US, obste tric, bioph ysica l profi le + non-s tress test No observ ation record ed. [email or web address] [facility] [address], [place], [address], 07/05/2025 12:07:31 07/09/20 25 07/09/2025 US, obste tric, bioph ysica l profi le + non-s tress test No observ ation record ed. [email or web address] [facility] [address], [place], [address], 07/09/2025 12:42:49 07/09/20 25 07/09/2025 US, doppl er, umbil ical arter y veloc imetr y No observ ation record ed. [email or web address] [facility] [address], [place], [address], 07/09/2025 12:43:32 07/09/20 25 07/09/2025 US, obste tric, bioph ysica l profi le + non-s tress test No observ ation record ed. JUDY [address], [place], [address], 07/12/2025 13:33:23 07/09/20 25 07/09/2025 non-s tress test No observ ation record ed. [email or web address] [facility] [address], [place], [address], 07/09/2025 18:38:27 12/10/20 25 non-s tress test No observ ation record ed. [email or web address] [facility] [address], [place], [address], 07/09/2025 13:30:59 Result Notes None recorded. Problems Name Problem SNOMED Code Status Onset Date Resolution Date Notes Provider Name and Address Organization Details Recorded Time Group B Streptoc occus carrier [id number] 103 Completed h/o in first preg. Renee Torres MD [address], [place], [address], [facility] 3 10:33:02 Ultrasou nd scan abnormal [id number] Completed subamnio tic hemorrha ge - rpt u/s schd 01/04/23- wnl at [facility]. [facility] 3 16:42:26 Uterine size for dates discrepa ncy [id number] [facility] 3 16:42:26 Venous conroy [id number] Completed placenta - 02/21/24 9am u/s only. REBECCA MENA MD [address], [place], [address], [facility] 4 11:34:29 Placenta circumva llata [id number] Completed REBECCA MENA MD [address], [place], [address], [facility] 4 11:34:29 Pregnanc y 14812779 Completed 202203/13/2023 Chaya cabrera, [facility] 5 10:31:09 Pregnanc y 66594190 Completed 202305/27/2024 Chaya cabrera, [facility] 5 10:31:09 Pregnanc y 72108074 Active 2024 Chaya Marley null, [facility] 10:31:09 Group B Streptoc occus carrier 3121349260 103 Active 2024 + GBS in urine Tiara Alarcon null, [facility] 5 17:54:31 Poor growth affectin g manageme nt 231856650 Active 2024 6% Zuleima Olsen CNM [address], [place], [address], [facility] 11:57:52 Problem Notes None recorded. Procedures Surgical History Date Name Laterality Status Provider Name and Address Organization Details Recorded Time 05/05/20 23 Date of Last Pap Smear completed Iveth Guevara [facility] 05/23/2025 14:51:22 02/29/20 22 IUD Removal completed STEPHANIE Acevedo [address], [place], [address], [facility] 02/28/2022 09:46:01 02/10/20 21 Colposcopy completed Chaya Marley [facility] 01/17/2025 10:28:24 02/10/20 21 cervical biopsy completed Chaya Marley [facility] 07/27/2022 10:28:55 07/31/19 20 extraction of wisdom tooth completed Chaya Marley [facility] 07/27/2022 10:28:13 07/31/19 18 Date of Last Colonoscopy completed Chaya Marley [facility] 07/27/2022 10:27:19 07/31/19 18 Colonoscopy completed Chayaondina Marley [facility] 07/27/2022 10:28:04 Imaging Results None [...] and Address Organization Details Last Updated DateTime 06/18/2025 162.56 cm 23.9 kg/m2 43888.34 g 123/73 mm[Hg] Iveth Guevara [facility] 06/18/2025 09:54:12 Social History Question Answer Notes LastModified by Organizat ion Details LastModified Time Tobacco Smoking Status Former Smoker Sujata Zheng rick [facility] 10/20/2022 09:56:48 Do You Have An Advance Directive? No Information not available 02/08/2021 If You Are , What Was Your Level Of Alcohol Consumption Prior To ? Occasional [email or web address] Information not available 10/20/2022 Are You Blind [...] Or The Highest Degree You Have Received? [id number] Information not available 02/08/2021 Are There Any [...] Have Difficulty Walking Or Climbing Stairs? No [email or web address] Information not available 10/20/2022 Sex: Unknown Functional [...] able to care for yourself independently? 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 No [email or web address] Information not available 10/20/2022 What is your exercise level? Heavy Information not available 02/08/2021 Mental Status Question Answer Note LastModified by Organization D etails LastModified Time Do you feel stressed (tense, restless, nervous, or anxious, or unable to sleep at night)? [id number] Information not available 02/08/2021 Family History Relationship Description Onset Age of this Age Resolved Age Notes LastModified by Organization Details LastModified Time Maternal Aunt Disorder of thyroid gland Not available 2020 11:46:08 Maternal Aunt Malignant neoplasm of ovary Not available 2020 11:36:55 Mother Anemia Not available 02/08/2021 11:46:08 Mother Malignant neoplasm of breast [email or web address] Not available 07/27 21:16:57 Mother Malignant neoplasm of lung [email or web address] Not available 07/27 21:17:08 Paternal Aunt Malignant [...] ICD10 Code Diagnosis IMO Codes Diagnosis Note [id number] Zuleima Olsen CNM [facility] [address] [address] 05/23/2025 14:43:28 05/23/2025 15:06:10 Gestation period, 30 weeks [id number] Z3A.30 [id number] continue vitamin [id number] Orion Cobb MD [facility] [address],[place] [address] 06/05/2025 10:56:09 06/05/2025 14:07:34 Abnormal placenta affecting management of mother 00455180 O43.93 Z3A.32 [id number] Zuleima Olsen CNM [facility] [address],[place] [address] 06/06/2025 11:46:55 06/06/2025 12:09:09 Gestation period, 32 weeks 6134357 Z3A.32 3365243 cont pnv [id number] Zuleima Olsen CNM [facility] [address],[place] [address] 06/06/2025 12:50:38 06/06/2025 16:10:48 Premature uterine contraction [id number] O47.00 [id number] Zuleima Olsen CNM [facility] [address],[place] [address] 06/13/2025 10:37:51 06/13/2025 11:20:38 Gestation period, 33 weeks 31136792 Z3A.33 7224485 cont pnv [id number] Zuleima Olsen CNM [facility] [address],[place] [address] 06/18/2025 09:45:56 06/18/2025 10:18:34 Gestation period, 34 weeks 82254280 Z3A.34 4023119 cont pnv Health Concerns Section Related Observation LastModified by Organization Detai ls LastModified Time None Recorded Concern Status LastModified by Organization Details LastModified Time None Recorded Payers Encounter Date Sequence Insurance Name Policy Number Policy Veloz Covered Member ID Veloz Member ID Guarantor Name 06/18/2025 1 [facility] (MEDICAID HMO) [id number] Trina Dhillon [id number] Man Oneil Notes Date Note Type Note Provider Name and Address Organization Details Recorded Time 06/18/2025 text/html Generic HPI TemplateReported by Patient [address], [place], [address], [facility] 06/18/2025 10:15:38 OBGyn Episode Ob Episode Information Episode Created Date Number of Fetuses Patient Bloodtype Patient rh Status Prepregnancy Weight lbs Domestic Partner Domestic Partner Phone Father Name Neon Molder Status 01/18/20 25 1 O Positive 112 Alli Rahman h OPEN Fetus Data First Name Last Name Admitted to NICU Weight (g) Sex Living Outcome Pediatric Complications Fetus ID Race Codes Race Delivery Type [id number] Problems Problem Notes multiple placental lakes STA BLE Problem Name Start Date End Date Resolution Snomed Code Not e Group B Streptococcus carrier 01/21/2025 [id number] + GBS in urine Poor growth affecting management 07/04/2025 [id number] 6% Moises Calculation Initial Moises Date Initial Exam Date Initial Exam Provider Initial Ultrasound Date Last Menstrual Period Date Ultra Sound Weeks Gestation 07/27/2025 12/17/2024 [email or web address] 12/03/2024 10/20/2024 6 Eighteen To Twenty Week [...] Weight in lbs Pre/Post Dialysis Refused Weight 112.352752905406 BP Diastolic BP Location Tested BP Systolic [...] Type Weight in lbs Pre/Post Dialysis Refused 114.816868937750 BP Diastolic BP Location Tested BP Systolic [...] Type Weight in lbs Pre/Post Dialysis Refused 122.095131345939 BP Diastolic BP Location Tested BP Systolic [...] Weight in lbs Pre/Post Dialysis Refused Weight 127.561511790252 BP Diastolic BP Location Tested BP Systolic [...] Weight in lbs Pre/Post Dialysis Refused Weight 136.071590424450 BP Diastolic BP Location Tested BP Systolic [...] Weight in lbs Pre/Post Dialysis Refused Weight 137.879114240822 BP Diastolic BP Location Tested BP Systolic [...] Type Weight in lbs Pre/Post Dialysis Refused 140.052913171905 BP Diastolic BP Location Tested BP Systolic [...] Weight in lbs Pre/Post Dialysis Refused Weight 140.688798963441 BP Diastolic BP Location Tested BP Systolic BP Type 66 L arm 106 sitting Fetus Heart Rate Present A 147 Present Fetus Movement A Yes Comments cntx minimal will cont proca amanda, at 2 weeks visit, tired today, +FM, encouraged rest f/u one week Flowsheet Date 06/18/2025 Ross Score Blood Edema Fundus Height Fundus Units Glucose Ketones Leukocytes Nitrite Labor Signs Protein Cervic Dilation Cervic Effacement Cervic Station Type Weight in lbs Pre/Post Dialysis Refused Weight 139.35027322753 BP Diastolic BP Location Tested BP Systolic [...] Weight in lbs Pre/Post Dialysis Refused Weight 141.068588965431 BP Diastolic BP Location Tested BP Systolic [...] Weight in lbs Pre/Post Dialysis Refused Weight 145.933396695322 BP Diastolic BP Location Tested BP Systolic [...] Weight in lbs Pre/Post Dialysis Refused Weight 146.491710480333 BP Diastolic BP Location Tested BP Systolic BP Type 69 L arm 104 sitting Fetus Heart Rate Present Fetus Movement A Yes Comments Flowsheet Date 07/09/2025 Ross Score Blood Edema Fundus Height Fundus Units Glucose Ketones Leukocytes Nitrite Labor Signs Protein Cervic Dilation Cervic Effacement Cervic Station Type Weight in lbs Pre/Post Dialysis Refused 146.345423238007 BP Diastolic BP Location Tested BP Systolic [...]
--- OUTSIDE RECORDS SUMMARY | 2025-07-13 17:18 | XMS_ITS | Continuity of Care Document ---
Author Organization [facility], [facility] Address [address] [address] [place] [address] Assessment Encounter Date Assessment Date Assessment LastModified by Organization Details LastModified Time 06/25/2025 06/25/2025 Patient is _35__weeks . Discussed plan. Not available 06/25/2025 09:55:43 Plan of Treatment Reminders Order Date Submit [...] Not Available [facility] [address], [place], [address], 01/22/2025 22:58:15 01/23/20 25 01/22/2025 [UNIT Y] ANEUP LOIDY NIPT 22Q11.2 microdeletio n LOW RISK <1 in 10,000 normal Not Available [facility] [address], [place], [address], 01/22/2025 22:58:15 01/23/20 25 01/22/2025 [UNIT Y] ANEUP LOIDY NIPT sex chromosome aneuploidy NOT DETECT ED normal Not Available [facility] [address], [place], [address], 01/22/2025 22:58:15 01/23/20 25 01/22/2025 [UNIT Y] ANEUP LOIDY NIPT monosomy X LOW RISK <1 in 10,000 normal Not Available [facility] [address], [place], [address], 01/22/2025 22:58:15 01/23/20 25 01/22/2025 [UNIT Y] ANEUP LOIDY NIPT trisomy 13 LOW RISK <1 in 10,000 normal Not Available [facility] [address], [place], [address], 01/22/2025 22:58:15 01/23/20 25 01/22/2025 [UNIT Y] ANEUP LOIDY NIPT trisomy 18 LOW RISK <1 in 10,000 normal Not Available [facility] [address], [place], [address], 01/22/2025 22:58:15 01/23/20 25 01/22/2025 [UNIT Y] ANEUP LOIDY NIPT trisomy 21 LOW RISK <1 in 10,000 normal Not Available [facility] [address], [place], [address], 01/22/2025 22:58:15 01/23/20 25 01/22/2025 [UNIT Y] ANEUP LOIDY NIPT sex MALE normal Not Available [facility] [address], [place], [address], 01/22/2025 22:58:15 01/23/20 25 01/22/2025 [UNIT Y] ANEUP LOIDY NIPT gestation SINGLE TON normal Not Available [facility] [address], [place], [address], 01/22/2025 22:58:15 01/23/20 01/22/2025 [UNIT Y] ANEUP JENNIE NIPT for detailed report, see pdf See PDF normal Not Available [facility] [address], [place], [address], 01/22/2025 22:58:15 01/18/2001/17/2025 CULTU RE: URINE result report SEE RESULT S BELOW abnormal Test: Cultu re: Urine Speci men Sourc e: Urine Voide d Speci men Type: Urine Speci men Date: 2024 1622 Resul t Date: 2024 0142 Resul t Statu s: Final resul t Abnor mal: Yes Resul josé miguelg Lab: [facility] [address] [facility] [address] Tel: CULTU RE ----- ----- ----- --- [...] lab withi n 5 days. Not Available [facility] (Lab) [address] , [place], [address], 01/19/2025 02:46:33 01/18/2001/17/2025 CBC W/DIF F WBC 8.1 10'3/ uL 3.5-10 .5 Not Available [facility] (Lab) [address] , [place], [address], 01/20/2025 12:18:01 01/18/20 25 01/17/2025 CBC W/DIF F RBC 3.68 10'6/ uL (based on docume nted legal sex) 3.80-5 .20 low Not Available [facility] (Lab) [address], [place], [address], 01/20/2025 12:18:01 01/18/20 25 01/17/2025 CBC W/DIF F HGB 10.4 g/dL (based on docume nted legal sex) 11.6-1 5.4 low Not Available [facility] (Lab) [address] [facility], [place], [address], 01/20/2025 12:18:01 01/18/20 25 01/17/2025 CBC W/DIF F HCT 32.2 % (based on docume nted legal sex) 34.0-4 5.0 low Not Available [facility] (Lab) [address] [facility], [place], [address], 01/20/2025 12:18:01 01/18/20 25 01/17/2025 CBC W/DIF F MCV 87.5 fL 80.0-9 9.0 Not Available [facility] (Lab) [address] [facility], [place], [address], 01/20/2025 12:18:01 01/18/20 25 01/17/2025 CBC W/DIF F MCH 28.3 pg 27.0-3 4.0 Not Available [facility] (Lab) [address] [facility], [place], [address], 01/20/2025 12:18:01 01/18/20 25 01/17/2025 CBC W/DIF F MCHC 32.3 g/dL 32.0-3 5.5 Not Available [facility] (Lab) [address] [facility], [place], [address], 01/20/2025 12:18:01 01/18/20 25 01/17/2025 CBC W/DIF F RDW 14.5 % 11.0-1 5.0 Not Available [facility] (Lab) [address] [facility], [place], [address], 01/20/2025 12:18:01 01/18/20 25 01/17/2025 CBC W/DIF F plt 157 10'3/ uL 150-40 0 Not Available [facility] (Lab) [address], [place], [address], 01/20/2025 12:18:01 01/18/20 25 01/17/2025 CBC W/DIF F MPV 12.7 fL 8.8-12 .1 high Not Available [facility] (Lab) [address], [place], [address], 01/20/2025 12:18:01 01/18/20 25 01/17/2025 CBC W/DIF F NRBC's 0.0 % 0.0 Not Available [facility] (Lab) [address], [place], [address], 01/20/2025 12:18:01 01/18/20 25 01/17/2025 CBC W/DIF F absolute NRBCs 0.0 10'3/ uL no refere nce range establ ished Not Available [facility] (Lab) [address], [place], [address], 01/20/2025 12:18:01 01/18/20 25 01/17/2025 CBC W/DIF F neutrophils 73.9 % 34.0-7 3.0 high Not Available [facility] (Lab) [address], [place], [address], 01/20/2025 12:18:01 01/18/20 25 01/17/2025 CBC W/DIF F lymphocytes 21.1 % 15.0-5 0.0 Not Available [facility] (Lab) [address], [place], [address], 01/20/2025 12:18:01 01/18/20 25 01/17/2025 CBC W/DIF F monocytes 4.1 % 1.0-15 .0 Not Available [facility] (Lab) [address] [place], [address], 01/20/2025 12:18:01 01/18/20 25 01/17/2025 CBC W/DIF F eosinophils 0.5 % 0.0-8. 0 Not Available [facility] (Lab) [address], [place], [address], 01/20/2025 12:18:01 01/18/20 25 01/17/2025 CBC W/DIF F basophils 0.2 % 0.0-2. 0 Not Available [facility] (Lab) [address], [place], [address], 01/20/2025 12:18:01 01/18/20 25 01/17/2025 CBC W/DIF [...] separ ately if prese nt. Not Available [facility] (Lab) [address] , [place], [address], 01/20/2025 12:18:01 01/18/20 25 01/17/2025 CBC W/DIF F absolute neutrophils 6.0 10'3/ uL 1.5-8. 0 Not Available [facility] (Lab) [address], [place], [address], 01/20/2025 12:18:01 01/18/20 25 01/17/2025 CBC W/DIF F absolute lymphocytes 1.7 10'3/ uL 1.0-4. 0 Not Available [facility] (Lab) [address], [place], [address], 01/20/2025 12:18:01 01/18/20 25 01/17/2025 CBC W/DIF F absolute monocytes 0.3 10'3/ uL 0.2-1. 0 Not Available [facility] (Lab) [address], [place], [address], 01/20/2025 12:18:01 01/18/20 25 01/17/2025 CBC W/DIF F absolute eosinophils 0.0 10'3/ uL 0.0-0. 6 Not Available [facility] (Lab) [address] [facility], [place], [address], 01/20/2025 12:18:01 01/18/20 25 01/17/2025 CBC W/DIF F absolute basophils 0.0 10'3/ uL 0.0-0. 3 Not Available [facility] (Lab) [address] [facility], [place], [address], 01/20/2025 12:18:01 01/18/20 25 01/17/2025 CBC W/DIF [...] and book. nm.or g/gen derx Not Available [facility] (Lab) [address] [facility], [place], [address], 01/20/2025 12:18:01 01/18/20 25 01/17/2025 HEPAT ITIS [...] Hispa zohaib or Latin o Not Available [facility] (Lab) [address] [facility], [place], [address], 01/20/2025 12:18:02 01/18/20 25 01/17/2025 HEPAT ITIS C ANTIB TOM SCREE N, REFLE X TO CONFI RMATI ON hepatitis C antibody Non-re active non-re active Antib odies to HCV Not Detec alfonso, does not exclu de the possi bilit y of expos ure to HCV. : Not Hispa zohaib or Latin o Not Available [facility] (Lab) [address] [facility], [place], [address], 01/20/2025 12:18:02 01/18/20 25 01/17/2025 HIV 1/2 ANTIG EN/AN TIBOD Y, REFLE X CONFI RMATI ON HIV antigen/anti body Nonrea ctive nonrea ctive : Not Hispa zohaib or Latin o HIV-1 antig en and HIV-1 /HIV- 2 antib odies were not detec alfonso. No labor atory evide nce of HIV infec tion. Not Available [facility] (Lab) [address] [facility], [place], [address], 01/20/2025 12:18:03 01/18/20 25 01/17/2025 TYPE/ RH/SC REEN ABO/Rh type O POS Not Available [facility] (Lab) [address] [place], [address], 01/20/2025 12:18:03 01/18/20 25 01/17/2025 TYPE/ RH/SC REEN antibody screen NEG Not Available [facility] (Lab) [address] [place], [address], 01/20/2025 12:18:03 01/18/20 25 01/17/2025 TYPE/ RH/SC REEN exp date 2024 23:59 Not Available [facility] (Lab) [address] [facility], [place], [address], 01/20/2025 12:18:03 01/18/20 25 01/17/2025 RUBEL LA IGG ANTIB TOM, QUANT rubella antibodies, IgG Reacti ve reacti ve Not Available [facility] (Lab) [address] [facility], [place], [address], 01/20/2025 12:18:04 01/18/20 25 01/17/2025 RUBEL LA IGG ANTIB TOM, QUANT rubella antibodies, IgG quant 12.2 IU/mL >=10 : Not Hispa zohaib or Latin o Non-r eacti ve (Non- Immun e) <10 IU/mL React nesha (Immu ne) > or = 10 IU/mL Not Available [facility] (Lab) [address] [facility], [place], [address], 01/20/2025 12:18:04 01/18/20 25 01/17/2025 RPR SCREE N, REFLE X TITER /CONF IRMAT ION RPR qualitative Nonrea ctive nonrea ctive : Not Hisri zohaib or Latin o Not Available [facility] (Lab) [address] [facility], [place], [address], 01/20/2025 12:18:04 01/18/20 25 01/17/2025 HEMOG LOBIN [...] >8.0% Actio n sugge sted Not Available [facility] (Lab) [address] [facility], [place], [address], 01/20/2025 12:18:04 01/18/20 25 01/17/2025 LEAD, BLOOD (ADUL T/PED IATRI C) lead, whole blood <1.0 mcg/d L <3.5 See Note 1 Antonio sis was perfo rmed by Jimbo Conroy ed Plasm a Mass Spect romet ry (ICPM S) Note 1 This test was devel oped and its antonio tical perfo rmanc e jenaro cteri stics have been deter mined by [facility]. It has not been clear ed or appro dolores by the FDA. This assay has been valid ated pursu ant to the CLIA regul ation s and is used for clini gogo purpo ses. : Not Hispa zohaib or Latin o Perfo rming Organ izati on Infor matio n: Site ID: CB Name: [employer] [facility]-Brandon simon [place] Addre ss: [address] [place] [address] Dire tor: Galileo newton Not Available [facility] (Lab) [address] [facility], [place], [address], 01/20/2025 12:18:05 01/18/20 25 01/17/2025 drug scree n, urine Amphetamines : negati ve Not Available [facility] [address], [place], [address], 01/17/2025 10:30:22 01/18/20 25 01/17/2025 drug scree n, urine Cannabinoids : negati ve Not Available [facility] [address], [place], [address], 01/17/2025 10:30:22 01/18/20 25 01/17/2025 drug scree n, urine Cocaine: negati ve Not Available [facility] [address], [place], [address], 01/17/2025 10:30:22 01/18/20 25 01/17/2025 drug scree n, urine Opiates: negati ve Not Available [facility] [address], [place], [address], 01/17/2025 10:30:22 01/18/20 25 01/17/2025 drug scree n, urine Phenocyclidi ne: negati ve Not Available [facility] [address], [place], [address], 01/17/2025 10:30:22 01/18/20 25 01/17/2025 drug scree n, urine Barbiturates : negati ve Not Available [facility] [address], [place], [address], 01/17/2025 10:30:22 01/18/20 25 01/17/2025 drug scree n, urine Benzodiazepi sabrian: negati ve Not Available [facility] [address], [place], [address], 01/17/2025 10:30:22 01/18/20 25 01/17/2025 drug scree n, urine Ethanol: negati ve Not Available [facility] [address], [place], [address], 01/17/2025 10:30:22 01/18/20 25 01/17/2025 drug scree n, urine Hallucinogen s: negati ve Not Available [facility] [address], [place], [address], 01/17/2025 10:30:22 01/18/20 25 01/17/2025 drug scree n, urine Inhalants: negati ve Not Available [facility] [address], [place], [address], 01/17/2025 10:30:22 01/18/20 25 01/17/2025 drug scree n, urine Anabolic Steroids: negati ve Not Available [facility] [address], [place], [address], 01/17/2025 10:30:22 01/18/20 25 01/17/2025 drug scree n, urine Other: positi ve Not Available [address], [place], [address], 01/17/2025 10:30:22 05/09/20 25 05/09/2025 HEMOG LOBIN (HGB) HGB 9.6 g/dL (based on docume nted legal sex) 11.6-1 5.4 low Not Available [facility] (Lab) [address] [facility], [place], [address], 05/12/2025 14:37:31 05/09/20 25 05/09/2025 HEMAT OCRIT (HCT) HCT 30.4 % (based on docume nted legal sex) 34.0-4 5.0 low Not Available [facility] (Lab) [address] [facility], [place], [address], 05/12/2025 14:37:32 05/09/20 25 05/09/2025 GTT - GESTA SINDHU L SASKIA Colon, ACOG OB glucose, 1 hour screen 70 mg/dL 70-135 Not Available [facility] (Lab) [address] [facility], [place], [address], 05/12/2025 14:37:32 05/09/20 25 05/09/2025 HIV 1/2 ANTIG EN/AN TIBOD Y, REFLE X CONFI RMATI ON HIV antigen/anti body Nonrea ctive nonrea ctive HIV-1 antig en and HIV-1 /HIV- 2 antib odies were not detec alfonso. No labor atory evide nce of HIV infec tion. Not Available [facility] (Lab) [address] [facility], [place], [address], 05/12/2025 14:37:32 05/09/20 25 05/09/2025 RPR SCREE N, REFLE X TITER /CONF IRMAT ION RPR qualitative Nonrea ctive nonrea ctive Not Available [facility] (Lab) [address] [place], [address], 05/12/2025 14:37:33 05/09/2005/09/2025 urina lysis , dipst ick Leukocytes trace Not Available Binu watson [address], [place], [address], 05/09/2025 14:43:51 05/09/2005/09/2025 urina lysis , dipst ick Nitrite neg Not Available [facility] [address], [place], [address], 05/09/2025 14:43:51 05/09/2005/09/2025 urina lysis , dipst ick Urobilinogen norm Not Available [facility] minal [address], [place], [address], 05/09/2025 14:43:51 05/09/2005/09/2025 urina lysis , dipst ick Protein trace Not Available [facility] [address], [place], [address], 05/09/2025 14:43:51 05/09/2005/09/2025 urina lysis , dipst ick pH 5 Not Available [facility] [address], [place], [address], 05/09/2025 14:43:51 05/09/2005/09/2025 urina lysis , dipst ick Specific Ethel 1.015 Not Available [facility] [address], [place], [address], 05/09/2025 14:43:51 05/09/2005/09/2025 urina lysis , dipst ick Ketone trace Not Available [facility] [address], [place], [address], 05/09/2025 14:43:51 05/09/20 25 05/09/2025 urina lysis , dipst ick Bilirubin nor Not Available Janell e [address], [place], [address], 05/09/2025 14:43:51 05/09/20 25 05/09/2025 urina lysis , dipst ick Glucose neg Not Available [facility] [address], [place], [address], 05/09/2025 14:43:51 05/09/20 25 05/09/2025 urina lysis , dipst ick Appearance clear Not Available [facility] [address], [place], [address], 05/09/2025 14:43:51 05/09/20 25 05/09/2025 urina lysis , dipst ick Color yellow Not Available [facility] [address], [place], [address], 05/09/2025 14:43:51 01/18/20 25 01/17/2025 US, obste tric, nucha l trans lucen cy No observ ation record ed. [facility] [address], [place], [address], 01/17/2025 17:27:13 01/18/20 25 01/17/2025 US, obste tric, follo w-up No observ ation record ed. [email or web address] [address], [place], [address], 01/21/2025 15:12:49 03/12/20 25 03/12/2025 US, obste tric, 2nd or 3rd trime ster No observ ation record ed. [facility] [address], [place], [address], 03/12/2025 18:48:30 03/12/20 25 03/12/2025 US, obste tric, 2nd or 3rd trime ster No observ ation record ed. [email or web address] [address], [place], [address], 03/14/2025 09:40:30 04/11/2004/11/2025 US, obste tric, follo w-up No observ ation record ed. [facility] [address], [place], [address], 04/11/2025 17:08:07 04/11/2004/11/2025 US, obste tric, follo w-up No observ ation record ed. [email or web address] [address], [place], [address], 04/15/2025 06:50:04 05/09/20 25 05/09/2025 US, obste tric, follo w-up No observ ation record ed. [facility] [address], [place], [address], 05/09/2025 16:53:22 05/09/2005/09/2025 US, obste tric, follo w-up No observ ation record ed. [email or web address] [address], [place], [address], 05/12/2025 12:19:00 06/05/20 25 06/05/2025 US, obste tric, follo w-up No observ ation record ed. [email or web address] Barry [address], [place], [address], 06/05/2025 15:11:40 06/05/2006/05/2025 US, obste tric, follo w-up No observ ation record ed. [email or web address] [address], [place], [address], 06/13/2025 14:46:41 06/06/20 25 06/06/2025 US, obste tric, bioph ysica l profi le No observ ation record ed. [address], [place], [address], 06/18/2025 15:22:02 06/06/20 25 06/06/2025 US, obste tric, bioph ysica l profi le No observ ation record ed. [address], [place], [address], 06/18/2025 15:21:42 06/06/20 25 06/06/2025 US, obste tric, follo w-up No observ ation record ed. [address] [facility], [place], [address], 06/10/2025 11:24:02 06/06/20 25 06/06/2025 non-s tress test No observ ation record ed. [address], [place], [address], 06/30/2025 10:44:26 07/03/20 25 07/03/2025 US, obste tric, follo w-up No observ ation record ed. [email or web address] [place] [address] [address], [place], [address], 07/08/2025 13:03:57 07/03/20 25 07/03/2025 US, obste tric, follo w-up No observ ation record ed. [facility] [address], [place], [address], 07/03/2025 18:32:15 07/03/20 25 07/03/2025 US, obste tric, bioph ysica l profi le + non-s tress test No observ ation record ed. [facility] [address], [place], [address], 07/03/2025 18:32:26 07/03/20 25 07/03/2025 US, doppl er, umbil ical arter y veloc imetr y No observ ation record ed. carmen Barry [address], [place], [address], 07/03/2025 18:32:38 07/05/20 25 06/06/2025 US, obste tric, bioph ysica l profi le + non-s tress test No observ ation record ed. [email or web address] [address], [place], [address], 07/05/2025 12:07:31 07/09/20 25 07/09/2025 US, obste tric, bioph ysica l profi le + non-s tress test No observ ation record ed. [email or web address] [address], [place], [address], 07/09/2025 12:42:49 07/09/20 25 07/09/2025 US, doppl er, umbil ical arter y veloc imetr y No observ ation record ed. [email or web address] Barry [address], [place], [address], 07/09/2025 12:43:32 07/09/20 25 07/09/2025 US, obste tric, bioph ysica l profi le + non-s tress test No observ ation record ed. [email or web address] [address], [place], [address], 07/12/2025 13:33:23 07/09/20 25 07/09/2025 non-s tress test No observ ation record ed. [email or web address] Barry [address], [place], [address], 07/09/2025 18:38:27 12/10/20 25 non-s tress test No observ ation record ed. Barry [address], [place], [address], 07/09/2025 13:30:59 Result Notes None recorded. Problems Name Problem SNOMED Code Status Onset Date Resolution Date Notes Provider Name and Address Organization Details Recorded Time Group B Streptoc occus carrier 5629577961 103 Completed h/o in first preg. Renee Torres MD [address], [place], [address], [facility] 3 10:33:02 Ultrasou nd scan abnormal 070111116 Completed subamnio tic hemorrha ge - rpt u/s schd 01/04/23- wnl at [facility]. no FU needed. [facility] 3 16:42:26 Uterine size for dates discrepa ncy [id number] [facility] 3 16:42:26 Venous conroy 263411006 Completed placenta - 02/21/24 9am u/s only. REBECCA MENA MD [address], [place], [address], [facility] 4 11:34:29 Placenta circumva llata 5517921 Completed REBECCA MENA MD [address], [place], [address], [facility] 4 11:34:29 Pregnanc y 30327074 Completed 202203/13/2023 Chaya cabrera, [facility] 5 10:31:09 Pregnanc y 02877157 Completed 202305/27/2024 Chaya cabrera, [facility] 5 10:31:09 Pregnanc y 97210144 Active 2024 Chaya Marley null, [facility] 10:31:09 Group B Streptoc occus carrier [id number] 103 Active 2024 + GBS in urine Tiara Alarcon null, [facility] 5 17:54:31 Poor growth affectin g manageme nt 592110046 Active 2024 6% Zuleima Olsen CNM [address], [place], [address], [facility] 11:57:52 Problem Notes None recorded. Procedures Surgical History Date Name Laterality Status Provider Name and Address Organization Details Recorded Time 05/05/20 23 Date of Last Pap Smear completed Iveth Guevara [facility] 05/23/2025 14:51:22 02/29/20 22 IUD Removal completed STEPHANIE Acevedo [address], [place], [address], [facility] 02/28/2022 09:46:01 02/10/20 21 Colposcopy completed Chaya Marley [facility] 01/17/2025 10:28:24 02/10/20 21 cervical biopsy completed Chaya Marley [facility] 07/27/2022 10:28:55 07/31/19 20 extraction of wisdom tooth completed Chaya Marley [facility] 07/27/2022 10:28:13 07/31/19 18 Date of Last Colonoscopy completed Chaya Marley [facility] 07/27/2022 10:27:19 07/31/19 18 Colonoscopy completed Chayaondina Marley [facility] 07/27/2022 10:28:04 Imaging Results None recorded. [...] and Address Organization Details Last Updated DateTime 06/25/2025 162.56 cm 24.2 kg/m2 53817.52 g 108/69 mm[Hg] BOY MERCADO [facility] 06/25/2025 09:30:54 Social History Question Answer Notes LastModified by Organizat ion Details LastModified Time Tobacco Smoking Status Former Smoker Sujata Zheng rick [facility] 10/20/2022 09:56:48 Do You Have An Advance Directive? No Information not available 02/08/2021 If You Are , What Was Your Level Of Alcohol Consumption Prior To ? Occasional [email or web address] Information not available 10/20/2022 Are You Blind [...] Or The Highest Degree You Have Received? [id number] Information not available 02/08/2021 Are There Any Guns Present In Your Home? No Information not available 02/08/2021 Do You Use Protection During Sex? No Information not available 02/08/2021 Do You Use Your Seat Belt Or Car Seat Routinely? Yes Information not available 02/08/2021 Are You Sexually Active? Yes [email or web address] Information not available 03/12/2025 Do You Have Smoke And Carbon Monoxide Detectors In Your Home? Yes Information not available 02/08/2021 How Much Tobacco Do You Smoke? No Information not available 02/08/2021 Do You Use Sunscreen Routinely? Yes Information not available 02/08/2021 Have You Used IV Drugs? No Information not available 02/08/2021 Do You Have Difficulty Walking Or Climbing Stairs? No [email or web address] Information not available 10/20/2022 Sex: Unknown Functional [...] able to care for yourself independently? 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 No [email or web address] Information not available 10/20/2022 What is your exercise level? Heavy Information not available 02/08/2021 Mental Status Question Answer Note LastModified by Organization D etails LastModified Time Do you feel stressed (tense, restless, nervous, or anxious, or unable to sleep at night)? [id number] Information not available 02/08/2021 Family History Relationship Description Onset Age of this Age Resolved Age Notes LastModified by Organization Details LastModified Time Maternal Aunt Disorder of thyroid gland Not available 2020 11:46:08 Maternal Aunt Malignant neoplasm of ovary Not available 2020 11:36:55 Mother Anemia Not available 02/08/2021 11:46:08 Mother Malignant neoplasm of breast [email or web address] Not available 07/27 21:16:57 Mother Malignant neoplasm of lung [email or web address] Not available 07/27 21:17:08 Paternal Aunt Malignant neoplasm of breast Not available 2020 11:46:08 Paternal Grandmother Malignant neoplasm of breast Not available 2020 11:46:08 Maternal Grandmother Malignant neoplasm of breast [email or web address] Not available 2021 09:35:33 Medical History Condition Response Other N Blood Transfusion N Dermatologic Disorders N Gestational Diabetes N Anxiety Disorder N Autoimmune disease N Arthritis N Polyps N Infertility N Acid Reflux (GERD) N Cancer N Varicosities N Stroke N Neurologic/Epilepsy N Fibromyalgia N Headaches N Kidney Disease N Heart Problems N Kidney or Bladder Problems N Eating Disorder N Art (IVF or FET) N Hepatitis/Liver Disease N No Past Medical History N Urinary Tract Infection N Asthma N Trauma/Violence N Thrombophilias N Allergies (Food, seasonal, environmental ) N Breast Cancer N Drug/Latex Allergies/Reactions N Lung Disease N Defects or Inherited Disease N Breast Problem N Hematologic disorders N Anesthesia Complications N History of STI Y Deep Vein Thrombosis N Polycystic ovary syndrome N History of abnormal pap Y Endometriosis N High Cholesterol N Thyroid Problems N GI Problems Y Anemia N Psychiatric Illness N Ovarian Cancer N Diabetes N Pulmonary (TB, Asthma) N Eczema N Abuse/Domestic Violence N Depression/ depression N Heart Disease N Pre-Eclampsia N Hypertension N Osteoporosis N Gynecological History Statement/Question Response Date of [...] ICD10 Code Diagnosis IMO Codes Diagnosis Note [id number] Orion Cobb MD [facility] [address] [address] 06/05/2025 10:56:09 06/05/2025 14:07:34 Abnormal placenta affecting management of mother [id number] O43.93 Z3A.32 [id number] Zuleima Olsen CNM [facility] [address] [address] 06/06/2025 11:46:55 06/06/2025 12:09:09 Gestation period, 32 weeks [id number] Z3A.32 [id number] cont pnv [id number] Zuleima Olsen CNM [facility] [address],[place] [address] 06/06/2025 12:50:38 06/06/2025 16:10:48 Premature uterine contraction [id number] O47.00 [id number] Zuleima Olsen CNM [facility] [address],[place] [address] 06/13/2025 10:37:51 06/13/2025 11:20:38 Gestation period, 33 weeks 05257897 Z3A.33 5994755 cont pnv [id number] Zuleima Olsen CNM [facility] [address],[place] [address] 06/18/2025 09:45:56 06/18/2025 10:18:34 Gestation period, 34 weeks [id number] Z3A.34 [id number] cont pnv [id number] [facility] [address],[place] [address] 06/25/2025 09:24:51 06/25/2025 09:56:46 Gestation period, 35 weeks [id number] Z3A.35 [id number] Health Concerns Section Related Observation LastModified by Organization Detai ls LastModified Time None Recorded Concern Status LastModified by Organization Details LastModified Time None Recorded Payers Encounter Date Sequence Insurance Name Policy Number Policy Veloz Covered Member ID Veloz Member ID Guarantor Name 06/25/2025 1 [facility] (MEDICAID HMO) [id number] Trina Dhillon [id number] Man Oneil Notes Date Note Type Note Provider Name and Address Organization Details Recorded Time 06/25/2025 text/html Generic HPI TemplateReported by Patient [address], [place], [address], [facility] 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 Status 01/18/20 25 1 O Positive 112 Alli Rahman h OPEN Fetus Data First Name Last Name Admitted to NICU Weight (g) Sex Living Outcome Pediatric Complications Fetus ID Race Codes Race Delivery Type [id number] Problems Problem Notes multiple placental lakes STA BLE Problem Name Start Date End Date Resolution Snomed Code Not e Group B Streptococcus carrier 01/21/2025 [id number] + GBS in urine Poor growth affecting management 07/04/2025 [id number] 6% Moises Calculation Initial Moises Date Initial Exam Date Initial Exam Provider Initial Ultrasound Date Last Menstrual Period Date Ultra Sound Weeks Gestation 07/27/2025 12/17/2024 [email or web address] 12/03/2024 10/20/2024 6 Eighteen To Twenty Week [...] Weight in lbs Pre/Post Dialysis Refused Weight 112.727783039806 BP Diastolic BP Location Tested BP Systolic [...] Type Weight in lbs Pre/Post Dialysis Refused 114.300419327292 BP Diastolic BP Location Tested BP Systolic [...] Type Weight in lbs Pre/Post Dialysis Refused 122.682700283701 BP Diastolic BP Location Tested BP Systolic [...] Weight in lbs Pre/Post Dialysis Refused Weight 127.311317738536 BP Diastolic BP Location Tested BP Systolic [...] Weight in lbs Pre/Post Dialysis Refused Weight 136.244172466537 BP Diastolic BP Location Tested BP Systolic [...] Weight in lbs Pre/Post Dialysis Refused Weight 137.907873881977 BP Diastolic BP Location Tested BP Systolic [...] Type Weight in lbs Pre/Post Dialysis Refused 140.599049914844 BP Diastolic BP Location Tested BP Systolic [...] Weight in lbs Pre/Post Dialysis Refused Weight 140.094487740481 BP Diastolic BP Location Tested BP Systolic [...] Weight in lbs Pre/Post Dialysis Refused Weight 139.03639626638 BP Diastolic BP Location Tested BP Systolic [...] Weight in lbs Pre/Post Dialysis Refused Weight 141.186475515377 BP Diastolic BP Location Tested BP Systolic [...] Present Fetus Movement Comments Flowsheet Date 07/04/2025 Rsos Score Blood Edema Fundus Height Fundus Units Glucose Ketones Leukocytes Nitrite Labor Signs Protein Cervic Dilation Cervic Effacement Cervic Station Type Weight in lbs Pre/Post Dialysis Refused Weight 145.563142250985 BP Diastolic BP Location Tested BP Systolic BP Type 75 L arm 114 sitting Fetus Heart Rate Present Fetus Movement A Yes Comments +FM bpp 10 dopplers wnl, efw 6%, discussed with dr. [...] Weight in lbs Pre/Post Dialysis Refused Weight 146.464644739697 BP Diastolic BP Location Tested BP Systolic BP Type 69 L arm 104 sitting Fetus Heart Rate Present Fetus Movement A Yes Comments Flowsheet Date 07/09/2025 Ross Score Blood Edema Fundus Height Fundus Units Glucose Ketones Leukocytes Nitrite Labor Signs Protein Cervic Dilation Cervic Effacement Cervic Station Type Weight in lbs Pre/Post Dialysis Refused 146.278076586636 BP Diastolic BP Location Tested BP Systolic [...]
--- OUTSIDE RECORDS SUMMARY | 2025-07-13 17:18 | XMS_ITS | Continuity of Care Document ---
Author Organization [facility] [address] [place] [address] Assessment Encounter Date Assessment Date Assessment LastModified by Organization Details LastModified Time 06/13/2025 06/13/2025 Patient is _33__weeks . Discussed plan. Not available 06/13/2025 11:11:32 Plan of Treatment Reminders Order Date Submit [...] Not Available [facility] [address], [place], [address], 01/22/2025 22:58:15 01/23/20 25 01/22/2025 [UNIT Y] ANEUP LOIDY NIPT 22Q11.2 microdeletio n LOW RISK <1 in 10,000 normal Not Available [facility] [address], [place], [address], 01/22/2025 22:58:15 01/23/20 25 01/22/2025 [UNIT Y] ANEUP LOIDY NIPT sex chromosome aneuploidy NOT DETECT ED normal Not Available [facility] [address], [place], [address], 01/22/2025 22:58:15 01/23/20 25 01/22/2025 [UNIT Y] ANEUP LOIDY NIPT monosomy X LOW RISK <1 in 10,000 normal Not Available [facility] [address], [place], [address], 01/22/2025 22:58:15 01/23/20 25 01/22/2025 [UNIT Y] ANEUP LOIDY NIPT trisomy 13 LOW RISK <1 in 10,000 normal Not Available [facility] [address], [place], [address], 01/22/2025 22:58:15 01/23/20 25 01/22/2025 [UNIT Y] ANEUP LOIDY NIPT trisomy 18 LOW RISK <1 in 10,000 normal Not Available [facility] [address], [place], [address], 01/22/2025 22:58:15 01/23/20 25 01/22/2025 [UNIT Y] ANEUP LOIDY NIPT trisomy 21 LOW RISK <1 in 10,000 normal Not Available [facility] [address], [place], [address], 01/22/2025 22:58:15 01/23/20 25 01/22/2025 [UNIT Y] ANEUP LOIDY NIPT sex MALE normal Not Available [facility] [address], [place], [address], 01/22/2025 22:58:15 01/23/20 25 01/22/2025 [UNIT Y] ANEUP LOIDY NIPT gestation SINGLE TON normal Not Available [facility] [address], [place], [address], 01/22/2025 22:58:15 01/23/20 01/22/2025 [UNIT Y] ANEUP JENNIE NIPT for detailed report, see pdf See PDF normal Not Available [facility] [address], [place], [address], 01/22/2025 22:58:15 01/18/2001/17/2025 CULTU RE: URINE result report SEE RESULT S BELOW abnormal Test: Cultu re: Urine Speci men Sourc e: Urine Voide d Speci men Type: Urine Speci men Date: 2024 1622 Resul t Date: 2024 0142 Resul t Statu s: Final resul t Abnor mal: Yes Resul josé miguelg Lab: [facility] [address] [facility] [address] Tel: CULTU RE ----- ----- ----- --- [...] lab withi n 5 days. Not Available [facility] (Lab) [address] , [place], [address], 01/19/2025 02:46:33 01/18/2001/17/2025 CBC W/DIF F WBC 8.1 10'3/ uL 3.5-10 .5 Not Available [facility] (Lab) [address] , [place], [address], 01/20/2025 12:18:01 01/18/20 25 01/17/2025 CBC W/DIF F RBC 3.68 10'6/ uL (based on docume nted legal sex) 3.80-5 .20 low Not Available [facility] (Lab) [address], [place], [address], 01/20/2025 12:18:01 01/18/20 25 01/17/2025 CBC W/DIF F HGB 10.4 g/dL (based on docume nted legal sex) 11.6-1 5.4 low Not Available [facility] (Lab) [address] [facility], [place], [address], 01/20/2025 12:18:01 01/18/20 25 01/17/2025 CBC W/DIF F HCT 32.2 % (based on docume nted legal sex) 34.0-4 5.0 low Not Available [facility] (Lab) [address] [facility], [place], [address], 01/20/2025 12:18:01 01/18/20 25 01/17/2025 CBC W/DIF F MCV 87.5 fL 80.0-9 9.0 Not Available [facility] (Lab) [address] [facility], [place], [address], 01/20/2025 12:18:01 01/18/20 25 01/17/2025 CBC W/DIF F MCH 28.3 pg 27.0-3 4.0 Not Available [facility] (Lab) [address] [facility], [place], [address], 01/20/2025 12:18:01 01/18/20 25 01/17/2025 CBC W/DIF F MCHC 32.3 g/dL 32.0-3 5.5 Not Available [facility] (Lab) [address] [facility], [place], [address], 01/20/2025 12:18:01 01/18/20 25 01/17/2025 CBC W/DIF F RDW 14.5 % 11.0-1 5.0 Not Available [facility] (Lab) [address] [facility], [place], [address], 01/20/2025 12:18:01 01/18/20 25 01/17/2025 CBC W/DIF F plt 157 10'3/ uL 150-40 0 Not Available [facility] (Lab) [address], [place], [address], 01/20/2025 12:18:01 01/18/20 25 01/17/2025 CBC W/DIF F MPV 12.7 fL 8.8-12 .1 high Not Available [facility] (Lab) [address], [place], [address], 01/20/2025 12:18:01 01/18/20 25 01/17/2025 CBC W/DIF F NRBC's 0.0 % 0.0 Not Available [facility] (Lab) [address], [place], [address], 01/20/2025 12:18:01 01/18/20 25 01/17/2025 CBC W/DIF F absolute NRBCs 0.0 10'3/ uL no refere nce range establ ished Not Available [facility] (Lab) [address], [place], [address], 01/20/2025 12:18:01 01/18/20 25 01/17/2025 CBC W/DIF F neutrophils 73.9 % 34.0-7 3.0 high Not Available [facility] (Lab) [address], [place], [address], 01/20/2025 12:18:01 01/18/20 25 01/17/2025 CBC W/DIF F lymphocytes 21.1 % 15.0-5 0.0 Not Available [facility] (Lab) [address], [place], [address], 01/20/2025 12:18:01 01/18/20 25 01/17/2025 CBC W/DIF F monocytes 4.1 % 1.0-15 .0 Not Available [facility] (Lab) [address] [place], [address], 01/20/2025 12:18:01 01/18/20 25 01/17/2025 CBC W/DIF F eosinophils 0.5 % 0.0-8. 0 Not Available [facility] (Lab) [address], [place], [address], 01/20/2025 12:18:01 01/18/20 25 01/17/2025 CBC W/DIF F basophils 0.2 % 0.0-2. 0 Not Available [facility] (Lab) [address], [place], [address], 01/20/2025 12:18:01 01/18/20 25 01/17/2025 CBC W/DIF [...] separ ately if prese nt. Not Available [facility] (Lab) [address] , [place], [address], 01/20/2025 12:18:01 01/18/20 25 01/17/2025 CBC W/DIF F absolute neutrophils 6.0 10'3/ uL 1.5-8. 0 Not Available [facility] (Lab) [address], [place], [address], 01/20/2025 12:18:01 01/18/20 25 01/17/2025 CBC W/DIF F absolute lymphocytes 1.7 10'3/ uL 1.0-4. 0 Not Available [facility] (Lab) [address], [place], [address], 01/20/2025 12:18:01 01/18/20 25 01/17/2025 CBC W/DIF F absolute monocytes 0.3 10'3/ uL 0.2-1. 0 Not Available [facility] (Lab) [address], [place], [address], 01/20/2025 12:18:01 01/18/20 25 01/17/2025 CBC W/DIF F absolute eosinophils 0.0 10'3/ uL 0.0-0. 6 Not Available [facility] (Lab) [address] [facility], [place], [address], 01/20/2025 12:18:01 01/18/20 25 01/17/2025 CBC W/DIF F absolute basophils 0.0 10'3/ uL 0.0-0. 3 Not Available [facility] (Lab) [address] [facility], [place], [address], 01/20/2025 12:18:01 01/18/20 25 01/17/2025 CBC W/DIF [...] and book. nm.or g/gen derx Not Available [facility] (Lab) [address] [facility], [place], [address], 01/20/2025 12:18:01 01/18/20 25 01/17/2025 HEPAT ITIS [...] Hispa zohaib or Latin o Not Available [facility] (Lab) [address] [facility], [place], [address], 01/20/2025 12:18:02 01/18/20 25 01/17/2025 HEPAT ITIS C ANTIB TOM SCREE N, REFLE X TO CONFI RMATI ON hepatitis C antibody Non-re active non-re active Antib odies to HCV Not Detec alfonso, does not exclu de the possi bilit y of expos ure to HCV. : Not Hispa zohaib or Latin o Not Available [facility] (Lab) [address] [facility], [place], [address], 01/20/2025 12:18:02 01/18/20 25 01/17/2025 HIV 1/2 ANTIG EN/AN TIBOD Y, REFLE X CONFI RMATI ON HIV antigen/anti body Nonrea ctive nonrea ctive : Not Hispa zohaib or Latin o HIV-1 antig en and HIV-1 /HIV- 2 antib odies were not detec alfonso. No labor atory evide nce of HIV infec tion. Not Available [facility] (Lab) [address] [facility], [place], [address], 01/20/2025 12:18:03 01/18/20 25 01/17/2025 TYPE/ RH/SC REEN ABO/Rh type O POS Not Available [facility] (Lab) [address] [place], [address], 01/20/2025 12:18:03 01/18/20 25 01/17/2025 TYPE/ RH/SC REEN antibody screen NEG Not Available [facility] (Lab) [address] [place], [address], 01/20/2025 12:18:03 01/18/20 25 01/17/2025 TYPE/ RH/SC REEN exp date 2024 23:59 Not Available [facility] (Lab) [address] [facility], [place], [address], 01/20/2025 12:18:03 01/18/20 25 01/17/2025 RUBEL LA IGG ANTIB TOM, QUANT rubella antibodies, IgG Reacti ve reacti ve Not Available [facility] (Lab) [address] [facility], [place], [address], 01/20/2025 12:18:04 01/18/20 25 01/17/2025 RUBEL LA IGG ANTIB TOM, QUANT rubella antibodies, IgG quant 12.2 IU/mL >=10 : Not Hispa zohaib or Latin o Non-r eacti ve (Non- Immun e) <10 IU/mL React nesha (Immu ne) > or = 10 IU/mL Not Available [facility] (Lab) [address] [facility], [place], [address], 01/20/2025 12:18:04 01/18/20 25 01/17/2025 RPR SCREE N, REFLE X TITER /CONF IRMAT ION RPR qualitative Nonrea ctive nonrea ctive : Not Hisut zohaib or Latin o Not Available [facility] (Lab) [address] [facility], [place], [address], 01/20/2025 12:18:04 01/18/20 25 01/17/2025 HEMOG LOBIN [...] >8.0% Actio n sugge sted Not Available [facility] (Lab) [address] [facility], [place], [address], 01/20/2025 12:18:04 01/18/20 25 01/17/2025 LEAD, BLOOD (ADUL T/PED IATRI C) lead, whole blood <1.0 mcg/d L <3.5 See Note 1 Antonio sis was perfo rmed by Jimbo Conroy ed Plasm a Mass Spect romet ry (ICPM S) Note 1 This test was devel oped and its antonio tical perfo rmanc e jenaro cteri stics have been deter mined by [facility]. It has not been clear ed or appro dolores by the FDA. This assay has been valid ated pursu ant to the CLIA regul ation s and is used for clini gogo purpo ses. : Not Hispa zohaib or Latin o Perfo rming Organ izati on Infor matio n: Site ID: CB Name: AgentPiggy ostic s-Brandon simon [place] Addre ss: [id number] [place] [address] Dire tor: Galileo newton Not Available [facility] (Lab) [address] [facility], [place], [address], 01/20/2025 12:18:05 01/18/20 25 01/17/2025 drug scree n, urine Amphetamines : negati ve Not Available [facility] [address], [place], [address], 01/17/2025 10:30:22 01/18/20 25 01/17/2025 drug scree n, urine Cannabinoids : negati ve Not Available [facility] [address], [place], [address], 01/17/2025 10:30:22 01/18/20 25 01/17/2025 drug scree n, urine Cocaine: negati ve Not Available [facility] [address], [place], [address], 01/17/2025 10:30:22 01/18/20 25 01/17/2025 drug scree n, urine Opiates: negati ve Not Available [facility] [address], [place], [address], 01/17/2025 10:30:22 01/18/20 25 01/17/2025 drug scree n, urine Phenocyclidi ne: negati ve Not Available [facility] [address], [place], [address], 01/17/2025 10:30:22 01/18/20 25 01/17/2025 drug scree n, urine Barbiturates : negati ve Not Available [facility] [address], [place], [address], 01/17/2025 10:30:22 01/18/20 25 01/17/2025 drug scree n, urine Benzodiazepi sabrina: negati ve Not Available [facility] [address], [place], [address], 01/17/2025 10:30:22 01/18/20 25 01/17/2025 drug scree n, urine Ethanol: negati ve Not Available [facility] [address], [place], [address], 01/17/2025 10:30:22 01/18/20 25 01/17/2025 drug scree n, urine Hallucinogen s: negati ve Not Available [facility] [address], [place], [address], 01/17/2025 10:30:22 01/18/20 25 01/17/2025 drug scree n, urine Inhalants: negati ve Not Available [facility] [address], [place], [address], 01/17/2025 10:30:22 01/18/20 25 01/17/2025 drug scree n, urine Anabolic Steroids: negati ve Not Available [facility] [address], [place], [address], 01/17/2025 10:30:22 01/18/20 25 01/17/2025 drug scree n, urine Other: positi ve Not Available [facility], [place], [address], 01/17/2025 10:30:22 05/09/20 25 05/09/2025 HEMOG LOBIN (HGB) HGB 9.6 g/dL (based on docume nted legal sex) 11.6-1 5.4 low Not Available [facility] (Lab) [address] [facility], [place], [address], 05/12/2025 14:37:31 05/09/20 25 05/09/2025 HEMAT OCRIT (HCT) HCT 30.4 % (based on docume nted legal sex) 34.0-4 5.0 low Not Available [facility] (Lab) [address] [facility], [place], [address], 05/12/2025 14:37:32 05/09/20 25 05/09/2025 GTT - GESTA SINDHU L SASKIA Colon, ACOG OB glucose, 1 hour screen 70 mg/dL 70-135 Not Available [facility] (Lab) [address] [facility], [place], [address], 05/12/2025 14:37:32 05/09/20 25 05/09/2025 HIV 1/2 ANTIG EN/AN TIBOD Y, REFLE X CONFI RMATI ON HIV antigen/anti body Nonrea ctive nonrea ctive HIV-1 antig en and HIV-1 /HIV- 2 antib odies were not detec alfonso. No labor atory evide nce of HIV infec tion. Not Available [facility] (Lab) [address] [facility], [place], [address], 05/12/2025 14:37:32 05/09/20 25 05/09/2025 RPR SCREE N, REFLE X TITER /CONF IRMAT ION RPR qualitative Nonrea ctive nonrea ctive Not Available [facility] (Lab) [address] [place], [address], 05/12/2025 14:37:33 05/09/2005/09/2025 urina lysis , dipst ick Leukocytes trace Not Available Bin[facility] watson [address], [place], [address], 05/09/2025 14:43:51 05/09/2005/09/2025 urina lysis , dipst ick Nitrite neg Not Available [facility] [address], [place], [address], 05/09/2025 14:43:51 05/09/2005/09/2025 urina lysis , dipst ick Urobilinogen norm Not Available [facility] [address], [place], [address], 05/09/2025 14:43:51 05/09/2005/09/2025 urina lysis , dipst ick Protein trace Not Available [facility] [address], [place], [address], 05/09/2025 14:43:51 05/09/2005/09/2025 urina lysis , dipst ick pH 5 Not Available [facility] [address], [place], [address], 05/09/2025 14:43:51 05/09/2005/09/2025 urina lysis , dipst ick Specific [place] 1.015 Not Available [facility] [address], [place], [address], 05/09/2025 14:43:51 05/09/2005/09/2025 urina lysis , dipst ick Ketone trace Not Available [facility] [address], [place], [address], 05/09/2025 14:43:51 05/09/20 25 05/09/2025 urina lysis , dipst ick Bilirubin nor Not Available [facility] [address], [place], [address], 05/09/2025 14:43:51 05/09/20 25 05/09/2025 urina lysis , dipst ick Glucose neg Not Available [facility] [address], [place], [address], 05/09/2025 14:43:51 05/09/20 25 05/09/2025 urina lysis , dipst ick Appearance clear Not Available [facility] [address], [place], [address], 05/09/2025 14:43:51 05/09/20 25 05/09/2025 urina lysis , dipst ick Color yellow Not Available [facility] [address], [place], [address], 05/09/2025 14:43:51 01/18/20 25 01/17/2025 US, obste tric, nucha l trans lucen cy No observ ation record ed. [facility] [address], [place], [address], 01/17/2025 17:27:13 01/18/20 25 01/17/2025 US, obste tric, follo w-up No observ ation record ed. [email or web address] [address], [place], [address], 01/21/2025 15:12:49 03/12/20 25 03/12/2025 US, obste tric, 2nd or 3rd trime ster No observ ation record ed. [facility] [address], [place], [address], 03/12/2025 18:48:30 03/12/20 25 03/12/2025 US, obste tric, 2nd or 3rd trime ster No observ ation record ed. [email or web address] [address], [place], [address], 03/14/2025 09:40:30 04/11/2004/11/2025 US, obste tric, follo w-up No observ ation record ed. [facility] [address], [place], [address], 04/11/2025 17:08:07 04/11/2004/11/2025 US, obste tric, follo w-up No observ ation record ed. [email or web address] [address], [place], [address], 04/15/2025 06:50:04 05/09/20 25 05/09/2025 US, obste tric, follo w-up No observ ation record ed. [facility] [address], [place], [address], 05/09/2025 16:53:22 05/09/2005/09/2025 US, obste tric, follo w-up No observ ation record ed. [address], [place], [address], 05/12/2025 12:19:00 06/05/20 25 06/05/2025 US, obste tric, follo w-up No observ ation record ed. [email or web address] [facility] [address], [place], [address], 06/05/2025 15:11:40 06/05/2006/05/2025 US, obste tric, follo w-up No observ ation record ed. [email or web address] [address], [place], [address], 06/13/2025 14:46:41 06/06/20 25 06/06/2025 US, obste tric, bioph ysica l profi le No observ ation record ed. [address], [place], [address], 06/18/2025 15:22:02 06/06/20 25 06/06/2025 US, obste tric, bioph ysica l profi le No observ ation record ed. [address], [place], [address], 06/18/2025 15:21:42 06/06/20 25 06/06/2025 US, obste tric, follo w-up No observ ation record ed. [address] [facility], [place], [address], 06/10/2025 11:24:02 06/06/20 25 06/06/2025 non-s tress test No observ ation record ed. [address], [place], [address], 06/30/2025 10:44:26 07/03/20 25 07/03/2025 US, obste tric, follo w-up No observ ation record ed. [email or web address] [address] [place] [address] [address], [place], [address], 07/08/2025 13:03:57 07/03/20 25 07/03/2025 US, obste tric, follo w-up No observ ation record ed. [facility] [address], [place], [address], 07/03/2025 18:32:15 07/03/20 25 07/03/2025 US, obste tric, bioph ysica l profi le + non-s tress test No observ ation record ed. [facility] [address], [place], [address], 07/03/2025 18:32:26 07/03/20 25 07/03/2025 US, doppl er, umbil ical arter y veloc imetr y No observ ation record ed. [email or web address] [facility] [address], [place], [address], 07/03/2025 18:32:38 07/05/20 25 06/06/2025 US, obste tric, bioph ysica l profi le + non-s tress test No observ ation record ed. [email or web address] [facility] [address], [place], [address], 07/05/2025 12:07:31 07/09/20 25 07/09/2025 US, obste tric, bioph ysica l profi le + non-s tress test No observ ation record ed. [email or web address] [facility] [address], [place], [address], 07/09/2025 12:42:49 07/09/20 25 07/09/2025 US, doppl er, umbil ical arter y veloc imetr y No observ ation record ed. [email or web address] [facility] [address], [place], [address], 07/09/2025 12:43:32 07/09/20 25 07/09/2025 US, obste tric, bioph ysica l profi le + non-s tress test No observ ation record ed. JUDY [address], [place], [address], 07/12/2025 13:33:23 07/09/20 25 07/09/2025 non-s tress test No observ ation record ed. [email or web address] [facility] [address], [place], [address], 07/09/2025 18:38:27 12/10/20 25 non-s tress test No observ ation record ed. [email or web address] [facility] [address], [place], [address], 07/09/2025 13:30:59 Result Notes None recorded. Problems Name Problem SNOMED Code Status Onset Date Resolution Date Notes Provider Name and Address Organization Details Recorded Time Group B Streptoc occus carrier 2891413447 103 Completed h/o in first preg. Renee Torres MD [address], [place], [address], [facility] 3 10:33:02 Ultrasou nd scan abnormal [id number] Completed subamnio tic hemorrha ge - rpt u/s schd 01/04/23- wnl at [facility]. [facility] 3 16:42:26 Uterine size for dates discrepa ncy [id number] [facility] 3 16:42:26 Venous conroy [id number] Completed placenta - 02/21/24 9am u/s only. REBECCA MENA MD [address], [place], [address], [facility] 4 11:34:29 Placenta circumva llata [id number] Completed REBECCA MENA MD [address], [place], [address], [facility] 4 11:34:29 Pregnanc y 62603033 Completed 202203/13/2023 Chaya cabrera, [facility] 5 10:31:09 Pregnanc y 44095361 Completed 202305/27/2024 Chaya cabrera, [facility] 5 10:31:09 Pregnanc y 09116548 Active 2024 Chaya Marley null, [facility] 10:31:09 Group B Streptoc occus carrier 9457208399 103 Active 2024 + GBS in urine Tiara Alarcon null, [facility] 5 17:54:31 Poor growth affectin g manageme nt 963336614 Active 2024 6% Zuleima Olsen CNM [address], [place], [address], [facility] 11:57:52 Problem Notes None recorded. Procedures Surgical History Date Name Laterality Status Provider Name and Address Organization Details Recorded Time 05/05/20 23 Date of Last Pap Smear completed Iveth Guevara [facility] 05/23/2025 14:51:22 02/29/20 22 IUD Removal completed STEPHANIE Acevedo [address], [place], [address], [facility] 02/28/2022 09:46:01 02/10/20 21 Colposcopy completed Chaya Marley [facility] 01/17/2025 10:28:24 02/10/20 21 cervical biopsy completed Chaya Marley [facility] 07/27/2022 10:28:55 07/31/19 20 extraction of wisdom tooth completed Chaya Marley [facility] 07/27/2022 10:28:13 07/31/19 18 Date of Last Colonoscopy completed Chaya Marley [facility] 07/27/2022 10:27:19 07/31/19 18 Colonoscopy completed Chayaondina Marley [facility] 07/27/2022 10:28:04 Imaging Results None recorded. [...] and Address Organization Details Last Updated DateTime 06/13/2025 162.56 cm 24 kg/m2 27021.93 g 106/66 mm[Hg] Iveth Guevara [facility] 06/13/2025 11:04:59 Social History Question Answer Notes LastModified by Organizat ion Details LastModified Time Tobacco Smoking Status Former Smoker Sujata Zheng rick [facility] 10/20/2022 09:56:48 Do You Have An Advance Directive? No Information not available 02/08/2021 If You Are , What Was Your Level Of Alcohol Consumption Prior To ? Occasional [email or web address] Information not available 10/20/2022 Are You Blind [...] Or The Highest Degree You Have Received? [id number] Information not available 02/08/2021 Are There Any Guns Present In Your Home? No Information not available 02/08/2021 Do You Use Protection During Sex? No Information not available 02/08/2021 Do You Use Your Seat Belt Or Car Seat Routinely? Yes Information not available 02/08/2021 Are You Sexually Active? Yes [email or web address] Information not available 03/12/2025 Do You Have Smoke And Carbon Monoxide Detectors In Your Home? Yes Information not available 02/08/2021 How Much Tobacco Do You Smoke? No Information not available 02/08/2021 Do You Use Sunscreen Routinely? Yes Information not available 02/08/2021 Have You Used IV Drugs? No Information not available 02/08/2021 Do You Have Difficulty Walking Or Climbing Stairs? No [email or web address] Information not available 10/20/2022 Sex: Unknown Functional [...] able to care for yourself independently? Yes [email or web address] Information not available 10/20/2022 What is your occupation? [employer] [email or web address] Information not available 10/20/2022 Do you have difficulty dressing, bathing, grooming, or toileting? No [email or web address] Information not available 10/20/2022 What is your exercise level? Heavy Information not available 02/08/2021 Mental Status Question Answer Note LastModified by Organization D [employer] LastModified Time Do you feel stressed (tense, restless, nervous, or anxious, or unable to sleep at night)? [id number] Information not available 02/08/2021 Family History Relationship Description Onset Age of this Age Resolved Age Notes LastModified by Organization Details LastModified Time Maternal Aunt Disorder of thyroid gland Not available 2020 11:46:08 Maternal Aunt Malignant neoplasm of ovary Not available 2020 11:36:55 Mother Anemia Not available 02/08/2021 11:46:08 Mother Malignant neoplasm of breast [email or web address] Not available 07/27 21:16:57 Mother Malignant neoplasm of lung [email or web address] Not available 07/27 21:17:08 Paternal Aunt Malignant [...] ICD10 Code Diagnosis IMO Codes Diagnosis Note [id number] Zuleima Olsen CNM [facility] [address] [address] 05/23/2025 14:43:28 05/23/2025 15:06:10 Gestation period, 30 weeks 38913503 Z3A.30 [id number] continue vitamin 500174 Orion Cobb MD [facility] [address] [address] 06/05/2025 10:56:09 06/05/2025 14:07:34 Abnormal placenta affecting management of mother [id number] O43.93 Z3A.32 [id number] Zuleima Olsen CNM [facility] [address],[place] [address] 06/06/2025 11:46:55 06/06/2025 12:09:09 Gestation period, 32 weeks 1261007 Z3A.32 1930200 cont pnv [id number] uZleima Olsen CNM [facility] [address],[place] [address] 06/06/2025 12:50:38 06/06/2025 16:10:48 Premature uterine contraction 244884347 O47.00 [id number] Zuleima Olsen CNM [facility] [address],[place] [address] 06/13/2025 10:37:51 06/13/2025 11:20:38 Gestation period, 33 weeks 96036498 Z3A.33 0212719 cont pnv Health Concerns Section Related Observation LastModified by Organization Detai ls LastModified Time None Recorded Concern Status LastModified by Organization Details LastModified Time None Recorded Payers Encounter Date Sequence Insurance Name Policy Number Policy Veloz Covered Member ID Veloz Member ID Guarantor Name 06/13/2025 1 [facility] (MEDICAID HMO) [id number] Trina Dhillon [id number] Man Oneil Notes Date Note Type Note Provider Name and Address Organization Details Recorded Time 06/13/2025 text/html Generic HPI TemplateReported by Patient [address], [place], [address], [facility] 06/13/2025 11:17:20 OBGyn Episode Ob Episode Information Episode Created Date Number of Fetuses Patient Bloodtype Patient rh Status Prepregnancy Weight lbs Domestic Partner Domestic Partner Phone Father Name Rolfer Status 01/18/20 25 1 O Positive 112 Alli Rahman h OPEN Fetus Data First Name Last Name Admitted to NICU Weight (g) Sex Living Outcome Pediatric Complications Fetus ID Race Codes Race Delivery Type [id number] Problems Problem Notes multiple placental lakes STA BLE Problem Name Start Date End Date Resolution Snomed Code Not e Group B Streptococcus carrier 01/21/2025 [id number] + GBS in urine Poor growth affecting management 07/04/2025 [id number] 6% Moises Calculation Initial Moises Date Initial [...] Weight in lbs Pre/Post Dialysis Refused Weight 112.049692711740 BP Diastolic BP Location Tested BP Systolic [...] Type Weight in lbs Pre/Post Dialysis Refused 114.471287537937 BP Diastolic BP Location Tested BP Systolic [...] Type Weight in lbs Pre/Post Dialysis Refused 122.984183271252 BP Diastolic BP Location Tested BP Systolic [...] Weight in lbs Pre/Post Dialysis Refused Weight 127.562808913336 BP Diastolic BP Location Tested BP Systolic [...] Weight in lbs Pre/Post Dialysis Refused Weight 136.977665018699 BP Diastolic BP Location Tested BP Systolic [...] Weight in lbs Pre/Post Dialysis Refused Weight 137.734247237763 BP Diastolic BP Location Tested BP Systolic [...] Type Weight in lbs Pre/Post Dialysis Refused 140.154725135809 BP Diastolic BP Location Tested BP Systolic [...] Weight in lbs Pre/Post Dialysis Refused Weight 140.201178247184 BP Diastolic BP Location Tested BP Systolic [...] Weight in lbs Pre/Post Dialysis Refused Weight 139.87885470556 BP Diastolic BP Location Tested BP Systolic [...] Weight in lbs Pre/Post Dialysis Refused Weight 141.020174360278 BP Diastolic BP Location Tested BP Systolic [...] Weight in lbs Pre/Post Dialysis Refused Weight 145.194431450198 BP Diastolic BP Location Tested BP Systolic [...] Weight in lbs Pre/Post Dialysis Refused Weight 146.107900063712 BP Diastolic BP Location Tested BP Systolic BP Type 69 L arm 104 sitting Fetus Heart Rate Present Fetus Movement A Yes Comments Flowsheet Date 07/09/2025 Ross Score Blood Edema Fundus Height Fundus Units Glucose Ketones Leukocytes Nitrite Labor Signs Protein Cervic Dilation Cervic Effacement Cervic Station Type Weight in lbs Pre/Post Dialysis Refused 146.993156859560 BP Diastolic BP Location Tested BP Systolic [...]
--- OUTSIDE RECORDS SUMMARY | 2025-07-13 17:19 | XMS_ITS | Continuity of Care Document ---
Author Organization [facility] [address] [place] [address] [place] [address] Assessment Encounter Date Assessment Date Assessment LastModified by Organization Details LastModified Time 07/04/2025 07/04/2025 Patient is _36__weeks . Discussed plan. Not available 07/04/2025 11:57:08 Plan of Treatment Reminders Order Date Submit [...] Not Available [facility] [address], [place], [address], 01/22/2025 22:58:15 01/23/20 25 01/22/2025 [UNIT Y] ANEUP LOIDY NIPT 22Q11.2 microdeletio n LOW RISK <1 in 10,000 normal Not Available [facility] [address], [place], [address], 01/22/2025 22:58:15 01/23/20 25 01/22/2025 [UNIT Y] ANEUP LOIDY NIPT sex chromosome aneuploidy NOT DETECT ED normal Not Available [facility] [address], [place], [address], 01/22/2025 22:58:15 01/23/20 25 01/22/2025 [UNIT Y] ANEUP LOIDY NIPT monosomy X LOW RISK <1 in 10,000 normal Not Available [facility] [address], [place], [address], 01/22/2025 22:58:15 01/23/20 25 01/22/2025 [UNIT Y] ANEUP LOIDY NIPT trisomy 13 LOW RISK <1 in 10,000 normal Not Available [facility] [address], [place], [address], 01/22/2025 22:58:15 01/23/20 25 01/22/2025 [UNIT Y] ANEUP LOIDY NIPT trisomy 18 LOW RISK <1 in 10,000 normal Not Available [facility] [address], [place], [address], 01/22/2025 22:58:15 01/23/20 25 01/22/2025 [UNIT Y] ANEUP LOIDY NIPT trisomy 21 LOW RISK <1 in 10,000 normal Not Available [facility] [address], [place], [address], 01/22/2025 22:58:15 01/23/20 25 01/22/2025 [UNIT Y] ANEUP LOIDY NIPT sex MALE normal Not Available [facility] [address], [place], [address], 01/22/2025 22:58:15 01/23/20 25 01/22/2025 [UNIT Y] ANEUP LOIDY NIPT gestation SINGLE TON normal Not Available [facility] [address], [place], [address], 01/22/2025 22:58:15 01/23/20 01/22/2025 [UNIT Y] ANEUP JENNIE NIPT for detailed report, see pdf See PDF normal Not Available [facility] [address], [place], [address], 01/22/2025 22:58:15 01/18/2001/17/2025 CULTU RE: URINE result report SEE RESULT S BELOW abnormal Test: Cultu re: Urine Speci men Sourc e: Urine Voide d Speci men Type: Urine Speci men Date: 2024 1622 Resul t Date: 2024 0142 Resul t Statu s: Final resul t Abnor mal: Yes Resul josé [email or web address] Lab: [facility] [address] [facility] [address] Tel: CULTU RE ----- ----- ----- --- [...] lab withi n 5 days. Not Available [facility] (Lab) [address] , [place], [address], 01/19/2025 02:46:33 01/18/2001/17/2025 CBC W/DIF F WBC 8.1 10'3/ uL 3.5-10 .5 Not Available [facility] (Lab) [address] , [place], [address], 01/20/2025 12:18:01 01/18/20 25 01/17/2025 CBC W/DIF F RBC 3.68 10'6/ uL (based on docume nted legal sex) 3.80-5 .20 low Not Available [facility] (Lab) [address], [place], [address], 01/20/2025 12:18:01 01/18/20 25 01/17/2025 CBC W/DIF F HGB 10.4 g/dL (based on docume nted legal sex) 11.6-1 5.4 low Not Available [facility] (Lab) [address] [facility], [place], [address], 01/20/2025 12:18:01 01/18/20 25 01/17/2025 CBC W/DIF F HCT 32.2 % (based on docume nted legal sex) 34.0-4 5.0 low Not Available [facility] (Lab) [address] [facility], [place], [address], 01/20/2025 12:18:01 01/18/20 25 01/17/2025 CBC W/DIF F MCV 87.5 fL 80.0-9 9.0 Not Available [facility] (Lab) [address] [facility], [place], [address], 01/20/2025 12:18:01 01/18/20 25 01/17/2025 CBC W/DIF F MCH 28.3 pg 27.0-3 4.0 Not Available [facility] (Lab) [address] [facility], [place], [address], 01/20/2025 12:18:01 01/18/20 25 01/17/2025 CBC W/DIF F MCHC 32.3 g/dL 32.0-3 5.5 Not Available [facility] (Lab) [address] [facility], [place], [address], 01/20/2025 12:18:01 01/18/20 25 01/17/2025 CBC W/DIF F RDW 14.5 % 11.0-1 5.0 Not Available [facility] (Lab) [address] [facility], [place], [address], 01/20/2025 12:18:01 01/18/20 25 01/17/2025 CBC W/DIF F plt 157 10'3/ uL 150-40 0 Not Available [facility] (Lab) [address], [place], [address], 01/20/2025 12:18:01 01/18/20 25 01/17/2025 CBC W/DIF F MPV 12.7 fL 8.8-12 .1 high Not Available [facility] (Lab) [address], [place], [address], 01/20/2025 12:18:01 01/18/20 25 01/17/2025 CBC W/DIF F NRBC's 0.0 % 0.0 Not Available [facility] (Lab) [address], [place], [address], 01/20/2025 12:18:01 01/18/20 25 01/17/2025 CBC W/DIF F absolute NRBCs 0.0 10'3/ uL no refere nce range establ ished Not Available [facility] (Lab) [address], [place], [address], 01/20/2025 12:18:01 01/18/20 25 01/17/2025 CBC W/DIF F neutrophils 73.9 % 34.0-7 3.0 high Not Available [facility] (Lab) [address], [place], [address], 01/20/2025 12:18:01 01/18/20 25 01/17/2025 CBC W/DIF F lymphocytes 21.1 % 15.0-5 0.0 Not Available [facility] (Lab) [address], [place], [address], 01/20/2025 12:18:01 01/18/20 25 01/17/2025 CBC W/DIF F monocytes 4.1 % 1.0-15 .0 Not Available [facility] (Lab) [address] [place], [address], 01/20/2025 12:18:01 01/18/20 25 01/17/2025 CBC W/DIF F eosinophils 0.5 % 0.0-8. 0 Not Available [facility] (Lab) [address], [place], [address], 01/20/2025 12:18:01 01/18/20 25 01/17/2025 CBC W/DIF F basophils 0.2 % 0.0-2. 0 Not Available [facility] (Lab) [address], [place], [address], 01/20/2025 12:18:01 01/18/20 25 01/17/2025 CBC W/DIF [...] separ ately if prese nt. Not Available [facility] (Lab) [address] , [place], [address], 01/20/2025 12:18:01 01/18/20 25 01/17/2025 CBC W/DIF F absolute neutrophils 6.0 10'3/ uL 1.5-8. 0 Not Available [facility] (Lab) [address], [place], [address], 01/20/2025 12:18:01 01/18/20 25 01/17/2025 CBC W/DIF F absolute lymphocytes 1.7 10'3/ uL 1.0-4. 0 Not Available [facility] (Lab) [address], [place], [address], 01/20/2025 12:18:01 01/18/20 25 01/17/2025 CBC W/DIF F absolute monocytes 0.3 10'3/ uL 0.2-1. 0 Not Available [facility] (Lab) [address], [place], [address], 01/20/2025 12:18:01 01/18/20 25 01/17/2025 CBC W/DIF F absolute eosinophils 0.0 10'3/ uL 0.0-0. 6 Not Available [facility] (Lab) [address] [facility], [place], [address], 01/20/2025 12:18:01 01/18/20 25 01/17/2025 CBC W/DIF F absolute basophils 0.0 10'3/ uL 0.0-0. 3 Not Available [facility] (Lab) [address] [facility], [place], [address], 01/20/2025 12:18:01 01/18/20 25 01/17/2025 CBC W/DIF [...] and book. nm.or g/gen derx Not Available [facility] (Lab) [address] [facility], [place], [address], 01/20/2025 12:18:01 01/18/20 25 01/17/2025 HEPAT ITIS [...] Hispa zohaib or Latin o Not Available [facility] (Lab) [address] [facility], [place], [address], 01/20/2025 12:18:02 01/18/20 25 01/17/2025 HEPAT ITIS C ANTIB TOM SCREE N, REFLE X TO CONFI RMATI ON hepatitis C antibody Non-re active non-re active Antib odies to HCV Not Detec alfonso, does not exclu de the possi bilit y of expos ure to HCV. : Not Hispa zohaib or Latin o Not Available [facility] (Lab) [address] [facility], [place], [address], 01/20/2025 12:18:02 01/18/20 25 01/17/2025 HIV 1/2 ANTIG EN/AN TIBOD Y, REFLE X CONFI RMATI ON HIV antigen/anti body Nonrea ctive nonrea ctive : Not Hispa zohaib or Latin o HIV-1 antig en and HIV-1 /HIV- 2 antib odies were not detec alfonso. No labor atory evide nce of HIV infec tion. Not Available [facility] (Lab) [address] [facility], [place], [address], 01/20/2025 12:18:03 01/18/20 25 01/17/2025 TYPE/ RH/SC REEN ABO/Rh type O POS Not Available [facility] (Lab) [address] [place], [address], 01/20/2025 12:18:03 01/18/20 25 01/17/2025 TYPE/ RH/SC REEN antibody screen NEG Not Available [facility] (Lab) [address] [place], [address], 01/20/2025 12:18:03 01/18/20 25 01/17/2025 TYPE/ RH/SC REEN exp date 2024 23:59 Not Available [facility] (Lab) [address] [facility], [place], [address], 01/20/2025 12:18:03 01/18/20 25 01/17/2025 RUBEL LA IGG ANTIB TOM, QUANT rubella antibodies, IgG Reacti ve reacti ve Not Available [facility] (Lab) [address] [facility], [place], [address], 01/20/2025 12:18:04 01/18/20 25 01/17/2025 RUBEL LA IGG ANTIB TOM, QUANT rubella antibodies, IgG quant 12.2 IU/mL >=10 : Not Hispa zohaib or Latin o Non-r eacti ve (Non- Immun e) <10 IU/mL React nesha (Immu ne) > or = 10 IU/mL Not Available [facility] (Lab) [address] [facility], [place], [address], 01/20/2025 12:18:04 01/18/20 25 01/17/2025 RPR SCREE N, REFLE X TITER /CONF IRMAT ION RPR qualitative Nonrea ctive nonrea ctive : Not Hisma zohaib or Latin o Not Available [facility] (Lab) [address] [facility], [place], [address], 01/20/2025 12:18:04 01/18/20 25 01/17/2025 HEMOG LOBIN [...] >8.0% Actio n sugge sted Not Available [facility] (Lab) [address] [facility], [place], [address], 01/20/2025 12:18:04 01/18/20 25 01/17/2025 LEAD, BLOOD (ADUL T/PED IATRI C) lead, whole blood <1.0 mcg/d L <3.5 See Note 1 Antonio sis was perfo rmed by Jimbo Conroy ed Plasm a Mass Spect romet ry (ICPM S) Note 1 This test was devel oped and its antonio tical perfo rmanc e jenaro cteri stics have been deter mined by [employer] a [employer]. It has not been clear ed or appro dolores by the FDA. This assay has been valid ated pursu ant to the CLIA regul ation s and is used for clini gogo purpo ses. : Not Hispa zohaib or Latin o Perfo rming Organ izati on Infor matio n: Site ID: CB Name: idiag ostic s-Brandon simon [place] Addre ss: [address] [place] [address] Dire tor: Galileo newton Not Available [facility] (Lab) [address] [facility], [place], [address], 01/20/2025 12:18:05 01/18/20 25 01/17/2025 drug scree n, urine Amphetamines : negati ve Not Available [facility] [address], [place], [address], 01/17/2025 10:30:22 01/18/20 25 01/17/2025 drug scree n, urine Cannabinoids : negati ve Not Available [facility] [address], [place], [address], 01/17/2025 10:30:22 01/18/20 25 01/17/2025 drug scree n, urine Cocaine: negati ve Not Available [facility] [address], [place], [address], 01/17/2025 10:30:22 01/18/20 25 01/17/2025 drug scree n, urine Opiates: negati ve Not Available [facility] [address], [place], [address], 01/17/2025 10:30:22 01/18/20 25 01/17/2025 drug scree n, urine Phenocyclidi ne: negati ve Not Available [facility] [address], [place], [address], 01/17/2025 10:30:22 01/18/20 25 01/17/2025 drug scree n, urine Barbiturates : negati ve Not Available [facility] [address], [place], [address], 01/17/2025 10:30:22 01/18/20 25 01/17/2025 drug scree n, urine Benzodiazepi sabrina: negati ve Not Available [facility] [address], [place], [address], 01/17/2025 10:30:22 01/18/20 25 01/17/2025 drug scree n, urine Ethanol: negati ve Not Available [facility] [address], [place], [address], 01/17/2025 10:30:22 01/18/20 25 01/17/2025 drug scree n, urine Hallucinogen s: negati ve Not Available [facility] [address], [place], [address], 01/17/2025 10:30:22 01/18/20 25 01/17/2025 drug scree n, urine Inhalants: negati ve Not Available [facility] [address], [place], [address], 01/17/2025 10:30:22 01/18/20 25 01/17/2025 drug scree n, urine Anabolic Steroids: negati ve Not Available [facility] [address], [place], [address], 01/17/2025 10:30:22 01/18/20 25 01/17/2025 drug scree n, urine Other: positi ve Not Available [facility], [place], [address], 01/17/2025 10:30:22 05/09/20 25 05/09/2025 HEMOG LOBIN (HGB) HGB 9.6 g/dL (based on docume nted legal sex) 11.6-1 5.4 low Not Available [facility] (Lab) [address] [facility], [place], [address], 05/12/2025 14:37:31 05/09/20 25 05/09/2025 HEMAT OCRIT (HCT) HCT 30.4 % (based on docume nted legal sex) 34.0-4 5.0 low Not Available [facility] (Lab) [address] [facility], [place], [address], 05/12/2025 14:37:32 05/09/20 25 05/09/2025 GTT - GESTA SINDHU L SASKIA Colon, ACOG OB glucose, 1 hour screen 70 mg/dL 70-135 Not Available [facility] (Lab) [address] [facility], [place], [address], 05/12/2025 14:37:32 05/09/20 25 05/09/2025 HIV 1/2 ANTIG EN/AN TIBOD Y, REFLE X CONFI RMATI ON HIV antigen/anti body Nonrea ctive nonrea ctive HIV-1 antig en and HIV-1 /HIV- 2 antib odies were not detec alfonso. No labor atory evide nce of HIV infec tion. Not Available [facility] (Lab) [address] [facility], [place], [address], 05/12/2025 14:37:32 05/09/20 25 05/09/2025 RPR SCREE N, REFLE X TITER /CONF IRMAT ION RPR qualitative Nonrea ctive nonrea ctive Not Available [facility] (Lab) [address] [place], [address], 05/12/2025 14:37:33 05/09/2005/09/2025 urina lysis , dipst ick Leukocytes trace Not Available [facility] [address], [place], [address], 05/09/2025 14:43:51 05/09/2005/09/2025 urina lysis , dipst ick Nitrite neg Not Available [facility] [address], [place], [address], 05/09/2025 14:43:51 05/09/2005/09/2025 urina lysis , dipst ick Urobilinogen norm Not Available [facility] [address], [place], [address], 05/09/2025 14:43:51 05/09/2005/09/2025 urina lysis , dipst ick Protein trace Not Available [facility] [address], [place], [address], 05/09/2025 14:43:51 05/09/2005/09/2025 urina lysis , dipst ick pH 5 Not Available [facility] [address], [place], [address], 05/09/2025 14:43:51 05/09/2005/09/2025 urina lysis , dipst ick Specific [place] 1.015 [facility] Available [facility] [address], [place], [address], 05/09/2025 14:43:51 05/09/2005/09/2025 urina lysis , dipst ick Ketone trace Not Available [facility] [address], [place], [address], 05/09/2025 14:43:51 05/09/20 25 05/09/2025 urina lysis , dipst ick Bilirubin nor Not Available [facility] [address], [place], [address], 05/09/2025 14:43:51 05/09/2005/09/2025 urina lysis , dipst ick Glucose neg Not Available [facility] [address], [place], [address], 05/09/2025 14:43:51 05/09/2005/09/2025 urina lysis , dipst ick Appearance clear Not Available [facility] [address], [place], [address], 05/09/2025 14:43:51 05/09/2005/09/2025 urina lysis , dipst ick Color yellow Not Available [facility] [address], [place], [address], 05/09/2025 14:43:51 07/04/20 25 07/04/2025 CULTU RE: GROUP B STREP SCREE N, REFLE X SUSCE PTIBI LITY result report SEE RESULT S BELOW abnormal Test: Cultu re: Group B Strep , Refle x Susce ptibi lity ([facility] ) Speci men Sourc e: Vagin a/Rec barbara Speci men Type: Vagin al/Re ctal Speci men Date: 2024 1137 Resul t Date: 2024 1449 Resul t Statu s: Final resul t Abnor mal: Yes Resul marcus Lab: [facility] [address] [facility] [address] Tel: CULTU RE ----- ----- ----- --- [...] castillo for these drugs . Not Available [facility] (Lab) [address] [facility] [address], [place], [address], 07/08/2025 16:24:59 07/04/20 25 07/04/2025 WOMEN 'S [...] or negat nesha statu s. Not Available [facility] (Lab) [address] [facility], [place], [address], 07/08/2025 16:25:00 07/04/20 25 07/04/2025 WOMEN 'S HEALT H SWAB, BEVERLY varsha species, tma Positi ve negati ve abnormal Not Available [facility] (Lab) [address] [place], [address], 07/08/2025 16:25:00 07/04/20 25 07/04/2025 WOMEN 'S HEALT H SWAB, BEVERLY varsha glabrata, tma Negati ve negati ve Not Available [facility] (Lab) [address] [place], [address], 07/08/2025 16:25:00 07/04/20 25 07/04/2025 WOMEN 'S [...] Ampli ficat ion (TMA) . Not Available [facility] (Lab) [address], [place], [address], 07/08/2025 16:25:00 01/18/20 25 01/17/2025 US, obste tric, nucha l trans lucen cy No observ ation record ed. [facility] [address], [place], [address], 01/17/2025 17:27:13 01/18/20 25 01/17/2025 US, obste tric, follo w-up No observ ation record ed. [email or web address] [address], [place], [address], 01/21/2025 15:12:49 03/12/20 25 03/12/2025 US, obste tric, 2nd or 3rd trime ster No observ ation record ed. [facility] [address], [place], [address], 03/12/2025 18:48:30 03/12/20 25 03/12/2025 US, obste tric, 2nd or 3rd trime ster No observ ation record ed. [email or web address] [address], [place], [address], 03/14/2025 09:40:30 04/11/20 25 04/11/2025 US, obste tric, follo w-up No observ ation record ed. [facility] [address], [place], [address], 04/11/2025 17:08:07 04/11/20 25 04/11/2025 US, obste tric, follo w-up No observ ation record ed. [email or web address] [address], [place], [address], 04/15/2025 06:50:04 05/09/20 25 05/09/2025 US, obste tric, follo w-up No observ ation record ed. [email or web address] [facility] [address], [place], [address], 05/09/2025 16:53:22 05/09/2005/09/2025 US, obste tric, follo w-up No observ ation record ed. [email or web address] [address], [place], [address], 05/12/2025 12:19:00 06/05/20 25 06/05/2025 US, obste tric, follo w-up No observ ation record ed. [email or web address] [facility] [address], [place], [address], 06/05/2025 15:11:40 06/05/20 25 06/05/2025 US, obste tric, follo w-up No observ ation record ed. [email or web address] [address], [place], [address], 06/13/2025 14:46:41 06/06/20 25 06/06/2025 US, obste tric, bioph ysica l profi le No observ ation record ed. [address] [place] [address], [address], 06/18/2025 15:22:02 06/06/20 25 06/06/2025 US, obste tric, bioph ysica l profi le No observ ation record ed. [place] [address] [facility] [address], [address], 06/18/2025 15:21:42 06/06/20 25 06/06/2025 US, obste tric, follo w-up No observ ation record ed. [address], [place], [address], 06/10/2025 11:24:02 06/06/20 25 06/06/2025 non-s tress test No observ ation record ed. [address], [place], [address], 06/30/2025 10:44:26 07/03/20 25 07/03/2025 US, obste tric, follo w-up No observ ation record ed. [address], [place], [address], 07/08/2025 13:03:57 07/03/20 25 07/03/2025 US, obste tric, follo w-up No observ ation record ed. [facility] [address], [place], [address], 07/03/2025 18:32:15 07/03/20 25 07/03/2025 US, obste tric, bioph ysica l profi le + non-s tress test No observ ation record ed. [facility] [address], [place], [address], 07/03/2025 18:32:26 07/03/20 25 07/03/2025 US, doppl er, umbil ical arter y veloc imetr y No observ ation record ed. [facility] [address], [place], [address], 07/03/2025 18:32:38 07/05/20 25 06/06/2025 US, obste tric, bioph ysica l profi le + non-s tress test No observ ation record ed. [email or web address] [facility] [address], [place], [address], 07/05/2025 12:07:31 07/09/20 25 07/09/2025 US, obste tric, bioph ysica l profi le + non-s tress test No observ ation record ed. [email or web address] [facility] [address], [place], [address], 07/09/2025 12:42:49 07/09/20 25 07/09/2025 US, doppl er, umbil ical arter y veloc imetr y No observ ation record ed. [email or web address] [facility] [address], [place], [address], 07/09/2025 12:43:32 07/09/20 25 07/09/2025 US, obste tric, bioph ysica l profi le + non-s tress test No observ ation record ed. JUDY [address], [place], [address], 07/12/2025 13:33:23 07/09/20 25 07/09/2025 non-s tress test No observ ation record ed. [email or web address] [facility] [address], [place], [address], 07/09/2025 18:38:27 07/09/20 non-s tress test No observ ation record ed. [email or web address] [facility] [address], [place], [address], 07/09/2025 13:30:59 Result Notes None recorded. Problems Name Problem SNOMED Code Status Onset Date Resolution Date Notes Provider Name and Address Organization Details Recorded Time Group B Streptoc occus carrier [id number] Completed h/o in first preg. Renee Torres MD [address], [place], [address], [facility] 3 10:33:02 Ultrasou nd scan abnormal [id number] Completed subamnio tic hemorrha ge - rpt u/s schd 01/04/23- wnl at [facility]. no FU needed. Marvin Paul [facility], [facility] 3 16:42:26 Uterine size for dates discrepa ncy [id number] Completed already doing growth at [facility] Marvin Paul [facility], [facility] 3 16:42:26 Venous conroy [id number] Completed placenta - 02/21/24 9am u/s only. REBECCA MENA MD [address], [place], [address], [facility] 4 11:34:29 Placenta circumva llata [id number] Completed REBECCA MENA MD [address], [place], [address], [facility] 4 11:34:29 Pregnanc y 32782782 Completed 202203/13/2023 Chaya cabrera, [facility] 5 10:31:09 Pregnanc y 05501431 Completed 202305/27/2024 Chaya cabrera, [facility] 5 10:31:09 Pregnanc y 40615379 Active 2024 Chaya Marley [facility], [facility] 5 10:31:09 Group B Streptoc occus carrier [id number] 103 Active 2024 + GBS in urine Tiara Alarcon rick, [facility] 5 17:54:31 Poor growth affectin g manageme nt 893111125 Active 2024 6% Zuleima Olsen CNM [address], [place], [address], [facility] 11:57:52 Problem Notes None recorded. Procedures Surgical History Date Name Laterality Status Provider Name and Address Organization Details Recorded Time 05/05/20 23 Date of Last Pap Smear completed Iveth Guevara [facility] 05/23/2025 14:51:22 02/29/20 22 IUD Removal completed STEPHANIE Acevedo [address], [place], [address], [facility] 02/28/2022 09:46:01 02/10/20 21 Colposcopy completed [facility] 01/17/2025 10:28:24 02/10/20 21 cervical biopsy completed [facility] 07/27/2022 10:28:55 07/31/19 20 extraction of wisdom tooth completed [facility] 07/27/2022 10:28:13 07/31/19 18 Date of Last Colonoscopy completed [facility] 07/27/2022 10:27:19 07/31/19 18 Colonoscopy completed [facility] 07/27/2022 10:28:04 Imaging Results None recorded. [...] Updated DateTime 07/04/2025 162.56 cm 24.9 kg/m2 56814.89 g 114/75 mm[Hg] Fauzia Singh [facility] 07/04/2025 11:38:30 Social History Question Answer Notes LastModified by Organizat ion Details LastModified Time Tobacco Smoking Status Former Smoker Sujata Zheng rick, [facility] 10/20/2022 09:56:48 Do You Have An Advance Directive? No Information not available 02/08/2021 If You Are , What Was Your Level Of Alcohol Consumption Prior To ? Occasional [email or web address] Information not available 10/20/2022 Are You Blind [...] Or The Highest Degree You Have Received? [id number] Information not available 02/08/2021 Are There Any Guns Present In Your Home? No Information not available 02/08/2021 Do You Use Protection During Sex? No Information not available 02/08/2021 Do You Use Your Seat Belt Or Car Seat Routinely? Yes Information not available 02/08/2021 Are You Sexually Active? Yes [email or web address] Information not available 03/12/2025 Do You Have Smoke And Carbon Monoxide Detectors In Your Home? Yes Information not available 02/08/2021 How Much Tobacco Do You Smoke? No Information not available 02/08/2021 Do You Use Sunscreen Routinely? Yes Information not available 02/08/2021 Have You Used IV Drugs? No Information not available 02/08/2021 Do You Have Difficulty Walking Or Climbing Stairs? No [email or web address] Information not available 10/20/2022 Sex: Unknown Functional [...] able to care for yourself independently? 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 No [email or web address] Information not available 10/20/2022 What is your exercise level? Heavy Information not available 02/08/2021 Mental Status Question Answer Note LastModified by Organization D etails LastModified Time Do you feel stressed (tense, restless, nervous, or anxious, or unable to sleep at night)? [id number] Information not available 02/08/2021 Family History Relationship Description Onset Age of this Age Resolved Age Notes LastModified by Organization Details LastModified Time Maternal Aunt Disorder of thyroid gland Not available 2020 11:46:08 Maternal Aunt Malignant neoplasm of ovary Not available 2020 11:36:55 Mother Anemia Not available 02/08/2021 11:46:08 Mother Malignant neoplasm of breast [email or web address] Not available 07/27 21:16:57 Mother Malignant neoplasm of lung [email or web address] Not available 07/27 21:17:08 Paternal Aunt Malignant [...] ICD10 Code Diagnosis IMO Codes Diagnosis Note [id number] Orion Cobb MD [facility] [address] [place] [address] 06/05/2025 10:56:09 06/05/2025 14:07:34 Abnormal placenta affecting management of mother 25708810 O43.93 Z3A.32 12747107 [id number] [facility] [address] [place] [address] 06/06/2025 11:46:55 06/06/2025 12:09:09 Gestation period, 32 weeks 2774145 Z3A.32 0398674 cont pnv [id number] [facility] [address] [address] 06/06/2025 12:50:38 06/06/2025 16:10:48 Premature uterine contraction 669000419 O47.00 5565852 [id number] [facility] [address] [address] 06/13/2025 10:37:51 06/13/2025 11:20:38 Gestation period, 33 weeks 91104134 Z3A.33 2018076 cont pnv [id number] Zuleima Olsen CNM [address] [address] 06/18/2025 09:45:56 06/18/2025 10:18:34 Gestation period, 34 weeks 59998625 Z3A.34 1265125 cont pnv [id number] [facility] [address] [address] 06/25/2025 09:24:51 06/25/2025 09:56:46 Gestation period, 35 weeks 78180986 Z3A.35 1959275 [id number] Orion Cobb MD [facility] [address] [address] 07/03/2025 12:27:29 07/03/2025 14:18:52 Poor growth affecting management 710619310 O36.5990 Z3A.36 03764589 [id number] Zuleima Olsen CNM [facility] [address] [address] 07/04/2025 11:16:16 07/04/2025 13:36:48 Gestation period, 36 weeks 72629855 Z3A.36 0031806 Poor growth affecting management 257151276 O36.5990 [id number] Health Concerns Section Related Observation LastModified by Organization Detai ls LastModified Time None Recorded Concern Status LastModified by Organization Details LastModified Time None Recorded Payers Encounter Date Sequence Insurance Name Policy Number Policy Veloz Covered Member ID Veloz Member ID Guarantor Name 07/04/2025 1 [facility] (MEDICAID HMO) [id number] Trina Jacquie [id number] Man Oneil Notes Date Note Type Note Provider Name and Address Organization Details Recorded Time 07/04/2025 text/html Generic HPI TemplateReported by Patient [address], [place], [address], [place] [facility] 07/04/2025 11:59:33 OBGyn Episode Ob Episode Information Episode Created Date Number of Fetuses Patient Bloodtype Patient rh Status Prepregnancy Weight lbs Domestic Partner Domestic Partner Phone Father Name Diversity Specialist Status 01/18/20 25 1 O Positive 112 Alli Rahman h OPEN Fetus Data First Name Last Name Admitted to NICU Weight (g) Sex Living Outcome Pediatric Complications Fetus ID Race Codes Race Delivery Type [id number] Problems Problem Notes multiple placental lakes STA BLE Problem Name Start Date End Date Resolution Snomed Code Not e Group B Streptococcus carrier 01/21/2025 [id number] + GBS in urine Poor growth affecting management 07/04/2025 [id number] 6% Moises Calculation Initial Moises Date Initial Exam Date Initial Exam Provider Initial Ultrasound Date Last Menstrual Period Date Ultra Sound Weeks Gestation 07/27/2025 12/17/2024 [email or web address] 12/03/2024 10/20/2024 6 Eighteen To Twenty Week [...] Weight in lbs Pre/Post Dialysis Refused Weight 112.311311868182 BP Diastolic BP Location Tested BP Systolic [...] Type Weight in lbs Pre/Post Dialysis Refused 114.501885628374 BP Diastolic BP Location Tested BP Systolic [...] Type Weight in lbs Pre/Post Dialysis Refused 122.586127942855 BP Diastolic BP Location Tested BP Systolic [...] Weight in lbs Pre/Post Dialysis Refused Weight 127.951272378346 BP Diastolic BP Location Tested BP Systolic [...] Weight in lbs Pre/Post Dialysis Refused Weight 136.355177958684 BP Diastolic BP Location Tested BP Systolic [...] Weight in lbs Pre/Post Dialysis Refused Weight 137.268328170592 BP Diastolic BP Location Tested BP Systolic [...] Type Weight in lbs Pre/Post Dialysis Refused 140.292661811873 BP Diastolic BP Location Tested BP Systolic [...] Weight in lbs Pre/Post Dialysis Refused Weight 140.455429076074 BP Diastolic BP Location Tested BP Systolic BP Type 66 L arm 106 sitting Fetus Heart Rate Present A 147 Present Fetus Movement A Yes Comments cntx minimal will cont proca us amanda at 2 weeks visit, tired today, +FM, encouraged rest f/u one week Flowsheet Date 06/18/2025 Ross Score Blood Edema Fundus Height Fundus Units Glucose Ketones Leukocytes Nitrite Labor Signs Protein Cervic Dilation Cervic Effacement Cervic Station Type Weight in lbs Pre/Post Dialysis Refused Weight 139.35835138058 BP Diastolic BP Location Tested BP Systolic [...] Weight in lbs Pre/Post Dialysis Refused Weight 141.874378044578 BP Diastolic BP Location Tested BP Systolic [...] Weight in lbs Pre/Post Dialysis Refused Weight 145.351990217178 BP Diastolic BP Location Tested BP Systolic [...] Weight in lbs Pre/Post Dialysis Refused Weight 146.470163020123 BP Diastolic BP Location Tested BP Systolic BP Type 69 L arm 104 sitting Fetus Heart Rate Present Fetus Movement A Yes Comments Flowsheet Date 07/09/2025 Ross Score Blood Edema Fundus Height Fundus Units Glucose Ketones Leukocytes Nitrite Labor Signs Protein Cervic Dilation Cervic Effacement Cervic Station Type Weight in lbs Pre/Post Dialysis Refused 146.097608790249 BP Diastolic BP Location Tested BP Systolic [...]
--- OUTSIDE RECORDS SUMMARY | 2025-07-13 17:19 | XMS_ITS | Continuity of Care Document ---
Author Organization [facility] Address [address] [place] [address] [place] [address] Assessment No assessment recorded. Plan of Treatment Reminders Order Date Submit Date Provider Last Modified By Organization Details Last Modified Time Details Appointments None record ed. Lab None record ed. Referral None record ed. Procedures None record ed. Surgeries None record ed. Imaging non-st ress test 025 07/09/20 25 [email or web address] [place] [facility] [address], [place], [address], 13:51:55 Medication Orders None record ed. Patient TargetsNo targets recorded. Patient InstructionsNo instructions recorded. Reason for Referral None Reported. Results Created Date Observation Date Name Description Value Unit Range Abnormal Flag Note LastModifiedBy Organization Detail LastModifiedTime 01/23/20 25 01/22/2025 [UNIT Y] ANEUP LOIDY NIPT fraction 9.8% normal Not Available [facility] pay[facility] [address], [place], [address], 01/22/2025 22:58:15 01/23/20 25 01/22/2025 [UNIT Y] ANEUP LOIDY NIPT 22Q11.2 microdeletio n LOW RISK <1 in 10,000 normal Not Available Alyssia carver [address], [place], [address], 01/22/2025 22:58:15 01/23/20 25 01/22/2025 [UNIT Y] ANEUP LOIDY NIPT sex chromosome aneuploidy NOT DETECT ED normal Not Available [facility] [address], [place], [address], 01/22/2025 22:58:15 01/23/20 25 01/22/2025 [UNIT Y] ANEUP LOIDY NIPT monosomy X LOW RISK <1 in 10,000 normal Not Available [facility] [address], [place], [address], 01/22/2025 22:58:15 01/23/20 25 01/22/2025 [UNIT Y] ANEUP LOIDY NIPT trisomy 13 LOW RISK <1 in 10,000 normal Not Available [facility] [address], [place], [address], 01/22/2025 22:58:15 01/23/20 25 01/22/2025 [UNIT Y] ANEUP LOIDY NIPT trisomy 18 LOW RISK <1 in 10,000 normal Not Available [facility] [address], [place], [address], 01/22/2025 22:58:15 01/23/20 25 01/22/2025 [UNIT Y] ANEUP LOIDY NIPT trisomy 21 LOW RISK <1 in 10,000 normal Not Available [facility] [address], [place], [address], 01/22/2025 22:58:15 01/23/20 25 01/22/2025 [UNIT Y] ANEUP LOIDY NIPT sex MALE normal Not Available [facility] [address], [place], [address], 01/22/2025 22:58:15 01/23/20 25 01/22/2025 [UNIT Y] ANEUP LOIDY NIPT gestation SINGLE TON normal Not Available [facility] [address], [place], [address], 01/22/2025 22:58:15 01/23/20 25 01/22/2025 [UNIT Y] ANEUP JENNIE NIPT for detailed report, see pdf See PDF normal Not Available Alyssia Waggoner[address], [place], [address], 01/22/2025 22:58:15 01/18/20 25 01/17/2025 CULTU RE: URINE result report SEE RESULT S BELOW abnormal Test: Cultu re: Urine Speci men Sourc e: Urine Voide d Speci men Type: Urine Speci men Date: 2024 1622 Resul t Date: 2024 0142 Resul t Statu s: Final resul t Abnor mal: Yes Eric velazquez Lab: [facility] [address] [facility] [address] Tel: CULTU RE ----- ----- ----- --- [...] lab withi n 5 days. Not Available [facility] (Lab) [address] , [place], [address], 01/19/2025 02:46:33 01/18/20 25 01/17/2025 CBC W/DIF F WBC 8.1 10'3/ uL 3.5-10 .5 Not Available [facility] (Lab) [address], [place], [address], 01/20/2025 12:18:01 01/18/20 25 01/17/2025 CBC W/DIF F RBC 3.68 10'6/ uL (based on docume nted legal sex) 3.80-5 .20 low Not Available [facility] (Lab) [address] [facility], [place], [address], 01/20/2025 12:18:01 01/18/20 25 01/17/2025 CBC W/DIF F HGB 10.4 g/dL (based on docume nted legal sex) 11.6-1 5.4 low Not Available [facility] (Lab) [address] [facility], [place], [address], 01/20/2025 12:18:01 01/18/20 25 01/17/2025 CBC W/DIF F HCT 32.2 % (based on docume nted legal sex) 34.0-4 5.0 low Not Available [facility] (Lab) [address] [facility], [place], [address], 01/20/2025 12:18:01 01/18/20 25 01/17/2025 CBC W/DIF F MCV 87.5 fL 80.0-9 9.0 Not Available [facility] (Lab) [address] [facility], [place], [address], 01/20/2025 12:18:01 01/18/20 25 01/17/2025 CBC W/DIF F MCH 28.3 pg 27.0-3 4.0 Not Available [facility] (Lab) [address] [facility], [place], [address], 01/20/2025 12:18:01 01/18/20 25 01/17/2025 CBC W/DIF F MCHC 32.3 g/dL 32.0-3 5.5 Not Available [facility] (Lab) [address] [facility], [place], [address], 01/20/2025 12:18:01 01/18/20 25 01/17/2025 CBC W/DIF F RDW 14.5 % 11.0-1 5.0 Not Available [facility] (Lab) [address] [place], [address], 01/20/2025 12:18:01 06/20/20 25 01/17/2025 CBC W/DIF F plt 157 10'3/ uL 150-40 0 Not Available [facility] (Lab) [address] [facility], [place], [address], 01/20/2025 12:18:01 01/18/20 25 01/17/2025 CBC W/DIF F MPV 12.7 fL 8.8-12 .1 high Not Available [facility] (Lab) [address] [facility], [place], [address], 01/20/2025 12:18:01 01/18/20 25 01/17/2025 CBC W/DIF F NRBC's 0.0 % 0.0 Not Available [facility] (Lab) [address] [facility], [place], [address], 01/20/2025 12:18:01 01/18/20 25 01/17/2025 CBC W/DIF F absolute NRBCs 0.0 10'3/ uL no refere nce range establ ished Not Available [facility] (Lab) [address] [facility], [place], [address], 01/20/2025 12:18:01 01/18/20 25 01/17/2025 CBC W/DIF F neutrophils 73.9 % 34.0-7 3.0 high Not Available [facility] (Lab) [address] [facility], [place], [address], 01/20/2025 12:18:01 01/18/20 25 01/17/2025 CBC W/DIF F lymphocytes 21.1 % 15.0-5 0.0 Not Available [facility] (Lab) [address] [place], [address], 01/20/2025 12:18:01 01/18/20 25 01/17/2025 CBC W/DIF F monocytes 4.1 % 1.0-15 .0 Not Available [facility] (Lab) [address] [place], [address], 01/20/2025 12:18:01 01/18/20 25 01/17/2025 CBC W/DIF F eosinophils 0.5 % 0.0-8. 0 Not Available [facility] (Lab) [address] [facility], [place], [address], 01/20/2025 12:18:01 01/18/20 25 01/17/2025 CBC W/DIF F basophils 0.2 % 0.0-2. 0 Not Available [facility] (Lab) [address], [place], [address], 01/20/2025 12:18:01 01/18/20 25 01/17/2025 CBC W/DIF [...] separ ately if prese nt. Not Available [facility] (Lab) [address] , [place], [address], 01/20/2025 12:18:01 01/18/20 25 01/17/2025 CBC W/DIF F absolute neutrophils 6.0 10'3/ uL 1.5-8. 0 Not Available [facility] (Lab) [address] , [place], [address], 01/20/2025 12:18:01 01/18/20 25 01/17/2025 CBC W/DIF F absolute lymphocytes 1.7 10'3/ uL 1.0-4. 0 Not Available [facility] (Lab) [address] [facility], [place], [address], 01/20/2025 12:18:01 01/18/20 25 01/17/2025 CBC W/DIF F absolute monocytes 0.3 10'3/ uL 0.2-1. 0 Not Available [facility] (Lab) [address] [facility], [place], [address], 01/20/2025 12:18:01 01/18/20 25 01/17/2025 CBC W/DIF F absolute eosinophils 0.0 10'3/ uL 0.0-0. 6 Not Available [facility] (Lab) [address] [facility], [place], [address], 01/20/2025 12:18:01 01/18/20 25 01/17/2025 CBC W/DIF F absolute basophils 0.0 10'3/ uL 0.0-0. 3 Not Available [facility] (Lab) [address] [facility], [place], [address], 01/20/2025 12:18:01 01/18/20 25 01/17/2025 CBC W/DIF [...] of the indiv idual patie nt: https ://david betsy book. nm.or g/gen derx Not Available [facility] (Lab) [address] [facility], [place], [address], 01/20/2025 12:18:01 01/18/20 25 01/17/2025 HEPAT ITIS [...] Hispa zohaib or Latin o Not Available [facility] (Lab) [address] [facility], [place], [address], 01/20/2025 12:18:02 01/18/20 25 01/17/2025 HEPAT ITIS C ANTIB TOM SCREE N, REFLE X TO CONFI RMATI ON hepatitis C antibody Non-re active non-re active Antib odies to HCV Not Detec alfonso, does not exclu de the possi bilit y of expos ure to HCV. : Not Hispa zohaib or Latin o Not Available [facility] (Lab) [address] [facility], [place], [address], 01/20/2025 12:18:02 01/18/20 25 01/17/2025 HIV 1/2 ANTIG EN/AN TIBOD Y, REFLE X CONFI RMATI ON HIV antigen/anti body Nonrea ctive nonrea ctive : Not Hispa zohaib or Latin o HIV-1 antig en and HIV-1 /HIV- 2 antib odies were not detec alfonso. No labor atory evide nce of HIV infec tion. Not Available [facility] (Lab) [address] [facility], [place], [address], 01/20/2025 12:18:03 01/18/20 25 01/17/2025 TYPE/ RH/SC REEN ABO/Rh type O POS Not Available [facility] (Lab) [address] [facility], [place], [address], 01/20/2025 12:18:03 01/18/20 25 01/17/2025 TYPE/ RH/SC REEN antibody screen NEG Not Available [facility] (Lab) [address] [place], [address], 01/20/2025 12:18:03 01/18/20 25 01/17/2025 TYPE/ RH/SC REEN exp date 2024 23:59 Not Available [facility] (Lab) [address] [place], [address], 01/20/2025 12:18:03 01/18/20 25 01/17/2025 RUBEL LA IGG ANTIB TOM, QUANT rubella antibodies, IgG Reacti ve reacti ve Not Available [facility] (Lab) [address] [facility], [place], [address], 01/20/2025 12:18:04 01/18/20 25 01/17/2025 RUBEL LA IGG ANTIB TOM, QUANT rubella antibodies, IgG quant 12.2 IU/mL >=10 : Not Hispa zohaib or Latin o Non-r eacti ve (Non- Immun e) <10 IU/mL React nesha (Immu ne) > or = 10 IU/mL Not Available [facility] (Lab) [address] [facility], [place], [address], 01/20/2025 12:18:04 01/18/20 25 01/17/2025 RPR SCREE N, REFLE X TITER /CONF IRMAT ION RPR qualitative Nonrea ctive nonrea ctive : Not Hispa zohaib or Latin o Not Available [facility] (Lab) [address] [facility], [place], [address], 01/20/2025 12:18:04 01/18/20 25 01/17/2025 HEMOG LOBIN [...] >8.0% Actio n sugge sted Not Available [facility] (Lab) [address] [facility], [place], [address], 01/20/2025 12:18:04 01/18/20 25 01/17/2025 LEAD, BLOOD (ADUL T/PED IATRI C) lead, whole blood <1.0 mcg/d L <3.5 See Note 1 Antonio sis was perfo rmed by Jimbo Conroy ed Plasm a Mass Spect romet ry (ICPM S) Note 1 This test was devel oped and its antonio tical perfo rmanc e jenaro cteri stics have been deter mined by [employer] ostic s. It has not been clear ed or appro dolores by the FDA. This assay has been valid ated pursu ant to the CLIA regul ation s and is used for clini gogo purpo ses. : Not Hispa zohaib or Latin o Perfo rming Organ izati on Infor matio n: Site ID: [id number] Name: [employer] ostic s-[place] d [place] Addre ss: [address] [place] [address] Dire tor: Galileo newton Not Available [facility] (Lab) [address] [facility], [place], [address], 01/20/2025 12:18:05 01/18/20 25 01/17/2025 drug scree n, urine Amphetamines : negati ve Not Available [facility] [address], [place], [address], 01/17/2025 10:30:22 01/18/20 25 01/17/2025 drug scree n, urine Cannabinoids : negati ve Not Available [facility] [address], [place], [address], 01/17/2025 10:30:22 01/18/20 25 01/17/2025 drug scree n, urine Cocaine: negati ve Not Available [facility] [address], [place], [address], 01/17/2025 10:30:22 01/18/20 25 01/17/2025 drug scree n, urine Opiates: negati ve Not Available [facility] [address], [place], [address], 01/17/2025 10:30:22 01/18/20 25 01/17/2025 drug scree n, urine Phenocyclidi ne: negati ve Not Available [facility] [address], [place], [address], 01/17/2025 10:30:22 01/18/20 25 01/17/2025 drug scree n, urine Barbiturates : negati ve Not Available [facility] [address], [place], [address], 01/17/2025 10:30:22 01/18/20 25 01/17/2025 drug scree n, urine Benzodiazepi sabrina: negati ve Not Available [facility] [address], [place], [address], 01/17/2025 10:30:22 01/18/20 25 01/17/2025 drug scree n, urine Ethanol: negati ve Not Available [facility] [address], [place], [address], 01/17/2025 10:30:22 01/18/20 25 01/17/2025 drug scree n, urine Hallucinogen s: negati ve Not Available [facility] [address], [place], [address], 01/17/2025 10:30:22 01/18/20 25 01/17/2025 drug scree n, urine Inhalants: negati ve Not Available [facility] [address], [place], [address], 01/17/2025 10:30:22 01/18/20 25 01/17/2025 drug scree n, urine Anabolic Steroids: negati ve Not Available [facility] [address], [place], [address], 01/17/2025 10:30:22 01/18/20 25 01/17/2025 drug scree n, urine Other: positi ve Not Available [address], [place], [address], 01/17/2025 10:30:22 05/09/20 25 05/09/2025 HEMOG LOBIN (HGB) HGB 9.6 g/dL (based on docume nted legal sex) 11.6-1 5.4 low Not Available [facility] (Lab) [address] [facility], [place], [address], 05/12/2025 14:37:31 05/09/20 25 05/09/2025 HEMAT OCRIT (HCT) HCT 30.4 % (based on docume nted legal sex) 34.0-4 5.0 low Not Available [facility] (Lab) [address] [facility], [place], [address], 05/12/2025 14:37:32 05/09/20 25 05/09/2025 GTT - GESTA SINDHU L SASKIA Colon, ACOG OB glucose, 1 hour screen 70 mg/dL 70-135 Not Available [facility] (Lab) [address] [place], [address], 05/12/2025 14:37:32 05/09/20 25 05/09/2025 HIV 1/2 ANTIG EN/AN TIBOD Y, REFLE X CONFI RMATI ON HIV antigen/anti body Nonrea ctive nonrea ctive HIV-1 antig en and HIV-1 /HIV- 2 antib odies were not detec alfonso. No labor atory evide nce of HIV infec tion. Not Available [facility] (Lab) [address] [facility], [place], [address], 05/12/2025 14:37:32 05/09/20 25 05/09/2025 RPR SCREE N, REFLE X TITER /CONF IRMAT ION RPR qualitative Nonrea ctive nonrea ctive Not Available [facility] (Lab) [address] [place], [address], 05/12/2025 14:37:33 05/09/2005/09/2025 urina lysis , dipst ick Leukocytes trace Not Available [facility] [address], [place], [address], 05/09/2025 14:43:51 05/09/20 25 05/09/2025 urina lysis , dipst ick Nitrite neg Not Available [facility] [address], [place], [address], 05/09/2025 14:43:51 05/09/2005/09/2025 urina lysis , dipst ick Urobilinogen norm Not Available [facility] [address], [place], [address], 05/09/2025 14:43:51 05/09/2005/09/2025 urina lysis , dipst ick Protein trace Not Available [facility] [address], [place], [address], 05/09/2025 14:43:51 05/09/2005/09/2025 urina lysis , dipst ick pH 5 Not Available [facility] [address], [place], [address], 05/09/2025 14:43:51 05/09/2005/09/2025 urina lysis , dipst ick Specific [place] 1.015 Not Available [facility] perry [address], [place], [address], 05/09/2025 14:43:51 05/09/2005/09/2025 urina lysis , dipst ick Ketone trace Not Available [facility] [address], [place], [address], 05/09/2025 14:43:51 05/09/20 25 05/09/2025 urina lysis , dipst ick Bilirubin nor Not Available Janell carver [address], [place], [address], 05/09/2025 14:43:51 05/09/2005/09/2025 urina lysis , dipst ick Glucose neg Not Available [facility] [address], [place], [address], 05/09/2025 14:43:51 05/09/2005/09/2025 urina lysis , dipst ick Appearance clear [facility] Available [facility] [address], [place], [address], 05/09/2025 14:43:51 05/09/2005/09/2025 urina lysis , dipst ick Color yellow Not Available [facility] [address], [place], [address], 05/09/2025 14:43:51 07/04/2007/04/2025 CULTU RE: GROUP B STREP SCREE [...] Abnor mal: Yes Resul josé miguelg Lab: [facility] [address] [facility] [address] Tel: CULTU RE ----- ----- ----- --- [...] risk for anaph ylaxi s. Diane ptibi negra testi ng is not neces castillo for these drugs . Not Available [facility] (Lab) [address] [facility], [place], [address], 07/08/2025 16:24:59 07/04/20 25 07/04/2025 WOMEN 'S [...] or negat nesha statu s. Not Available [facility] (Lab) [address] [place], [address], 07/08/2025 16:25:00 07/04/20 25 07/04/2025 WOMEN 'S HEALT H SWAB, BEVERLY varsha species, tma Positi ve negati ve abnormal Not Available [facility] (Lab) [address] [place], [address], 07/08/2025 16:25:00 07/04/20 25 07/04/2025 WOMEN 'S HEALT H SWAB, BEVERLY varsha glabrata, tma Negati ve negati ve Not Available [facility] (Lab) [address] [place], [address], 07/08/2025 16:25:00 07/04/20 25 07/04/2025 WOMEN 'S HEALT H SWAB, BEVERLY trichomonas vaginalis, tma Negati ve negati ve This assay tests for and diffe renti ates betwe en Beatriz da glabr torrey, the Beatriz da speci es group (C. albic ans, C. tropi calis , C. star marie is, C. christiane santana is), and Trich omona s vagcheli rafiq by Trans cript ion-M ediat ed Ampli ficat ion (TMA) . Not Available [facility] (Lab) [address], [place], [address], 07/08/2025 16:25:00 01/18/20 25 01/17/2025 US, obste tric, nucha l trans lucen cy No observ ation record ed. [facility] [address], [place], [address], 01/17/2025 17:27:13 01/18/20 25 01/17/2025 US, obste tric, follo w-up No observ ation record ed. [email or web address] [address], [place], [address], 01/21/2025 15:12:49 03/12/20 25 03/12/2025 US, obste tric, 2nd or 3rd trime ster No observ ation record ed. [facility] [address], [place], [address], 03/12/2025 18:48:30 03/12/20 25 03/12/2025 US, obste tric, 2nd or 3rd trime ster No observ ation record ed. [email or web address] [address], [place], [address], 03/14/2025 09:40:30 04/11/20 25 04/11/2025 US, obste tric, follo w-up No observ ation record ed. [facility] [address], [place], [address], 04/11/2025 17:08:07 04/11/20 25 04/11/2025 US, obste tric, follo w-up No observ ation record ed. [email or web address] [address], [place], [address], 04/15/2025 06:50:04 05/09/20 25 05/09/2025 US, obste tric, follo w-up No observ ation record ed. [email or web address] [facility] [address], [place], [address], 05/09/2025 16:53:22 05/09/2005/09/2025 US, obste tric, follo w-up No observ ation record ed. [email or web address] [address], [place], [address], 05/12/2025 12:19:00 06/05/20 25 06/05/2025 US, obste tric, follo w-up No observ ation record ed. [email or web address] [facility] [address], [place], [address], 06/05/2025 15:11:40 06/05/20 25 06/05/2025 US, obste tric, follo w-up No observ ation record ed. [email or web address] [address], [place], [address], 06/13/2025 14:46:41 06/06/20 25 06/06/2025 US, obste tric, bioph ysica l profi le No observ ation record ed. [address], [address], 06/18/2025 15:22:02 06/06/20 25 06/06/2025 US, obste tric, bioph ysica l profi le No observ ation record ed. [address], [address], 06/18/2025 15:21:42 06/06/20 25 06/06/2025 US, obste tric, follo w-up No observ ation record ed. [place] [id number], [place], [address], 06/10/2025 11:24:02 06/06/20 25 06/06/2025 non-s tress test No observ ation record ed. [address], [place], [address], 06/30/2025 10:44:26 07/03/20 25 07/03/2025 US, obste tric, follo w-up No observ ation record ed. [email or web address] [address], [place], [address], 07/08/2025 13:03:57 07/03/20 25 07/03/2025 US, obste tric, follo w-up No observ ation record ed. [facility] [address], [place], [address], 07/03/2025 18:32:15 07/03/20 25 07/03/2025 US, obste tric, bioph ysica l profi le + non-s tress test No observ ation record ed. [facility] [address], [place], [address], 07/03/2025 18:32:26 07/03/20 25 07/03/2025 US, doppl er, umbil ical arter y veloc imetr y No observ ation record ed. [facility] [address], [place], [address], 07/03/2025 18:32:38 07/05/20 25 06/06/2025 US, obste tric, bioph ysica l profi le + non-s tress test No observ ation record ed. [email or web address] [facility] [address], [place], [address], 07/05/2025 12:07:31 07/09/20 25 07/09/2025 US, obste tric, bioph ysica l profi le + non-s tress test No observ ation record ed. [email or web address] [facility] [address], [place], [address], 07/09/2025 12:42:49 07/09/20 25 07/09/2025 US, doppl er, umbil ical arter y veloc imetr y No observ ation record ed. [email or web address] [facility] [address], [place], [address], 07/09/2025 12:43:32 07/09/20 25 07/09/2025 US, obste tric, bioph ysica l profi le + non-s tress test No observ ation record ed. JUDY Wrighte [address], [place], [address], 07/12/2025 13:33:23 07/09/20 25 07/09/2025 non-s tress test No observ ation record ed. [email or web address] [facility] [address], [place], [address], 07/09/2025 18:38:27 07/09/20 non-s tress test No observ ation record ed. [email or web address] [facility] [address], [place], [address], 07/09/2025 13:30:59 Result Notes None recorded. Problems Name Problem SNOMED Code Status Onset Date Resolution Date Notes Provider Name and Address Organization Details Recorded Time Group B Streptoc occus carrier [id number] Completed h/o in first preg. Renee Torres MD [address], [place], [address], , P[facility] 3 10:33:02 Ultras[address] nd scan abnormal [id number] Completed subamnio tic hemorrha ge - rpt u/s schd 01/04/23- wnl at [facility]. no FU needed. Chasidyshannanharoon WalterHumbertokai cabrera, [facility] 3 16:42:26 Uterine size for dates discrepa ncy [id number] Completed already doing growth at [facility] Marvin Goodsonwalter cabrera, [facility] 3 16:42:26 Venous conroy [id number] Completed placenta - 02/21/24 9am u/s only. REBECCA MENA MD [address], [place], [address], , [facility] 4 11:34:29 Placenta circumva llata [id number] Completed REBECCA MENA MD [address], [place], [address], , [facility] 4 11:34:29 Pregnanc y [id number] Completed 202203/13/2023 Chaya cabrera, [facility] 5 10:31:09 Pregnanc y [id number] Completed 202305/27/2024 Chaya Marley null, [facility] 5 10:31:09 Pregnanc y [id number] Active 2024 Chaya Marley null, [facility] 5 10:31:09 Group B Streptoc occus carrier [id number] 103 Active 2024 + GBS in urine Tiara Alarcon rick, [facility] 5 17:54:31 Poor growth affectin g manageme nt [id number] Active 2024 6% Zuleima Olsen CNM [address], [place], [address], , [facility] 11:57:52 Problem Notes None recorded. Procedures Surgical History Date Name Laterality Status Provider Name and Address Organization Details Recorded Time 05/05/20 23 Date of Last Pap Smear completed Iveth Guevara [facility] 05/23/2025 14:51:22 02/29/20 22 IUD Removal completed STEPHANIE Acevedo [address], [place], [address], , [facility] 02/28/2022 09:46:01 02/10/[address] [facility] 01/17/2025 10:28:24 02/10/20 21 cervical biopsy completed Chaya [facility], located [facility] 07/27/2022 10:28:55 07/31/19 20 extraction of wisdom tooth completed [facility] 07/27/2022 10:28:13 07/31/19 18 Date of Last Colonoscopy completed [facility] 07/27/2022 10:27:19 07/31/[address] [facility] 07/27/2022 10:28:04 Imaging Results None [...] Apply 1 patch by transderm al route. 06/20/ 2025 10/24 /2025 completed Not Available Not Available Not Available [...] Address Organization Details Last Updated DateTime 07/09/2025 51841.48574 g 104/69 mm[Hg] Iveth Guevara [facility] 07/09/2025 12:14:06 Date Recorded Body height Body mass index (BMI) Body weight Systolic And Diastolic Provider Name and Address Organization Details Last Updated DateTime 07/09/2025 162.56 cm 25.1 kg/m2 15976.49 g 104/69 mm[Hg] Fauzia Singh [facility] 07/09/2025 13:26:39 Social History Question Answer Notes LastModified by Organizat ion Details LastModified Time Tobacco Smoking Status Former Smoker Sujata Zheng rick [facility] 10/20/2022 09:56:48 Do You Have An Advance Directive? No Information not available 02/08/2021 If You Are , What Was Your Level Of Alcohol Consumption Prior To ? Occasional [email or web address] Information not available 10/20/2022 Are You Blind [...] Or The Highest Degree You Have Received? [id number] Information not available 02/08/2021 Are There Any Guns Present In Your Home? No Information not available 02/08/2021 Do You Use Protection During Sex? No Information not available 02/08/2021 Do You Use Your Seat Belt Or Car Seat Routinely? Yes Information not available 02/08/2021 Are You Sexually Active? Yes [email or web address] Information not available 03/12/2025 Do You Have Smoke And Carbon Monoxide Detectors In Your Home? Yes Information not available 02/08/2021 How Much Tobacco Do You Smoke? No Information not available 02/08/2021 Do You Use Sunscreen Routinely? Yes Information not available 02/08/2021 Have You Used IV Drugs? No Information not available 02/08/2021 Do You Have Difficulty Walking Or Climbing Stairs? No [email or web address] Information not available 10/20/2022 Sex: Unknown Functional [...] able to care for yourself independently? 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 No [email or web address] Information not available 10/20/2022 What is your exercise level? Heavy Information not available 02/08/2021 Mental Status Question Answer Note LastModified by Organization D etails LastModified Time Do you feel stressed (tense, restless, nervous, or anxious, or unable to sleep at night)? [id number] Information not available 02/08/2021 Family History Relationship Description Onset Age of this Age Resolved Age Notes LastModified by Organization Details LastModified Time Maternal Aunt Disorder of thyroid gland Not available 2020 11:46:08 Maternal Aunt Malignant neoplasm of ovary Not available 2020 11:36:55 Mother Anemia Not available 02/08/2021 11:46:08 Mother Malignant neoplasm of breast Not available 07/27 21:16:57 Mother Malignant neoplasm of lung [email or web address] Not available 07/27 21:17:08 Paternal Aunt Malignant [...] ICD10 Code Diagnosis IMO Codes Diagnosis Note [id number] Zuleima Olsen CNM [facility] [address] [place] [address] 06/13/2025 10:37:51 06/13/2025 11:20:38 Gestation period, 33 weeks 36012919 Z3A.33 6096845 cont pnv [id number] Zuleima Olsen CNM [facility] [address] [place] [address] 06/18/2025 09:45:56 06/18/2025 10:18:34 Gestation period, 34 weeks 56323561 Z3A.34 8968217 cont pnv [id number] [facility] [address] [address] 06/25/2025 09:24:51 06/25/2025 09:56:46 Gestation period, 35 weeks 48247315 Z3A.35 4868003 [id number] Orion Cobb MD [facility] [address] [address] 07/03/2025 12:27:29 07/03/2025 14:18:52 Poor growth affecting management 086996154 O36.5990 Z3A.36 44488047 [id number] Zuleima Jose Raul Olsen [facility] [address] [address] 07/04/2025 11:16:16 07/04/2025 13:36:48 Gestation period, 36 weeks 95412665 Z3A.36 9002443 Poor growth affecting management 185313162 O36.5990 18262584 [id number] REBECCA MENA MD [facility] [address] [address] 07/09/2025 11:01:36 07/09/2025 11:39:29 care status 033400914 O36.5930 Z3A.37 789684 [id number] REBECCA MENA MD [facility] [address] [address] 07/09/2025 11:02:29 07/09/2025 13:51:55 Poor growth affecting management 536361538 O36.5990 [id number] REBECCA MENA MD [facility] [address] [address] 07/09/2025 11:02:55 07/09/2025 14:12:20 Group B Streptococcus carrier [id number] 103 Z22.589 5657049 - abx during labor Poor growth affecting management 726831647 O36.5990 11454167 - EFW 6%- MIL at 38 weeks Gestation period, 37 weeks 16260393 Z3A.37 7755624 - continue [facility] Health Concerns Section Related Observation LastModified by Organization Detai ls LastModified Time None Recorded Concern Status LastModified by Organization Details LastModified Time None Recorded Payers Encounter Date Sequence Insurance Name Policy Number Policy Veloz Covered Member ID Veloz Member ID Guarantor Name 07/09/2025 1 [facility] (MEDICAID HMO) [id number] Trina Dhillon [id number] Man Oneil Notes Date Note Type Note Provider Name and Address Organization Details Recorded Time 07/09/2025 text/html Generic HPI TemplateReported by Patient REBECCA MENA MD [address], [place], [address], [place] [facility] 07/09/2025 14:01:40 OBGyn Episode Ob Episode Information Episode Created Date Number of Fetuses Patient Bloodtype Patient rh Status Prepregnancy Weight lbs Domestic Partner Domestic Partner Phone Father Name Curtain Inspector Status 01/18/20 25 1 O Positive 112 Alli Burnsrt h OPEN Fetus Data First Name Last Name Admitted to NICU Weight (g) Sex Living Outcome Pediatric Complications Fetus ID Race Codes Race Delivery Type [id number] Problems Problem Notes multiple placental lakes STA BLE Problem Name Start Date End Date Resolution Snomed Code Not e Group B Streptococcus carrier 01/21/2025 [id number] + GBS in urine Poor growth affecting management 07/04/2025 310692405 6% Moises Calculation Initial Moises Date Initial Exam Date Initial Exam Provider Initial Ultrasound Date Last Menstrual Period Date Ultra Sound Weeks Gestation 07/27/2025 12/17/2024 [email or web address] 12/03/2024 10/20/2024 6 Eighteen To Twenty Week [...] Weight in lbs Pre/Post Dialysis Refused Weight 112.984102095378 BP Diastolic BP Location Tested BP Systolic [...] Type Weight in lbs Pre/Post Dialysis Refused 114.271101130778 BP Diastolic BP Location Tested BP Systolic [...] Type Weight in lbs Pre/Post Dialysis Refused 122.888353577445 BP Diastolic BP Location Tested BP Systolic [...] Weight in lbs Pre/Post Dialysis Refused Weight 127.358724360613 BP Diastolic BP Location Tested BP Systolic [...] Weight in lbs Pre/Post Dialysis Refused Weight 136.208747440776 BP Diastolic BP Location Tested BP Systolic [...] Weight in lbs Pre/Post Dialysis Refused Weight 137.875923271583 BP Diastolic BP Location Tested BP Systolic [...] Type Weight in lbs Pre/Post Dialysis Refused 140.306590054253 BP Diastolic BP Location Tested BP Systolic [...] Weight in lbs Pre/Post Dialysis Refused Weight 140.889959070255 BP Diastolic BP Location Tested BP Systolic [...] Weight in lbs Pre/Post Dialysis Refused Weight 139.40915208075 BP Diastolic BP Location Tested BP Systolic [...] Weight in lbs Pre/Post Dialysis Refused Weight 141.121290807994 BP Diastolic BP Location Tested BP Systolic [...] Weight in lbs Pre/Post Dialysis Refused Weight 145.864456518001 BP Diastolic BP Location Tested BP Systolic [...] Weight in lbs Pre/Post Dialysis Refused Weight 146.260922630434 BP Diastolic BP Location Tested BP Systolic BP Type 69 L arm 104 sitting Fetus Heart Rate Present Fetus Movement A Yes Comments Flowsheet Date 07/09/2025 Ross Score Blood Edema Fundus Height Fundus Units Glucose Ketones Leukocytes Nitrite Labor Signs Protein Cervic Dilation Cervic Effacement Cervic Station Type Weight in lbs Pre/Post Dialysis Refused 146.754161401535 BP Diastolic BP Location Tested BP Systolic [...]
--- OUTSIDE RECORDS SUMMARY | 2025-07-13 17:19 | XMS_ITS | Continuity of Care Document ---
Author Organization [facility] Address [address] [place] [address] [place] [address] Assessment No assessment recorded. Plan of Treatment Reminders Order Date Submit Date Provider Last Modified By Organization Details Last Modified Time Details Appointments None record ed. Lab None record ed. Referral None record ed. Procedures None record ed. Surgeries None record ed. Imaging US, obstet kulwinder, follow -up 025 06/05/20 25 [email or web address] [facility] [address], [place], [address], 16:21:32 Medication Orders None record ed. Patient TargetsNo targets recorded. Patient InstructionsNo instructions recorded. Reason for Referral None Reported. Results Created Date Observation Date Name Description Value Unit Range Abnormal Flag Note LastModifiedBy Organization Detail LastModifiedTime 01/23/20 25 01/22/2025 [UNIT Y] ANEUP LOIDY NIPT fraction 9.8% normal Not Available [place] [facility] [address], [place], [address], 01/22/2025 22:58:15 01/23/20 25 01/22/2025 [UNIT Y] ANEUP LOIDY NIPT 22Q11.2 microdeletio n LOW RISK <1 in 10,000 normal Not Available Alyssia e [address], [place], [address], 01/22/2025 22:58:15 01/23/20 25 01/22/2025 [UNIT Y] ANEUP LOIDY NIPT sex chromosome aneuploidy NOT DETECT ED normal Not Available [facility] [address], [place], [address], 01/22/2025 22:58:15 01/23/20 25 01/22/2025 [UNIT Y] ANEUP LOIDY NIPT monosomy X LOW RISK <1 in 10,000 normal Not Available [facility] [address], [place], [address], 01/22/2025 22:58:15 01/23/20 25 01/22/2025 [UNIT Y] ANEUP LOIDY NIPT trisomy 13 LOW RISK <1 in 10,000 normal Not Available [facility] [address], [place], [address], 01/22/2025 22:58:15 01/23/20 25 01/22/2025 [UNIT Y] ANEUP LOIDY NIPT trisomy 18 LOW RISK <1 in 10,000 normal Not Available [facility] [address], [place], [address], 01/22/2025 22:58:15 01/23/20 25 01/22/2025 [UNIT Y] ANEUP LOIDY NIPT trisomy 21 LOW RISK <1 in 10,000 normal Not Available [facility] [address], [place], [address], 01/22/2025 22:58:15 01/23/20 25 01/22/2025 [UNIT Y] ANEUP LOIDY NIPT sex MALE normal Not Available [facility] [address], [place], [address], 01/22/2025 22:58:15 01/23/20 25 01/22/2025 [UNIT Y] ANEUP LOIDY NIPT gestation SINGLE TON normal Not Available [facility] [address], [place], [address], 01/22/2025 22:58:15 01/23/20 25 01/22/2025 [UNIT Y] ANEUP JENNIE NIPT for detailed report, see pdf See PDF normal Not Available [facility]ia [address], [place], [address], 01/22/2025 22:58:15 01/18/20 25 01/17/2025 CULTU RE: URINE result report SEE RESULT S BELOW abnormal Test: Cultu re: Urine Speci men Sourc e: Urine Voide d Speci men Type: Urine Speci men Date: 2024 1622 Resul t Date: 2024 0142 Resul t Statu s: Final resul t Abnor mal: Yes Eric velazquez Lab: [facility] [address] [facility] [address] Tel: CULTU RE ----- ----- ----- --- [...] lab withi n 5 days. Not Available [facility] (Lab) [address] , [place], [address], 01/19/2025 02:46:33 01/18/20 25 01/17/2025 CBC W/DIF F WBC 8.1 10'3/ uL 3.5-10 .5 Not Available [facility] (Lab) [address], [place], [address], 01/20/2025 12:18:01 01/18/20 25 01/17/2025 CBC W/DIF F RBC 3.68 10'6/ uL (based on docume nted legal sex) 3.80-5 .20 low Not Available [facility] (Lab) [address], [place], [address], 01/20/2025 12:18:01 01/18/20 25 01/17/2025 CBC W/DIF F HGB 10.4 g/dL (based on docume nted legal sex) 11.6-1 5.4 low Not Available [facility] (Lab) [address], [place], [address], 01/20/2025 12:18:01 01/18/20 25 01/17/2025 CBC W/DIF F HCT 32.2 % (based on docume nted legal sex) 34.0-4 5.0 low Not Available [facility] (Lab) [address], [place], [address], 01/20/2025 12:18:01 01/18/20 25 01/17/2025 CBC W/DIF F MCV 87.5 fL 80.0-9 9.0 Not Available [facility] (Lab) [address], [place], [address], 01/20/2025 12:18:01 01/18/20 25 01/17/2025 CBC W/DIF F MCH 28.3 pg 27.0-3 4.0 Not Available [facility] (Lab) [address], [place], [address], 01/20/2025 12:18:01 01/18/20 25 01/17/2025 CBC W/DIF F MCHC 32.3 g/dL 32.0-3 5.5 Not Available [facility] (Lab) [address] [facility], [place], [address], 01/20/2025 12:18:01 01/18/20 25 01/17/2025 CBC W/DIF F RDW 14.5 % 11.0-1 5.0 Not Available [facility] (Lab) [address], [place], [address], 01/20/2025 12:18:01 01/18/20 25 01/17/2025 CBC W/DIF F plt 157 10'3/ uL 150-40 0 Not Available [facility] (Lab) [address] [facility], [place], [address], 01/20/2025 12:18:01 01/18/20 25 01/17/2025 CBC W/DIF F MPV 12.7 fL 8.8-12 .1 high Not Available [facility] (Lab) [address] [facility], [place], [address], 01/20/2025 12:18:01 01/18/20 25 01/17/2025 CBC W/DIF F NRBC's 0.0 % 0.0 Not Available [facility] (Lab) [address] [facility], [place], [address], 01/20/2025 12:18:01 01/18/20 25 01/17/2025 CBC W/DIF F absolute NRBCs 0.0 10'3/ uL no refere nce range establ ished Not Available [facility] (Lab) [address] [facility], [place], [address], 01/20/2025 12:18:01 01/18/20 25 01/17/2025 CBC W/DIF F neutrophils 73.9 % 34.0-7 3.0 high Not Available [facility] (Lab) [address] [place], [address], 01/20/2025 12:18:01 01/18/20 25 01/17/2025 CBC W/DIF F lymphocytes 21.1 % 15.0-5 0.0 Not Available [facility] (Lab) [address] [facility], [place], [address], 01/20/2025 12:18:01 01/18/20 25 01/17/2025 CBC W/DIF F monocytes 4.1 % 1.0-15 .0 Not Available [facility] (Lab) [address] [place], [address], 01/20/2025 12:18:01 01/18/20 25 01/17/2025 CBC W/DIF F eosinophils 0.5 % 0.0-8. 0 Not Available [facility] (Lab) [address] , [place], [address], 01/20/2025 12:18:01 01/18/20 25 01/17/2025 CBC W/DIF F basophils 0.2 % 0.0-2. 0 Not Available [facility] (Lab) [address], [place], [address], 01/20/2025 12:18:01 01/18/20 25 01/17/2025 CBC W/DIF [...] separ ately if prese nt. Not Available [facility] (Lab) [address], [place], [address], 01/20/2025 12:18:01 01/18/20 25 01/17/2025 CBC W/DIF F absolute neutrophils 6.0 10'3/ uL 1.5-8. 0 Not Available [facility] (Lab) [address], [place], [address], 01/20/2025 12:18:01 01/18/20 25 01/17/2025 CBC W/DIF F absolute lymphocytes 1.7 10'3/ uL 1.0-4. 0 Not Available [facility] (Lab) [address], [place], [address], 01/20/2025 12:18:01 01/18/20 25 01/17/2025 CBC W/DIF F absolute monocytes 0.3 10'3/ uL 0.2-1. 0 Not Available [facility] (Lab) [address], [place], [address], 01/20/2025 12:18:01 01/18/20 25 01/17/2025 CBC W/DIF F absolute eosinophils 0.0 10'3/ uL 0.0-0. 6 Not Available [facility] (Lab) [address] [facility], [place], [address], 01/20/2025 12:18:01 01/18/20 25 01/17/2025 CBC W/DIF F absolute basophils 0.0 10'3/ uL 0.0-0. 3 Not Available [facility] (Lab) [address] [facility], [place], [address], 01/20/2025 12:18:01 01/18/20 25 01/17/2025 CBC W/DIF [...] michael book. nm.or g/gen derx Not Available [facility] (Lab) [address], [place], [address], 01/20/2025 12:18:01 01/18/20 25 01/17/2025 HEPAT ITIS [...] Hispa zohaib or Latin o Not Available [facility] (Lab) [address], [place], [address], 01/20/2025 12:18:02 01/18/20 25 01/17/2025 HEPAT ITIS C ANTIB TOM SCREE N, REFLE X TO CONFI RMATI ON hepatitis C antibody Non-re active non-re active Antib odies to HCV Not Detec alfonso, does not exclu de the possi bilit y of expos ure to HCV. : Not Hispa zohaib or Latin o Not Available [facility] (Lab) [address] [facility], [place], [address], 01/20/2025 12:18:02 01/18/20 25 01/17/2025 HIV 1/2 ANTIG EN/AN TIBOD Y, REFLE X CONFI RMATI ON HIV antigen/anti body Nonrea ctive nonrea ctive : Not Hispa zohaib or Latin o HIV-1 antig en and HIV-1 /HIV- 2 antib odies were not detec alfonso. No labor atory evide nce of HIV infec tion. Not Available [facility] (Lab) [address] [facility], [place], [address], 01/20/2025 12:18:03 01/18/20 25 01/17/2025 TYPE/ RH/SC REEN ABO/Rh type O POS Not Available [facility] (Lab) [address] [place], [address], 01/20/2025 12:18:03 01/18/20 25 01/17/2025 TYPE/ RH/SC REEN antibody screen NEG Not Available [facility] (Lab) [address] [place], [address], 01/20/2025 12:18:03 01/18/20 25 01/17/2025 TYPE/ RH/SC REEN exp date 2024 23:59 Not Available [facility] (Lab) [address] [place], [address], 01/20/2025 12:18:03 01/18/20 25 01/17/2025 RUBEL LA IGG ANTIB TOM, QUANT rubella antibodies, IgG Reacti ve reacti ve Not Available [facility] (Lab) [address] [facility], [place], [address], 01/20/2025 12:18:04 01/18/20 25 01/17/2025 RUBEL LA IGG ANTIB TOM, QUANT rubella antibodies, IgG quant 12.2 IU/mL >=10 : Not Hispa zohaib or Latin o Non-r eacti ve (Non- Immun e) <10 IU/mL React nesha (Immu ne) > or = 10 IU/mL Not Available [facility] (Lab) [address] [facility], [place], [address], 01/20/2025 12:18:04 01/18/20 25 01/17/2025 RPR SCREE N, REFLE X TITER /CONF IRMAT ION RPR qualitative Nonrea ctive nonrea ctive : Not Hismd zohaib or Latin o Not Available [facility] (Lab) [address] [facility], [place], [address], 01/20/2025 12:18:04 01/18/20 25 01/17/2025 HEMOG LOBIN [...] >8.0% Actio n sugge sted Not Available [facility] (Lab) [address] [facility], [place], [address], 01/20/2025 12:18:04 01/18/20 25 01/17/2025 LEAD, BLOOD (ADUL T/PED IATRI C) lead, whole blood <1.0 mcg/d L <3.5 See Note 1 Antonio sis was perfo rmed by Jimbo Conroy ed Plasm a Mass Spect romet ry (ICPM S) Note 1 This test was devel oped and its antonio tical perfo rmanc e jenaro cteri stics have been deter mined by [employer]. It has not been clear ed or appro dolores by the FDA. This assay has been valid ated pursu ant to the CLIA regul ation s and is used for clini gogo purpo ses. : Not Hispa zohaib or Latin o Perfo rming Organ izati on Infor matio n: Site ID: [id number] Name: [employer] [facility]-Brandoncintia Patele Addre ss: [id number] [place] [address] Dire tor: Galileo newton Not Available [facility] (Lab) [address] [facility], [place], [address], 01/20/2025 12:18:05 01/18/20 25 01/17/2025 drug scree n, urine Amphetamines : negati ve Not Available [place] [address], [place], [address], 01/17/2025 10:30:22 01/18/20 25 01/17/2025 drug scree n, urine Cannabinoids : negati ve Not Available [place] [address], [place], [address], 01/17/2025 10:30:22 01/18/20 25 01/17/2025 drug scree n, urine Cocaine: negati ve Not Available [place] [address], [place], [address], 01/17/2025 10:30:22 01/18/20 25 01/17/2025 drug scree n, urine Opiates: negati ve Not Available [place] [address], [place], [address], 01/17/2025 10:30:22 01/18/20 25 01/17/2025 drug scree n, urine Phenocyclidi ne: negati ve Not Available [place] [address], [place], [address], 01/17/2025 10:30:22 01/18/20 25 01/17/2025 drug scree n, urine Barbiturates : negati ve Not Available [place] [address], [place], [address], 01/17/2025 10:30:22 01/18/20 25 01/17/2025 drug scree n, urine Benzodiazepi sabrina: negati ve Not Available [place] [address], [place], [address], 01/17/2025 10:30:22 01/18/20 25 01/17/2025 drug scree n, urine Ethanol: negati ve Not Available [place] [address], [place], [address], 01/17/2025 10:30:22 01/18/20 25 01/17/2025 drug scree n, urine Hallucinogen s: negati ve Not Available [place] [address], [place], [address], 01/17/2025 10:30:22 01/18/20 25 01/17/2025 drug scree n, urine Inhalants: negati ve Not Available [place] [address], [place], [address], 01/17/2025 10:30:22 01/18/20 25 01/17/2025 drug scree n, urine Anabolic Steroids: negati ve Not Available [place] [address], [place], [address], 01/17/2025 10:30:22 01/18/20 25 01/17/2025 drug scree n, urine Other: positi ve Not Available [place] [address], [place], [address], 01/17/2025 10:30:22 05/09/20 25 05/09/2025 HEMOG LOBIN (HGB) HGB 9.6 g/dL (based on docume nted legal sex) 11.6-1 5.4 low Not Available [facility] (Lab) [address] [facility], [place], [address], 05/12/2025 14:37:31 05/09/20 25 05/09/2025 HEMAT OCRIT (HCT) HCT 30.4 % (based on docume nted legal sex) 34.0-4 5.0 low Not Available [facility] (Lab) [address] [facility], [place], [address], 05/12/2025 14:37:32 05/09/20 25 05/09/2025 GTT - GESTA SINDHU L SCREE N, ACOG OB glucose, 1 hour screen 70 mg/dL 70-135 Not Available [facility] (Lab) [address] [place], [address], 05/12/2025 14:37:32 05/09/20 25 05/09/2025 HIV 1/2 ANTIG EN/AN TIBOD Y, REFLE X CONFI RMATI ON HIV antigen/anti body Nonrea ctive nonrea ctive HIV-1 antig en and HIV-1 /HIV- 2 antib odies were not detec alfonso. No labor atory evide nce of HIV infec tion. Not Available [facility] (Lab) [address] [facility], [place], [address], 05/12/2025 14:37:32 05/09/20 25 05/09/2025 RPR SCREE N, REFLE X TITER /CONF IRMAT ION RPR qualitative Nonrea ctive nonrea ctive Not Available [facility] (Lab) [address] [place], [address], 05/12/2025 14:37:33 05/09/20 25 05/09/2025 urina lysis , dipst ick Leukocytes trace Not Available [facility] [address], [place], [address], 05/09/2025 14:43:51 05/09/20 25 05/09/2025 urina lysis , dipst ick Nitrite neg Not Available [place] [address], [place], [address], 05/09/2025 14:43:51 05/09/2005/09/2025 urina lysis , dipst ick Urobilinogen norm Not Available [facility] minal [address], [place], [address], 05/09/2025 14:43:51 05/09/20 25 05/09/2025 urina lysis , dipst ick Protein trace Not Available [place] [address], [place], [address], 05/09/2025 14:43:51 05/09/2005/09/2025 urina lysis , dipst ick pH 5 Not Available [place] [address], [place], [address], 05/09/2025 14:43:51 05/09/20 25 05/09/2025 urina lysis , dipst ick Specific [place] 1.015 Not Available [facility] perry [address], [place], [address], 05/09/2025 14:43:51 05/09/2005/09/2025 urina lysis , dipst ick Ketone trace Not Available [place] [address], [place], [address], 05/09/2025 14:43:51 05/09/20 25 05/09/2025 urina lysis , dipst ick Bilirubin nor Not Available Janell carver [address], [place], [address], 05/09/2025 14:43:51 05/09/20 25 05/09/2025 urina lysis , dipst ick Glucose neg Not Available [place] [address], [place], [address], 05/09/2025 14:43:51 05/09/2005/09/2025 urina lysis , dipst ick Appearance clear Not Available [facility] [address], [place], [address], 05/09/2025 14:43:51 05/09/2005/09/2025 urina lysis , dipst ick Color yellow Not Available [place] [address], [place], [address], 05/09/2025 14:43:51 01/18/20 25 01/17/2025 US, obste tric, nucha l trans lucen cy No observ ation record ed. [facility] [address], [place], [address], 01/17/2025 17:27:13 01/18/20 25 01/17/2025 US, obste tric, follo w-up No observ ation record ed. [email or web address] [address], [place], [address], 01/21/2025 15:12:49 03/12/20 25 03/12/2025 US, obste tric, 2nd or 3rd trime ster No observ ation record ed. [facility] [address], [place], [address], 03/12/2025 18:48:30 03/12/20 25 03/12/2025 US, obste tric, 2nd or 3rd trime ster No observ ation record ed. [email or web address] [address], [place], [address], 03/14/2025 09:40:30 04/11/2004/11/2025 US, obste tric, follo w-up No observ ation record ed. [facility] [address], [place], [address], 04/11/2025 17:08:07 04/11/2004/11/2025 US, obste tric, follo w-up No observ ation record ed. [email or web address] [address], [place], [address], 04/15/2025 06:50:04 05/09/2005/09/2025 US, obste tric, follo w-up No observ ation record ed. [facility] [address], [place], [address], 05/09/2025 16:53:22 05/09/2005/09/2025 US, obste tric, follo w-up No observ ation record ed. [email or web address] [address], [place], [address], 05/12/2025 12:19:00 06/05/20 25 06/05/2025 US, obste tric, follo w-up No observ ation record ed. [email or web address] [place] [address], [place], [address], 06/05/2025 15:11:40 06/05/20 25 06/05/2025 US, obste tric, follo w-up No observ ation record ed. [email or web address] [address], [place], [address], 06/13/2025 14:46:41 06/06/20 25 06/06/2025 US, obste tric, bioph ysica l profi le No observ ation record ed. [address] [facility], [place], [address], 06/18/2025 15:22:02 06/06/20 25 06/06/2025 US, obste tric, bioph ysica l profi le No observ ation record ed. [address], [place], [address], 06/18/2025 15:21:42 06/06/20 25 06/06/2025 US, obste tric, follo w-up No observ ation record ed. [address] [address], [place], [address], 06/10/2025 11:24:02 06/06/20 25 06/06/2025 non-s tress test No observ ation record ed. [address], [place], [address], 06/30/2025 10:44:26 07/03/20 25 07/03/2025 US, obste tric, follo w-up No observ ation record ed. [address], [place], [address], 07/08/2025 13:03:57 07/03/20 25 07/03/2025 US, obste tric, follo w-up No observ ation record ed. [facility] [address], [place], [address], 07/03/2025 18:32:15 07/03/20 25 07/03/2025 US, obste tric, bioph ysica l profi le + non-s tress test No observ ation record ed. [facility] [address], [place], [address], 07/03/2025 18:32:26 07/03/20 25 07/03/2025 US, doppl er, umbil ical arter y veloc imetr y No observ ation record ed. [email or web address] [place] [address], [place], [address], 07/03/2025 18:32:38 07/05/20 25 06/06/2025 US, obste tric, bioph ysica l profi le + non-s tress test No observ ation record ed. [email or web address] [place] [address], [place], [address], 07/05/2025 12:07:31 07/09/20 25 07/09/2025 US, obste tric, bioph ysica l profi le + non-s tress test No observ ation record ed. [email or web address] [place] [address], [place], [address], 07/09/2025 12:42:49 07/09/20 25 07/09/2025 US, doppl er, umbil ical arter y veloc imetr y No observ ation record ed. [email or web address] [place] [address], [place], [address], 07/09/2025 12:43:32 07/09/20 25 07/09/2025 US, obste tric, bioph ysica l profi le + non-s tress test No observ ation record ed. JUDYBRIAN Wrighte [address], [place], [address], 07/12/2025 13:33:23 07/09/20 25 07/09/2025 non-s tress test No observ ation record ed. [email or web address] [place] [address], [place], [address], 07/09/2025 18:38:27 07/09/20 25 non-s tress test No observ ation record ed. [place] [address], [place], [address], 07/09/2025 13:30:59 Result Notes None recorded. Problems Name Problem SNOMED Code Status Onset Date Resolution Date Notes Provider Name and Address Organization Details Recorded Time Group B Streptoc occus carrier 9584314243 [id number] Completed h/o in first preg. Renee Torres MD [address], [place], [address], [facility] 3 10:33:02 Ultrasou nd scan abnormal [id number] Completed subamnio tic hemorrha ge - rpt u/s schd 01/04/23- wnl at [facility]. no FU needed. Marvin cabrera [facility] 3 16:42:26 Uterine size for dates discrepa ncy [id number] Completed already doing growth at [facility] Marvin Paul [facility] 3 16:42:26 Venous conroy [id number] Completed placenta - 02/21/24 9am u/s only. REBECCA MENA MD [address], [place], [address], [facility] 4 11:34:29 Placenta circumva llata [id number] Completed REBECCA MENA MD [address], [place], [address], [facility] 4 11:34:29 Pregnanc y 12776132 Completed 202203/13/2023 Chaya cabrera, [facility] 5 10:31:09 Pregnanc y 24684097 Completed 202305/27/2024 Chaya cabrera, [facility] 10:31:09 Pregnanc y 18073667 Active 2024 Chaya Marley null, [facility] 10:31:09 Group B Streptoc occus carrier [id number] 103 Active 2024 + GBS in urine Tiara Alarcon null, [facility] 17:54:31 Poor growth affectin g manageme nt 041460027 Active 2024 6% Zuleima Olsen CNM [address], [place], [address], [facility] 11:57:52 Problem Notes None recorded. Procedures Surgical History Date Name Laterality Status Provider Name and Address Organization Details Recorded Time 05/05/20 23 Date of Last Pap Smear completed Iveth Guevara [facility] 05/23/2025 14:51:22 02/29/20 22 IUD Removal completed STEPHANIE Acevedo [address], [place], [address], [facility] 02/28/2022 09:46:01 02/10/20 21 Colposcopy completed Chaya Marley [facility] 01/17/2025 10:28:24 02/10/20 21 cervical biopsy completed Chaya Marley [facility] 07/27/2022 10:28:55 07/31/19 20 extraction of wisdom tooth completed Chaya Marley [facility] 07/27/2022 10:28:13 07/31/19 18 Date of Last Colonoscopy completed Chaya Marley [facility] 07/27/2022 10:27:19 07/31/19 18 Colonoscopy completed Chaya Marley [facility] 07/27/2022 10:28:04 Imaging Results None [...] Time Tobacco Smoking Status Former Smoker Sujata Norm [facility] 10/20/2022 09:56:48 Do You Have An Advance Directive? No Information not available 02/08/2021 If You Are , What Was Your Level Of Alcohol Consumption Prior To ? Occasional [email or web address] Information not available 10/20/2022 Are You Blind [...] Or The Highest Degree You Have Received? [id number] Information not available 02/08/2021 Are There Any Guns Present In Your Home? No Information not available 02/08/2021 Do You Use Protection During Sex? No Information not available 02/08/2021 Do You Use Your Seat Belt Or Car Seat Routinely? Yes Information not available 02/08/2021 Are You Sexually Active? Yes [email or web address] Information not available 03/12/2025 Do You Have Smoke And Carbon Monoxide Detectors In Your Home? Yes Information not available 02/08/2021 How Much Tobacco Do You Smoke? No Information not available 02/08/2021 Do You Use Sunscreen Routinely? Yes Information not available 02/08/2021 Have You Used IV Drugs? No Information not available 02/08/2021 Do You Have Difficulty Walking Or Climbing Stairs? No [email or web address] Information not available 10/20/2022 Sex: Unknown Functional [...] able to care for yourself independently? 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 No Information not available 10/20/2022 What is your exercise level? Heavy Information not available 02/08/2021 Mental Status Question Answer Note LastModified by Organization D etails LastModified Time Do you feel stressed (tense, restless, nervous, or anxious, or unable to sleep at night)? [id number] Information not available 02/08/2021 Family History Relationship Description Onset Age of this Age Resolved Age Notes LastModified by Organization Details LastModified Time Maternal Aunt Disorder of thyroid gland Not available 2020 11:46:08 Maternal Aunt Malignant neoplasm of ovary Not available 2020 11:36:55 Mother Anemia Not available 02/08/2021 11:46:08 Mother Malignant neoplasm of breast [email or web address] Not available 07/27 21:16:57 Mother Malignant neoplasm of lung [email or web address] Not available 07/27 21:17:08 Paternal Aunt Malignant [...] ICD10 Code Diagnosis IMO Codes Diagnosis Note [id number] Orion Cobb MD [place] [address],[facility] [place] [address] 05/09/2025 13:58:24 05/09/2025 14:40:46 Anomaly of placenta 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 O43.103 Z03.74 Z3A.28 [id number] Zuleima Olsen CNM [place] [address],[facility] [place] [address] 05/09/2025 13:58:38 05/09/2025 14:55:45 Urinary symptoms [id number] R39.9 [id number] Gestation period, 28 weeks 45700776 Z3A.28 5964179 Pruritus of vagina 20675 003 N89.8 344304 [id number] Zuleima Olsen CNM [place] [address] [address] 05/23/2025 14:43:28 05/23/2025 15:06:10 Gestation period, 30 weeks 64732666 Z3A.30 0648211 continue vitamin [id number] Orion Cobb MD [place] [address] [address] 06/05/2025 10:56:09 06/05/2025 14:07:34 Abnormal placenta affecting management of mother 48742570 O43.93 Z3A.32 [id number] Health Concerns Section Related Observation LastModified by Organization Detai ls LastModified Time None Recorded Concern Status LastModified by Organization Details LastModified Time None Recorded Payers Encounter Date Sequence Insurance Name Policy Number Policy Veloz Covered Member ID Veloz Member ID Guarantor Name 06/05/2025 1 [facility] (MEDICAID HMO) [id number] Trina Jazmynleobardo [id number] Man Oneil OBGyn Episode Ob Episode Information Episode Created Date Number of Fetuses Patient Bloodtype Patient rh Status Prepregnancy Weight lbs Domestic Partner Domestic Partner Phone Father Name 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 Status 01/18/20 25 1 O Positive 112 Alli Wilmurt h OPEN Fetus Data First Name Last Name Admitted to NICU Weight (g) Sex Living Outcome Pediatric Complications Fetus ID Race Codes Race Delivery Type [id number] Problems Problem Notes multiple placental lakes STA BLE Problem Name Start Date End Date Resolution Snomed Code Not e Group B Streptococcus carrier 01/21/2025 [id number] + GBS in urine Poor growth affecting management 07/04/2025 [id number] 6% Moises Calculation Initial Moises Date Initial Exam Date Initial Exam Provider Initial Ultrasound Date Last Menstrual Period Date Ultra Sound Weeks Gestation 07/27/2025 12/17/2024 [email or web address] 12/03/2024 10/20/2024 6 Eighteen To Twenty Week [...] Weight in lbs Pre/Post Dialysis Refused Weight 112.644319105707 BP Diastolic BP Location Tested BP Systolic [...] Type Weight in lbs Pre/Post Dialysis Refused 114.121945760912 BP Diastolic BP Location Tested BP Systolic [...] Type Weight in lbs Pre/Post Dialysis Refused 122.512446083889 BP Diastolic BP Location Tested BP Systolic [...] Weight in lbs Pre/Post Dialysis Refused Weight 127.855948052231 BP Diastolic BP Location Tested BP Systolic [...] Weight in lbs Pre/Post Dialysis Refused Weight 136.846551946789 BP Diastolic BP Location Tested BP Systolic [...] Weight in lbs Pre/Post Dialysis Refused Weight 137.015314939326 BP Diastolic BP Location Tested BP Systolic [...] Type Weight in lbs Pre/Post Dialysis Refused 140.627047549332 BP Diastolic BP Location Tested BP Systolic [...] Weight in lbs Pre/Post Dialysis Refused Weight 140.276516880914 BP Diastolic BP Location Tested BP Systolic [...] Weight in lbs Pre/Post Dialysis Refused Weight 139.76442288460 BP Diastolic BP Location Tested BP Systolic [...] Weight in lbs Pre/Post Dialysis Refused Weight 141.076411138699 BP Diastolic BP Location Tested BP Systolic [...] Weight in lbs Pre/Post Dialysis Refused Weight 145.940420334667 BP Diastolic BP Location Tested BP Systolic [...] Weight in lbs Pre/Post Dialysis Refused Weight 146.868591458827 BP Diastolic BP Location Tested BP Systolic BP Type 69 L arm 104 sitting Fetus Heart Rate Present Fetus Movement A Yes Comments Flowsheet Date 07/09/2025 Ross Score Blood Edema Fundus Height Fundus Units Glucose Ketones Leukocytes Nitrite Labor Signs Protein Cervic Dilation Cervic Effacement Cervic Station Type Weight in lbs Pre/Post Dialysis Refused 146.938349168638 BP Diastolic BP Location Tested BP Systolic [...]
--- OUTSIDE RECORDS SUMMARY | 2025-07-13 17:19 | XMS_ITS | Continuity of Care Document ---
Author Organization [facility] Address [address] [place] [address] Assessment Encounter Date Assessment Date Assessment LastModified [...] Not Available [facility] [address], [place], [address], 01/22/2025 22:58:15 01/23/20 25 01/22/2025 [UNIT Y] ANEUP LOIDY NIPT 22Q11.2 microdeletio n LOW RISK <1 in 10,000 normal Not Available [facility] [address], [place], [address], 01/22/2025 22:58:15 01/23/20 25 01/22/2025 [UNIT Y] ANEUP LOIDY NIPT sex chromosome aneuploidy NOT DETECT ED normal Not Available [facility] [address], [place], [address], 01/22/2025 22:58:15 01/23/20 25 01/22/2025 [UNIT Y] ANEUP LOIDY NIPT monosomy X LOW RISK <1 in 10,000 normal Not Available [facility] [address], [place], [address], 01/22/2025 22:58:15 01/23/20 25 01/22/2025 [UNIT Y] ANEUP LOIDY NIPT trisomy 13 LOW RISK <1 in 10,000 normal Not Available [facility] [address], [place], [address], 01/22/2025 22:58:15 01/23/20 25 01/22/2025 [UNIT Y] ANEUP LOIDY NIPT trisomy 18 LOW RISK <1 in 10,000 normal Not Available [facility] [address], [place], [address], 01/22/2025 22:58:15 01/23/20 25 01/22/2025 [UNIT Y] ANEUP LOIDY NIPT trisomy 21 LOW RISK <1 in 10,000 normal Not Available [facility] [address], [place], [address], 01/22/2025 22:58:15 01/23/20 25 01/22/2025 [UNIT Y] ANEUP LOIDY NIPT sex MALE normal Not Available [facility] [address], [place], [address], 01/22/2025 22:58:15 01/23/20 25 01/22/2025 [UNIT Y] ANEUP LOIDY NIPT gestation SINGLE TON normal Not Available [facility] [address], [place], [address], 01/22/2025 22:58:15 01/23/20 01/22/2025 [UNIT Y] ANEUP JENNIE NIPT for detailed report, see pdf See PDF normal Not Available [facility] [address], [place], [address], 01/22/2025 22:58:15 01/18/2001/17/2025 CULTU RE: URINE result report SEE RESULT S BELOW abnormal Test: Cultu re: Urine Speci men Sourc e: Urine Voide d Speci men Type: Urine Speci men Date: 2024 1622 Resul t Date: 2024 0142 Resul t Statu s: Final resul t Abnor mal: Yes Resul josé miguelg Lab: [facility] [address] [facility] [address] Tel: CULTU RE ----- ----- ----- --- [...] lab withi n 5 days. Not Available [facility] (Lab) [address] , [place], [address], 01/19/2025 02:46:33 01/18/2001/17/2025 CBC W/DIF F WBC 8.1 10'3/ uL 3.5-10 .5 Not Available [facility] (Lab) [address] , [place], [address], 01/20/2025 12:18:01 01/18/20 25 01/17/2025 CBC W/DIF F RBC 3.68 10'6/ uL (based on docume nted legal sex) 3.80-5 .20 low Not Available [facility] (Lab) [address], [place], [address], 01/20/2025 12:18:01 01/18/20 25 01/17/2025 CBC W/DIF F HGB 10.4 g/dL (based on docume nted legal sex) 11.6-1 5.4 low Not Available [facility] (Lab) [address] [facility], [place], [address], 01/20/2025 12:18:01 01/18/20 25 01/17/2025 CBC W/DIF F HCT 32.2 % (based on docume nted legal sex) 34.0-4 5.0 low Not Available [facility] (Lab) [address] [facility], [place], [address], 01/20/2025 12:18:01 01/18/20 25 01/17/2025 CBC W/DIF F MCV 87.5 fL 80.0-9 9.0 Not Available [facility] (Lab) [address] [facility], [place], [address], 01/20/2025 12:18:01 01/18/20 25 01/17/2025 CBC W/DIF F MCH 28.3 pg 27.0-3 4.0 Not Available [facility] (Lab) [address] [facility], [place], [address], 01/20/2025 12:18:01 01/18/20 25 01/17/2025 CBC W/DIF F MCHC 32.3 g/dL 32.0-3 5.5 Not Available [facility] (Lab) [address] [facility], [place], [address], 01/20/2025 12:18:01 01/18/20 25 01/17/2025 CBC W/DIF F RDW 14.5 % 11.0-1 5.0 Not Available [facility] (Lab) [address] [facility], [place], [address], 01/20/2025 12:18:01 01/18/20 25 01/17/2025 CBC W/DIF F plt 157 10'3/ uL 150-40 0 Not Available [facility] (Lab) [address], [place], [address], 01/20/2025 12:18:01 01/18/20 25 01/17/2025 CBC W/DIF F MPV 12.7 fL 8.8-12 .1 high Not Available [facility] (Lab) [address], [place], [address], 01/20/2025 12:18:01 01/18/20 25 01/17/2025 CBC W/DIF F NRBC's 0.0 % 0.0 Not Available [facility] (Lab) [address], [place], [address], 01/20/2025 12:18:01 01/18/20 25 01/17/2025 CBC W/DIF F absolute NRBCs 0.0 10'3/ uL no refere nce range establ ished Not Available [facility] (Lab) [address], [place], [address], 01/20/2025 12:18:01 01/18/20 25 01/17/2025 CBC W/DIF F neutrophils 73.9 % 34.0-7 3.0 high Not Available [facility] (Lab) [address], [place], [address], 01/20/2025 12:18:01 01/18/20 25 01/17/2025 CBC W/DIF F lymphocytes 21.1 % 15.0-5 0.0 Not Available [facility] (Lab) [address], [place], [address], 01/20/2025 12:18:01 01/18/20 25 01/17/2025 CBC W/DIF F monocytes 4.1 % 1.0-15 .0 Not Available [facility] (Lab) [address] [place], [address], 01/20/2025 12:18:01 01/18/20 25 01/17/2025 CBC W/DIF F eosinophils 0.5 % 0.0-8. 0 Not Available [facility] (Lab) [address], [place], [address], 01/20/2025 12:18:01 01/18/20 25 01/17/2025 CBC W/DIF F basophils 0.2 % 0.0-2. 0 Not Available [facility] (Lab) [address], [place], [address], 01/20/2025 12:18:01 01/18/20 25 01/17/2025 CBC W/DIF [...] separ ately if prese nt. Not Available [facility] (Lab) [address] , [place], [address], 01/20/2025 12:18:01 01/18/20 25 01/17/2025 CBC W/DIF F absolute neutrophils 6.0 10'3/ uL 1.5-8. 0 Not Available [facility] (Lab) [address], [place], [address], 01/20/2025 12:18:01 01/18/20 25 01/17/2025 CBC W/DIF F absolute lymphocytes 1.7 10'3/ uL 1.0-4. 0 Not Available [facility] (Lab) [address], [place], [address], 01/20/2025 12:18:01 01/18/20 25 01/17/2025 CBC W/DIF F absolute monocytes 0.3 10'3/ uL 0.2-1. 0 Not Available [facility] (Lab) [address], [place], [address], 01/20/2025 12:18:01 01/18/20 25 01/17/2025 CBC W/DIF F absolute eosinophils 0.0 10'3/ uL 0.0-0. 6 Not Available [facility] (Lab) [address] [facility], [place], [address], 01/20/2025 12:18:01 01/18/20 25 01/17/2025 CBC W/DIF F absolute basophils 0.0 10'3/ uL 0.0-0. 3 Not Available [facility] (Lab) [address] [facility], [place], [address], 01/20/2025 12:18:01 01/18/20 25 01/17/2025 CBC W/DIF [...] and book. nm.or g/gen derx Not Available [facility] (Lab) [address] [facility], [place], [address], 01/20/2025 12:18:01 01/18/20 25 01/17/2025 HEPAT ITIS [...] Hispa zohaib or Latin o Not Available [facility] (Lab) [address] [facility], [place], [address], 01/20/2025 12:18:02 01/18/20 25 01/17/2025 HEPAT ITIS C ANTIB TOM SCREE N, REFLE X TO CONFI RMATI ON hepatitis C antibody Non-re active non-re active Antib odies to HCV Not Detec alfonso, does not exclu de the possi bilit y of expos ure to HCV. : Not Hispa zohaib or Latin o Not Available [facility] (Lab) [address] [facility], [place], [address], 01/20/2025 12:18:02 01/18/20 25 01/17/2025 HIV 1/2 ANTIG EN/AN TIBOD Y, REFLE X CONFI RMATI ON HIV antigen/anti body Nonrea ctive nonrea ctive : Not Hispa zohaib or Latin o HIV-1 antig en and HIV-1 /HIV- 2 antib odies were not detec alfonso. No labor atory evide nce of HIV infec tion. Not Available [facility] (Lab) [address] [facility], [place], [address], 01/20/2025 12:18:03 01/18/20 25 01/17/2025 TYPE/ RH/SC REEN ABO/Rh type O POS Not Available [facility] (Lab) [address] [place], [address], 01/20/2025 12:18:03 01/18/20 25 01/17/2025 TYPE/ RH/SC REEN antibody screen NEG Not Available [facility] (Lab) [address] [place], [address], 01/20/2025 12:18:03 01/18/20 25 01/17/2025 TYPE/ RH/SC REEN exp date 2024 23:59 Not Available [facility] (Lab) [address] [facility], [place], [address], 01/20/2025 12:18:03 01/18/20 25 01/17/2025 RUBEL LA IGG ANTIB TOM, QUANT rubella antibodies, IgG Reacti ve reacti ve Not Available [facility] (Lab) [address] [facility], [place], [address], 01/20/2025 12:18:04 01/18/20 25 01/17/2025 RUBEL LA IGG ANTIB TOM, QUANT rubella antibodies, IgG quant 12.2 IU/mL >=10 : Not Hispa zohaib or Latin o Non-r eacti ve (Non- Immun e) <10 IU/mL React nesha (Immu ne) > or = 10 IU/mL Not Available [facility] (Lab) [address] [facility], [place], [address], 01/20/2025 12:18:04 01/18/20 25 01/17/2025 RPR SCREE N, REFLE X TITER /CONF IRMAT ION RPR qualitative Nonrea ctive nonrea ctive : Not Hisco zohaib or Latin o Not Available [facility] (Lab) [address] [facility], [place], [address], 01/20/2025 12:18:04 01/18/20 25 01/17/2025 HEMOG LOBIN [...] >8.0% Actio n sugge sted Not Available [facility] (Lab) [address] [facility], [place], [address], 01/20/2025 12:18:04 01/18/20 25 01/17/2025 LEAD, BLOOD (ADUL T/PED IATRI C) lead, whole blood <1.0 mcg/d L <3.5 See Note 1 Antonio sis was perfo rmed by Jimbo Conroy ed Plasm a Mass Spect romet ry (ICPM S) Note 1 This test was devel oped and its antonio tical perfo rmanc e jenaro cteri stics have been deter mined by [facility]. It has not been clear ed or appro dolores by the FDA. This assay has been valid ated pursu ant to the CLIA regul ation s and is used for clini gogo purpo ses. : Not Hispa zohaib or Latin o Perfo rming Organ izati on Infor matio n: Site ID: [id number] Name: [employer]stic s-Brandon simon [place] Addre ss: [id number] [place] [address] Dire tor: Galileo newton Not Available [facility] (Lab) [address] [facility], [place], [address], 01/20/2025 12:18:05 01/18/20 25 01/17/2025 drug scree n, urine Amphetamines : negati ve Not Available [place] [address], [place], [address], 01/17/2025 10:30:22 01/18/20 25 01/17/2025 drug scree n, urine Cannabinoids : negati ve Not Available [place] [address], [place], [address], 01/17/2025 10:30:22 01/18/20 25 01/17/2025 drug scree n, urine Cocaine: negati ve Not Available [place] [address], [place], [address], 01/17/2025 10:30:22 01/18/20 25 01/17/2025 drug scree n, urine Opiates: negati ve Not Available [place] [address], [place], [address], 01/17/2025 10:30:22 01/18/20 25 01/17/2025 drug scree n, urine Phenocyclidi ne: negati ve Not Available [place] [address], [place], [address], 01/17/2025 10:30:22 01/18/20 25 01/17/2025 drug scree n, urine Barbiturates : negati ve Not Available [place] [address], [place], [address], 01/17/2025 10:30:22 01/18/20 25 01/17/2025 drug scree n, urine Benzodiazepi sabrina: negati ve Not Available [place] [address], [place], [address], 01/17/2025 10:30:22 01/18/20 25 01/17/2025 drug scree n, urine Ethanol: negati ve Not Available [place] [address], [place], [address], 01/17/2025 10:30:22 01/18/20 25 01/17/2025 drug scree n, urine Hallucinogen s: negati ve Not Available [place] [address], [place], [address], 01/17/2025 10:30:22 01/18/20 25 01/17/2025 drug scree n, urine Inhalants: negati ve Not Available [place] [address], [place], [address], 01/17/2025 10:30:22 01/18/20 25 01/17/2025 drug scree n, urine Anabolic Steroids: negati ve Not Available [place] [address], [place], [address], 01/17/2025 10:30:22 01/18/20 25 01/17/2025 drug scree n, urine Other: positi ve Not Available [address], [place], [address], 01/17/2025 10:30:22 05/09/20 25 05/09/2025 HEMOG LOBIN (HGB) HGB 9.6 g/dL (based on docume nted legal sex) 11.6-1 5.4 low Not Available [facility] (Lab) [address] [facility], [place], [address], 05/12/2025 14:37:31 05/09/20 25 05/09/2025 HEMAT OCRIT (HCT) HCT 30.4 % (based on docume nted legal sex) 34.0-4 5.0 low Not Available [facility] (Lab) [address] [facility], [place], [address], 05/12/2025 14:37:32 05/09/20 25 05/09/2025 GTT - GESTA SINDHU L SASKIA Colon, ACOG OB glucose, 1 hour screen 70 mg/dL 70-[address] [facility] (Lab) [address] [facility], [place], [address], 05/12/2025 14:37:32 05/09/20 25 05/09/2025 HIV 1/2 ANTIG EN/AN TIBOD Y, REFLE X CONFI RMATI ON HIV antigen/anti body Nonrea ctive nonrea ctive HIV-1 antig en and HIV-1 /HIV- 2 antib odies were not detec alfonso. No labor atory evide nce of HIV infec tion. Not Available [facility] (Lab) [address] [facility], [place], [address], 05/12/2025 14:37:32 05/09/20 25 05/09/2025 RPR SCREE N, REFLE X TITER /CONF IRMAT ION RPR qualitative Nonrea ctive nonrea ctive Not Available [facility] (Lab) [address] [place], [address], 05/12/2025 14:37:33 05/09/2005/09/2025 urina lysis , dipst ick Leukocytes trace Not Available Binu watson [address], [place], [address], 05/09/2025 14:43:51 05/09/2005/09/2025 urina lysis , dipst ick Nitrite neg Not Available [place] [address], [place], [address], 05/09/2025 14:43:51 05/09/2005/09/2025 urina lysis , dipst ick Urobilinogen norm Not Available [facility] [address], [place], [address], 05/09/2025 14:43:51 05/09/2005/09/2025 urina lysis , dipst ick Protein trace Not Available [place] [address], [place], [address], 05/09/2025 14:43:51 05/09/2005/09/2025 urina lysis , dipst ick pH 5 Not Available [place] [address], [place], [address], 05/09/2025 14:43:51 05/09/2005/09/2025 urina lysis , dipst ick Specific [place] 1.015 Not Available [facility] [address], [place], [address], 05/09/2025 14:43:51 05/09/2005/09/2025 urina lysis , dipst ick Ketone trace Not Available [place] [address], [place], [address], 05/09/2025 14:43:51 05/09/20 25 05/09/2025 urina lysis , dipst ick Bilirubin nor Not Available Janell e [address], [place], [address], 05/09/2025 14:43:51 05/09/20 25 05/09/2025 urina lysis , dipst ick Glucose neg Not Available [place] [address], [place], [address], 05/09/2025 14:43:51 05/09/20 25 05/09/2025 urina lysis , dipst ick Appearance clear Not Available [facility] [address], [place], [address], 05/09/2025 14:43:51 05/09/20 25 05/09/2025 urina lysis , dipst ick Color yellow Not Available [place] [address], [place], [address], 05/09/2025 14:43:51 01/18/20 25 01/17/2025 US, obste tric, nucha l trans lucen cy No observ ation record ed. [facility] [address], [place], [address], 01/17/2025 17:27:13 01/18/20 25 01/17/2025 US, obste tric, follo w-up No observ ation record ed. [email or web address] [address], [place], [address], 01/21/2025 15:12:49 03/12/20 25 03/12/2025 US, obste tric, 2nd or 3rd trime ster No observ ation record ed. [facility] [address], [place], [address], 03/12/2025 18:48:30 03/12/20 25 03/12/2025 US, obste tric, 2nd or 3rd trime ster No observ ation record ed. [email or web address] [address], [place], [address], 03/14/2025 09:40:30 04/11/2004/11/2025 US, obste tric, follo w-up No observ ation record ed. [facility] [address], [place], [address], 04/11/2025 17:08:07 04/11/2004/11/2025 US, obste tric, follo w-up No observ ation record ed. [address], [place], [address], 04/15/2025 06:50:04 05/09/20 25 05/09/2025 US, obste tric, follo w-up No observ ation record ed. [facility] [address], [place], [address], 05/09/2025 16:53:22 05/09/2005/09/2025 US, obste tric, follo w-up No observ ation record ed. [email or web address] [address], [place], [address], 05/12/2025 12:19:00 06/05/20 25 06/05/2025 US, obste tric, follo w-up No observ ation record ed. [email or web address] [place] [address], [place], [address], 06/05/2025 15:11:40 06/05/2006/05/2025 US, obste tric, follo w-up No observ ation record ed. [email or web address] [address], [place], [address], 06/13/2025 14:46:41 06/06/20 25 06/06/2025 US, obste tric, bioph ysica l profi le No observ ation record ed. [address], [place], [address], 06/18/2025 15:22:02 06/06/20 25 06/06/2025 US, obste tric, bioph ysica l profi le No observ ation record ed. [address], [place], [address], 06/18/2025 15:21:42 06/06/20 25 06/06/2025 US, obste tric, follo w-up No observ ation record ed. [address] [facility], [place], [address], 06/10/2025 11:24:02 06/06/20 25 06/06/2025 non-s tress test No observ ation record ed. [address], [place], [address], 06/30/2025 10:44:26 07/03/20 25 07/03/2025 US, obste tric, follo w-up No observ ation record ed. [email or web address] [id number] [place] [address] [address], [place], [address], 07/08/2025 13:03:57 07/03/20 25 07/03/2025 US, obste tric, follo w-up No observ ation record ed. [facility] [address], [place], [address], 07/03/2025 18:32:15 07/03/20 25 07/03/2025 US, obste tric, bioph ysica l profi le + non-s tress test No observ ation record ed. [facility] [address], [place], [address], 07/03/2025 18:32:26 07/03/20 25 07/03/2025 US, doppl er, umbil ical arter y veloc imetr y No observ ation record ed. [email or web address] [place] [address], [place], [address], 07/03/2025 18:32:38 07/05/20 25 06/06/2025 US, obste tric, bioph ysica l profi le + non-s tress test No observ ation record ed. [email or web address] [place] [address], [place], [address], 07/05/2025 12:07:31 07/09/20 25 07/09/2025 US, obste tric, bioph ysica l profi le + non-s tress test No observ ation record ed. [email or web address] [place] [address], [place], [address], 07/09/2025 12:42:49 07/09/20 25 07/09/2025 US, doppl er, umbil ical arter y veloc imetr y No observ ation record ed. [email or web address] [place] [address], [place], [address], 07/09/2025 12:43:32 07/09/20 25 07/09/2025 US, obste tric, bioph ysica l profi le + non-s tress test No observ ation record ed. JUDY [address], [place], [address], 07/12/2025 13:33:23 07/09/20 25 07/09/2025 non-s tress test No observ ation record ed. [place] [address], [place], [address], 07/09/2025 18:38:27 12/10/20 25 non-s tress test No observ ation record ed. [place] [address], [place], [address], 07/09/2025 13:30:59 Result Notes None recorded. Problems Name Problem SNOMED Code Status Onset Date Resolution Date Notes Provider Name and Address Organization Details Recorded Time Group B Streptoc occus carrier 5788648511 103 Completed h/o in first preg. Renee Torres MD [address], [place], [address], [facility] 3 10:33:02 Ultrasou nd scan abnormal [id number] Completed subamnio tic hemorrha ge - rpt u/s schd 01/04/23- wnl at [facility]. [facility] 3 16:42:26 Uterine size for dates discrepa ncy [id number] [facility] 3 16:42:26 Venous conroy [id number] Completed placenta - 02/21/24 9am u/s only. REBECCA MENA MD [address], [place], [address], [facility] 4 11:34:29 Placenta circumva llata 3086175 Completed REBECCA MENA MD [address], [place], [address], [facility] 4 11:34:29 Pregnanc y 96720308 Completed 202203/13/2023 Chaya cabrera, [facility] 5 10:31:09 Pregnanc y 55840385 Completed 202305/27/2024 Chaya cabrera, [facility] 5 10:31:09 Pregnanc y 32328857 Active 2024 Chaya Marley null, [facility] 10:31:09 Group B Streptoc occus carrier 2535331035 103 Active 2024 + GBS in urine Tiara Alarcon null, [facility] 5 17:54:31 Poor growth affectin g manageme nt 955847560 Active 2024 6% Zuleima Olsen CNM [address], [place], [address], [facility] 11:57:52 Problem Notes None recorded. Procedures Surgical History Date Name Laterality Status Provider Name and Address Organization Details Recorded Time 05/05/20 23 Date of Last Pap Smear completed Iveth Guevara [facility] 05/23/2025 14:51:22 02/29/20 22 IUD Removal completed STEPHANIE Acevedo [address], [place], [address], [facility] 02/28/2022 09:46:01 02/10/20 21 Colposcopy completed Chaya Marley [facility] 01/17/2025 10:28:24 02/10/20 21 cervical biopsy completed Chaya Marley [facility] 07/27/2022 10:28:55 07/31/19 20 extraction of wisdom tooth completed Chaya Marley [facility] 07/27/2022 10:28:13 07/31/19 18 Date of Last Colonoscopy completed Chaya Marley [facility] 07/27/2022 10:27:19 07/31/19 18 Colonoscopy completed Chayaondina Marley [facility] 07/27/2022 10:28:04 Imaging Results None [...] Not Available Vitals Date Recorded Body weight Body height Systolic And Diastolic Provider Name and Address Organization Details Last Updated DateTime 06/06/2025 31433.9318 g 162.56 cm 112/74 mm[Hg] Iveth Guevara [facility] 06/06/2025 11:57:04 Social History Question Answer Notes LastModified by Organizat ion Details LastModified Time Tobacco Smoking Status Former Smoker Sujata Zheng rick [facility] 10/20/2022 09:56:48 Do You Have An Advance Directive? No Information not available 02/08/2021 If You Are , What Was Your Level Of Alcohol Consumption Prior To ? Occasional [email or web address] Information not available 10/20/2022 Are You Blind [...] Or The Highest Degree You Have Received? [id number] Information not available 02/08/2021 Are There Any Guns Present In Your Home? No Information not available 02/08/2021 Do You Use Protection During Sex? No Information not available 02/08/2021 Do You Use Your Seat Belt Or Car Seat Routinely? Yes Information not available 02/08/2021 Are You Sexually Active? Yes [email or web address] Information not available 03/12/2025 Do You Have Smoke And Carbon Monoxide Detectors In Your Home? Yes Information not available 02/08/2021 How Much Tobacco Do You Smoke? No Information not available 02/08/2021 Do You Use Sunscreen Routinely? Yes Information not available 02/08/2021 Have You Used IV Drugs? No Information not available 02/08/2021 Do You Have Difficulty Walking Or Climbing Stairs? No [email or web address] Information not available 10/20/2022 Sex: Unknown Functional [...] able to care for yourself independently? 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 No [email or web address] Information not available 10/20/2022 What is your exercise level? Heavy Information not available 02/08/2021 Mental Status Question Answer Note LastModified by Organization D etails LastModified Time Do you feel stressed (tense, restless, nervous, or anxious, or unable to sleep at night)? [id number] Information not available 02/08/2021 Family History Relationship Description Onset Age of this Age Resolved Age Notes LastModified by Organization Details LastModified Time Maternal Aunt Disorder of thyroid gland Not available 2020 11:46:08 Maternal Aunt Malignant neoplasm of ovary Not available 2020 11:36:55 Mother Anemia Not available 02/08/2021 11:46:08 Mother Malignant neoplasm of breast [email or web address] Not available 07/27 21:16:57 Mother Malignant neoplasm of lung [id number] Not available 07/27 21:17:08 Paternal Aunt Malignant [...] ICD10 Code Diagnosis IMO Codes Diagnosis Note [id number] Orion Cobb MD [place] [address] [address] 05/09/2025 13:58:24 05/09/2025 14:40:46 Anomaly of placenta 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 O43.103 Z03.74 Z3A.28 [id number] Zuleima Olsen CNM [place] [address] [address] 05/09/2025 13:58:38 05/09/2025 14:55:45 Urinary symptoms [id number] R39.9 [id number] Gestation period, 28 weeks 01300091 Z3A.28 6312382 Pruritus of vagina 79398 003 N89.8 210785 [id number] Zuleima Olsen CNM [place] [address],[place] [address] 05/23/2025 14:43:28 05/23/2025 15:06:10 Gestation period, 30 weeks 43576179 Z3A.30 0934453 continue vitamin [id number] Orion Cobb MD [place] [address],[place] [address] 06/05/2025 10:56:09 06/05/2025 14:07:34 Abnormal placenta affecting management of mother 90517039 O43.93 Z3A.32 14009894 [id number] Zuleima Olsen CNM [place] [address],[place] [address] 06/06/2025 11:46:55 06/06/2025 12:09:09 Gestation period, 32 weeks 9803325 Z3A.32 5046422 cont pnv [id number] Zuleima Olsen CNM [place] [address],[place] [address] 06/06/2025 12:50:38 06/06/2025 16:10:48 Premature uterine contraction 188705352 O47.00 [id number] Health Concerns Section Related Observation LastModified by Organization Detai ls LastModified Time None Recorded Concern Status LastModified by Organization Details LastModified Time None Recorded Payers Encounter Date Sequence Insurance Name Policy Number Policy Veloz Covered Member ID Veloz Member ID Guarantor Name 06/06/2025 1 [facility] (MEDICAID HMO) [id number] Trina Dhillon [id number] Man Oniel Notes Date Note Type Note Provider Name and Address Organization Details Recorded Time 06/06/2025 text/html Generic HPI TemplateReported by Patient Zuleima Olsen CNM [address], [place], [address], [facility] 06/06/2025 12:07:30 OBGyn Episode Ob Episode Information Episode Created Date Number of Fetuses Patient Bloodtype Patient rh Status Prepregnancy Weight lbs Domestic Partner Domestic Partner Phone Father Name Certified Ophthalmic Assistant Status 01/18/20 25 1 O Positive 112 Alli Rahman h OPEN Fetus Data First Name Last Name Admitted to NICU Weight (g) Sex Living Outcome Pediatric Complications Fetus ID Race Codes Race Delivery Type [id number] Problems Problem Notes multiple placental lakes STA BLE Problem Name Start Date End Date Resolution Snomed Code Not e Group B Streptococcus carrier 01/21/2025 [id number] + GBS in urine Poor growth affecting management 07/04/2025 231470629 6% Moises Calculation Initial Moises Date Initial Exam Date Initial Exam Provider Initial Ultrasound Date Last Menstrual Period Date Ultra Sound Weeks Gestation 07/27/2025 12/17/2024 [email or web address] 12/03/2024 10/20/2024 6 Eighteen To Twenty Week [...] Weight in lbs Pre/Post Dialysis Refused Weight 112.807017812652 BP Diastolic BP Location Tested BP Systolic [...] Type Weight in lbs Pre/Post Dialysis Refused 114.655790786226 BP Diastolic BP Location Tested BP Systolic [...] Type Weight in lbs Pre/Post Dialysis Refused 122.754217852262 BP Diastolic BP Location Tested BP Systolic [...] Weight in lbs Pre/Post Dialysis Refused Weight 127.776108883158 BP Diastolic BP Location Tested BP Systolic [...] Weight in lbs Pre/Post Dialysis Refused Weight 136.203082011419 BP Diastolic BP Location Tested BP Systolic [...] Weight in lbs Pre/Post Dialysis Refused Weight 137.913773102300 BP Diastolic BP Location Tested BP Systolic [...] Type Weight in lbs Pre/Post Dialysis Refused 140.060234081061 BP Diastolic BP Location Tested BP Systolic [...] Weight in lbs Pre/Post Dialysis Refused Weight 140.545109516914 BP Diastolic BP Location Tested BP Systolic BP Type 66 L arm 106 sitting Fetus Heart Rate Present A 147 Present Fetus Movement A Yes Comments cntx minimal will cont us pedro at 2 weeks visit, tired today, +FM, encouraged rest f/u one week Flowsheet Date 06/18/2025 Ross Score Blood Edema Fundus Height Fundus Units Glucose Ketones Leukocytes Nitrite Labor Signs Protein Cervic Dilation Cervic Effacement Cervic Station Type Weight in lbs Pre/Post Dialysis Refused Weight 139.94098178159 BP Diastolic BP Location Tested BP Systolic [...] Weight in lbs Pre/Post Dialysis Refused Weight 141.927723621900 BP Diastolic BP Location Tested BP Systolic [...] Weight in lbs Pre/Post Dialysis Refused Weight 145.902936599659 BP Diastolic BP Location Tested BP Systolic [...] Weight in lbs Pre/Post Dialysis Refused Weight 146.597842438865 BP Diastolic BP Location Tested BP Systolic BP Type 69 L arm 104 sitting Fetus Heart Rate Present Fetus Movement A Yes Comments Flowsheet Date 07/09/2025 Ross Score Blood Edema Fundus Height Fundus Units Glucose Ketones Leukocytes Nitrite Labor Signs Protein Cervic Dilation Cervic Effacement Cervic Station Type Weight in lbs Pre/Post Dialysis Refused 146.667104210432 BP Diastolic BP Location Tested BP Systolic [...]
--- OUTSIDE RECORDS SUMMARY | 2025-07-13 17:19 | XMS_ITS | Continuity of Care Document ---
Author Organization [facility] Address [address] [place] [address] [place] [address] Assessment No assessment recorded. Plan of Treatment Reminders Order Date Submit Date Provider Last Modified By Organization Details Last Modified Time Details Appointments None record ed. Lab None record ed. Referral None record ed. Procedures None record ed. Surgeries None record ed. Imaging US, obstet kulwinder, follow -up 025 05/09/20 25 [email or web address] Fraser [facility] [address], [place], [address], 21:20:37 Medication Orders None record ed. Patient TargetsNo targets recorded. Patient InstructionsNo instructions recorded. Reason for Referral None Reported. Results Created Date Observation Date Name Description Value Unit Range Abnormal Flag Note LastModifiedBy Organization Detail LastModifiedTime 01/23/20 25 01/22/2025 [UNIT Y] ANEUP LOIDY NIPT fraction 9.8% normal Not Available [facility]o payan [address], [place], [address], 01/22/2025 22:58:15 01/23/20 25 01/22/2025 [UNIT Y] ANEUP LOIDY NIPT 22Q11.2 microdeletio n LOW RISK <1 in 10,000 normal Not Available Alyssia e [address], [place], [address], 01/22/2025 22:58:15 01/23/20 25 01/22/2025 [UNIT Y] ANEUP LOIDY NIPT sex chromosome aneuploidy NOT DETECT ED normal Not Available [facility] [address], [place], [address], 01/22/2025 22:58:15 01/23/20 25 01/22/2025 [UNIT Y] ANEUP LOIDY NIPT monosomy X LOW RISK <1 in 10,000 normal Not Available [facility] [address], [place], [address], 01/22/2025 22:58:15 01/23/20 25 01/22/2025 [UNIT Y] ANEUP LOIDY NIPT trisomy 13 LOW RISK <1 in 10,000 normal Not Available [facility] [address], [place], [address], 01/22/2025 22:58:15 01/23/20 25 01/22/2025 [UNIT Y] ANEUP LOIDY NIPT trisomy 18 LOW RISK <1 in 10,000 normal Not Available [facility] [address], [place], [address], 01/22/2025 22:58:15 01/23/20 25 01/22/2025 [UNIT Y] ANEUP LOIDY NIPT trisomy 21 LOW RISK <1 in 10,000 normal Not Available [facility] [address], [place], [address], 01/22/2025 22:58:15 01/23/20 25 01/22/2025 [UNIT Y] ANEUP LOIDY NIPT sex MALE normal Not Available [facility] [address], [place], [address], 01/22/2025 22:58:15 01/23/20 25 01/22/2025 [UNIT Y] ANEUP LOIDY NIPT gestation SINGLE TON normal Not Available [facility] [address], [place], [address], 01/22/2025 22:58:15 01/23/20 25 01/22/2025 [UNIT Y] ANEUP JENNIE NIPT for detailed report, see pdf See PDF normal Not Available Alyssia [address], [place], [address], 01/22/2025 22:58:15 01/18/20 25 01/17/2025 CULTU RE: URINE result report SEE RESULT S BELOW abnormal Test: Cultu re: Urine Speci men Sourc e: Urine Voide d Speci men Type: Urine Speci men Date: 2024 1622 Resul t Date: 2024 0142 Resul t Statu s: Final resul t Abnor mal: Yes Eric velazquez Lab: [facility] [address] [facility] [address] Tel: CULTU RE ----- ----- ----- --- [...] lab withi n 5 days. Not Available [facility] (Lab) [address] , [place], [address], 01/19/2025 02:46:33 01/18/20 25 01/17/2025 CBC W/DIF F WBC 8.1 10'3/ uL 3.5-10 .5 Not Available [facility] (Lab) [address], [place], [address], 01/20/2025 12:18:01 01/18/20 25 01/17/2025 CBC W/DIF F RBC 3.68 10'6/ uL (based on docume nted legal sex) 3.80-5 .20 low Not Available [facility] (Lab) [address], [place], [address], 01/20/2025 12:18:01 01/18/20 25 01/17/2025 CBC W/DIF F HGB 10.4 g/dL (based on docume nted legal sex) 11.6-1 5.4 low Not Available [facility] (Lab) [address], [place], [address], 01/20/2025 12:18:01 01/18/20 25 01/17/2025 CBC W/DIF F HCT 32.2 % (based on docume nted legal sex) 34.0-4 5.0 low Not Available [facility] (Lab) [address], [place], [address], 01/20/2025 12:18:01 01/18/20 25 01/17/2025 CBC W/DIF F MCV 87.5 fL 80.0-9 9.0 Not Available [facility] (Lab) [address], [place], [address], 01/20/2025 12:18:01 01/18/20 25 01/17/2025 CBC W/DIF F MCH 28.3 pg 27.0-3 4.0 Not Available [facility] (Lab) [address], [place], [address], 01/20/2025 12:18:01 01/18/20 25 01/17/2025 CBC W/DIF F MCHC 32.3 g/dL 32.0-3 5.5 Not Available [facility] (Lab) [address] [facility], [place], [address], 01/20/2025 12:18:01 01/18/20 25 01/17/2025 CBC W/DIF F RDW 14.5 % 11.0-1 5.0 Not Available [facility] (Lab) [address], [place], [address], 01/20/2025 12:18:01 01/18/20 25 01/17/2025 CBC W/DIF F plt 157 10'3/ uL 150-40 0 Not Available [facility] (Lab) [address] [facility], [place], [address], 01/20/2025 12:18:01 01/18/20 25 01/17/2025 CBC W/DIF F MPV 12.7 fL 8.8-12 .1 high Not Available [facility] (Lab) [address] [facility], [place], [address], 01/20/2025 12:18:01 01/18/20 25 01/17/2025 CBC W/DIF F NRBC's 0.0 % 0.0 Not Available [facility] (Lab) [address] [facility] [facility], [place], [address], 01/20/2025 12:18:01 01/18/20 25 01/17/2025 CBC W/DIF F absolute NRBCs 0.0 10'3/ uL no refere nce range establ ished Not Available [facility] (Lab) [address] [facility], [place], [address], 01/20/2025 12:18:01 01/18/20 25 01/17/2025 CBC W/DIF F neutrophils 73.9 % 34.0-7 3.0 high Not Available [facility] (Lab) [address] [place], [address], 01/20/2025 12:18:01 01/18/20 25 01/17/2025 CBC W/DIF F lymphocytes 21.1 % 15.0-5 0.0 Not Available [facility] (Lab) [address] [facility], [place], [address], 01/20/2025 12:18:01 01/18/20 25 01/17/2025 CBC W/DIF F monocytes 4.1 % 1.0-15 .0 Not Available [facility] (Lab) [address] [place], [address], 01/20/2025 12:18:01 01/18/20 25 01/17/2025 CBC W/DIF F eosinophils 0.5 % 0.0-8. 0 Not Available [facility] (Lab) [address] , [place], [address], 01/20/2025 12:18:01 01/18/20 25 01/17/2025 CBC W/DIF F basophils 0.2 % 0.0-2. 0 Not Available [facility] (Lab) [address], [place], [address], 01/20/2025 12:18:01 01/18/20 25 01/17/2025 CBC W/DIF [...] separ ately if prese nt. Not Available [facility] (Lab) [address], [place], [address], 01/20/2025 12:18:01 01/18/20 25 01/17/2025 CBC W/DIF F absolute neutrophils 6.0 10'3/ uL 1.5-8. 0 Not Available [facility] (Lab) [address], [place], [address], 01/20/2025 12:18:01 01/18/20 25 01/17/2025 CBC W/DIF F absolute lymphocytes 1.7 10'3/ uL 1.0-4. 0 Not Available [facility] (Lab) [address], [place], [address], 01/20/2025 12:18:01 01/18/20 25 01/17/2025 CBC W/DIF F absolute monocytes 0.3 10'3/ uL 0.2-1. 0 Not Available [facility] (Lab) [address], [place], [address], 01/20/2025 12:18:01 01/18/20 25 01/17/2025 CBC W/DIF F absolute eosinophils 0.0 10'3/ uL 0.0-0. 6 Not Available [facility] (Lab) [address] [facility], [place], [address], 01/20/2025 12:18:01 01/18/20 25 01/17/2025 CBC W/DIF F absolute basophils 0.0 10'3/ uL 0.0-0. 3 Not Available [facility] (Lab) [address] [facility], [place], [address], 01/20/2025 12:18:01 01/18/20 25 01/17/2025 CBC W/DIF [...] michael book. nm.or g/gen derx Not Available [facility] (Lab) [address], [place], [address], 01/20/2025 12:18:01 01/18/20 25 01/17/2025 HEPAT ITIS [...] Hispa zohaib or Latin o Not Available [facility] (Lab) [address], [place], [address], 01/20/2025 12:18:02 01/18/20 25 01/17/2025 HEPAT ITIS C ANTIB TOM SCREE N, REFLE X TO CONFI RMATI ON hepatitis C antibody Non-re active non-re active Antib odies to HCV Not Detec alfonso, does not exclu de the possi bilit y of expos ure to HCV. : Not Hispa zohaib or Latin o Not Available [facility] (Lab) [address] [facility], [place], [address], 01/20/2025 12:18:02 01/18/20 25 01/17/2025 HIV 1/2 ANTIG EN/AN TIBOD Y, REFLE X CONFI RMATI ON HIV antigen/anti body Nonrea ctive nonrea ctive : Not Hispa zohaib or Latin o HIV-1 antig en and HIV-1 /HIV- 2 antib odies were not detec alfonso. No labor atory evide nce of HIV infec tion. Not Available [facility] (Lab) [address], [place], [address], 01/20/2025 12:18:03 01/18/20 25 01/17/2025 TYPE/ RH/SC REEN ABO/Rh type O POS Not Available [facility] (Lab) [address] [place], [address], 01/20/2025 12:18:03 01/18/20 25 01/17/2025 TYPE/ RH/SC REEN antibody screen NEG Not Available [facility] (Lab) [address] [place], [address], 01/20/2025 12:18:03 01/18/20 25 01/17/2025 TYPE/ RH/SC REEN exp date 2024 23:59 Not Available [facility] (Lab) [address] [place], [address], 01/20/2025 12:18:03 01/18/20 25 01/17/2025 RUBEL LA IGG ANTIB TOM, QUANT rubella antibodies, IgG Reacti ve reacti ve Not Available [facility] (Lab) [address], [place], [address], 01/20/2025 12:18:04 01/18/20 25 01/17/2025 RUBEL LA IGG ANTIB TOM, QUANT rubella antibodies, IgG quant 12.2 IU/mL >=10 : Not Hispa zohaib or Latin o Non-r eacti ve (Non- Immun e) <10 IU/mL React nesha (Immu ne) > or = 10 IU/mL Not Available [facility] (Lab) [address], [place], [address], 01/20/2025 12:18:04 01/18/20 25 01/17/2025 RPR SCREE N, REFLE X TITER /CONF IRMAT ION RPR qualitative Nonrea ctive nonrea ctive : Not Hisoh zohaib or Latin o Not Available [facility] (Lab) [address], [place], [address], 01/20/2025 12:18:04 01/18/20 25 01/17/2025 HEMOG LOBIN [...] >8.0% Actio n sugge sted Not Available [facility] (Lab) [address], [place], [address], 01/20/2025 12:18:04 01/18/20 25 01/17/2025 LEAD, BLOOD (ADUL T/PED IATRI C) lead, whole blood <1.0 mcg/d L <3.5 See Note 1 Antonio sis was perfo rmed by Jimbo Conroy ed Plasm a Mass Spect romet ry (ICPM S) Note 1 This test was devel oped and its antonio tical perfo rmanc e jenaro cteri stics have been deter mined by [facility]. It has not been clear ed or appro dolores by the FDA. This assay has been valid ated pursu ant to the CLIA regul ation s and is used for clini gogo purpo ses. : Not Hispa zohaib or Latin o Perfo rming Organ izati on Infor matio n: Site ID: CB Name: [facility]andoncintia Patele Addre ss: [address] [place] [address] Dire tor: Galileo newton Not Available [facility] (Lab) [address] [facility], [place], [address], 01/20/2025 12:18:05 01/18/20 25 01/17/2025 drug scree n, urine Amphetamines : negati ve Not Available [facility] [address], [place], [address], 01/17/2025 10:30:22 01/18/20 25 01/17/2025 drug scree n, urine Cannabinoids : negati ve Not Available [facility] [address], [place], [address], 01/17/2025 10:30:22 01/18/20 25 01/17/2025 drug scree n, urine Cocaine: negati ve Not Available Fraser [address], [place], [address], 01/17/2025 10:30:22 01/18/20 25 01/17/2025 drug scree n, urine Opiates: negati ve Not Available [facility] [address], [place], [address], 01/17/2025 10:30:22 01/18/20 25 01/17/2025 drug scree n, urine Phenocyclidi ne: negati ve Not Available [facility] [address], [place], [address], 01/17/2025 10:30:22 01/18/20 25 01/17/2025 drug scree n, urine Barbiturates : negati ve Not Available [facility] [address], [place], [address], 01/17/2025 10:30:22 01/18/20 25 01/17/2025 drug scree n, urine Benzodiazepi sabrina: negati ve Not Available [facility] [address], [place], [address], 01/17/2025 10:30:22 01/18/20 25 01/17/2025 drug scree n, urine Ethanol: negati ve Not Available [facility] [address], [place], [address], 01/17/2025 10:30:22 01/18/20 25 01/17/2025 drug scree n, urine Hallucinogen s: negati ve Not Available [facility] [address], [place], [address], 01/17/2025 10:30:22 01/18/20 25 01/17/2025 drug scree n, urine Inhalants: negati ve Not Available [facility] [address], [place], [address], 01/17/2025 10:30:22 01/18/20 25 01/17/2025 drug scree n, urine Anabolic Steroids: negati ve Not Available [facility] [address], [place], [address], 01/17/2025 10:30:22 01/18/20 25 01/17/2025 drug scree n, urine Other: positi ve Not Available [facility] [address], [place], [address], 01/17/2025 10:30:22 05/09/20 25 05/09/2025 HEMOG LOBIN (HGB) HGB 9.6 g/dL (based on docume nted legal sex) 11.6-1 5.4 low Not Available [facility] (Lab) [address], [place], [address], 05/12/2025 14:37:31 05/09/20 25 05/09/2025 HEMAT OCRIT (HCT) HCT 30.4 % (based on docume nted legal sex) 34.0-4 5.0 low Not Available [facility] (Lab) [address], [place], [address], 05/12/2025 14:37:32 05/09/20 25 05/09/2025 GTT - GESTA SINDHU L SCREE N, ACOG OB glucose, 1 hour screen 70 mg/dL 70-135 Not Available [facility] (Lab) [address] [place], [address], 05/12/2025 14:37:32 05/09/20 25 05/09/2025 HIV 1/2 ANTIG EN/AN TIBOD Y, REFLE X CONFI RMATI ON HIV antigen/anti body Nonrea ctive nonrea ctive HIV-1 antig en and HIV-1 /HIV- 2 antib odies were not detec alfonso. No labor atory evide nce of HIV infec tion. Not Available [facility] (Lab) [address], [place], [address], 05/12/2025 14:37:32 05/09/20 25 05/09/2025 RPR SCREE N, REFLE X TITER /CONF IRMAT ION RPR qualitative Nonrea ctive nonrea ctive Not Available [facility] (Lab) [address] [place], [address], 05/12/2025 14:37:33 05/09/20 25 05/09/2025 urina lysis , dipst ick Leukocytes trace Not Available [facility] Carrolltondorothy watson [address], [place], [address], 05/09/2025 14:43:51 05/09/20 25 05/09/2025 urina lysis , dipst ick Nitrite neg Not Available [facility] [address], [place], [address], 05/09/2025 14:43:51 05/09/2005/09/2025 urina lysis , dipst ick Urobilinogen norm Not Available [facility] minal [address], [place], [address], 05/09/2025 14:43:51 05/09/20 25 05/09/2025 urina lysis , dipst ick Protein trace Not Available [facility] [address], [place], [address], 05/09/2025 14:43:51 05/09/2005/09/2025 urina lysis , dipst ick pH 5 Not Available [facility] [address], [place], [address], 05/09/2025 14:43:51 05/09/20 25 05/09/2025 urina lysis , dipst ick Specific Alderson 1.015 Not Available [facility] perry [address], [place], [address], 05/09/2025 14:43:51 05/09/2005/09/2025 urina lysis , dipst ick Ketone trace Not Available [facility] [address], [place], [address], 05/09/2025 14:43:51 05/09/20 25 05/09/2025 urina lysis , dipst ick Bilirubin nor Not Available Janell carver [address], [place], [address], 05/09/2025 14:43:51 05/09/20 25 05/09/2025 urina lysis , dipst ick Glucose neg Not Available [facility] [address], [place], [address], 05/09/2025 14:43:51 05/09/2005/09/2025 urina lysis , dipst ick Appearance clear Not Available [facility]ort[facility]y watson [address], [place], [address], 05/09/2025 14:43:51 05/09/2005/09/2025 urina lysis , dipst ick Color yellow Not Available [facility] [address], [place], [address], 05/09/2025 14:43:51 01/18/20 25 01/17/2025 US, obste tric, nucha l trans lucen cy No observ ation record ed. [facility] [address], [place], [address], 01/17/2025 17:27:13 01/18/20 25 01/17/2025 US, obste tric, follo w-up No observ ation record ed. [email or web address] [address], [place], [address], 01/21/2025 15:12:49 03/12/20 25 03/12/2025 US, obste tric, 2nd or 3rd trime ster No observ ation record ed. [facility] [address], [place], [address], 03/12/2025 18:48:30 03/12/20 25 03/12/2025 US, obste tric, 2nd or 3rd trime ster No observ ation record ed. [email or web address] [address], [place], [address], 03/14/2025 09:40:30 04/11/2004/11/2025 US, obste tric, follo w-up No observ ation record ed. [facility] [address], [place], [address], 04/11/2025 17:08:07 04/11/2004/11/2025 US, obste tric, follo w-up No observ ation record ed. Pat [address], [place], [address], 04/15/2025 06:50:04 05/09/2005/09/2025 US, obste tric, follo w-up No observ ation record ed. [facility] [address], [place], [address], 05/09/2025 16:53:22 05/09/2005/09/2025 US, obste tric, follo w-up No observ ation record ed. [email or web address] [address], [place], [address], 05/12/2025 12:19:00 06/05/20 25 06/05/2025 US, obste tric, follo w-up No observ ation record ed. [email or web address] [facility] [address], [place], [address], 06/05/2025 15:11:40 06/05/20 25 06/05/2025 US, obste tric, follo w-up No observ ation record ed. [email or web address] [address], [place], [address], 06/13/2025 14:46:41 06/06/20 25 06/06/2025 US, obste tric, bioph ysica l profi le No observ ation record ed. [address] [facility], [place], [address], 06/18/2025 15:22:02 06/06/20 25 06/06/2025 US, obste tric, bioph ysica l profi le No observ ation record ed. [address], [place], [address], 06/18/2025 15:21:42 06/06/20 25 06/06/2025 US, obste tric, follo w-up No observ ation record ed. [address] [address], [place], [address], 06/10/2025 11:24:02 06/06/20 25 06/06/2025 non-s tress test No observ ation record ed. [address], [place], [address], 06/30/2025 10:44:26 07/03/20 25 07/03/2025 US, obste tric, follo w-up No observ ation record ed. [email or web address] [address], [place], [address], 07/08/2025 13:03:57 07/03/20 25 07/03/2025 US, obste tric, follo w-up No observ ation record ed. [facility] [address], [place], [address], 07/03/2025 18:32:15 07/03/20 25 07/03/2025 US, obste tric, bioph ysica l profi le + non-s tress test No observ ation record ed. [facility] [address], [place], [address], 07/03/2025 18:32:26 07/03/20 25 07/03/2025 US, doppl er, umbil ical arter y veloc imetr y No observ ation record ed. [email or web address] [facility] [address], [place], [address], 07/03/2025 18:32:38 07/05/20 25 06/06/2025 US, obste tric, bioph ysica l profi le + non-s tress test No observ ation record ed. [email or web address] [facility] [address], [place], [address], 07/05/2025 12:07:31 07/09/20 25 07/09/2025 US, obste tric, bioph ysica l profi le + non-s tress test No observ ation record ed. [email or web address] [facility] [address], [place], [address], 07/09/2025 12:42:49 07/09/20 25 07/09/2025 US, doppl er, umbil ical arter y veloc imetr y No observ ation record ed. [email or web address] [facility] [address], [place], [address], 07/09/2025 12:43:32 07/09/20 25 07/09/2025 US, obste tric, bioph ysica l profi le + non-s tress test No observ ation record ed. JUDYBRIAN Wrighte [address], [place], [address], 07/12/2025 13:33:23 07/09/20 25 07/09/2025 non-s tress test No observ ation record ed. [facility] [address], [place], [address], 07/09/2025 18:38:27 07/09/20 25 non-s tress test No observ ation record ed. [email or web address] [facility] [address], [place], [address], 07/09/2025 13:30:59 Result Notes None recorded. Problems Name Problem SNOMED Code Status Onset Date Resolution Date Notes Provider Name and Address Organization Details Recorded Time Group B Streptoc occus carrier 6828823928 103 Completed h/o in first preg. Renee Torres MD [address], [place], [address], [facility] 3 10:33:02 Ultrasou nd scan abnormal [id number] Completed subamnio tic hemorrha ge - rpt u/s schd 01/04/23- wnl at [facility]. no FU needed. Marvin cabrera [facility] 3 16:42:26 Uterine size for dates discrepa ncy [id number] Completed already doing growth at [facility] Marvin [facility] 3 16:42:26 Venous conroy [id number] Completed placenta - 02/21/24 9am u/s only. REBECCA MENA MD [address], [place], [address], [facility] 4 11:34:29 Placenta circumva llata 1281912 Completed REBECCA MENA MD [address], [place], [address], [facility] 4 11:34:29 Pregnanc y 98030503 Completed 202203/13/2023 Chaya cabrera, [facility] 5 10:31:09 Pregnanc y 96078372 Completed 202305/27/2024 Chaya cabrera, [facility] 10:31:09 Pregnanc y 70599564 Active 2024 Chaya Marley null, [facility] 10:31:09 Group B Streptoc occus carrier 2868404211 103 Active 2024 + GBS in urine Tiraa Alarcon null, [facility] 17:54:31 Poor growth affectin g manageme nt 783849014 Active 2024 6% Zuleima Olsen CNM [address], [place], [address], [facility] 11:57:52 Problem Notes None recorded. Procedures Surgical History Date Name Laterality Status Provider Name and Address Organization Details Recorded Time 05/05/20 23 Date of Last Pap Smear completed Iveth Guevara [facility] 05/23/2025 14:51:22 02/29/20 22 IUD Removal completed STEPHANIE Acevedo [address], [place], [address], [facility] 02/28/2022 09:46:01 02/10/20 21 Colposcopy completed Chaya Marley [facility] 01/17/2025 10:28:24 02/10/20 21 cervical biopsy completed Chaya Marley [facility] 07/27/2022 10:28:55 07/31/19 20 extraction of wisdom tooth completed Chaya Marley [facility] 07/27/2022 10:28:13 07/31/19 18 Date of Last Colonoscopy completed Chaya Marley [facility] 07/27/2022 10:27:19 07/31/19 18 Colonoscopy completed Chaya Marley [facility] 07/27/2022 10:28:04 Imaging Results None [...] Updated DateTime 05/09/2025 162.56 cm 23.3 kg/m2 45842.56 g 115/76 mm[Hg] Renee Stubbs [facility] 05/09/2025 14:40:12 Social History Question Answer Notes LastModified by Organizat ion Details LastModified Time Tobacco Smoking Status Former Smoker Sujata Norm cabrera [facility] 10/20/2022 09:56:48 Do You Have [...] Or The Highest Degree You Have Received? [id number] Information not available 02/08/2021 Are There Any Guns Present In Your Home? No Information not available 02/08/2021 Do You Use Protection During Sex? No Information not available 02/08/2021 Do You Use Your Seat Belt Or Car Seat Routinely? Yes Information not available 02/08/2021 Are You Sexually Active? Yes [email or web address] Information not available 03/12/2025 Do You Have Smoke And Carbon Monoxide Detectors In Your Home? Yes Information not available 02/08/2021 How Much Tobacco Do You Smoke? No Information not available 02/08/2021 Do You Use Sunscreen Routinely? Yes Information not available 02/08/2021 Have You Used IV Drugs? No Information not available 02/08/2021 Do You Have Difficulty Walking Or Climbing Stairs? No [email or web address] Information not available 10/20/2022 Sex: Unknown Functional [...] able to care for yourself independently? 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 No [email or web address] Information not available 10/20/2022 What is your exercise level? Heavy Information not available 02/08/2021 Mental Status Question Answer Note LastModified by Organization D etails LastModified Time Do you feel stressed (tense, restless, nervous, or anxious, or unable to sleep at night)? [id number] Information not available 02/08/2021 Family History Relationship Description Onset Age of this Age Resolved Age Notes LastModified by Organization Details LastModified Time Maternal Aunt Disorder of thyroid gland Not available 2020 11:46:08 Maternal Aunt Malignant neoplasm of ovary Not available 2020 11:36:55 Mother Anemia Not available 02/08/2021 11:46:08 Mother Malignant neoplasm of breast Not available 07/27 21:16:57 Mother Malignant neoplasm of lung [id number] Not available 07/27 21:17:08 Paternal Aunt Malignant [...] ICD10 Code Diagnosis IMO Codes Diagnosis Note [id number] Orion Cobb MD [facility] [address] [address] 04/11/2025 10:57:49 04/11/2025 12:02:06 anatomy study [id number] Z36.2 Z3A.24 [id number] [facility] [address] [address] 04/11/2025 10:59:48 04/11/2025 12:27:35 Gestation period, 24 weeks 564480263 Z3A.24 [id number] cont pnv [id number] Orion Cobb MD [facility] [address],[place] [address] 05/09/2025 13:58:24 05/09/2025 14:40:46 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 Z03.74 Z3A.28 [id number] Zuleima Olsen CNM [facility] [address],[place] [address] 05/09/2025 13:58:38 05/09/2025 14:55:45 Urinary symptoms [id number] R39.9 [id number] Gestation period, 28 weeks 25628593 Z3A.28 5205984 Pruritus of vagina 49977 003 N89.8 667158 Health Concerns Section Related Observation LastModified by Organization Detai ls LastModified Time None Recorded Concern Status LastModified by Organization Details LastModified Time None Recorded Payers Encounter Date Sequence Insurance Name Policy Number Policy Veloz Covered Member ID Veloz Member ID Guarantor Name 05/09/2025 1 [facility] (MEDICAID HMO) [id number] 0003 Trina Dhillon [id number] Man Oneil Notes Date Note Type Note Provider Name and Address Organization Details Recorded Time 05/09/2025 text/html Generic HPI TemplateReported by Patient Zuleima Olsen CNM [address], [place], [address], [facility] 05/09/2025 14:54:59 OBGyn Episode Ob Episode Information Episode Created Date Number of Fetuses Patient Bloodtype Patient rh Status Prepregnancy Weight lbs Domestic Partner Domestic Partner Phone Father Name Superintendent Sales Status 01/18/20 25 1 O Positive 112 Alli Wilfranciscort h OPEN Fetus Data First Name Last Name Admitted to NICU Weight (g) Sex Living Outcome Pediatric Complications Fetus ID Race Codes Race Delivery Type [id number] Problems Problem Notes multiple placental lakes STA BLE Problem Name Start Date End Date Resolution Snomed Code Not e Group B Streptococcus carrier 01/21/2025 [id number] + GBS in urine Poor growth affecting management 07/04/2025 [id number] 6% Moises Calculation Initial Moises Date Initial Exam Date Initial Exam Provider Initial Ultrasound Date Last Menstrual Period Date Ultra Sound Weeks Gestation 07/27/2025 12/17/2024 [email or web address] 12/03/2024 10/20/2024 6 Eighteen To Twenty Week [...] Weight in lbs Pre/Post Dialysis Refused Weight 112.818807308692 BP Diastolic BP Location Tested BP Systolic [...] Type Weight in lbs Pre/Post Dialysis Refused 114.327364870573 BP Diastolic BP Location Tested BP Systolic [...] Type Weight in lbs Pre/Post Dialysis Refused 122.072845610589 BP Diastolic BP Location Tested BP Systolic [...] Weight in lbs Pre/Post Dialysis Refused Weight 127.922801010453 BP Diastolic BP Location Tested BP Systolic [...] Weight in lbs Pre/Post Dialysis Refused Weight 136.390286202931 BP Diastolic BP Location Tested BP Systolic [...] Weight in lbs Pre/Post Dialysis Refused Weight 137.741083983514 BP Diastolic BP Location Tested BP Systolic [...] Type Weight in lbs Pre/Post Dialysis Refused 140.163918372398 BP Diastolic BP Location Tested BP Systolic [...] Weight in lbs Pre/Post Dialysis Refused Weight 140.053270582787 BP Diastolic BP Location Tested BP Systolic [...] Weight in lbs Pre/Post Dialysis Refused Weight 139.71929022184 BP Diastolic BP Location Tested BP Systolic [...] Weight in lbs Pre/Post Dialysis Refused Weight 141.987490652438 BP Diastolic BP Location Tested BP Systolic [...] Weight in lbs Pre/Post Dialysis Refused Weight 145.505134848488 BP Diastolic BP Location Tested BP Systolic [...] Weight in lbs Pre/Post Dialysis Refused Weight 146.762903780578 BP Diastolic BP Location Tested BP Systolic BP Type 69 L arm 104 sitting Fetus Heart Rate Present Fetus Movement A Yes Comments Flowsheet Date 07/09/2025 Ross Score Blood Edema Fundus Height Fundus Units Glucose Ketones Leukocytes Nitrite Labor Signs Protein Cervic Dilation Cervic Effacement Cervic Station Type Weight in lbs Pre/Post Dialysis Refused 146.615638674162 BP Diastolic BP Location Tested BP Systolic [...]
--- OUTSIDE RECORDS SUMMARY | 2025-07-13 17:19 | XMS_ITS | Continuity of Care Document ---
Author Organization [facility] Address [address] [place] [address] [place] [address] Assessment No assessment recorded. Plan of Treatment Reminders Order Date Submit Date Provider Last Modified By Organization Details Last Modified Time Details Appointments None recorded. Lab None recorded. Referral None recorded. Procedures None recorded. Surgeries None recorded. Imaging US, obstetric, biophysical profile + non-stress test [email or web address] [place] [address] [facility] [address], [place], [address], 11:42:32 US, doppler, umbilical artery velocimetry 2024 025 [facility], [facility] [address], [place], [address], 12:43:32 Medication Orders None recorded. Patient TargetsNo targets recorded. Patient InstructionsNo instructions recorded. Reason for Referral None Reported. Results Created Date Observation Date Name Description Value Unit Range Abnormal Flag Note LastModifiedBy Organization Detail LastModifiedTime 01/23/20 25 01/22/2025 [UNIT Y] ANEUP LOIDY NIPT fraction 9.8% normal Not Available [facility] [address], [place], [address], 01/22/2025 22:58:15 01/23/20 25 01/22/2025 [UNIT Y] ANEUP LOIDY NIPT 22Q11.2 microdeletio n LOW RISK <1 in 10,000 normal Not Available [facility] [address], [place], [address], 01/22/2025 22:58:15 01/23/20 25 01/22/2025 [UNIT Y] ANEUP LOIDY NIPT sex chromosome aneuploidy NOT DETECT ED normal Not Available [facility] [address], [place], [address], 01/22/2025 22:58:15 01/23/20 25 01/22/2025 [UNIT Y] ANEUP LOIDY NIPT monosomy X LOW RISK <1 in 10,000 normal Not Available [facility] [address], [place], [address], 01/22/2025 22:58:15 01/23/20 25 01/22/2025 [UNIT Y] ANEUP LOIDY NIPT trisomy 13 LOW RISK <1 in 10,000 normal Not Available [facility] [address], [place], [address], 01/22/2025 22:58:15 01/23/20 25 01/22/2025 [UNIT Y] ANEUP LOIDY NIPT trisomy 18 LOW RISK <1 in 10,000 normal Not Available [facility] [address], [place], [address], 01/22/2025 22:58:15 01/23/20 25 01/22/2025 [UNIT Y] ANEUP LOIDY NIPT trisomy 21 LOW RISK <1 in 10,000 normal Not Available [facility] [address], [place], [address], 01/22/2025 22:58:15 01/23/20 25 01/22/2025 [UNIT Y] ANEUP LOIDY NIPT sex MALE normal Not Available [facility] [address], [place], [address], 01/22/2025 22:58:15 01/23/20 25 01/22/2025 [UNIT Y] ANEUP LOIDY NIPT gestation SINGLE TON normal Not Available [facility] [address], [place], [address], 01/22/2025 22:58:15 01/23/20 25 01/22/2025 [UNIT Y] ANEUP LOIDY NIPT for detailed report, see pdf See PDF normal Not Available [facility] [address], [place], [address], 01/22/2025 22:58:15 01/18/20 25 01/17/2025 CULTU RE: URINE result report SEE RESULT S BELOW abnormal Test: Cultu re: Urine Speci men Sourc e: Urine Voide d Speci men Type: Urine Speci men Date: 2024 1622 Resul t Date: 2024 0142 Resul t Statu s: Final resul t Abnor mal: Yes Eric velazquez Lab: [facility] [address] [facility] [address] Tel: CULTU RE ----- ----- ----- --- [...] withi n [address] [facility] (Lab) [address], [place], [address], 01/19/2025 02:46:33 01/18/20 25 01/17/2025 CBC W/DIF F WBC 8.1 10'3/ uL 3.5-[address] [facility] (Lab) [address], [place], [address], 01/20/2025 12:18:01 01/18/20 25 01/17/2025 CBC W/DIF F RBC 3.68 10'6/ uL (based on docume nted legal sex) 3.80-5 .[address] [facility] (Lab) [address], [place], [address], 01/20/2025 12:18:01 01/18/20 25 01/17/2025 CBC W/DIF F HGB 10.4 g/dL (based on docume nted legal sex) 11.6-1 [address] [facility] (Lab) [address] [facility], [place], [address], 01/20/2025 12:18:01 01/18/20 25 01/17/2025 CBC W/DIF F HCT 32.2 % (based on docume nted legal sex) 34.0-4 [address] [facility] (Lab) [address] [facility], [place], [address], 01/20/2025 12:18:01 01/18/20 25 01/17/2025 CBC W/DIF F MCV 87.5 fL 80.0-[address] [facility] (Lab) [address] [facility], [place], [address], 01/20/2025 12:18:01 01/18/20 25 01/17/2025 CBC W/DIF F MCH 28.3 pg 27.0-[address] [facility] (Lab) [address] [facility], [place], [address], 01/20/2025 12:18:01 01/18/20 25 01/17/2025 CBC W/DIF F MCHC 32.3 g/dL 32.0-[address] [facility] (Lab) [address] [place], [address], 01/20/2025 12:18:01 01/18/20 25 01/17/2025 CBC W/DIF F RDW 14.5 % 11.0-[address] [facility] (Lab) [address] [facility], [place], [address], 01/20/2025 12:18:01 01/18/20 25 01/17/2025 CBC W/DIF F plt 157 10'3/ uL 150-[address] [facility] (Lab) [address] [facility], [place], [address], 01/20/2025 12:18:01 01/18/20 25 01/17/2025 CBC W/DIF F MPV 12.7 fL 8.8-12 .[address] [facility] (Lab) [address] [facility], [place], [address], 01/20/2025 12:18:01 01/18/20 25 01/17/2025 CBC W/DIF F NRBC's 0.0 % 0.[address] [facility] (Lab) [address] [facility], [place], [address], 01/20/2025 12:18:01 01/18/20 25 01/17/2025 CBC W/DIF F absolute NRBCs 0.0 10'3/ uL no refere nce range establ ished Not Available [facility] (Lab) [address] [facility], [place], [address], 01/20/2025 12:18:01 01/18/20 25 01/17/2025 CBC W/DIF F neutrophils 73.9 % 34.0-7 3[address] [facility] (Lab) [address] [facility], [place], [address], 01/20/2025 12:18:01 01/18/20 25 01/17/2025 CBC W/DIF F lymphocytes 21.1 % 15.0-[address] [facility] (Lab) [address] [place], [address], 01/20/2025 12:18:01 01/18/20 25 01/17/2025 CBC W/DIF F monocytes 4.1 % 1.0-[address] [facility] (Lab) [address], [place], [address], 01/20/2025 12:18:01 01/18/20 25 01/17/2025 CBC W/DIF F eosinophils 0.5 % 0.0-8. [address] [facility] (Lab) [address] [facility], [place], [address], 01/20/2025 12:18:01 01/18/20 25 01/17/2025 CBC W/DIF F basophils 0.2 % 0.0-2. [address] [facility] (Lab) [address], [place], [address], 01/20/2025 12:18:01 01/18/20 25 01/17/2025 CBC W/DIF [...] ately if prese nt. Not Available [facility] (Lab) [address], [place], [address], 01/20/2025 12:18:01 01/18/20 25 01/17/2025 CBC W/DIF F absolute neutrophils 6.0 10'3/ uL 1.5-8. [address] [facility] (Lab) [address] [facility], [place], [address], 01/20/2025 12:18:01 01/18/20 25 01/17/2025 CBC W/DIF F absolute lymphocytes 1.7 10'3/ uL 1.0-4. [address] [facility] (Lab) [address] [facility], [place], [address], 01/20/2025 12:18:01 01/18/20 25 01/17/2025 CBC W/DIF F absolute monocytes 0.3 10'3/ uL 0.2-1. [address] [facility] (Lab) [address] [facility], [place], [address], 01/20/2025 12:18:01 01/18/20 25 01/17/2025 CBC W/DIF F absolute eosinophils 0.0 10'3/ uL 0.0-0. [address] [facility] (Lab) [address] [facility], [place], [address], 01/20/2025 12:18:01 01/18/20 25 01/17/2025 CBC W/DIF F absolute basophils 0.0 10'3/ uL 0.0-0. [address] [facility] (Lab) [address] [facility], [place], [address], 01/20/2025 12:18:01 01/18/20 25 01/17/2025 CBC W/DIF [...] the indiv idual patie nt: https ://david rodriguez book. nm.or g/gen derx Not Available [facility] (Lab) [address] [facility], [place], [address], 01/20/2025 12:18:01 01/18/20 25 01/17/2025 HEPAT ITIS [...] zohaib or Latin o Not Available [facility] (Lab) [address], [place], [address], 01/20/2025 12:18:02 01/18/20 25 01/17/2025 HEPAT ITIS C ANTIB TOM SCREE N, REFLE X TO CONFI RMATI ON hepatitis C antibody Non-re active non-re active Antib odies to HCV Not Detec alfonso, does not exclu de the possi bilit y of expos ure to HCV. : Not Hisak zohaib or Latin o Not Available [facility] (Lab) [address], [place], [address], 01/20/2025 12:18:02 01/18/20 25 01/17/2025 HIV 1/2 ANTIG EN/AN TIBOD Y, REFLE X CONFI RMATI ON HIV antigen/anti body Nonrea ctive nonrea ctive : Not Hispa zohaib or Latin o HIV-1 antig en and HIV-1 /HIV- 2 antib odies were not detec alfonso. No labor atory evide nce of HIV infec tion. Not Available [facility] (Lab) [address], [place], [address], 01/20/2025 12:18:03 01/18/2001/17/2025 TYPE/ RH/SC REEN ABO/Rh type O POS Not Available [facility] (Lab) [address], [place], [address], 01/20/2025 12:18:03 01/18/20 25 01/17/2025 TYPE/ RH/SC REEN antibody screen NEG Not Available [facility] (Lab) [address], [place], [address], 01/20/2025 12:18:03 01/18/2001/17/2025 TYPE/ RH/SC REEN exp date 2024 23:[address] [facility] (Lab) [address] [facility], [place], [address], 01/20/2025 12:18:03 01/18/20 25 01/17/2025 RUBEL LA IGG ANTIB TOM, QUANT rubella antibodies, IgG Reacti ve reacti ve Not Available [facility] (Lab) [address] [facility], [place], [address], 01/20/2025 12:18:04 01/18/20 25 01/17/2025 RUBEL LA IGG ANTIB TOM, QUANT rubella antibodies, IgG quant 12.2 IU/mL >=10 : Not Hispa zohaib or Latin o Non-r eacti ve (Non- Immun e) <10 IU/mL React nesha (Immu ne) > or = 10 IU/mL Not Available [facility] (Lab) [address] [facility], [place], [address], 01/20/2025 12:18:04 01/18/20 25 01/17/2025 RPR SCREE N, REFLE X TITER /CONF IRMAT ION RPR qualitative Nonrea ctive nonrea ctive : Not Hisak zohaib or Latin o Not Available [facility] (Lab) [address] [facility], [place], [address], 01/20/2025 12:18:04 01/18/20 25 01/17/2025 HEMOG LOBIN [...] Actio n sugge sted Not Available [facility] (Lab) [address] [facility], [place], [address], 01/20/2025 12:18:04 01/18/20 25 01/17/2025 LEAD, BLOOD (ADUL T/PED IATRI C) lead, whole blood <1.0 mcg/d L <3.5 See Note 1 Antonio sis was perfo rmed by Jimbo Conroy ed Plasm a Mass Spect romet ry (ICPM S) Note 1 This test was devel oped and its anotnio tical perfo rmanc e jenaro cteri stics have been deter mined by [employer]. It has not been clear ed or appro dolores by the FDA. This assay has been valid ated pursu ant to the CLIA regul ation s and is used for clini gogo purpo ses. : Not Hispa zohaib or Latin o Perfo rming Organ izati on Infor matio n: Site ID: CB Name: [facility]andoncintia Boyle Addre ss: [address] [place] [address] Dire tor: Galileo [address] s Not Available [facility] (Lab) [address] [facility], [place], [address], 01/20/2025 12:18:05 01/18/20 25 01/17/2025 drug scree n, urine Amphetamines : negati ve Not Available [place] [address], [place], [address], 01/17/2025 10:30:22 01/18/20 25 01/17/2025 drug scree n, urine Cannabinoids : negati ve Not Available [place] [address], [place], [address], 01/17/2025 10:30:22 01/18/20 25 01/17/2025 drug scree n, urine Cocaine: negati ve Not Available [place] [address], [place], [address], 01/17/2025 10:30:22 01/18/20 25 01/17/2025 drug scree n, urine Opiates: negati ve Not Available [place] [address], [place], [address], 01/17/2025 10:30:22 01/18/20 25 01/17/2025 drug scree n, urine Phenocyclidi ne: negati ve Not Available [place] [address], [place], [address], 01/17/2025 10:30:22 01/18/20 25 01/17/2025 drug scree n, urine Barbiturates : negati ve Not Available [place] [address], [place], [address], 01/17/2025 10:30:22 01/18/20 25 01/17/2025 drug scree n, urine Benzodiazepi sabrina: negati ve Not Available [place] [address], [place], [address], 01/17/2025 10:30:22 01/18/20 25 01/17/2025 drug scree n, urine Ethanol: negati ve Not Available [place] [address], [place], [address], 01/17/2025 10:30:22 01/18/20 25 01/17/2025 drug scree n, urine Hallucinogen s: negati ve Not Available [place] [address], [place], [address], 01/17/2025 10:30:22 01/18/20 25 01/17/2025 drug scree n, urine Inhalants: negati ve Not Available [place] [address], [place], [address], 01/17/2025 10:30:22 01/18/20 25 01/17/2025 drug scree n, urine Anabolic Steroids: negati ve Not Available [place] [address], [place], [address], 01/17/2025 10:30:22 01/18/20 25 01/17/2025 drug scremehul n, urine Other: positi ve Not Available [place] [address], [place], [address], 01/17/2025 10:30:22 05/09/20 25 05/09/2025 HEMOG LOBIN (HGB) HGB 9.6 g/dL (based on docume nted legal sex) 11.6-[address] [facility] (Lab) [address], [place], [address], 05/12/2025 14:37:31 05/09/20 25 05/09/2025 HEMAT OCRIT (HCT) HCT 30.4 % (based on docume nted legal sex) 34.0-[address] [facility] (Lab) [address] , [place], [address], 05/12/2025 14:37:32 05/09/20 25 05/09/2025 GTT - GESTA SINDHU L SASKIA Colon, ACOG OB glucose, 1 hour screen 70 mg/dL 70-135 Not Available [facility] (Lab) [address] [facility], [place], [address], 05/12/2025 14:37:32 05/09/20 25 05/09/2025 HIV 1/2 ANTIG EN/AN TIBOD Y, REFLE X CONFI RMATI ON HIV antigen/anti body Nonrea ctive nonrea ctive HIV-1 antig en and HIV-1 /HIV- 2 antib odies were not detec alfonso. No labor atory evide nce of HIV infec tion. Not Available [facility] (Lab) [address], [place], [address], 05/12/2025 14:37:32 05/09/2005/09/2025 RPR SCREE N, REFLE X TITER /CONF IRMAT ION RPR qualitative Nonrea ctive nonrea ctive Not Available [facility] (Lab) [address], [place], [address], 05/12/2025 14:37:33 05/09/2005/09/2025 urina lysis , dipst ick Leukocytes trace Not Available [facility] [address], [place], [address], 05/09/2025 14:43:51 05/09/2005/09/2025 urina lysis , dipst ick Nitrite neg Not Available [place] [address], [place], [address], 05/09/2025 14:43:51 05/09/2005/09/2025 urina lysis , dipst ick Urobilinogen norm Not Available [facility] [place] [address], [place], [address], 05/09/2025 14:43:51 05/09/2005/09/2025 urina lysis , dipst ick Protein trace Not Available [place] [address], [place], [address], 05/09/2025 14:43:51 05/09/2005/09/2025 urina lysis , dipst ick pH 5 Not Available [place] [address], [place], [address], 05/09/2025 14:43:51 05/09/2005/09/2025 urina lysis , dipst ick Specific [place] 1.015 [facility] Available [facility] [address], [place], [address], 05/09/2025 14:43:51 05/09/2005/09/2025 urina lysis , dipst ick Ketone trace Not Available [place] [address], [place], [address], 05/09/2025 14:43:51 05/09/2005/09/2025 urina lysis , dipst ick Bilirubin nor Not Available Jan[facility] carver [address], [place], [address], 05/09/2025 14:43:51 05/09/2005/09/2025 urina lysis , dipst ick Glucose neg Not Available [place] [address], [place], [address], 05/09/2025 14:43:51 05/09/2005/09/2025 urina lysis , dipst ick Appearance clear Not Available [facility] [address], [place], [address], 05/09/2025 14:43:51 05/09/20 25 05/09/2025 urina lysis , dipst ick Color yellow Not Available [place] [address], [place], [address], 05/09/2025 14:43:51 07/04/20 25 07/04/2025 CULTU RE: [...] t Abnor mal: Yes Resul ting Lab: [facility] [address] [facility] [address] Tel: CULTU RE ----- ----- ----- --- Posit nesha for Strep tococ cus agala ctiae (Grou p B) (Abno rmal) Clind amyci n = resis tant, eryth romyc in = resis tant. Cefaz zack may be used for intra partu m proph ylaxi s in penic illin -navdi rgic women at low risk, and Vanco mycin is recom bel d for women at high risk for anaph ylaxi s. Susce ptibi lity testi ng is not neces castillo for these drugs . Not Available [facility] (Lab) [address] [facility], [place], [address], 07/08/2025 16:24:59 07/04/2007/04/2025 WOMEN 'S HEALT H [...] or negat nesha statu s. Not Available [facility] (Lab) [address] [facility], [place], [address], 07/08/2025 16:25:00 07/04/20 25 07/04/2025 WOMEN 'S HEALT H SWAB, BEVERLY varsha species, tma Positi ve negati ve abnormal Not Available [facility] (Lab) [address] [facility], [place], [address], 07/08/2025 16:25:00 07/04/20 25 07/04/2025 WOMEN 'S HEALT H SWAB, BEVERLY varsha glabrata, tma Negati ve negati ve Not Available [facility] (Lab) [address] [facility], [place], [address], 07/08/2025 16:25:00 07/04/20 25 07/04/2025 WOMEN 'S [...] Ampli ficat ion (TMA) . Not Available [facility] (Lab) [address] [facility], [place], [address], 07/08/2025 16:25:00 01/18/20 25 01/17/2025 US, obste tric, nucha l trans lucen cy No observ ation record ed. [facility] [address], [place], [address], 01/17/2025 17:27:13 01/18/20 25 01/17/2025 US, obste tric, follo w-up No observ ation record ed. [email or web address] [address], [place], [address], 01/21/2025 15:12:49 03/12/20 25 03/12/2025 US, obste tric, 2nd or 3rd trime ster No observ ation record ed. [facility] [address], [place], [address], 03/12/2025 18:48:30 03/12/20 25 03/12/2025 US, obste tric, 2nd or 3rd trime ster No observ ation record ed. [email or web address] [address], [place], [address], 03/14/2025 09:40:30 04/11/20 25 04/11/2025 US, obste tric, follo w-up No observ ation record ed. [facility] [address], [place], [address], 04/11/2025 17:08:07 04/11/20 25 04/11/2025 US, obste tric, follo w-up No observ ation record ed. [email or web address] [address], [place], [address], 04/15/2025 06:50:04 05/09/2005/09/2025 US, obste tric, follo w-up No observ ation record ed. [facility] [address], [place], [address], 05/09/2025 16:53:22 05/09/20 25 05/09/2025 US, obste tric, follo w-up No observ ation record ed. [email or web address] [address], [place], [address], 05/12/2025 12:19:00 06/05/20 25 06/05/2025 US, obste tric, follo w-up No observ ation record ed. [email or web address] [place] [address], [place], [address], 06/05/2025 15:11:40 06/05/20 25 06/05/2025 US, obste tric, follo w-up No observ ation record ed. [email or web address] [address], [place], [address], 06/13/2025 14:46:41 06/06/20 25 06/06/2025 US, obste tric, bioph ysica l profi le No observ ation record ed. [address], [place], [address], 06/18/2025 15:22:02 06/06/20 25 06/06/2025 US, obste tric, bioph ysica l profi le No observ ation record ed. [email or web address] [facility] [address] [facility] [address], [place], [address], 06/18/2025 15:21:42 06/06/20 25 06/06/2025 US, obste tric, follo w-up No observ ation record ed. [place] [id number] [facility] [address], [place], [address], 06/10/2025 11:24:02 06/06/20 25 06/06/2025 non-s tress test No observ ation record ed. [address], [place], [address], 06/30/2025 10:44:26 07/03/20 25 07/03/2025 US, obste tric, follo w-up No observ ation record ed. [email or web address] [address], [place], [address], 07/08/2025 13:03:57 07/03/20 25 07/03/2025 US, obste tric, follo w-up No observ ation record ed. [facility] [address], [place], [address], 07/03/2025 18:32:15 07/03/20 25 07/03/2025 US, obste tric, bioph ysica l profi le + non-s tress test No observ ation record ed. [facility] [address], [place], [address], 07/03/2025 18:32:26 07/03/20 25 07/03/2025 US, doppl er, umbil ical arter y veloc imetr y No observ ation record ed. [email or web address] [place] [address], [place], [address], 07/03/2025 18:32:38 07/05/20 25 06/06/2025 US, obste tric, bioph ysica l profi le + non-s tress test No observ ation record ed. [email or web address] [place] [address], [place], [address], 07/05/2025 12:07:31 07/09/20 25 07/09/2025 US, obste tric, bioph ysica l profi le + non-s tress test No observ ation record ed. [email or web address] [place] [address], [place], [address], 07/09/2025 12:42:49 07/09/20 25 07/09/2025 US, doppl er, umbil ical arter y veloc imetr y No observ ation record ed. [email or web address] [place] [address], [place], [address], 07/09/2025 12:43:32 07/09/20 25 07/09/2025 US, obste tric, bioph ysica l profi le + non-s tress test No observ ation record ed. JUDY Stewart [address], [place], [address], 07/12/2025 13:33:23 07/09/20 25 07/09/2025 non-s tress test No observ ation record ed. [email or web address] [place] [address], [place], [address], 07/09/2025 18:38:27 07/09/20 non-s tress test No observ ation record ed. [email or web address] [place] [address], [place], [address], 07/09/2025 13:30:59 Result Notes None recorded. Problems Name Problem SNOMED Code Status Onset Date Resolution Date Notes Provider Name and Address Organization Details Recorded Time Group B Streptoc occus carrier 7060062491 [id number] Completed h/o in first preg. Renee Torres MD [address], [place], [address], [facility] 3 10:33:02 Ul[address] nd scan abnormal [id number] Completed subamnio tic hemorrha ge - rpt u/s schd 01/04/23- w[facility] at [facility], [facility] 3 16:42:26 Uterine size for dates discrepa ncy [id number] [facility] 3 16:42:26 Venous conroy [id number] Completed placenta - 02/21/24 9am u/s only. REBECCA MENA MD [address], [place], [address], [facility] 4 11:34:29 Placenta circumva llata [id number] Completed REBECCA MENA MD [address], [place], [address], [facility] 4 11:34:29 Pregnanc y [id number] Completed 202203/13/2023 Chaya cabrera, [facility] 5 10:31:09 Pregnanc y [id number] Completed 202305/27/2024 Chaya cabrera, [facility] 5 10:31:09 Pregnanc y [id number] Active 2024 Chaya cabrera [facility] 5 10:31:09 Group B Streptoc occus carrier [id number] Active 2024 + GBS in urine Tiara Alarcon rick, [facility] 5 17:54:31 Poor growth odin sheikh manageme nt [id number] Active 2024 6% Zuleima Olsen CNM [address], [place], [address], [facility] 5 11:57:52 Problem Notes None recorded. Procedures Surgical History Date Name Laterality Status Provider Name and Address Organization Details Recorded Time 05/05/20 23 Date of Last Pap Smear completed Iveth Guevara [facility] 05/23/2025 14:51:22 02/29/20 22 IUD Removal completed STEPHANIE Acevedo [address], [place], [address], [facility] 02/28/2022 09:46:01 02/10/20 21 Colposcopy completed [facility] 01/17/2025 10:28:24 02/10/20 21 cervical biopsy completed [facility] 07/27/2022 10:28:55 07/31/19 20 extraction of wisdom tooth completed [facility] 07/27/2022 10:28:13 07/31/19 18 Date of Last Colonoscopy completed [facility] 07/27/2022 10:27:19 07/31/19 18 Colonoscopy completed [facility] 07/27/2022 10:28:04 Imaging Results [...] Address Organization Details Last Updated DateTime 07/09/2025 29867.78792 g 104/69 mm[Hg] Iveth Guevara [facility] 07/09/2025 12:14:06 Date Recorded Body height Body mass index (BMI) Body weight Systolic And Diastolic Provider Name and Address Organization Details Last Updated DateTime 07/09/2025 162.56 cm 25.1 kg/m2 79586.49 g 104/69 mm[Hg] Fauzia Singh [facility] 07/09/2025 13:26:39 Social History Question Answer Notes LastModified by Organizat ion Details LastModified Time Tobacco Smoking Status Former Smoker Sujata Norm cabrera [facility] 10/20/2022 09:56:48 Do You Have An Advance Directive? No Information not available 02/08/2021 If You Are , What Was Your Level Of Alcohol Consumption Prior To ? Occasional [email or web address] Information not available 10/20/2022 Are You Blind [...] Or The Highest Degree You Have Received? [id number] Information not available 02/08/2021 Are There Any Guns Present In Your Home? No Information not available 02/08/2021 Do You Use Protection During Sex? No Information not available 02/08/2021 Do You Use Your Seat Belt Or Car Seat Routinely? Yes Information not available 02/08/2021 Are You Sexually Active? Yes [email or web address] Information not available 03/12/2025 Do You Have Smoke And Carbon Monoxide Detectors In Your Home? Yes Information not available 02/08/2021 How Much Tobacco Do You Smoke? No Information not available 02/08/2021 Do You Use Sunscreen Routinely? Yes Information not available 02/08/2021 Have You Used IV Drugs? No Information not available 02/08/2021 Do You Have Difficulty Walking Or Climbing Stairs? No [email or web address] Information not available 10/20/2022 Sex: Unknown Functional [...] able to care for yourself independently? 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 No [email or web address] Information not available 10/20/2022 What is your exercise level? Heavy Information not available 02/08/2021 Mental Status Question Answer Note LastModified by Organization D etails LastModified Time Do you feel stressed (tense, restless, nervous, or anxious, or unable to sleep at night)? [id number] Information not available 02/08/2021 Family History Relationship Description Onset Age of this Age Resolved Age Notes LastModified by Organization Details LastModified Time Maternal Aunt Disorder of thyroid gland Not available 2020 11:46:08 Maternal Aunt Malignant neoplasm of ovary Not available 2020 11:36:55 Mother Anemia Not available 02/08/2021 11:46:08 Mother Malignant neoplasm of breast [email or web address] Not available 07/27 21:16:57 Mother Malignant neoplasm of lung [email or web address] Not available 07/27 21:17:08 Paternal Aunt Malignant neoplasm of breast Not available 2020 11:46:08 Paternal Grandmother Malignant neoplasm of breast Not available 2020 11:46:08 Maternal Grandmother Malignant neoplasm of breast [email or web address] Not available 05/26/ 2022 09:35:33 Medical History Condition Response Allergies (Food, [...] ICD10 Code Diagnosis IMO Codes Diagnosis Note [id number] Zuleima Olsen CNM [place] [address] [address] 06/13/2025 10:37:51 06/13/2025 11:20:38 Gestation period, 33 weeks 67633354 Z3A.33 6780909 cont pnv [id number] Zuleima Olsen CNM [place] [address],[place] [address] 06/18/2025 09:45:56 06/18/2025 10:18:34 Gestation period, 34 weeks 21028391 Z3A.34 9029897 cont pnv [id number] Zuleima Olsen [facility] [address],[place] [address] 06/25/2025 09:24:51 06/25/2025 09:56:46 Gestation period, 35 weeks 63327638 Z3A.35 1546789 [id number] Orion Cobb MD [place] [address],[place] [address] 07/03/2025 12:27:29 07/03/2025 14:18:52 Poor growth affecting management 308239680 O36.5990 Z3A.36 24528172 [id number] Zuleima Olsen [facility] [address],[place] [address] 07/04/2025 11:16:16 07/04/2025 13:36:48 Gestation period, 36 weeks 85520436 Z3A.36 8415031 Poor growth affecting management 969737366 O36.5990 90805743 [id number] MD David VALENZUELA [address],[place] [address] 07/09/2025 11:01:36 07/09/2025 11:39:29 care status 639464949 O36.5930 Z3A.37 071090 [id number] MD David VALENZUELA [address],[place] [address] 07/09/2025 11:02:29 07/09/2025 13:51:55 Poor growth affecting management 325928435 O36.5990 [id number] MD David VALENZUELA [address],[place] [address] 07/09/2025 11:02:55 07/09/2025 14:12:20 Group B Streptococcus carrier [id number] 103 Z22.482 5642343 - abx during labor Poor growth affecting management 552230115 O36.5990 01625252 - EFW 6%- MIL at 38 weeks Gestation period, 37 weeks 39905092 Z3A.37 5707679 - continue PNV Health Concerns Section Related Observation LastModified by Organization Detai ls LastModified Time None Recorded Concern Status LastModified by Organization Details LastModified Time None Recorded Payers Encounter Date Sequence Insurance Name Policy Number Policy Veloz Covered Member ID Veloz Member ID Guarantor Name 07/09/2025 1 [facility] (MEDICAID HMO) [id number] Trina Dhillon [id number] Conway Lacey Notes Date Note Type Note Provider Name and Address Organization Details Recorded Time 07/09/2025 text/html Generic HPI TemplateReported by Patient REBECCA MENA MD [address], [place], [address], [facility] 07/09/2025 14:01:40 OBGyn Episode Ob Episode Information Episode Created Date Number of Fetuses Patient Bloodtype Patient rh Status Prepregnancy Weight lbs Domestic Partner Domestic Partner Phone Father Name Popcorn Vendor Status 01/18/20 25 1 O Positive 112 Alli Lacey h OPEN Fetus Data First Name Last Name Admitted to NICU Weight (g) Sex Living Outcome Pediatric Complications Fetus ID Race Codes Race Delivery Type [id number] Problems Problem Notes multiple placental lakes STA BLE Problem Name Start Date End Date Resolution Snomed Code Not e Group B Streptococcus carrier 01/21/2025 [id number] + GBS in urine Poor growth affecting management 07/04/2025 816719997 6% Moises Calculation Initial Moises Date Initial Exam Date Initial Exam Provider Initial Ultrasound Date Last Menstrual Period Date Ultra Sound Weeks Gestation 07/27/2025 12/17/2024 [email or web address] 12/03/2024 10/20/2024 6 Eighteen To Twenty Week [...] Weight in lbs Pre/Post Dialysis Refused Weight 112.237801986606 BP Diastolic BP Location Tested BP Systolic [...] Type Weight in lbs Pre/Post Dialysis Refused 114.278889154882 BP Diastolic BP Location Tested BP Systolic [...] Type Weight in lbs Pre/Post Dialysis Refused 122.342575699796 BP Diastolic BP Location Tested BP Systolic [...] Weight in lbs Pre/Post Dialysis Refused Weight 127.502142972193 BP Diastolic BP Location Tested BP Systolic [...] Weight in lbs Pre/Post Dialysis Refused Weight 136.033602291555 BP Diastolic BP Location Tested BP Systolic [...] Weight in lbs Pre/Post Dialysis Refused Weight 137.981675586593 BP Diastolic BP Location Tested BP Systolic [...] Type Weight in lbs Pre/Post Dialysis Refused 140.379684585950 BP Diastolic BP Location Tested BP Systolic [...] Weight in lbs Pre/Post Dialysis Refused Weight 140.005117585643 BP Diastolic BP Location Tested BP Systolic [...] Weight in lbs Pre/Post Dialysis Refused Weight 139.11772296799 BP Diastolic BP Location Tested BP Systolic [...] Weight in lbs Pre/Post Dialysis Refused Weight 141.506944774720 BP Diastolic BP Location Tested BP Systolic [...] Weight in lbs Pre/Post Dialysis Refused Weight 145.415819693060 BP Diastolic BP Location Tested BP Systolic [...] Weight in lbs Pre/Post Dialysis Refused Weight 146.696513954654 BP Diastolic BP Location Tested BP Systolic BP Type 69 L arm 104 sitting Fetus Heart Rate Present Fetus Movement A Yes Comments Flowsheet Date 07/09/2025 Ross Score Blood Edema Fundus Height Fundus Units Glucose Ketones Leukocytes Nitrite Labor Signs Protein Cervic Dilation Cervic Effacement Cervic Station Type Weight in lbs Pre/Post Dialysis Refused 146.333300030860 BP Diastolic BP Location Tested BP Systolic [...]
--- OUTSIDE RECORDS SUMMARY | 2025-07-13 17:19 | XMS_ITS | Continuity of Care Document ---
Author Organization [facility] Address [address] [place] [place] [address] [place] [address] Assessment No assessment recorded. Plan of Treatment Reminders Order Date Submit Date Provider Last Modified By Organization Details Last Modified Time Details Appointments None recorded. Lab None recorded. Referral None recorded. Procedures None recorded. Surgeries None recorded. Imaging US, obstetric, follow-up 2024 [address], [address], [place], [address], 14:22:06 US, obstetric, biophysical profile + non-stress test [email or web address] [facility] [address], [address], [place], [address], 14:22:06 US, doppler, umbilical artery velocimetry [address] [place] [address] [facility] [address], [address], [place], [address], 14:22:06 Medication Orders None recorded. Patient TargetsNo targets recorded. Patient InstructionsNo instructions recorded. Reason for Referral None Reported. Results Created Date Observation Date Name Description Value Unit Range Abnormal Flag Note LastModifiedBy Organization Detail LastModifiedTime 01/23/20 25 01/22/2025 [UNIT Y] ANEUP LOIDY NIPT fraction 9.8% normal Not Available [facility] [address], [place], [address], 01/22/2025 22:58:15 01/23/20 25 01/22/2025 [UNIT Y] ANEUP LOIDY NIPT 22Q11.2 microdeletio n LOW RISK <1 in 10,000 normal Not Available [facility] [address], [place], [address], 01/22/2025 22:58:15 01/23/20 25 01/22/2025 [UNIT Y] ANEUP LOIDY NIPT sex chromosome aneuploidy NOT DETECT ED normal Not Available [facility] [address], [place], [address], 01/22/2025 22:58:15 01/23/20 25 01/22/2025 [UNIT Y] ANEUP LOIDY NIPT monosomy X LOW RISK <1 in 10,000 normal Not Available [facility] [address], [place], [address], 01/22/2025 22:58:15 01/23/20 25 01/22/2025 [UNIT Y] ANEUP LOIDY NIPT trisomy 13 LOW RISK <1 in 10,000 normal Not Available [facility] [address], [place], [address], 01/22/2025 22:58:15 01/23/20 25 01/22/2025 [UNIT Y] ANEUP LOIDY NIPT trisomy 18 LOW RISK <1 in 10,000 normal Not Available [facility] [address], [place], [address], 01/22/2025 22:58:15 01/23/20 25 01/22/2025 [UNIT Y] ANEUP LOIDY NIPT trisomy 21 LOW RISK <1 in 10,000 normal Not Available [facility] [address], [place], [address], 01/22/2025 22:58:15 06/25/01/22/2025 [UNIT Y] ANEUP LOIDY NIPT sex MALE normal Not Available [facility] [address], [place], [address], 01/22/2025 22:58:15 01/23/20 25 01/22/2025 [UNIT Y] ANEUP LOIDY NIPT gestation SINGLE TON normal Not Available [facility] [address], [place], [address], 01/22/2025 22:58:15 01/23/20 25 01/22/2025 [UNIT Y] ANEUP LOIDY NIPT for detailed report, see pdf See PDF normal Not Available [facility] [address], [place], [address], 01/22/2025 22:58:15 01/18/2001/17/2025 CULTU RE: URINE result report SEE RESULT S BELOW abnormal Test: Cultu re: Urine Speci men Sourc e: Urine Voide d Speci men Type: Urine Speci men Date: 2024 1622 Resul t Date: 2024 0142 Resul t Statu s: Final resul t Abnor mal: Yes Eric velazquez Lab: [facility] [address] [facility] [address] Tel: CULTU RE ----- ----- ----- --- [...] lab withi n 5 days. Not Available [facility] (Lab) [address] [facility], [place], [address], 01/19/2025 02:46:33 01/18/20 25 01/17/2025 CBC W/DIF F WBC 8.1 10'3/ uL 3.5-10 .5 Not Available [facility] (Lab) [address] [facility], [place], [address], 01/20/2025 12:18:01 01/18/20 25 01/17/2025 CBC W/DIF F RBC 3.68 10'6/ uL (based on docume nted legal sex) 3.80-5 .20 low Not Available [facility] (Lab) [address] [facility], [place], [address], 01/20/2025 12:18:01 01/18/20 25 01/17/2025 CBC W/DIF F HGB 10.4 g/dL (based on docume nted legal sex) 11.6-1 5.4 low Not Available [facility] (Lab) [address] [facility], [place], [address], 01/20/2025 12:18:01 01/18/20 25 01/17/2025 CBC W/DIF F HCT 32.2 % (based on docume nted legal sex) 34.0-4 5.0 low Not Available [facility] (Lab) [address] [facility], [place], [address], 01/20/2025 12:18:01 01/18/20 25 01/17/2025 CBC W/DIF F MCV 87.5 fL 80.0-9 9.0 Not Available [facility] (Lab) [address] [place], [address], 01/20/2025 12:18:01 01/18/20 25 01/17/2025 CBC W/DIF F MCH 28.3 pg 27.0-3 4.0 Not Available [facility] (Lab) [address] [place], [address], 01/20/2025 12:18:01 01/18/20 25 01/17/2025 CBC W/DIF F MCHC 32.3 g/dL 32.0-3 5.5 Not Available [facility] (Lab) [address] [facility], [place], [address], 01/20/2025 12:18:01 01/18/20 25 01/17/2025 CBC W/DIF F RDW 14.5 % 11.0-1 5.0 Not Available [facility] (Lab) [address] [facility], [place], [address], 01/20/2025 12:18:01 01/18/20 25 01/17/2025 CBC W/DIF F plt 157 10'3/ uL 150-40 0 Not Available [facility] (Lab) [address] [facility], [place], [address], 01/20/2025 12:18:01 01/18/20 25 01/17/2025 CBC W/DIF F MPV 12.7 fL 8.8-12 .1 high Not Available [facility] (Lab) [address] [facility], [place], [address], 01/20/2025 12:18:01 01/18/20 25 01/17/2025 CBC W/DIF F NRBC's 0.0 % 0.0 Not Available [facility] (Lab) [address] [facility], [place], [address], 01/20/2025 12:18:01 01/18/20 25 01/17/2025 CBC W/DIF F absolute NRBCs 0.0 10'3/ uL no refere nce range establ ished Not Available [facility] (Lab) [address] [facility], [place], [address], 01/20/2025 12:18:01 01/18/20 25 01/17/2025 CBC W/DIF F neutrophils 73.9 % 34.0-7 3.0 high Not Available [facility] (Lab) [address] [place], [address], 01/20/2025 12:18:01 01/18/20 25 01/17/2025 CBC W/DIF F lymphocytes 21.1 % 15.0-5 0.0 Not Available [facility] (Lab) [address] [facility], [place], [address], 01/20/2025 12:18:01 01/18/20 25 01/17/2025 CBC W/DIF F monocytes 4.1 % 1.0-15 .0 Not Available [facility] (Lab) [address] [facility], [place], [address], 01/20/2025 12:18:01 01/18/20 25 01/17/2025 CBC W/DIF F eosinophils 0.5 % 0.0-8. 0 Not Available [facility] (Lab) [address] [facility], [place], [address], 01/20/2025 12:18:01 01/18/20 25 01/17/2025 CBC W/DIF F basophils 0.2 % 0.0-2. 0 Not Available [facility] (Lab) [address] [facility], [place], [address], 01/20/2025 12:18:01 01/18/20 25 01/17/2025 CBC W/DIF [...] separ ately if prese nt. Not Available [facility] (Lab) [address] [facility], [place], [address], 01/20/2025 12:18:01 01/18/20 25 01/17/2025 CBC W/DIF F absolute neutrophils 6.0 10'3/ uL 1.5-8. 0 Not Available [facility] (Lab) [address] [facility], [place], [address], 01/20/2025 12:18:01 01/18/20 25 01/17/2025 CBC W/DIF F absolute lymphocytes 1.7 10'3/ uL 1.0-4. 0 Not Available [facility] (Lab) [address] , [place], [address], 01/20/2025 12:18:01 01/18/20 25 01/17/2025 CBC W/DIF F absolute monocytes 0.3 10'3/ uL 0.2-1. 0 Not Available [facility] (Lab) [address], [place], [address], 01/20/2025 12:18:01 01/18/20 25 01/17/2025 CBC W/DIF F absolute eosinophils 0.0 10'3/ uL 0.0-0. 6 Not Available [facility] (Lab) [address], [place], [address], 01/20/2025 12:18:01 01/18/20 25 01/17/2025 CBC W/DIF F absolute basophils 0.0 10'3/ uL 0.0-0. 3 Not Available [facility] (Lab) [address] [facility], [place], [address], 01/20/2025 12:18:01 01/18/20 25 01/17/2025 CBC W/DIF [...] rodriguez book. nm.or g/gen derx Not Available [facility] (Lab) [address], [place], [address], 01/20/2025 12:18:01 01/18/20 25 01/17/2025 HEPAT ITIS [...] Hispa zohaib or Latin o Not Available [facility] (Lab) [address], [place], [address], 01/20/2025 12:18:02 01/18/20 25 01/17/2025 HEPAT ITIS C ANTIB TOM SCREE N, REFLE X TO CONFI RMATI ON hepatitis C antibody Non-re active non-re active Antib odies to HCV Not Detec alfonso, does not exclu de the possi bilit y of expos ure to HCV. : Not [facility] zohaib or Latin o Not Available [facility] (Lab) [address], [place], [address], 01/20/2025 12:18:02 01/18/20 25 01/17/2025 HIV 1/2 ANTIG EN/AN TIBOD Y, REFLE X CONFI RMATI ON HIV antigen/anti body Nonrea ctive nonrea ctive : Not Hispa zohaib or Latin o HIV-1 antig en and HIV-1 /HIV- 2 antib odies were not detec alfonso. No labor atory evide nce of HIV infec tion. Not Available [facility] (Lab) [address], [place], [address], 01/20/2025 12:18:03 01/18/20 25 01/17/2025 TYPE/ RH/SC REEN ABO/Rh type O POS Not Available [facility] (Lab) [address], [place], [address], 01/20/2025 12:18:03 01/18/20 25 01/17/2025 TYPE/ RH/SC REEN antibody screen NEG Not Available [facility] (Lab) [address] [facility], [place], [address], 01/20/2025 12:18:03 01/18/20 25 01/17/2025 TYPE/ RH/SC REEN exp date 2024 23:59 Not Available [facility] (Lab) [address] [facility], [place], [address], 01/20/2025 12:18:03 01/18/20 25 01/17/2025 RUBEL LA IGG ANTIB TOM, QUANT rubella antibodies, IgG Reacti ve reacti ve Not Available [facility] (Lab) [address] [facility], [place], [address], 01/20/2025 12:18:04 01/18/20 25 01/17/2025 RUBEL LA IGG ANTIB TOM, QUANT rubella antibodies, IgG quant 12.2 IU/mL >=10 : Not Hispa zohaib or Latin o Non-r eacti ve (Non- Immun e) <10 IU/mL React nesha (Immu ne) > or = 10 IU/mL Not Available [facility] (Lab) [address] [facility], [place], [address], 01/20/2025 12:18:04 01/18/20 25 01/17/2025 RPR SCREE N, REFLE X TITER /CONF IRMAT ION RPR qualitative Nonrea ctive nonrea ctive : Not Hispa zohaib or Latin o Not Available [facility] (Lab) [address] [facility], [place], [address], 01/20/2025 12:18:04 01/18/20 25 01/17/2025 HEMOG LOBIN [...] >8.0% Actio n sugge sted Not Available [facility] (Lab) [address] [facility], [place], [address], 01/20/2025 12:18:04 01/18/20 25 01/17/2025 LEAD, BLOOD (ADUL T/PED IATRI C) lead, whole blood <1.0 mcg/d L <3.5 See Note 1 Antonio sis was perfo rmed by Jimbo Conroy ed Plasm a Mass Spect romet ry (ICPM S) Note 1 This test was devel oped and its antonio tical perfo rmanc e jenaro cteri stics have been deter mined by [facility]. It has not been clear ed or appro dolores by the FDA. This assay has been valid ated pursu ant to the CLIA regul ation s and is used for clini gogo purpo ses. : Not Hispa zohaib or Latin o Perfo rming Organ izati on Infor matio n: Site ID: CB Name: [facility]andr Patele Addre ss: [address] [place] [address] Dire tor: Galileo newton Not Available [facility] (Lab) [address] [facility], [place], [address], 01/20/2025 12:18:05 01/18/20 25 01/17/2025 drug scree n, urine Amphetamines : negati ve Not Available [facility] [address], [place], [address], 01/17/2025 10:30:22 01/18/20 25 01/17/2025 drug scree n, urine Cannabinoids : negati ve Not Available [facility] [address], [place], [address], 01/17/2025 10:30:22 01/18/20 25 01/17/2025 drug scree n, urine Cocaine: negati ve Not Available [facility] [address], [place], [address], 01/17/2025 10:30:22 01/18/20 25 01/17/2025 drug scree n, urine Opiates: negati ve Not Available [facility] [address], [place], [address], 01/17/2025 10:30:22 01/18/20 25 01/17/2025 drug scree n, urine Phenocyclidi ne: negati ve Not Available [facility] [address], [place], [address], 01/17/2025 10:30:22 01/18/20 25 01/17/2025 drug scree n, urine Barbiturates : negati ve Not Available [facility] [address], [place], [address], 01/17/2025 10:30:22 01/18/20 25 01/17/2025 drug scree n, urine Benzodiazepi sabrina: negati ve Not Available [facility] [address], [place], [address], 01/17/2025 10:30:22 01/18/20 25 01/17/2025 drug scree n, urine Ethanol: negati ve Not Available [facility] [address], [place], [address], 01/17/2025 10:30:22 01/18/20 25 01/17/2025 drug scree n, urine Hallucinogen s: negati ve Not Available [facility] [address], [place], [address], 01/17/2025 10:30:22 01/18/20 25 01/17/2025 drug scree n, urine Inhalants: negati ve Not Available [facility] [address], [place], [address], 01/17/2025 10:30:22 01/18/20 25 01/17/2025 drug scree n, urine Anabolic Steroids: negati ve Not Available [facility] [address], [place], [address], 01/17/2025 10:30:22 01/18/20 25 01/17/2025 drug scree n, urine Other: positi ve Not Available [facility] [address], [place], [address], 01/17/2025 10:30:22 05/09/20 25 05/09/2025 HEMOG LOBIN (HGB) HGB 9.6 g/dL (based on docume nted legal sex) 11.6-1 5.4 low Not Available [facility] (Lab) [address] [facility], [place], [address], 05/12/2025 14:37:31 05/09/20 25 05/09/2025 HEMAT OCRIT (HCT) HCT 30.4 % (based on docume nted legal sex) 34.0-4 5.0 low Not Available [facility] (Lab) [address] [facility], [place], [address], 05/12/2025 14:37:32 05/09/20 25 05/09/2025 GTT - GESTA SINDHU L SCREE N, ACOG OB glucose, 1 hour screen 70 mg/dL 70-135 Not Available [facility] (Lab) [address] [facility] [address], [place], [address], 05/12/2025 14:37:32 05/09/20 25 05/09/2025 HIV 1/2 ANTIG EN/AN TIBOD Y, REFLE X CONFI RMATI ON HIV antigen/anti body Nonrea ctive nonrea ctive HIV-1 antig en and HIV-1 /HIV- 2 antib odies were not detec alfonso. No labor atory evide nce of HIV infec tion. Not Available [facility] (Lab) [address] [facility], [place], [address], 05/12/2025 14:37:32 05/09/20 25 05/09/2025 RPR SCREE N, REFLE X TITER /CONF IRMAT ION RPR qualitative Nonrea ctive nonrea ctive Not Available [facility] (Lab) [address], [place], [address], 05/12/2025 14:37:33 05/09/2005/09/2025 urina lysis , dipst ick Leukocytes trace Not Available [facility] [address], [place], [address], 05/09/2025 14:43:51 05/09/2005/09/2025 urina lysis , dipst ick Nitrite neg Not Available [facility] [address], [place], [address], 05/09/2025 14:43:51 05/09/2005/09/2025 urina lysis , dipst ick Urobilinogen norm Not Available [facility] [address], [place], [address], 05/09/2025 14:43:51 05/09/2005/09/2025 urina lysis , dipst ick Protein trace Not Available [facility] [address], [place], [address], 05/09/2025 14:43:51 05/09/2005/09/2025 urina lysis , dipst ick pH 5 Not Available [facility] [address], [place], [address], 05/09/2025 14:43:51 05/09/20 25 05/09/2025 urina lysis , dipst ick Specific Andrew 1.015 Not Available [facility] [address], [place], [address], 05/09/2025 14:43:51 05/09/20 25 05/09/2025 urina lysis , dipst ick Ketone trace Not Available [facility] [address], [place], [address], 05/09/2025 14:43:51 05/09/20 25 05/09/2025 urina lysis , dipst ick Bilirubin nor Not Available [facility] [address], [place], [address], 05/09/2025 14:43:51 05/09/2005/09/2025 urina lysis , dipst ick Glucose neg Not Available [facility] [address], [place], [address], 05/09/2025 14:43:51 05/09/20 25 05/09/2025 urina lysis , dipst ick Appearance clear Not Available [facility] [address], [place], [address], 05/09/2025 14:43:51 05/09/20 25 05/09/2025 urina lysis , dipst ick Color yellow Not Available [facility] [address], [place], [address], 05/09/2025 14:43:51 01/18/20 25 01/17/2025 US, obstmehul tric, nucha l trans lucen cy No observ ation record ed. carmen [facility] [address], [place], [address], 01/17/2025 17:27:13 01/18/20 25 01/17/2025 US, obste tric, follo w-up No observ ation record ed. [email or web address] [address], [place], [address], 01/21/2025 15:12:49 03/12/20 25 03/12/2025 US, obste tric, 2nd or 3rd trime ster No observ ation record ed. [facility] [address], [place], [address], 03/12/2025 18:48:30 03/12/20 25 03/12/2025 US, obste tric, 2nd or 3rd trime ster No observ ation record ed. [email or web address] [address], [place], [address], 03/14/2025 09:40:30 04/11/20 25 04/11/2025 US, obste tric, follo w-up No observ ation record ed. [facility] [address], [place], [address], 04/11/2025 17:08:07 04/11/20 25 04/11/2025 US, obste tric, follo w-up No observ ation record ed. [email or web address] [address], [place], [address], 04/15/2025 06:50:04 05/09/20 25 05/09/2025 US, obste tric, follo w-up No observ ation record ed. [facility] [address], [place], [address], 05/09/2025 16:53:22 05/09/2005/09/2025 US, obste tric, follo w-up No observ ation record ed. [email or web address] [address], [place], [address], 05/12/2025 12:19:00 06/05/20 25 06/05/2025 US, obste tric, follo w-up No observ ation record ed. [email or web address] [facility] [address], [place], [address], 06/05/2025 15:11:40 06/05/20 25 06/05/2025 US, obste tric, follo w-up No observ ation record ed. [email or web address] [address], [place], [address], 06/13/2025 14:46:41 06/06/20 25 06/06/2025 US, obste tric, bioph ysica l profi le No observ ation record ed. [address] [facility], [place], [address], 06/18/2025 15:22:02 06/06/20 25 06/06/2025 US, obste tric, bioph ysica l profi le No observ ation record ed. [address] [facility], [place], [address], 06/18/2025 15:21:42 06/06/20 25 06/06/2025 US, obste tric, follo w-up No observ ation record ed. [address] [facility], [place], [address], 06/10/2025 11:24:02 06/06/20 25 06/06/2025 non-s tress test No observ ation record ed. [facility] [address], [place], [address], 06/30/2025 10:44:26 07/03/20 25 07/03/2025 US, obste tric, follo w-up No observ ation record ed. [email or web address] [address], [place], [address], 07/08/2025 13:03:57 07/03/20 25 07/03/2025 US, obste tric, follo w-up No observ ation record ed. [facility] [address], [place], [address], 07/03/2025 18:32:15 07/03/20 25 07/03/2025 US, obste tric, bioph ysica l profi le + non-s tress test No observ ation record ed. [facility] [address], [place], [address], 07/03/2025 18:32:26 07/03/20 25 07/03/2025 US, doppl er, umbil ical arter y veloc imetr y No observ ation record ed. [facility] [address], [place], [address], 07/03/2025 18:32:38 07/05/20 25 06/06/2025 US, obste tric, bioph ysica l profi le + non-s tress test No observ ation record ed. [email or web address] [facility] [address], [place], [address], 07/05/2025 12:07:31 07/09/20 25 07/09/2025 US, obste tric, bioph ysica l profi le + non-s tress test No observ ation record ed. [email or web address] [facility] [address], [place], [address], 07/09/2025 12:42:49 07/09/20 25 07/09/2025 US, doppl er, umbil ical arter y veloc imetr y No observ ation record ed. [email or web address] [facility] [address], [place], [address], 07/09/2025 12:43:32 07/09/20 25 07/09/2025 US, obste tric, bioph ysica l profi le + non-s tress test No observ ation record ed. JUDY Stewart [address], [place], [address], 07/12/2025 13:33:23 07/09/20 25 07/09/2025 non-s tress test No observ ation record ed. [address], [place], [address], 07/09/2025 18:38:27 07/09/20 non-s tress test No observ ation record ed. [email or web address], [place], [address], 07/09/2025 13:30:59 Result Notes None recorded. Problems Name Problem SNOMED Code Status Onset Date Resolution Date Notes Provider Name and Address Organization Details Recorded Time Group B Streptoc occus carrier [id number] Completed h/o in first preg. Renee Torres MD [address], [place], [address], [facility] 3 10:33:02 Ultrasou nd scan abnormal [id number] Completed subamnio tic hemorrha ge - rpt u/s schd 01/04/23- wnl at [facility]. no FU needed. Marvin cabrera [facility] 3 16:42:26 Uterine size for dates discrepa ncy [id number] Completed already doing growth at [facility] Marvin cabrera [facility] 3 16:42:26 Venous conroy [id number] Completed placenta - 02/21/24 9am u/s only. REBECCA MENA MD [address], [place], [address], [facility] 4 11:34:29 Placenta circumva llata [id number] Completed REBECCA MENA MD [address], [place], [address], [facility] 4 11:34:29 Pregnanc y [id number] Completed 202203/13/2023 Chaya Marley null, [facility] 5 10:31:09 Pregnanc y [id number] Completed 202305/27/2024 Chaya Marley null, [facility] 5 10:31:09 Pregnanc y 88521417 Active 2024 Chaya Marley null, [facility] 5 10:31:09 Group B Streptoc occus carrier [id number] 103 Active 2024 + GBS in urine Tiara Alarcon [facility], [facility] 5 17:54:31 Poor growth affectin g manageme nt 051813599 Active 2024 6% Zuleima Olsen CNM [address], [place], [address], [facility] 11:57:52 Problem Notes None recorded. Procedures Surgical History Date Name Laterality Status Provider Name and Address Organization Details Recorded Time 05/05/20 23 Date of Last Pap Smear completed Iveth Guevara [facility] 05/23/2025 14:51:22 02/29/20 22 IUD Removal completed STEPHANIE Acevedo [address], [place], [address], [facility] 02/28/2022 09:46:01 02/10/20 21 Colposcopy completed Chaya Marley [facility] 01/17/2025 10:28:24 02/10/20 21 cervical biopsy completed Chaya Marley [facility] 07/27/2022 10:28:55 07/31/19 20 extraction of wisdom tooth completed [facility] 07/27/2022 10:28:13 07/31/19 18 Date of Last Colonoscopy completed [facility] 07/27/2022 10:27:19 07/31/19 18 Colonoscopy completed [facility] 07/27/2022 10:28:04 Imaging Results None [...] Tobacco Smoking Status Former Smoker Sujata Zheng [facility] 10/20/2022 09:56:48 Do You Have An Advance Directive? No Information not available 02/08/2021 If You Are , What Was Your Level Of Alcohol Consumption Prior To ? Occasional [email or web address] Information not available 10/20/2022 Are You Blind [...] Or The Highest Degree You Have Received? [id number] Information not available 02/08/2021 Are There Any Guns Present In Your Home? No Information not available 02/08/2021 Do You Use Protection During Sex? No Information not available 02/08/2021 Do You Use Your Seat Belt Or Car Seat Routinely? Yes Information not available 02/08/2021 Are You Sexually Active? Yes [email or web address] Information not available 03/12/2025 Do You Have Smoke And Carbon Monoxide Detectors In Your Home? Yes Information not available 02/08/2021 How Much Tobacco Do You Smoke? No Information not available 02/08/2021 Do You Use Sunscreen Routinely? Yes Information not available 02/08/2021 Have You Used IV Drugs? No Information not available 02/08/2021 Do You Have Difficulty Walking Or Climbing Stairs? No [email or web address] Information not available 10/20/2022 Sex: Unknown Functional [...] able to care for yourself independently? 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 No [email or web address] Information not available 10/20/2022 What is your exercise level? Heavy Information not available 02/08/2021 Mental Status Question Answer Note LastModified by Organization D etails LastModified Time Do you feel stressed (tense, restless, nervous, or anxious, or unable to sleep at night)? [id number] Information not available 02/08/2021 Family History Relationship Description Onset Age of this Age Resolved Age Notes LastModified by Organization Details LastModified Time Maternal Aunt Disorder of thyroid gland Not available 2020 11:46:08 Maternal Aunt Malignant neoplasm of ovary Not available 2020 11:36:55 Mother Anemia Not available 02/08/2021 11:46:08 Mother Malignant neoplasm of breast [email or web address] Not available 07/27 21:16:57 Mother Malignant neoplasm of lung Not available 07/27 21:17:08 Paternal Aunt Malignant [...] ICD10 Code Diagnosis IMO Codes Diagnosis Note [id number] Orion Cobb MD [facility] [address] [address] 06/05/2025 10:56:09 06/05/2025 14:07:34 Abnormal placenta affecting management of mother [id number] O43.93 Z3A.32 [id number] Zuleima Olsen [facility] [address],[place] [address] 06/06/2025 11:46:55 06/06/2025 12:09:09 Gestation period, 32 weeks 3973970 Z3A.32 7163722 cont pnv [id number] Zuleima Olsen [facility] [address] [address] 06/06/2025 12:50:38 06/06/2025 16:10:48 Premature uterine contraction 777696375 O47.00 3953269 [id number] Zuleima Olsen [facility] [address] [address] 06/13/2025 10:37:51 06/13/2025 11:20:38 Gestation period, 33 weeks 10930438 Z3A.33 6896785 cont pnv [id number] Zuleima Olsen [facility] [address],[place] [address] 06/18/2025 09:45:56 06/18/2025 10:18:34 Gestation period, 34 weeks 39037305 Z3A.34 0758756 cont pnv [id number] Zuleima Olsen [facility] [address],[place] [address] 06/25/2025 09:24:51 06/25/2025 09:56:46 Gestation period, 35 weeks 69632190 Z3A.35 2258283 [id number] Orion Cobb MD [facility] [address],[place] [address] 07/03/2025 12:27:29 07/03/2025 14:18:52 Poor growth affecting management 241099244 O36.5990 Z3A.36 [id number] Health Concerns Section Related Observation LastModified by Organization Detai ls LastModified Time None Recorded Concern Status LastModified by Organization Details LastModified Time None Recorded Payers Encounter Date Sequence Insurance Name Policy Number Policy Veloz Covered Member ID Veloz Member ID Guarantor Name 07/03/2025 1 [facility] (MEDICAID HMO) [id number] Trina Dhillon [id number] Man Oneil OBGyn Episode Ob Episode Information Episode Created Date Number of Fetuses Patient Bloodtype Patient rh Status Prepregnancy Weight lbs Domestic Partner Domestic Partner Phone Father Name Machine Engineer Status 01/18/20 25 1 O Positive 112 [address] h OPEN Fetus Data First Name Last Name Admitted to NICU Weight (g) Sex Living Outcome Pediatric Complications Fetus ID Race Codes Race Delivery Type [id number] Problems Problem Notes multiple placental lakes STA BLE Problem Name Start Date End Date Resolution Snomed Code Not e Group B Streptococcus carrier 01/21/2025 [id number] + GBS in urine Poor growth affecting management 07/04/2025 [id number] 6% Moises Calculation Initial Moises Date Initial Exam Date Initial Exam Provider Initial Ultrasound Date Last Menstrual Period Date Ultra Sound Weeks Gestation 07/27/2025 12/17/2024 [email or web address] 12/03/2024 10/20/2024 6 Eighteen To Twenty Week [...] Weight in lbs Pre/Post Dialysis Refused Weight 112.557221812919 BP Diastolic BP Location Tested BP Systolic [...] Type Weight in lbs Pre/Post Dialysis Refused 114.230134740693 BP Diastolic BP Location Tested BP Systolic [...] Type Weight in lbs Pre/Post Dialysis Refused 122.212494915095 BP Diastolic BP Location Tested BP Systolic [...] Weight in lbs Pre/Post Dialysis Refused Weight 127.562491462176 BP Diastolic BP Location Tested BP Systolic [...] Weight in lbs Pre/Post Dialysis Refused Weight 136.526354117613 BP Diastolic BP Location Tested BP Systolic [...] Weight in lbs Pre/Post Dialysis Refused Weight 137.281090067871 BP Diastolic BP Location Tested BP Systolic [...] Type Weight in lbs Pre/Post Dialysis Refused 140.020485356061 BP Diastolic BP Location Tested BP Systolic [...] Weight in lbs Pre/Post Dialysis Refused Weight 140.027665190186 BP Diastolic BP Location Tested BP Systolic [...] Weight in lbs Pre/Post Dialysis Refused Weight 139.30292495936 BP Diastolic BP Location Tested BP Systolic [...] Weight in lbs Pre/Post Dialysis Refused Weight 141.357942699265 BP Diastolic BP Location Tested BP Systolic [...] Weight in lbs Pre/Post Dialysis Refused Weight 145.567691330301 BP Diastolic BP Location Tested BP Systolic [...] Weight in lbs Pre/Post Dialysis Refused Weight 146.347319117464 BP Diastolic BP Location Tested BP Systolic BP Type 69 L arm 104 sitting Fetus Heart Rate Present Fetus Movement A Yes Comments Flowsheet Date 07/09/2025 Ross Score Blood Edema Fundus Height Fundus Units Glucose Ketones Leukocytes Nitrite Labor Signs Protein Cervic Dilation Cervic Effacement Cervic Station Type Weight in lbs Pre/Post Dialysis Refused 146.397302474610 BP Diastolic BP Location Tested BP Systolic [...]
--- OUTSIDE RECORDS SUMMARY | 2025-07-13 17:20 | XMS_ITS | Clinical Summary ---
Author Organization [facility] Address [address] [place] [address] Phone Care Team Providers Care Dumpster Driver Name Role Phone Wisam Love MD Primary Care Provider [phone] Allergies No known active allergies Medications No [...] Comments Blood Pressure 100/68 06/29/2022 3:18 PM E BUSINESS CONSULTANT Pulse 73 06/29/2022 3:18 PM E BUSINESS CONSULTANT Temperature 36.9 C (98.4 F) 06/29/2022 3:18 PM E BUSINESS CONSULTANT Respiratory Rate 16 06/29/2022 3:18 PM E BUSINESS CONSULTANT Oxygen Saturation 98% 06/29/2022 3:18 PM E BUSINESS CONSULTANT Inhaled Oxygen Concentration - - Weight 51.1 kg (112 lb 9.6 oz) 06/29/2022 3:18 P M E BUSINESS CONSULTANT Height 162.6 cm (5' 4) 06/29/2022 3:18 PM E BUSINESS CONSULTANT Body Mass Index 19.33 06/29/2022 3:18 PM E BUSINESS CONSULTANT Plan of Treatment Health Maintenance Due Date Last Done Comments Varicella Immunization (1 of 2 - 13+ 2-dose series) 2010 Hepatitis B Immunization (1 of 3 - 19+ 3-dose series) 2016 Pap Smear 2018 Influenza Immunization (#1) 03/31/202504/30, 05/16/2017 SARS-COV-2 Immunization ( - season) 2025 Td Immunization Every 10 Yea rs (Adults With 1 Tdap) 12/28/2029 12/29/2019 Respiratory Syncytial Virus (RSV) Immunization (Adult) (1 - 1-dose 75+ series) 2072 DTaP/Tdap/Td Immunization Discontinued 12/29/2019 Hepatitis C Virus (HCV) Screening Completed 11/06/2023 Human Papillomavirus (HPV) Immunization (No Doses Required) Completed Meningococcal Immunization (ACWY) Aged Out No longer eligible based on patient's age to complete this topic Pneumococcal Immunization Combined Aged Out No longer eligible based on patient's age to complete this topic Rotavirus Immunization Aged Out No lo nger eligible based on patient's age to complete this topic Procedures Procedure Name Priority Date/Time Associated Diagnosis Comments 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
--- OUTSIDE RECORDS SUMMARY | 2025-07-13 17:20 | XMS_ITS | Clinical Summary ---
Author Organization [facility] Address [address] [place] [address] Care Team Providers Care Occupational Work Experience Teacher Name Role Phone Wisam Love MD Primary Care Provider [phone] Source Comments [facility],non-owned Affiliates and Associated Physician Practices is amultiple site organization consisting of ambulatory clinics and hospital sitesin [place], [place], [place] and [place]. This disclosure is being madepursuant to the Care Everywhere program and may not contain all information available regarding this patient. Last updated 18.[facility] Allergies No known active allergies Medications * [...] heating? Not hard at all 10/25/2022 [facility] [place] [facility] - Occupational Stress [...] in a snf (including now)? No 10/25/2022 [place] Depression Scale Answer Date Recorded [place] Depression Scale Total 0 10/25/2022 The thought [...] DEPRESSION SCREENING 07/31/2024 COVID-19 VACCINE ( - season) 2025 INFLUENZA VACCINE (#1) 2025 05/16/2017 [...] patient's age to complete this topic Insurance [facility] Care Teams Occupational Work Experience Teacher Relationship Specialty Start Date End Date Wisam Love MD [address] [address] PCP - General Family Medicine 10/25/22
--- OUTSIDE RECORDS SUMMARY | 2025-07-13 17:20 | XMS_ITS | Continuity of Care Document ---
Author Organization [facility] Address [address] [place] [address] [place] [address] Assessment No assessment recorded. Plan of Treatment Reminders Order Date Submit Date Provider Last Modified By Organization Details Last Modified Time Details Appointments None record ed. Lab None record ed. Referral None record ed. Procedures None record ed. Surgeries None record ed. Imaging non-st ress test 025 06/06/[address] [facility] [address], [address], [place], [address], 16:10:48 Medication Orders None record ed. Patient TargetsNo targets recorded. Patient InstructionsNo instructions recorded. Reason for Referral None Reported. Results Created Date Observation Date Name Description Value Unit Range Abnormal Flag Note LastModifiedBy Organization Detail LastModifiedTime 01/23/20 25 01/22/2025 [UNIT Y] ANEUP LOIDY NIPT fraction 9.8% normal Not Available [facility] [address], [place], [address], 01/22/2025 22:58:15 01/23/20 25 01/22/2025 [UNIT Y] ANEUP LOIDY NIPT 22Q11.2 microdeletio n LOW RISK <1 in 10,000 normal Not Available Alyssia carver [address], [place], [address], 01/22/2025 22:58:15 01/23/20 25 01/22/2025 [UNIT Y] ANEUP LOIDY NIPT sex chromosome aneuploidy NOT DETECT ED normal Not Available [facility] [address], [place], [address], 01/22/2025 22:58:15 01/23/20 25 01/22/2025 [UNIT Y] ANEUP LOIDY NIPT monosomy X LOW RISK <1 in 10,000 normal Not Available [facility] [address], [place], [address], 01/22/2025 22:58:15 01/23/20 25 01/22/2025 [UNIT Y] ANEUP LOIDY NIPT trisomy 13 LOW RISK <1 in 10,000 normal Not Available [facility] [address], [place], [address], 01/22/2025 22:58:15 01/23/20 25 01/22/2025 [UNIT Y] ANEUP LOIDY NIPT trisomy 18 LOW RISK <1 in 10,000 normal Not Available [facility] [address], [place], [address], 01/22/2025 22:58:15 01/23/20 25 01/22/2025 [UNIT Y] ANEUP LOIDY NIPT trisomy 21 LOW RISK <1 in 10,000 normal Not Available [facility] [address], [place], [address], 01/22/2025 22:58:15 01/23/20 25 01/22/2025 [UNIT Y] ANEUP LOIDY NIPT sex MALE normal Not Available [facility] [address], [place], [address], 01/22/2025 22:58:15 01/23/20 25 01/22/2025 [UNIT Y] ANEUP LOIDY NIPT gestation SINGLE TON normal Not Available [facility] [address], [place], [address], 01/22/2025 22:58:15 01/23/20 25 01/22/2025 [UNIT Y] ANEUP JENNIE NIPT for detailed report, see pdf See PDF normal Not Available Alyssia carver [address], [place], [address], 01/22/2025 22:58:15 01/18/20 25 01/17/2025 CULTU RE: URINE result report SEE RESULT S BELOW abnormal Test: Cultu re: Urine Speci men Sourc e: Urine Voide d Speci men Type: Urine Speci men Date: 2024 1622 Resul t Date: 2024 0142 Resul t Statu s: Final resul t Abnor mal: Yes Eric velazquez Lab: [facility] [address] [facility] [address] Tel: CULTU RE ----- ----- ----- --- [...] lab withi n 5 days. Not Available [facility] (Lab) [address] , [place], [address], 01/19/2025 02:46:33 01/18/20 25 01/17/2025 CBC W/DIF F WBC 8.1 10'3/ uL 3.5-10 .5 Not Available [facility] (Lab) [address], [place], [address], 01/20/2025 12:18:01 01/18/20 25 01/17/2025 CBC W/DIF F RBC 3.68 10'6/ uL (based on docume nted legal sex) 3.80-5 .20 low Not Available [facility] (Lab) [address] [facility], [place], [address], 01/20/2025 12:18:01 01/18/20 25 01/17/2025 CBC W/DIF F HGB 10.4 g/dL (based on docume nted legal sex) 11.6-1 5.4 low Not Available [facility] (Lab) [address] [facility], [place], [address], 01/20/2025 12:18:01 01/18/20 25 01/17/2025 CBC W/DIF F HCT 32.2 % (based on docume nted legal sex) 34.0-4 5.0 low Not Available [facility] (Lab) [address], [place], [address], 01/20/2025 12:18:01 01/18/20 25 01/17/2025 CBC W/DIF F MCV 87.5 fL 80.0-9 9.0 Not Available [facility] (Lab) [address] [facility], [place], [address], 01/20/2025 12:18:01 01/18/20 25 01/17/2025 CBC W/DIF F MCH 28.3 pg 27.0-3 4.0 Not Available [facility] (Lab) [address] [facility], [place], [address], 01/20/2025 12:18:01 01/18/20 25 01/17/2025 CBC W/DIF F MCHC 32.3 g/dL 32.0-3 5.5 Not Available [facility] (Lab) [address] [facility], [place], [address], 01/20/2025 12:18:01 01/18/20 25 01/17/2025 CBC W/DIF F RDW 14.5 % 11.0-1 5.0 Not Available [facility] (Lab) [address] [facility], [place], [address], 01/20/2025 12:18:01 01/18/20 25 01/17/2025 CBC W/DIF F plt 157 10'3/ uL 150-40 0 Not Available [facility] (Lab) [address] , [place], [address], 01/20/2025 12:18:01 01/18/20 25 01/17/2025 CBC W/DIF F MPV 12.7 fL 8.8-12 .1 high Not Available [facility] (Lab) [address] [facility], [place], [address], 01/20/2025 12:18:01 01/18/20 25 01/17/2025 CBC W/DIF F NRBC's 0.0 % 0.0 Not Available [facility] (Lab) [address], [place], [address], 01/20/2025 12:18:01 01/18/20 25 01/17/2025 CBC W/DIF F absolute NRBCs 0.0 10'3/ uL no refere nce range establ ished Not Available [facility] (Lab) [address], [place], [address], 01/20/2025 12:18:01 01/18/20 25 01/17/2025 CBC W/DIF F neutrophils 73.9 % 34.0-7 3.0 high Not Available [facility] (Lab) [address] [facility], [place], [address], 01/20/2025 12:18:01 01/18/20 25 01/17/2025 CBC W/DIF F lymphocytes 21.1 % 15.0-5 0.0 Not Available [facility] (Lab) [address] [facility], [place], [address], 01/20/2025 12:18:01 01/18/20 25 01/17/2025 CBC W/DIF F monocytes 4.1 % 1.0-15 .0 Not Available [facility] (Lab) [address] [place], [address], 01/20/2025 12:18:01 01/18/20 25 01/17/2025 CBC W/DIF F eosinophils 0.5 % 0.0-8. 0 Not Available [facility] (Lab) [address], [place], [address], 01/20/2025 12:18:01 01/18/20 25 01/17/2025 CBC W/DIF F basophils 0.2 % 0.0-2. 0 Not Available [facility] (Lab) [address], [place], [address], 01/20/2025 12:18:01 01/18/20 25 01/17/2025 CBC W/DIF [...] separ ately if prese nt. Not Available [facility] (Lab) [address], [place], [address], 01/20/2025 12:18:01 01/18/20 25 01/17/2025 CBC W/DIF F absolute neutrophils 6.0 10'3/ uL 1.5-8. 0 Not Available [facility] (Lab) [address], [place], [address], 01/20/2025 12:18:01 01/18/20 25 01/17/2025 CBC W/DIF F absolute lymphocytes 1.7 10'3/ uL 1.0-4. 0 Not Available [facility] (Lab) [address], [place], [address], 01/20/2025 12:18:01 01/18/20 25 01/17/2025 CBC W/DIF F absolute monocytes 0.3 10'3/ uL 0.2-1. 0 Not Available [facility] (Lab) [address] [facility], [place], [address], 01/20/2025 12:18:01 01/18/20 25 01/17/2025 CBC W/DIF F absolute eosinophils 0.0 10'3/ uL 0.0-0. 6 Not Available [facility] (Lab) [address] [facility], [place], [address], 01/20/2025 12:18:01 01/18/20 25 01/17/2025 CBC W/DIF F absolute basophils 0.0 10'3/ uL 0.0-0. 3 Not Available [facility] (Lab) [address] [facility], [place], [address], 01/20/2025 12:18:01 01/18/20 25 01/17/2025 CBC W/DIF [...] rodriguez book. nm.or g/gen derx Not Available [facility] (Lab) [address], [place], [address], 01/20/2025 12:18:01 01/18/2001/17/2025 HEPAT ITIS B SURFA CE ANTIG EN hepatitis B surface antigen Non-re active non-re active This assay was perfo rmed using [employer] ratio n reage nts and test kits. Value s obtai sue with other assay metho ds or kits canno t be used inter lund eably . : Not Hispa zohaib or Latin o Not Available [facility] (Lab) [address] [facility], [place], [address], 01/20/2025 12:18:02 01/18/20 25 01/17/2025 HEPAT ITIS C ANTIB TOM SCREE N, REFLE X TO CONFI RMATI ON hepatitis C antibody Non-re active non-re active Antib odies to HCV Not Detec alfonso, does not exclu de the possi bilit y of expos ure to HCV. : Not Hispa zohaib or Latin o Not Available [facility] (Lab) [address] [facility], [place], [address], 01/20/2025 12:18:02 01/18/20 25 01/17/2025 HIV 1/2 ANTIG EN/AN TIBOD Y, REFLE X CONFI RMATI ON HIV antigen/anti body Nonrea ctive nonrea ctive : Not Hispa zohaib or Latin o HIV-1 antig en and HIV-1 /HIV- 2 antib odies were not detec alofnso. No labor atory evide nce of HIV infec tion. Not Available [facility] (Lab) [address] [facility], [place], [address], 01/20/2025 12:18:03 01/18/20 25 01/17/2025 TYPE/ RH/SC REEN ABO/Rh type O POS Not Available [facility] (Lab) [address] [facility], [place], [address], 01/20/2025 12:18:03 01/18/20 25 01/17/2025 TYPE/ RH/SC REEN antibody screen NEG Not Available [facility] (Lab) [address] [place], [address], 01/20/2025 12:18:03 01/18/20 25 01/17/2025 TYPE/ RH/SC REEN exp date 2024 23:59 Not Available [facility] (Lab) [address] [place], [address], 01/20/2025 12:18:03 01/18/20 25 01/17/2025 RUBEL LA IGG ANTIB TOM, QUANT rubella antibodies, IgG Reacti ve reacti ve Not Available [facility] (Lab) [address] [facility], [place], [address], 01/20/2025 12:18:04 01/18/20 25 01/17/2025 RUBEL LA IGG ANTIB TOM, QUANT rubella antibodies, IgG quant 12.2 IU/mL >=10 : Not Hispa zohaib or Latin o Non-r eacti ve (Non- Immun e) <10 IU/mL React nesha (Immu ne) > or = 10 IU/mL Not Available [facility] (Lab) [address] [facility], [place], [address], 01/20/2025 12:18:04 01/18/20 25 01/17/2025 RPR SCREE N, REFLE X TITER /CONF IRMAT ION RPR qualitative Nonrea ctive nonrea ctive : Not [facility] zohaib or Latin o Not Available [facility] (Lab) [address] [facility], [place], [address], 01/20/2025 12:18:04 01/18/20 25 01/17/2025 HEMOG LOBIN A1C hemoglobin A1C 5.0 % 4.0-5. 6 : Not Histx zohaib or Latin o The Ameri can [...] >8.0% Actio n sugge sted Not Available [facility] (Lab) [address] [facility], [place], [address], 01/20/2025 12:18:04 01/18/20 25 01/17/2025 LEAD, BLOOD (ADUL T/PED IATRI C) lead, whole blood <1.0 mcg/d L <3.5 See Note 1 Antonio sis was perfo rmed by Jimbo Conroy ed Plasm a Mass Spect romet ry (ICPM S) Note 1 This test was devel oped and its antonio tical perfo rmanc e jenaro cteri stics have been deter mined by [employer]. It has not been clear ed or appro dolores by the FDA. This assay has been valid ated pursu ant to the CLIA regul ation s and is used for clini gogo purpo ses. : Not Hispa zohaib or Latin o Perfo rming Organ izati on Infor matio n: Site ID: [id number] Name: [employer]-Brandon simon [place] Addre ss: [id number] [place] [address] Dire tor: Galileo Meyer s Not Available [facility] (Lab) [address] [facility], [place], [address], 01/20/2025 12:18:05 01/18/20 25 01/17/2025 drug scree n, urine Amphetamines : negati ve Not Available [place] [address], [place], [address], 01/17/2025 10:30:22 01/18/20 25 01/17/2025 drug scree n, urine Cannabinoids : negati ve Not Available [place] [address], [place], [address], 01/17/2025 10:30:22 01/18/20 25 01/17/2025 drug scree n, urine Cocaine: negati ve Not Available [place] [address], [place], [address], 01/17/2025 10:30:22 01/18/20 25 01/17/2025 drug scree n, urine Opiates: negati ve Not Available [place] [address], [place], [address], 01/17/2025 10:30:22 01/18/20 25 01/17/2025 drug scree n, urine Phenocyclidi ne: negati ve Not Available [place] [address], [place], [address], 01/17/2025 10:30:22 01/18/20 25 01/17/2025 drug scree n, urine Barbiturates : negati ve Not Available [place] [address], [place], [address], 01/17/2025 10:30:22 01/18/20 25 01/17/2025 drug scree n, urine Benzodiazepi sabrina: negati ve Not Available [place] [address], [place], [address], 01/17/2025 10:30:22 01/18/20 25 01/17/2025 drug scree n, urine Ethanol: negati ve Not Available [place] [address], [place], [address], 01/17/2025 10:30:22 01/18/20 25 01/17/2025 drug scree n, urine Hallucinogen s: negati ve Not Available [place] [address], [place], [address], 01/17/2025 10:30:22 01/18/20 25 01/17/2025 drug scree n, urine Inhalants: negati ve Not Available [place] [address], [place], [address], 01/17/2025 10:30:22 01/18/20 25 01/17/2025 drug scree n, urine Anabolic Steroids: negati ve Not Available [place] [address], [place], [address], 01/17/2025 10:30:22 01/18/20 25 01/17/2025 drug scree n, urine Other: positi ve Not Available [place] [address], [place], [address], 01/17/2025 10:30:22 05/09/20 25 05/09/2025 HEMOG LOBIN (HGB) HGB 9.6 g/dL (based on docume nted legal sex) 11.6-1 5.4 low Not Available [facility] (Lab) [address] [facility], [place], [address], 05/12/2025 14:37:31 05/09/20 25 05/09/2025 HEMAT OCRIT (HCT) HCT 30.4 % (based on docume nted legal sex) 34.0-4 5.0 low Not Available [facility] (Lab) [address] [facility], [place], [address], 05/12/2025 14:37:32 05/09/20 25 05/09/2025 GTT - GESTA SINDHU L SCREE N, ACOG OB glucose, 1 hour screen 70 mg/dL 70-[address] [facility] (Lab) [address] [place], [address], 05/12/2025 14:37:32 05/09/20 25 05/09/2025 HIV 1/2 ANTIG EN/AN TIBOD Y, REFLE X CONFI RMATI ON HIV antigen/anti body Nonrea ctive nonrea ctive HIV-1 antig en and HIV-1 /HIV- 2 antib odies were not detec alfonso. No labor atory evide nce of HIV infec tion. Not Available [facility] (Lab) [address] [facility], [place], [address], 05/12/2025 14:37:32 05/09/20 25 05/09/2025 RPR SCREE N, REFLE X TITER /CONF IRMAT ION RPR qualitative Nonrea ctive nonrea ctive Not Available [facility] (Lab) [address] [place], [address], 05/12/2025 14:37:33 05/09/2005/09/2025 urina lysis , dipst ick Leukocytes trace Not Available [facility] [address], [place], [address], 05/09/2025 14:43:51 05/09/2005/09/2025 urina lysis , dipst ick Nitrite neg Not Available [place] [address], [place], [address], 05/09/2025 14:43:51 05/09/2005/09/2025 urina lysis , dipst ick Urobilinogen norm Not Available [facility] [address], [place], [address], 05/09/2025 14:43:51 05/09/2005/09/2025 urina lysis , dipst ick Protein trace Not Available [place] [address], [place], [address], 05/09/2025 14:43:51 05/09/2005/09/2025 urina lysis , dipst ick pH 5 Not Available [place] [address], [place], [address], 05/09/2025 14:43:51 05/09/2005/09/2025 urina lysis , dipst ick Specific [place] 1.015 Not Available [facility] [address], [place], [address], 05/09/2025 14:43:51 05/09/2005/09/2025 urina lysis , dipst ick Ketone trace Not Available [place] [address], [place], [address], 05/09/2025 14:43:51 05/09/20 25 05/09/2025 urina lysis , dipst ick Bilirubin nor Not Available [facility] Georgiatrue carver [address], [place], [address], 05/09/2025 14:43:51 05/09/20 25 05/09/2025 urina lysis , dipst ick Glucose neg Not Available [place] [address], [place], [address], 05/09/2025 14:43:51 05/09/2005/09/2025 urina lysis , dipst ick Appearance clear Not Available [facility] [address], [place], [address], 05/09/2025 14:43:51 05/09/2005/09/2025 urina lysis , dipst ick Color yellow Not Available [place] [address], [place], [address], 05/09/2025 14:43:51 01/18/20 25 01/17/2025 US, obste tric, nucha l trans lucen cy No observ ation record ed. [facility] [address], [place], [address], 01/17/2025 17:27:13 01/18/20 25 01/17/2025 US, obste tric, follo w-up No observ ation record ed. [email or web address] [address], [place], [address], 01/21/2025 15:12:49 03/12/20 25 03/12/2025 US, obste tric, 2nd or 3rd trime ster No observ ation record ed. [facility] [address], [place], [address], 03/12/2025 18:48:30 03/12/20 25 03/12/2025 US, obste tric, 2nd or 3rd trime ster No observ ation record ed. [address], [place], [address], 03/14/2025 09:40:30 04/11/2004/11/2025 US, obste tric, follo w-up No observ ation record ed. [facility] [address], [place], [address], 04/11/2025 17:08:07 04/11/2004/11/2025 US, obste tric, follo w-up No observ ation record ed. [email or web address] [address], [place], [address], 04/15/2025 06:50:04 05/09/2005/09/2025 US, obste tric, follo w-up No observ ation record ed. [facility] [address], [place], [address], 05/09/2025 16:53:22 05/09/2005/09/2025 US, obste tric, follo w-up No observ ation record ed. [email or web address] [address], [place], [address], 05/12/2025 12:19:00 06/05/20 25 06/05/2025 US, obste tric, follo w-up No observ ation record ed. [email or web address] [place] [address], [place], [address], 06/05/2025 15:11:40 06/05/20 25 06/05/2025 US, obste tric, follo w-up No observ ation record ed. [email or web address] [address], [place], [address], 06/13/2025 14:46:41 06/06/20 25 06/06/2025 US, obste tric, bioph ysica l profi le No observ ation record ed. [address] [facility], [place], [address], 06/18/2025 15:22:02 06/06/20 25 06/06/2025 US, obste tric, bioph ysica l profi le No observ ation record ed. [address], [place], [address], 06/18/2025 15:21:42 06/06/20 25 06/06/2025 US, obste tric, follo w-up No observ ation record ed. [address] [address], [place], [address], 06/10/2025 11:24:02 06/06/20 25 06/06/2025 non-s tress test No observ ation record ed. [address], [place], [address], 06/30/2025 10:44:26 07/03/20 25 07/03/2025 US, obste tric, follo w-up No observ ation record ed. [address], [place], [address], 07/08/2025 13:03:57 07/03/20 25 07/03/2025 US, obste tric, follo w-up No observ ation record ed. [facility] [address], [place], [address], 07/03/2025 18:32:15 07/03/20 25 07/03/2025 US, obste tric, bioph ysica l profi le + non-s tress test No observ ation record ed. [facility] [address], [place], [address], 07/03/2025 18:32:26 07/03/20 25 07/03/2025 US, doppl er, umbil ical arter y veloc imetr y No observ ation record ed. [email or web address] [place] [address], [place], [address], 07/03/2025 18:32:38 07/05/20 25 06/06/2025 US, obste tric, bioph ysica l profi le + non-s tress test No observ ation record ed. [email or web address] [place] [address], [place], [address], 07/05/2025 12:07:31 07/09/20 25 07/09/2025 US, obste tric, bioph ysica l profi le + non-s tress test No observ ation record ed. [email or web address] [place] [address], [place], [address], 07/09/2025 12:42:49 07/09/20 25 07/09/2025 US, doppl er, umbil ical arter y veloc imetr y No observ ation record ed. [email or web address] [place] [address], [place], [address], 07/09/2025 12:43:32 07/09/20 25 07/09/2025 US, obste tric, bioph ysica l profi le + non-s tress test No observ ation record ed. JUDY [address], [place], [address], 07/12/2025 13:33:23 07/09/20 25 07/09/2025 non-s tress test No observ ation record ed. [email or web address] [place] [address], [place], [address], 07/09/2025 18:38:27 07/09/20 25 non-s tress test No observ ation record ed. [email or web address] [place] [address], [place], [address], 07/09/2025 13:30:59 Result Notes None recorded. Problems Name Problem SNOMED Code Status Onset Date Resolution Date Notes Provider Name and Address Organization Details Recorded Time Group B Streptoc occus carrier 5831523918 103 Completed h/o in first preg. Renee Torres MD [address], [place], [address], [facility] 3 10:33:02 Ultrasou nd scan abnormal [id number] Completed subamnio tic hemorrha ge - rpt u/s schd 01/04/23- wnl at [facility]. no FU needed. Marvin cabrera [facility] 3 16:42:26 Uterine size for dates discrepa ncy [id number] Completed already doing growth at [facility] Marvin Paul [facility] 3 16:42:26 Venous conroy [id number] Completed placenta - 02/21/24 9am u/s only. REBECCA MENA MD [address], [place], [address], [facility] 4 11:34:29 Placenta circumva llata 5206507 Completed REBECCA MENA MD [address], [place], [address], [facility] 4 11:34:29 Pregnanc y 27870028 Completed 202203/13/2023 Chaya cabrera, [facility] 5 10:31:09 Pregnanc y 02878131 Completed 202305/27/2024 Chaya cabrera, [facility] 10:31:09 Pregnanc y 57075166 Active 2024 Chaya Marley null, [facility] 10:31:09 Group B Streptoc occus carrier [id number] 103 Active 2024 + GBS in urine Tiara Alarcon null, [facility] 17:54:31 Poor growth affectin g manageme nt 614388406 Active 2024 6% Zuleima Olsen CNM [address], [place], [address], [facility] 11:57:52 Problem Notes None recorded. Procedures Surgical History Date Name Laterality Status Provider Name and Address Organization Details Recorded Time 05/05/20 23 Date of Last Pap Smear completed Iveth Guevara [facility] 05/23/2025 14:51:22 02/29/20 22 IUD Removal completed STEPHANIE Acevedo [address], [place], [address], [facility] 02/28/2022 09:46:01 02/10/20 21 Colposcopy completed Chaya Marley [facility] 01/17/2025 10:28:24 02/10/20 21 cervical biopsy completed Chaya Marley [facility] 07/27/2022 10:28:55 07/31/19 20 extraction of wisdom tooth completed Chaya Marley [facility] 07/27/2022 10:28:13 07/31/19 18 Date of Last Colonoscopy completed Chaya Marley [facility] 07/27/2022 10:27:19 07/31/19 18 Colonoscopy completed Chaya Marley [facility] 07/27/2022 10:28:04 Imaging Results None recorded. [...] Address Organization Details Last Updated DateTime 06/06/2025 14610.9318 g 162.56 cm 112/74 mm[Hg] Iveth Guevara [facility] 06/06/2025 11:57:04 Social History Question Answer Notes LastModified by Organizat ion Details LastModified Time Tobacco Smoking Status Former Smoker Sujata Norm rick [facility] 10/20/2022 09:56:48 Do You Have An Advance Directive? No Information not available 02/08/2021 If You Are , What Was Your Level Of Alcohol Consumption Prior To ? Occasional [email or web address] Information not available 10/20/2022 Are You Blind [...] Or The Highest Degree You Have Received? [id number] Information not available 02/08/2021 Are There Any Guns Present In Your Home? No Information not available 02/08/2021 Do You Use Protection During Sex? No Information not available 02/08/2021 Do You Use Your Seat Belt Or Car Seat Routinely? Yes Information not available 02/08/2021 Are You Sexually Active? Yes [email or web address] Information not available 03/12/2025 Do You Have Smoke And Carbon Monoxide Detectors In Your Home? Yes Information not available 02/08/2021 How Much Tobacco Do You Smoke? No Information not available 02/08/2021 Do You Use Sunscreen Routinely? Yes Information not available 02/08/2021 Have You Used IV Drugs? No Information not available 02/08/2021 Do You Have Difficulty Walking Or Climbing Stairs? No [email or web address] Information not available 10/20/2022 Sex: Unknown Functional [...] able to care for yourself independently? 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 No Information not available 10/20/2022 What is your exercise level? Heavy Information not available 02/08/2021 Mental Status Question Answer Note LastModified by Organization D etails LastModified Time Do you feel stressed (tense, restless, nervous, or anxious, or unable to sleep at night)? [id number] Information not available 02/08/2021 Family History Relationship Description Onset Age of this Age Resolved Age Notes LastModified by Organization Details LastModified Time Maternal Aunt Disorder of thyroid gland Not available 2020 11:46:08 Maternal Aunt Malignant neoplasm of ovary Not available 2020 11:36:55 Mother Anemia Not available 02/08/2021 11:46:08 Mother Malignant neoplasm of breast [email or web address] Not available 07/27 21:16:57 Mother Malignant neoplasm of lung [email or web address] Not available 07/27 21:17:08 Paternal Aunt Malignant [...] ICD10 Code Diagnosis IMO Codes Diagnosis Note [id number] Orion Cobb MD [place] [address] [address] 05/09/2025 13:58:24 05/09/2025 14:40:46 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 Z03.74 Z3A.28 58701511 [id number] Zuleima Olsen CNM [place] [address] [address] 05/09/2025 13:58:38 05/09/2025 14:55:45 Urinary symptoms 253531067 R39.9 [id number] Gestation period, 28 weeks 52966884 Z3A.28 0946278 Pruritus of vagina 11636 003 N89.8 180908 [id number] Zuleima Olsen CNM [place] [address],[place] [address] 05/23/2025 14:43:28 05/23/2025 15:06:10 Gestation period, 30 weeks 27327607 Z3A.30 9615095 continue vitamin [id number] Orion Cobb MD [place] [address],[place] [address] 06/05/2025 10:56:09 06/05/2025 14:07:34 Abnormal placenta affecting management of mother 56553819 O43.93 Z3A.32 35341592 [id number] Zuleima Olsen CNM [place] [address],[place] [address] 06/06/2025 11:46:55 06/06/2025 12:09:09 Gestation period, 32 weeks 3446535 Z3A.32 8097777 cont pnv [id number] Zuleima Olsen CNM [place] [address] [address] 06/06/2025 12:50:38 06/06/2025 16:10:48 Premature uterine contraction 298904260 O47.00 [id number] Health Concerns Section Related Observation LastModified by Organization Detai ls LastModified Time None Recorded Concern Status LastModified by Organization Details LastModified Time None Recorded Payers Encounter Date Sequence Insurance Name Policy Number Policy Veloz Covered Member ID Veloz Member ID Guarantor Name 06/06/2025 1 [facility] (MEDICAID HMO) [id number] Trina Dhillon [id number] Man Oneil Notes Date Note Type Note Provider Name and Address Organization Details Recorded Time 06/06/2025 text/html Generic HPI TemplateReported by Patient [address], [place], [address], [facility] 06/06/2025 12:07:30 OBGyn Episode Ob Episode Information Episode Created Date Number of Fetuses Patient Bloodtype Patient rh Status Prepregnancy Weight lbs Domestic Partner Domestic Partner Phone Father Name Cleater Status 01/18/20 25 1 O Positive 112 Alli Rahman h OPEN Fetus Data First Name Last Name Admitted to NICU Weight (g) Sex Living Outcome Pediatric Complications Fetus ID Race Codes Race Delivery Type [id number] Problems Problem Notes multiple placental lakes STA BLE Problem Name Start Date End Date Resolution Snomed Code Not e Group B Streptococcus carrier 01/21/2025 [id number] + GBS in urine Poor growth affecting management 07/04/2025 155185968 6% Moises Calculation Initial Moises Date Initial Exam Date Initial Exam Provider Initial Ultrasound Date Last Menstrual Period Date Ultra Sound Weeks Gestation 07/27/2025 12/17/2024 [email or web address] 12/03/2024 10/20/2024 6 Eighteen To Twenty Week [...] Weight in lbs Pre/Post Dialysis Refused Weight 112.946657438937 BP Diastolic BP Location Tested BP Systolic [...] Type Weight in lbs Pre/Post Dialysis Refused 114.163216605418 BP Diastolic BP Location Tested BP Systolic [...] Type Weight in lbs Pre/Post Dialysis Refused 122.486202422441 BP Diastolic BP Location Tested BP Systolic [...] Weight in lbs Pre/Post Dialysis Refused Weight 127.868534010984 BP Diastolic BP Location Tested BP Systolic [...] Weight in lbs Pre/Post Dialysis Refused Weight 136.709382983134 BP Diastolic BP Location Tested BP Systolic [...] Weight in lbs Pre/Post Dialysis Refused Weight 137.528554381791 BP Diastolic BP Location Tested BP Systolic [...] Type Weight in lbs Pre/Post Dialysis Refused 140.457419345494 BP Diastolic BP Location Tested BP Systolic [...] Weight in lbs Pre/Post Dialysis Refused Weight 140.687050940982 BP Diastolic BP Location Tested BP Systolic [...] Weight in lbs Pre/Post Dialysis Refused Weight 139.66194730646 BP Diastolic BP Location Tested BP Systolic [...] Weight in lbs Pre/Post Dialysis Refused Weight 141.422239458576 BP Diastolic BP Location Tested BP Systolic [...] Weight in lbs Pre/Post Dialysis Refused Weight 145.489964373895 BP Diastolic BP Location Tested BP Systolic [...] Weight in lbs Pre/Post Dialysis Refused Weight 146.524677317800 BP Diastolic BP Location Tested BP Systolic BP Type 69 L arm 104 sitting Fetus Heart Rate Present Fetus Movement A Yes Comments Flowsheet Date 07/09/2025 Ross Score Blood Edema Fundus Height Fundus Units Glucose Ketones Leukocytes Nitrite Labor Signs Protein Cervic Dilation Cervic Effacement Cervic Station Type Weight in lbs Pre/Post Dialysis Refused 146.665154305863 BP Diastolic BP Location Tested BP Systolic [...]
--- NOTE | 2025-07-13 18:39 | LDADM ---
This patient, Trina Dhillon, was admitted to Labor/Delivery/Recovery 108 on 07/13/25 at 17:11. Plans for labor, pain management and were discussed with patient. Patient/family oriented to hospital policies and general routines including ID bracelet, bed and alarms, visiting hours, pain management, procedures, bathroom and other care routines, personal items, smoking policy, room service/diet and guest tray routines, infant security routines, and visiting hours. Patient/Family are encouraged to report perceived risks to care and to ask questions if they do not understand what they are told or what they should do. See OBIX for further documentation.
[2025-07-13] MEDS: AMPICILLIN SODIUM 2 GM in SODIUM CHLORIDE 0.9% IV 100 ML 200 ML IVPB (18:52)
[2025-07-13] MEDS: LACTATED RINGERS 1,000 ML 125 ML IV CONT (18:53)
[2025-07-13 19:00] LABS: Hematocrit 30.8 % (37.0-47.0); Hemoglobin 10.2 g/dL (12.0-15.0); Immature Granulocyte Percent A 0.9 % (0-0.5); Lymphocytes Absolute Auto 1.87 K/mm3 (0.9-3.2); Mean Corpuscular HGB Conc 33.1 g/dl (32-36); Mean Corpuscular Hemoglobin 26.5 pg (26-34); Mean Corpuscular Volume 80.0 fl (80-100); Nucleated Red Blood Cells Absolute Auto 0.000 K/mm3 (0.0-0.012); Nucleated Red Blood Cells Perc 0.0 % (0.0-0.2); Platelet Count Result 185 k/mm3 (150-375); Red Blood Count 3.85 M/mm3 (4.2-5.4); White Blood Count 11.7 K/mm3 (4.5-10.0)
[2025-07-13 19:39] LABS: Syphilis IgG/IgM Antibody Non-Reactive (Nonreactive)
[2025-07-13] MEDS: AMPICILLIN SODIUM 1 GM in SODIUM CHLORIDE 0.9% IV 50 ML 100 ML IVPB (22:56)
[2025-07-14] VITALS (143 sets, daily range): BP systolic 80–129; BP diastolic 47–104; PULSE 55–229; RESP 16–18; TEMP 36.4–36.8; O2SAT 96–100
[2025-07-14] MEDS: AMPICILLIN SODIUM 1 GM in SODIUM CHLORIDE 0.9% IV 50 ML 100 ML IVPB ×2 (02:56→10:50)
--- NOTE | 2025-07-14 07:10 | WPDOBADMIT ---
Obstetrics - Admit Note Admission Note: record reviewed. No pertinent additions to the history and/or any subsequent changes in the physical findings that are not consistent with the expected course of the were found. Additions to the history and/or subsequent changes in the physical findings follow. Admit in labor, sga, sve /-2, AROM large amount of clear, odorless fluid, anticipate vaginal delivery
[2025-07-14] MEDS: ONDANSETRON INJ 4 MG/2 ML VIAL IV PUSH (07:29)
[2025-07-14] MEDS: SODIUM CHLORIDE 0.9% IV 300 ML 600 ML I-UTERINE (08:21)
[2025-07-14] MEDS: LACTATED RINGERS 1,000 ML 125 ML IV CONT (11:03)
[2025-07-14] MEDS: OXYTOCIN 30 UNITS/NS 500 ML 30 UNITS/500 ML BAG 999 UNITS IV CONT (11:45)
--- NOTE | 2025-07-14 11:53 | P.PCNOB_ITS ---
OB - Vaginal Delivery Note Procedure Delivery date: 07/14/25 Events: Intrauterine Growth Restriction (IUGR) Intrapartal Events: Decelerations Induction method: AROM, Per Misoprostol Protocol and Per Pitocin Protocol Delivery monitor: Internal FHT and Internal Uterine Route of delivery: Episiotomy description: None Laceration Description: None Specimen: Yes Quantitative Blood Loss (ml): 75 Anesthesia type: Epidural Disposition: Floor Complications: No immediate complications [place] Baby Date of : 07/14/25 Time of : 11:43 Gestational Age by Date: 38 gender: Male Weight (pounds): 6 Weight (ounces): 0 presentation: vertex position: Left Occiput Anterior Placenta delivery description: Expressed Cord Vessel Description: 3 Vessels, Nuchal Cord (x1), Reduced and Delayed Cord Clamping (x 1 minute) score one minute: 8 score five minutes: 9
--- NOTE | 2025-07-14 12:17 | S_PTH ---
PATIENT: Trina Dhillon LOC: [facility] U#:[id number] AGE/SX: 30/F ROOM: 291 RE07/13/[address]: Benjamin Israel MD : 1995 BED: 00 DIS: 07/15/2025 SPEC #: [id number] RECD: 07/14/25 14:05 STATUS: KARRIE MATOS #: [id number] JANE: 07/14/25 12:[address]: Zuleima Olsen DEPT: [facility] Surgical RECD BY: Brenda Turner ENTERED: 07/14/25 14:05 SP TYPE: Surgical OTHR DR: MD Wisam MarreroMD Tissues: A - Placenta Procedures: Hematoxylin and Eosin Stain Gross and Microscopic Level 5
[2025-07-14] MEDS: OXYTOCIN 30 UNITS/NS 500 ML 30 UNITS/500 ML BAG 125 UNITS IV CONT (12:26)
--- NOTE | 2025-07-14 15:22 | OBPPTRN ---
Patient transferred to post room #291 via wheelchair. Oriented to unit, room, information board, rooming in, admission packet and security measures. Patient verbalizes understanding.
[2025-07-14] MEDS: IBUPROFEN 600 MG TABLET PO (15:40)
[2025-07-14] MEDS: ACETAMINOPHEN 325 MG TABLET 650 MG PO (15:40)
[2025-07-15] MEDS: ACETAMINOPHEN 325 MG TABLET 650 MG PO (02:50)
[2025-07-15 04:05] VITALS: BP 118/74; PULSE 76; RESP 16; TEMP 36.7; O2SAT 99
[2025-07-15 04:42] LABS: Hematocrit 27.5 % (37.0-47.0); Hemoglobin 8.7 g/dL (12.0-15.0)
[2025-07-15] MEDS: IBUPROFEN 600 MG TABLET PO (07:15)
[2025-07-15 08:25] VITALS: BP 107/66; PULSE 92; RESP 18; TEMP 36.4; O2SAT 98
--- NOTE | 2025-07-15 08:47 | P.PNOB_ITS ---
OB - PN: Subj Subjective Date/time seen: 07/15/25 08:47 Interval history: ppd#1 s/p doing well, pain controlled voiding without issue tolerating general diet ready for discharge home OB - PN: Obj Data Labs 07/15/25 04:11 Labs: Laboratory Results - last 24 hr 07/15/25 04:11 Hgb 8.7 L Hct 27.5 L OB - PN A/P Plan day: 1 Plan: routine care and discharge home Time Spent With Patient Time: Total time spent is greater than 50% in coordination of care (as documented) at patient's floor/unit and/or counseling patient: Review of Systems 2 Review of Systems: All systems reviewed & are unremarkable except as noted in HPI and below Exam 2 Const: General: comfortable and no acute distress O rientation/consciousness: patient oriented x3 Resp: Effort & Inspection: normal respiratory effort
--- NOTE | 2025-07-15 08:49 | PM.OBDSVD ---
DS: Admitting Diagnosis Discharge Date 07/15/25 Admitting Diagnosis medical induction of labor, growth restriction OB - DS: Summary OB Procedures : None OB Procedures Intrapartum: Spontaneous Vag Delivery OB Procedures: : None Peripartum Data Laceration Description: None Episiotomy description: None Time Spent with Patient Time attestation: Total time spent providing and/or coordinating discharge services: DS: Data Data Completed and Pending Pending studies at discharge: Pending at discharge 07/14/25 12:17 Surgical [PTH] Routine Labs on day of discharge: Labs from last 24 hours 07/15/25 04:11 Hgb 8.7 L Hct 27.5 L Discharge Plan Discharge Attending physician on discharge: Benjamin Israel Discharging Clinician: Benjamin Israel Patient Disposition: Home Activity: may shower, as tolerated and pelvic rest Diet: as tolerated Patient Instructions: Antibiotic Form Patient Language: Danish Stand Alone Forms: General Discharge Information Follow-up/Referrals: Zuleima Olsen CNM [Certified Nurse Executive Director Of Nursing, CREDIT COLLECTION SPECIALIST] - 5 Weeks Discharge Medications: New ibuprofen 600 mg Tablet 600 mg PO Q6H PRN (Reason: Cramping) Qty: 30 0RF Continued 28-800 mg-mcg Tablet 1 tablet PO DAILY Date of admission: 07/13/25 17:11 Primary Care Provider: Ivan,Wisam Otto Admitting Provider: Orion Ruiz Attending physician on admission: Zuleima Olsen Condition: Stable
[2025-07-15] MEDS: DOCUSATE SODIUM 100 MG CAPSULE PO (09:22)
[2025-07-15] MEDS: MULTIVIT/MIN/PREN/FOL AC/IRON TABLET 1 TAB PO (09:22)
--- NOTE | 2025-07-15 09:47 | WPDANLDPN2 ---
Anes-Prog Note L&D Date/Time: 07/15/25 09:47 Comfortable throughout: labor and delivery Neuraxial method: epidural Epidural/Spinal procedure site: clean & non-tender Neuro status: Neuro function grossly intact. Cardiovascular status: normal Respiratory status: normal Airway patency: baseline Mental status: baseline Post-Op hydration status: normal Vital Signs: Last Vital Signs Temp 36.4 C L 07/15/25 08:25 Pulse 92 07/15/25 08:25 Resp 18 07/15/25 08:25 BP 107/66 07/15/25 08:25 Pulse Ox 98 07/15/25 08:25 O2 Del Method Room Air 07/14/25 15:30 Pain score (VAS): 1 I/O: Intake & Output 07/14/25 07/15/25 07/15/25 23:59 07:59 15:59 Intake Total 750 Balance 750 Post-procedural complaints: none Patient feedback: Patient satisfied with anesthetic care.
[2025-07-16 10:22] VITALS: BP 119/72; PULSE 100; RESP 18; TEMP 37.3; O2SAT 100
== END 2025-07-15 16:20 | disposition home or self-care (01) | DRG 560 ==
LOC: ANHOB2 07-15 08:49 → ANHLDR 07-17 08:38 → ANHOB2 07-17 08:38
PROVIDERS: Advanced Practice Midwife; Admitting Provider Obstetrics & Gynecology; PCP Family Medicine; Visit Provider Obstetrics & Gynecology
DX: O36.5930 Maternal care for other known or suspected poor fetal growth, third trimester, not applicable or unspecified (principal); Z37.0 Single live birth; Z3A.38 38 weeks gestation of pregnancy; O99.824 Streptococcus B carrier state complicating childbirth; O69.81X0 Labor and delivery complicated by cord around neck, without compression, not applicable or unspecified; O76 Abnormality in fetal heart rate and rhythm complicating labor and delivery
CPT/HCPCS: 36415; 85014; 85018; 85025; 86593; 86850; 86900; 86901; 88307; A9270; J0290; J2405; J2590; J2795; J7030; J7120